=== PATIENT | male | born 1945 | race Caucasian/White ===

== ENCOUNTER 2020-10-21 00:09 | Day surgery (SDC) | payer MEDICARE, SELFPAY ==
[2020-10-07 11:22] VITALS: BMI 45.1
[2020-10-21 08:03] VITALS: BP 152/78; PULSE 80; RESP 20; TEMP 36.1; O2SAT 94; BMI 44.2
--- NOTE | 2020-10-21 08:27 | WPDANESEPPF ---
Anes - Initial Pre Proc Eval Procedure: Operation Date: 10/21/20 09:00 Proposed Procedures p Colonoscopy - Giuliano Granger MD Date/Time: 10/21/20 08:27 Surgeon: Giuliano Granger MD Pre Op Diagnosis: change in bowel habits Patient Data Age: 75 Gender: M Height: 1.8 m Weight: 143.9 kg Last Vital Signs Temp 36.1 C L 10/21/20 08:03 Pulse 80 10/21/20 08:03 Resp 20 10/21/20 08:03 BP 152/78 H 10/21/20 08:03 Pulse Ox 94 10/21/20 08:03 Allergies Allergy/AdvReac Type Severity Reaction Status Date / Time clindamycin Allergy Unknown unknown Verified 10/21/20 08:12 Home Medications Medication Instructions Recorded Confirmed Type aspirin 81 mg tablet,delayed 81 mg PO DAILY 01/08/20 10/21/20 History release clobetasol 0.05 % scalp solution 1 applic TOPICAL DAILY 01/08/20 10/21/20 History cyanocobalamin (vitamin B-12) 1,000 mcg PO DAILY 01/08/20 10/21/20 History 1,000 mcg tablet dulaglutide 1.5 mg/0.5 mL 1.5 mg SUBCUT WEEKLY 01/08/20 10/21/20 History subcutaneous pen injector furosemide 40 mg tablet 40 mg PO QAM 01/08/20 10/21/20 History glipizide 5 mg tablet 5 mg PO DAILY 01/08/20 10/21/20 History krill oil 500 mg capsule 500 mg PO DAILY 01/08/20 10/21/20 History magnesium 200 mg tablet 200 mg PO DAILY 01/08/20 10/21/20 History methimazole 5 mg tablet 5 mg PO DAILY 01/08/20 10/21/20 History metoprolol tartrate 50 mg tablet 50 mg PO DAILY 01/08/20 10/21/20 History omega-3 fatty acids 1,000 mg 1,000 mg PO DAILY 01/08/20 10/21/20 History capsule zinc 50 mg tablet 50 mg PO DAILY 01/08/20 10/21/20 History atorvastatin 10 mg tablet 10 mg PO DAILY #90 tablet 06/28/20 10/21/20 Rx lisinopril 10 mg tablet See Rx Instructions .ROUTE 07/12/20 10/21/20 Rx .COMPLEX #90 tablet linaclotide 290 mcg capsule 290 mcg PO DAILY #30 cap 07/30/20 10/21/20 Rx polyethylene glycol 3350 17 gram 17 g PO .COMPLEX #14 ea 07/30/20 10/21/20 Rx oral powder packet psyllium husk 0.4 gram capsule 0.8 g PO BID #120 cap 07/30/20 10/21/20 Rx diclofenac sodium 75 mg See Rx Instructions .ROUTE 08/09/20 10/21/20 Rx tablet,delayed release .COMPLEX #180 tablet spironolactone 25 mg tablet See Rx Instructions .ROUTE 08/09/20 10/21/20 Rx .COMPLEX #90 tablet docusate sodium 100 mg capsule 200 mg PO DAILY cap 09/23/20 10/21/20 History cholecalciferol (vitamin D3) 125 mcg PO DAILY 10/07/20 10/21/20 History metformin 1,000 mg PO BID 10/07/20 10/21/20 History Patient hx anesthesia problems: none Family hx anesthesia problems: none PMFSH Past Medical History Medical History Ascending aorta dilatation Bigeminy Bradycardia CAD (coronary artery disease) Chronic coronary artery disease Cobalamin deficiency Diabetes Diabetic neuropathy Dyslipidemia Dyslipidemia associated with type 2 diabetes mellitus Hypertension Hypertensive heart disease with CHF Hyperthyroidism Low TSH level Morbid obesity Nocturia NSVT (nonsustained ventricular tachycardia) ALEX treated with BiPAP Psoriasis PVC (premature ventricular contraction) Renal insufficiency Thyroid nodule Surgical History Surgical History History of cataract surgery History of cholecystectomy (~1974) History of gastric bypass (~2003) History of hemorrhoidectomy (~1969) History of tonsillectomy and adenoidectomy (~1949) Hx of myringotomy Family History Family History Father Diabetes mellitus Hypertension Family history of cardiovascular disease Mother Diabetes mellitus Family history of kidney disease Sibling Family history of glaucoma Grandparent Diabetes mellitus Other No family history of malignant neoplasm Social History Social History Smoking packs per day: 1 Smoking cigarettes per day: 20.0 Years smoked: 40 Smoking pack-y
[2020-10-21] MEDS: LACTATED RINGERS 1,000 ML 30 ML IV CONT (08:29)
[2020-10-21 08:30] LABS: Glucose Point of Care 153 mg/dl (65-105)
--- NOTE | 2020-10-21 08:31 | WPDHPUPDATE1 ---
History and Physical Update Update Date/Time: 10/21/20 08:31 History and Physical has been reviewed, including an updated exam of the patient. There are NO changes in the patient's condition. Risks, benefits, and alternatives have been discussed and questions answered. Patient agrees to proceed with procedure.
[2020-10-21 09:15] VITALS: BP 106/54; PULSE 64; RESP 20; O2SAT 95
[2020-10-21 09:25] VITALS: BP 116/62; PULSE 63; RESP 20; O2SAT 97
[2020-10-21 09:35] VITALS: BP 154/65; PULSE 59; RESP 20; O2SAT 99
== END 2020-10-21 09:44 | disposition home or self-care (01) ==
PROVIDERS: PCP Family Medicine; Visit Provider Internal Medicine Gastroenterology
PROC: 0DJD8ZZ Inspection of Lower Intestinal Tract, Via Natural or Artificial Opening Endoscopic (ICD-10-PCS; CPT 45378; principal; 2020-10-21 09:00)
DX: K59.00 Constipation, unspecified (principal); K64.8 Other hemorrhoids; I25.10 Atherosclerotic heart disease of native coronary artery without angina pectoris; E11.40 Type 2 diabetes mellitus with diabetic neuropathy, unspecified; I11.0 Hypertensive heart disease with heart failure; I50.9 Heart failure, unspecified; E78.5 Hyperlipidemia, unspecified; G47.33 Obstructive sleep apnea (adult) (pediatric); I49.3 Ventricular premature depolarization; L40.9 Psoriasis, unspecified; E05.90 Thyrotoxicosis, unspecified without thyrotoxic crisis or storm; I77.819 Aortic ectasia, unspecified site; E66.01 Morbid (severe) obesity due to excess calories; Z68.41 Body mass index [BMI] 40.0-44.9, adult; Z98.84 Bariatric surgery status; Z87.891 Personal history of nicotine dependence
CPT/HCPCS: 45378; 82948; J7120

== ENCOUNTER 2022-12-25 13:59 | Inpatient (IN) | payer OTHER, SELFPAY ==
--- NOTE | ~2022-12-25 | XR_ITS ---
EXAM: XR tibia fibula LT 2V DATE: 12/25/2022 18:17 HISTORY: L leg cellulitis recurrent . COMPARISON: None available. FINDINGS: Normal mineralization. No fracture or dislocation. No lytic or blastic lesion. Degenerativ e changes at the knee and ankle joint. No erosion or periosteal change. Scattered soft tissue calcifi cations. Atherosclerotic calcification. IMPRESSION: No acute osseous finding in the left tibia/fibula. Reviewed, dictated and finalized at location K.
--- NOTE | ~2022-12-25 | US_ITS ---
EXAMINATION: US venous doppler [facility] DATE: 12/25/2022 23:03 INDICATION: swelling, pain, erythema . TECHNIQUE: Grayscale images without and with compression and Doppler images of the left lower extremi ty veins were obtained. COMPARISON: 01/20/2016 FINDINGS: The left common femoral vein, profunda (deep) femoral vein, femoral vein, popliteal vein, peroneal v ein, posterior tibial veins, gastrocnemius vein, and greater saphenous vein are patent. IMPRESSION: Patent left lower extremity veins. No evidence of deep venous thrombosis. Reviewed, dictated and finalized at location K.
[2022-12-25 15:13] VITALS: BP 123/72; PULSE 92; RESP 20; TEMP 36.6; O2SAT 97
--- NOTE | 2022-12-25 17:15 | ED.GENADULT ---
HPI - General Adult General Chief complaint: Extremity Problem,Nontraumatic <Sundeep Yan PA-C - Last Filed: 12/25/22 18:58> Stated complaint: infection in leg <Sundeep Yan PA-C - Last Filed: 12/25/22 18:58> Time Seen by Provider: 12/25/22 17:04 <Sundeep Yan PA-C - Last Filed: 12/25/22 18:58> Source: patient <STEPHIE Calero Last Filed: 12/25/22 18:58> Mode of arrival: ambulatory <STEPHIE Calero Last Filed: 12/25/22 18:58> Limitations: no limitations <Sundeep Yan PA-C - Last Filed: 12/25/22 18:58> History of Present Illness HPI narrative: This is a 77-year-old male with PMH of CAD, HTN, CHF, diabetes type 2 who presents to the ED with chief complaint of possible left lower leg infection. Reports he was admitted and discharged 2 weeks ago from [facility] for the same problem. Reports they sent him home with 5 days of antibiotics for skin infection and UTI. He states that the leg had initially cleared up and felt fine. Over the last 2 days he has noticed that the redness is spreading through the leg more than normal. States he has some chronic baseline redness to the lower legs. Reports pain and erythema that are progressing since 2 days ago. Denies fevers, chills, nausea, vomiting, urinary symptoms. Additionally reports he did a stress test with Dr. Leon today. <Sundeep Yan PA-C - Last Filed: 12/25/22 18:58> Related Data Home medications: Home Medications Medication Instructions Recorded Confirmed aspirin 81 mg tablet,delayed 81 mg PO DAILY 01/08/20 12/26/22 release clobetasol 0.05 % scalp solution 1 applic topical BID 01/08/20 12/26/22 cyanocobalamin (vitamin B-12) 2,000 mcg PO DAILY 01/08/20 12/26/22 1,000 mcg tablet dulaglutide 1.5 mg/0.5 mL 1.5 mg subcut WEEKLY 01/08/20 12/26/22 subcutaneous pen injector (Trulicity) furosemide 40 mg tablet 40 mg PO QAM 01/08/20 12/26/22 magnesium 200 mg tablet 200 mg PO Q6H 01/08/20 12/26/22 metoprolol tartrate 50 mg tablet 50 mg PO BID 01/08/20 12/26/22 metformin 500 mg tablet 1,000 mg PO BID 10/07/20 12/26/22 atorvastatin 10 mg tablet 10 mg PO QHS 12/26/22 12/26/22 dapagliflozin propanediol 10 mg 10 mg PO DAILY 12/26/22 12/26/22 tablet diclofenac sodium 75 mg 150 mg PO DAILY 12/26/22 12/26/22 tablet,delayed release docusate sodium 100 mg capsule 100 mg PO QAM 12/26/22 12/26/22 (Colace) ipratropium bromide 42 mcg (0.06 2 spray intranasal TID 12/26/22 12/26/22 %) nasal spray lisinopril 10 mg tablet 10 mg PO DAILY 12/26/22 12/26/22 miconazole nitrate 2 % topical 1 applic topical BID 12/26/22 12/26/22 cream (Antifungal (miconazole)) multivitamin 1 tablet PO DAILY 12/26/22 12/26/22 mupirocin 2 % topical ointment 1 applic topical TID PRN Wound Care 12/26/22 12/26/22 who-tfpvw-aqzr-lidocaine topical 1 ea topical BID 12/26/22 12/26/22 ointment psyllium husk 0.4 gram capsule 0.4 g PO BID 12/26/22 12/26/22 (Metamucil) rivaroxaban 2.5 mg tablet (Xarelto) 2.5 mg PO BID 12/26/22 12/26/22 spironolactone 25 mg tablet 25 mg PO QAM 12/26/22 12/26/22 triamcinolone-hydrophilic base 0.1 1 ea topical BID PRN Wound Healing 12/26/22 12/26/22 % topical ointment vitamin E 400 unit tablet 45 mg PO DAILY 12/26/22 12/26/22 <Sundeep Yan PA-C - Last Filed: 12/25/22 18:58> Allergies/adverse reactions: Allergies Allergy/AdvReac Type Severity Reaction Status Date / Time clindamycin Allergy Unknown unknown Verified 12/26/22 02:21 <Sundeep Yan PA-C - Last Filed: 12/25/22 18:58> Review of Systems Review of Systems: All systems as dictated in HPI <Sundeep Yan PA-C - Last Filed: 12/25/22 18:58> All systems as dictated in HPI CONSTITUTIONAL: Denies fever CARDIOVASCULAR: Reports edema. Denies chest pain RESPIRATORY: Denies dyspnea. <Alisha Bliss PA-C - Last Filed: 12/26/22 01:44> All systems reviewed & are unremarkable except as noted in HPI and below <
[2022-12-25 17:17] LABS: Basophils Percent Auto 0.1 % (0.2-1.2); Eosinophils Percent Auto 0.1 % (0-4.4); Hematocrit 43.7 % (42.0-52.0); Hemoglobin 13.8 g/dL (14.0-18.0); Immature Granulocyte Absolute 0.03 K/mm3 (0.00-0.031); Immature Granulocyte Percent A 0.2 % (0-0.5); Lymphocytes Absolute Auto 2.06 K/mm3 (0.9-3.2); Lymphocytes Percent Auto 15.4 % (18.3-44.2); Mean Corpuscular HGB Conc 31.6 g/dl (32-36); Mean Corpuscular Hemoglobin 32.3 pg (26-34); Mean Corpuscular Volume 102.3 fl (80-100); Mean Platelet Volume 10.5 fl (7.4-10.4); Monocytes Absolute Auto 0.9 K/mm3 (0.1-0.6); Neutrophils Absolute Auto 10.3 K/mm3 (1.3-6.7); Neutrophils Percent Auto 77.2 % (45.5-73.1); Platelet Count Result 213 k/mm3 (150-375); Red Blood Count 4.27 M/mm3 (4.6-6.20); Red Cell Distribution Width 13.5 % (11.5-14.5); White Blood Count 13.4 K/mm3 (4.5-10.0)
[2022-12-25 17:29] LABS: Alanine Aminotransferase 76 U/L (6-50); Albumin Level 4.1 g/dL (3.5-5.1); Alkaline Phosphatase 85 U/L (38-126); Anion Gap 8 mmol/L (8-16); Aspartate Amino Transferase 36 U/L (17-59); Bilirubin,Total 0.8 mg/dL (0.2-1.3); Blood Urea Nitrogen 22 mg/dL (9-20); Calcium 9.2 mg/dL (8.4-10.2); Carbon Dioxide 29 mmol/L (22-30); Chloride 96 mmol/L (98-107); Estimated CRCL calculation 70 ml/min; Estimated Glomerular Filt Rate > 60; Glucose 124 mg/dL (65-110); Potassium 3.6 mmol/L (3.4-5.0); Sodium 133 mmol/L (137-145)
[2022-12-25 17:46] LABS: Erythrocyte Sedimentation Rate 33 mm/hr (0-20)
[2022-12-25 17:56] LABS: CRP 17.5 mg/dL (<1.0)
[2022-12-25 21:03] VITALS: BP 122/71; PULSE 82; RESP 18; O2SAT 100
[2022-12-25] MEDS: ceFAZolin 1 GM/NS 50 ML 1 GM/50 ML BAG IVPB (23:47)
--- NOTE | 2022-12-26 02:00 | ADMGEN ---
This patient, Yusef Hawkins, was admitted to Medical Room 251-01. Patient/family oriented to hospital policies and general routines including ID bracelet, bed and alarms, visiting hours, pain management, procedures, bathroom and other care routines, personal items, smoking policy, room service/diet, and visiting hours. Information on how to activate the Rapid Response Team has been discussed. Patient/Family are encouraged to report perceived risks to care and to ask questions if they do not understand what they are told or what they should do.
[2022-12-26 02:10] VITALS: BP 160/67; PULSE 84; RESP 18; TEMP 37; O2SAT 95
[2022-12-26 02:35] VITALS: BMI 36.8
[2022-12-26 08:11] VITALS: BP 126/47; PULSE 67; RESP 17; TEMP 36.3; O2SAT 97
[2022-12-26 08:21] LABS: Glucose Point of Care 106 mg/dl (65-105)
[2022-12-26 11:44] VITALS: BMI 36.8
[2022-12-26 12:15] LABS: Glucose Point of Care 135 mg/dl (65-105)
[2022-12-26 13:58] VITALS: BP 123/63; PULSE 102; RESP 17; TEMP 36.6; O2SAT 99
[2022-12-26] MEDS: metFORMIN HCL 500 MG TABLET 1000 MG PO (16:22)
[2022-12-26 17:09] LABS: Glucose Point of Care 144 mg/dl (65-105)
[2022-12-26 20:00] VITALS: PULSE 71; RESP 16; O2SAT 99
[2022-12-26] MEDS: ATORVASTATIN 10 MG TABLET PO (21:31)
[2022-12-26 21:32] VITALS: PULSE 80
[2022-12-26] MEDS: MAGNESIUM OXIDE 200 MG TABLET PO (21:32)
[2022-12-26] MEDS: RIVAROXABAN 2.5 MG TABLET PO (21:32)
[2022-12-26] MEDS: METOPROLOL TARTRATE 50 MG TAB PO (21:32)
[2022-12-26 21:51] VITALS: BP 134/89; PULSE 71; RESP 16; TEMP 37.1; O2SAT 99
--- NOTE | 2022-12-26 22:01 | PM.IMHP ---
H&P: HPI History of Present Illness Date/Time: 12/26/22 22:01 Chief Complaint: Increased inflammation in the left leg Narrative: This is a 77-year-old man with past medical history of CAD, hypertension, CHF, type 2 diabetes who presented to the ED with a chief complaint of left lower leg worsening cellulitis. He reports that he was seen at [facility] approximately 2 weeks ago. He said he was in inpatient from about 14 to 18. We do not have this data and information in the computer system. He says that he was treated for a UTI as well as left lower extremity cellulitis. He said he received 5 days of IV antibiotics. And then he said he received 5 more days of oral antibiotics. He does not remember the course of antibiotics for the UTI. However he says that he received both IV doxycycline inpatient and then p.o. doxycycline outpatient. He says the area on the left lower extremity did not completely resolve. He says that it started progressing over the past few days and now it has spread up his leg to almost his knee. He denies fever chills nausea vomiting any urinary symptoms. His cardiac history is positive for CAD and CHF. He said he had a stress test today with Dr. Leon. He was told that he failed the stress test. Review of Systems Review of Systems: He reports his CHF is stable. He denies any worsening shortness of breath or dyspnea at this time. [facility] Past Medical History Medical History (Updated 12/25/22 @ 23:26 by Alisha Bliss PA-C) Ascending aorta dilatation Bigeminy Bradycardia CAD (coronary artery disease) Chronic coronary artery disease Cobalamin deficiency Diabetes Diabetic neuropathy Dyslipidemia Dyslipidemia associated with type 2 diabetes mellitus Hypertension Hypertensive heart disease with CHF Hyperthyroidism Low TSH level Morbid obesity Nocturia NSVT (nonsustained ventricular tachycardia) ALEX treated with BiPAP Psoriasis PVC (premature ventricular contraction) Renal insufficiency Thyroid nodule Surgical History Surgical History History of cataract surgery History of cholecystectomy (~1974) History of gastric bypass (~2003) History of hemorrhoidectomy (~1969) History of tonsillectomy and adenoidectomy (~194) Hx of myringotomy Family History Family History (Updated 12/26/22 @ 02:24 by Rickey Patton RN) Father Family history of cardiovascular disease Diabetes mellitus Hypertension Mother Family history of kidney disease Diabetes mellitus Breast cancer Sibling Family history of glaucoma Grandparent Diabetes mellitus Sibling Thyroid cancer Social History Social History Smoking packs per day: 1 Smoking cigarettes per day: 20.0 Years smoked: 20 Smoking pack-years: 20.00 Smoking status: Former smoker Tobacco type: cigarettes Smoking end date: 03/26/99 Alcohol intake: never Alcohol use details: rarely Substance use: never Lack of Transportation: No Lack of Food: Never True Current Housing: I Have Housing Concerned About Future Housing: No Difficulty Paying Gas/Electric Bills: No Difficulty Paying for Meds: No Currently Unemployed: No Education: Bachelor's Degree Difficulty w/ Childcare or Family Care: No Living arrangements: with family Spiritual care concerns: No Meds Home Medications and Allergies Home Medications Medication Instructions Recorded Confirmed Type aspirin 81 mg tablet,delayed 81 mg PO DAILY 01/08/20 12/26/22 History release cyanocobalamin (vitamin B-12) 2,000 mcg PO DAILY 01/08/20 12/26/22 History 1,000 mcg tablet dulaglutide 1.5 mg/0.5 mL 1.5 mg subcut WEEKLY 01/08/20 12/26/22 History subcutaneous pen injector (Trulicity) furosemide 40 mg tablet 40 mg PO QAM 01/08/20 12/26/22 History magnesium 200 mg tablet 200 mg PO Q6H 01/08/20 12/26/22 History metoprolol ta
[2022-12-26 22:24] LABS: Glucose Point of Care 106 mg/dl (65-105)
[2022-12-26 23:13] LABS: Basophils Percent Auto 0.1 % (0.2-1.2); Eosinophils Percent Auto 0.4 % (0-4.4); Hematocrit 38.2 % (42.0-52.0); Hemoglobin 12.4 g/dL (14.0-18.0); Immature Granulocyte Absolute 0.02 K/mm3 (0.00-0.031); Immature Granulocyte Percent A 0.2 % (0-0.5); Lymphocytes Absolute Auto 1.74 K/mm3 (0.9-3.2); Lymphocytes Percent Auto 20.8 % (18.3-44.2); Mean Corpuscular HGB Conc 32.5 g/dl (32-36); Mean Corpuscular Hemoglobin 32.5 pg (26-34); Mean Platelet Volume 10.9 fl (7.4-10.4); Monocytes Absolute Auto 0.8 K/mm3 (0.1-0.6); Monocytes Percent Auto 9.1 % (2.6-8.5); Neutrophils Absolute Auto 5.8 K/mm3 (1.3-6.7); Neutrophils Percent Auto 69.4 % (45.5-73.1); Platelet Count Result 183 k/mm3 (150-375); Red Blood Count 3.82 M/mm3 (4.6-6.20); White Blood Count 8.4 K/mm3 (4.5-10.0)
[2022-12-26 23:24] LABS: Anion Gap 5 mmol/L (8-16); Blood Urea Nitrogen 20 mg/dL (9-20); Calcium 8.8 mg/dL (8.4-10.2); Carbon Dioxide 27 mmol/L (22-30); Chloride 98 mmol/L (98-107); Estimated CRCL calculation 75 ml/min; Estimated Glomerular Filt Rate > 60; Glucose 109 mg/dL (65-110); Magnesium 2.1 mg/dL (1.6-2.3); Potassium 3.3 mmol/L (3.4-5.0); Sodium 130 mmol/L (137-145)
[2022-12-27 04:23] VITALS: BP 135/58; PULSE 60; RESP 16; TEMP 36.9; O2SAT 97
[2022-12-27 05:56] LABS: Estimated CRCL calculation 94 ml/min; Estimated Glomerular Filt Rate > 60
[2022-12-27] MEDS: LINACLOTIDE 145 MCG CAPSULE 290 MCG PO (06:00)
[2022-12-27 08:04] LABS: Glucose Point of Care 176 mg/dl (65-105)
[2022-12-27] MEDS: lisinopriL 10 MG TABLET PO (10:00)
[2022-12-27] MEDS: EMPAGLIFLOZIN 25 MG TABLET BY MOUTH (10:00)
[2022-12-27] MEDS: ASPIRIN 81 MG CHEWABLE TABLET PO (10:00)
[2022-12-27] MEDS: MAGNESIUM OXIDE 200 MG TABLET PO (10:00)
[2022-12-27] MEDS: SPIRONOLACTONE 25 MG TABLET PO (10:00)
[2022-12-27] MEDS: RIVAROXABAN 2.5 MG TABLET PO ×2 (10:00→20:47)
[2022-12-27] MEDS: metFORMIN HCL 500 MG TABLET 1000 MG PO ×2 (10:00→17:21)
[2022-12-27 10:01] VITALS: PULSE 62
[2022-12-27] MEDS: CYANOCOBALAMIN 1,000 MCG TABLET 2000 MCG PO (10:01)
[2022-12-27] MEDS: METOPROLOL TARTRATE 50 MG TAB PO ×2 (10:01→20:47)
[2022-12-27] MEDS: CHOLECALCIFEROL 1,000 UNITS TABLET 1000 UNITS PO (10:01)
[2022-12-27] MEDS: FUROSEMIDE 40 MG TABLET PO (10:01)
[2022-12-27] MEDS: VITAMIN E 100 UNIT CAPSULE PO (10:01)
--- NOTE | 2022-12-27 11:18 | PM.IMPN ---
Progress Note: A&P Assessment and Plan (1) Bilateral primary osteoarthritis of knee: Code(s): M17.0 - Bilateral primary osteoarthritis of knee Status: Acute (2) Screening for prostate cancer: Code(s): Z12.5 - Encounter for screening for malignant neoplasm of prostate Status: Acute (3) Cellulitis of left lower extremity: Code(s): L03.116 - Cellulitis of left lower limb Status: Acute (4) Aortic stenosis: Code(s): I35.0 - Nonrheumatic aortic (valve) stenosis Status: Acute (5) Sciatica, right side: Code(s): M54.31 - Sciatica, right side Status: Acute (6) History of gastric bypass: Code(s): Z98.84 - Bariatric surgery status Status: Acute (7) Iron deficiency: Code(s): E61.1 - Iron deficiency Status: Acute (8) Rectal bleeding: Code(s): K62.5 - Hemorrhage of anus and rectum Status: Acute (9) Morbid obesity: Code(s): E66.01 - Morbid (severe) obesity due to excess calories Status: Acute (10) Constipation: Code(s): K59.00 - Constipation, unspecified Status: Acute Plan 1. Cellulitis Not responsive to doxycycline Start IV vancomycin and IV ceftriaxone Monitor antibiotics for 3 days at least to see clinical improvement If there is no improvement then order CT scan to look for abscess Follow-up CBC, BMP, magnesium every day for 5 days 2. CHF Continue dapagliflozin Continue furosemide, lisinopril, metoprolol, spironolactone Patient is not septic, not giving IV fluids at this time 3. CAD Failed stress test but unclear what is the diagnosis Recommend the day shift consult Cardiology so they can have ongoing management while this patient is inpatient Continue Xarelto, metoprolol, lisinopril, aspirin, dapagliflozin, Lipitor 4. non-IDDM Continue dulaglutide Continue metformin Glucose can be checked routinely on BMPs Can start insulin if he needs it Full code inpt/tele About 1 hour was spent doing this evaluation of this patient Subjective Date/time seen: 12/27/22 11:18 Interval history: No complaints Exam Narrative: GENERAL: Well-appearing, well-nourished, and in no acute distress. HEAD: Normocephalic, atraumatic. EYES: PERRLA and EOMI. ENT: Nares clear, no rhinorrhea or epistaxis.? Mucous membranes moist.? Oropharynx without tonsillar hypertrophy exudate or other lesions. NECK: Supple.? No adenopathy or masses.? CHEST: No respiratory distress. Clear to auscultation. No wheezes rales or rhonchi HEART: Regular rate and rhythm.? No murmur heard.? Normal peripheral pulses. ABDOMEN: Soft, nontender, nondistended, normal active bowel sounds. MSK: Normal range of motion. SKIN: Left lower extremity with erythema, 2+ pitting edema, warmth and tenderness.? No lymphangitic streaking. No crepitus. Normal DP pulse NEURO: Alert and oriented x3. No focal deficits.? PSYCH: Normal mood and affect. Objective Data Vital Signs Vital Signs: Vital Signs - 24 hr 12/26/22 13:58 12/26/22 21:32 12/26/22 21:51 Temperature 97.8 F 98.7 F Pulse Rate 102 H 80 71 Respiratory Rate 17 16 Blood Pressure 123/63 134/89 Pulse Oximetry 99 99 Oxygen Delivery 12/26/22 20:00 12/27/22 04:23 12/27/22 10:01 Temperature 98.5 F Pulse Rate 71 60 62 Respiratory Rate 16 16 Blood Pressure 135/58 L Pulse Oximetry 99 97 Oxygen Delivery Room Air 12/27/22 08:00 Temperature Pulse Rate Respiratory Rate Blood Pressure Pulse Oximetry Oxygen Delivery Room Air Intake/Output Intake/Output: Intake & Output 12/24/22 12/25/22 12/26/22 12/27/22 23:59 23:59 23:59 23:59 Intake Total 1560 1330 Output Total 1075 300 Balance 485 1030 Meds/Results Medications: Active Medications Generic Name Dose Route Start Last Admin Trade Name Freq PRN Reason Stop Dose Admin Aspirin 81 mg 12/27/22 08:00 12/27/22 10:00 Aspirin 81 Mg Chewable Tablet PO 81 mg DAILY@0800 [facility] Administ
[2022-12-27 12:10] LABS: Glucose Point of Care 151 mg/dl (65-105)
--- NOTE | 2022-12-27 13:36 | PHAR ---
Home medication: Unable to verify home med of Fiber Capsules (0.36G fiber each), as capsules are clear gelatin capsules with no identifiable markings. However, appears to be correct
--- NOTE | 2022-12-27 14:08 | PM.CNCAR ---
Assessment and Plan Assessment and plan (1) Abnormal stress test: Code(s): R94.39 - Abnormal result of other cardiovascular function study Status: Acute Assessment and Plan: Patient with variable RAMOS and a stress test showing a small area of moderate ischemia of the inferior segment. No typical angina. No recent symptoms to suggest unstable cardiac situation. Known mild CAD in 2013. The plan is to proceed with elective coronary angiography when the patient his optimal state of health, when his cellulitis has improved significantly. --our office will set up elective cardiac catheterization the next few weeks. --patient will call if there is change in symptoms --continue aspirin, atorvastatin (2) Cellulitis of left lower extremity: Code(s): L03.116 - Cellulitis of left lower limb Status: Acute Assessment and Plan: Patient was hospitalized with sepsis, lower extremity cellulitis and acute kidney injury add [facility] 2 weeks ago and returns with worsening cellulitis. --continue antibiotics per hospitalist (3) Frequent PVCs: Code(s): I49.3 - Ventricular premature depolarization Status: Acute Assessment and Plan: History of frequent PVCs with a 22% burden. Seeing an corn shredder. Has been mildly bradycardic in the past but not recently. --continue metoprolol, even if the patient is mildly bradycardic. (4) Chronic diastolic CHF (congestive heart failure): Code(s): I50.32 - Chronic diastolic (congestive) heart failure Status: Acute Assessment and Plan: History of chronic diastolic heart failure, well compensated at this time. --continue furosemide, spironolactone, Jardiance History of Present Illness History of Present Illness Consult date/time: 12/27/22 14:08 Reason For Visit: Cellulitis Narrative: Yusef Hawkins is a year old male whom I was asked to see at the request of Dr. Beth for my advice and opinion regarding his abnormal stress test, in consultation. The patient was hospitalized at [facility] on 12/06/2022 with sepsis and lower extremity cellulitis. He had acute kidney injury and lactic acidosis. No acute cardiac issues during his hospital stay and he was discharged on 12/11/2022. He was readmitted to [facility] on 12/25/2022 with worsening cellulitis of his left leg and has been started on vancomycin and ceftriazone He is followed by Dr. Leon for his coronary disease and chronic diastolic heart failure. Cardiac catheterization in 2013 showed mild CAD. He has hypertension, diabetes, hyperlipidemia, sleep apnea, bradycardia, frequent PVCs (greater than 20% burden, followed by corn shredder, treated with metoprolol), and mild aortic valve stenosis. He was last seen on 12/19/2022 with stable CHF. He had progressive exertional dyspnea and underwent a stress test which showed ejection fraction 51%, hypokinesis of the inferior wall, a small area of moderate ischemia of the basal inferior septal and mid inferoseptal segments. Elective outpatient cardiac catheterization was planned. The patient continues to have some intermittent RAMOS particularly when he initiates activity. No angina, dizziness, palpitations. Some edema the left lower extremity. An echocardiogram done 12/08/2022 showed ejection fraction 55-60%, diastolic dysfunction, and mild aortic stenosis. Review of Systems Constitutional: Constitutional: Denies fever(s) Eyes: Eyes: Reports no additional eye complaints ENT: Denies epistaxis Cardiovascular: Cardiovascular: Denies chest pain, Denies pedal edema, Denies lightheadedness and Denies dyspnea Respiratory: Respiratory: Denies chest congestion, Denies dyspnea and Reports dyspnea on exertion Gastrointestinal: Gastrointestinal: Denies abdominal pain and Denies hematochezia Genitourinary: Genitourinary: Denies hematuria Musculoskeletal: Musculoskeletal: Reports no additio
[2022-12-27 14:12] VITALS: BP 105/48; PULSE 71; RESP 16; TEMP 37.4; O2SAT 95
[2022-12-27 16:49] LABS: Glucose Point of Care 100 mg/dl (65-105)
[2022-12-27] MEDS: MAGNESIUM OXIDE 400 MG TABLET 800 MG PO (17:21)
[2022-12-27 19:20] VITALS: BP 93/50; PULSE 72; RESP 18; TEMP 37; O2SAT 93
[2022-12-27 20:00] VITALS: PULSE 76; RESP 18; O2SAT 94
[2022-12-27] MEDS: ATORVASTATIN 10 MG TABLET PO (20:47)
[2022-12-27 22:02] LABS: Glucose Point of Care 91 mg/dl (65-105)
[2022-12-27 23:14] LABS: Basophils Percent Auto 0.1 % (0.2-1.2); Eosinophils Absolute Auto 0.1 K/mm3 (0-0.3); Eosinophils Percent Auto 0.9 % (0-4.4); Hematocrit 36.6 % (42.0-52.0); Hemoglobin 11.8 g/dL (14.0-18.0); Immature Granulocyte Absolute 0.05 K/mm3 (0.00-0.031); Immature Granulocyte Percent A 0.7 % (0-0.5); Lymphocytes Absolute Auto 1.69 K/mm3 (0.9-3.2); Lymphocytes Percent Auto 22.6 % (18.3-44.2); Mean Corpuscular HGB Conc 32.2 g/dl (32-36); Mean Corpuscular Hemoglobin 32.6 pg (26-34); Mean Corpuscular Volume 101.1 fl (80-100); Mean Platelet Volume 11.1 fl (7.4-10.4); Monocytes Absolute Auto 0.8 K/mm3 (0.1-0.6); Monocytes Percent Auto 11.1 % (2.6-8.5); Neutrophils Absolute Auto 4.8 K/mm3 (1.3-6.7); Neutrophils Percent Auto 64.6 % (45.5-73.1); Platelet Count Result 199 k/mm3 (150-375); Red Blood Count 3.62 M/mm3 (4.6-6.20); Red Cell Distribution Width 13.1 % (11.5-14.5); White Blood Count 7.5 K/mm3 (4.5-10.0)
[2022-12-27 23:27] LABS: Anion Gap 7 mmol/L (8-16); Blood Urea Nitrogen 20 mg/dL (9-20); Calcium 8.2 mg/dL (8.4-10.2); Carbon Dioxide 25 mmol/L (22-30); Chloride 98 mmol/L (98-107); Estimated CRCL calculation 68 ml/min; Estimated Glomerular Filt Rate > 60; Glucose 121 mg/dL (65-110); Potassium 3.2 mmol/L (3.4-5.0); Sodium 130 mmol/L (137-145)
[2022-12-28] VITALS (7 sets, daily range): BP systolic 92–128; BP diastolic 45–71; PULSE 56–88; RESP 16–18; TEMP 36.3–36.9; O2SAT 95–100
[2022-12-28] MEDS: LINACLOTIDE 145 MCG CAPSULE 290 MCG PO (05:35)
[2022-12-28 08:14] LABS: Glucose Point of Care 155 mg/dl (65-105)
[2022-12-28 08:33] LABS: Estimated CRCL calculation 75 ml/min; Estimated Glomerular Filt Rate > 60
[2022-12-28] MEDS: CHOLECALCIFEROL 1,000 UNITS TABLET 1000 UNITS PO (09:06)
[2022-12-28] MEDS: CYANOCOBALAMIN 1,000 MCG TABLET 2000 MCG PO (09:06)
[2022-12-28] MEDS: MAGNESIUM OXIDE 400 MG TABLET 800 MG PO ×2 (09:06→16:51)
[2022-12-28] MEDS: ASPIRIN 81 MG CHEWABLE TABLET PO (09:06)
[2022-12-28] MEDS: RIVAROXABAN 2.5 MG TABLET PO ×2 (09:06→20:41)
[2022-12-28] MEDS: VITAMIN E 100 UNIT CAPSULE PO (09:07)
[2022-12-28] MEDS: lisinopriL 10 MG TABLET PO (09:07)
[2022-12-28] MEDS: SPIRONOLACTONE 25 MG TABLET PO (09:07)
[2022-12-28] MEDS: EMPAGLIFLOZIN 25 MG TABLET BY MOUTH (09:07)
[2022-12-28] MEDS: metFORMIN HCL 500 MG TABLET 1000 MG PO ×2 (09:07→16:51)
[2022-12-28] MEDS: METOPROLOL TARTRATE 50 MG TAB PO ×2 (09:07→20:40)
[2022-12-28] MEDS: FUROSEMIDE 40 MG TABLET PO (09:08)
[2022-12-28 09:10] LABS: Vancomycin Trough 15.4 ug/mL (10.0-20.0)
[2022-12-28] MEDS: NEOMYCIN/POLYMYXIN/BACITRACIN OINTMENT 15 GM TUBE 1 APPLIC TOPICAL ×2 (09:17→16:51)
--- NOTE | 2022-12-28 10:30 | PM.IMPN ---
Progress Note: A&P Assessment and Plan (1) Bilateral primary osteoarthritis of knee: Code(s): M17.0 - Bilateral primary osteoarthritis of knee Status: Acute (2) Screening for prostate cancer: Code(s): Z12.5 - Encounter for screening for malignant neoplasm of prostate Status: Acute (3) Cellulitis of left lower extremity: Code(s): L03.116 - Cellulitis of left lower limb Status: Acute (4) Aortic stenosis: Code(s): I35.0 - Nonrheumatic aortic (valve) stenosis Status: Acute (5) Sciatica, right side: Code(s): M54.31 - Sciatica, right side Status: Acute (6) History of gastric bypass: Code(s): Z98.84 - Bariatric surgery status Status: Acute (7) Iron deficiency: Code(s): E61.1 - Iron deficiency Status: Acute (8) Rectal bleeding: Code(s): K62.5 - Hemorrhage of anus and rectum Status: Acute (9) Morbid obesity: Code(s): E66.01 - Morbid (severe) obesity due to excess calories Status: Acute (10) Constipation: Code(s): K59.00 - Constipation, unspecified Status: Acute Plan 1. Cellulitis Not responsive to doxycycline Start IV vancomycin and IV ceftriaxone Monitor antibiotics for 3 days at least to see clinical improvement If there is no improvement then order CT scan to look for abscess Follow-up CBC, BMP, magnesium every day for 5 days 2. CHF Continue dapagliflozin Continue furosemide, lisinopril, metoprolol, spironolactone Patient is not septic, not giving IV fluids at this time 3. CAD Failed stress test but unclear what is the diagnosis Recommend the day shift consult Cardiology so they can have ongoing management while this patient is inpatient Continue Xarelto, metoprolol, lisinopril, aspirin, dapagliflozin, Lipitor 4. non-IDDM Continue dulaglutide Continue metformin Glucose can be checked routinely on BMPs Can start insulin if he needs it Full code inpt/tele About 1 hour was spent doing this evaluation of this patient Subjective Date/time seen: 12/28/22 10:30 Interval history: No complaints Exam Narrative: GENERAL: Well-appearing, well-nourished, and in no acute distress. HEAD: Normocephalic, atraumatic. EYES: PERRLA and EOMI. ENT: Nares clear, no rhinorrhea or epistaxis.? Mucous membranes moist.? Oropharynx without tonsillar hypertrophy exudate or other lesions. NECK: Supple.? No adenopathy or masses.? CHEST: No respiratory distress. Clear to auscultation. No wheezes rales or rhonchi HEART: Regular rate and rhythm.? No murmur heard.? Normal peripheral pulses. ABDOMEN: Soft, nontender, nondistended, normal active bowel sounds. MSK: Normal range of motion. SKIN: Left lower extremity with erythema, 2+ pitting edema, warmth and tenderness.? No lymphangitic streaking. No crepitus. Normal DP pulse NEURO: Alert and oriented x3. No focal deficits.? PSYCH: Normal mood and affect. Objective Data Vital Signs Vital Signs: Vital Signs - 24 hr 12/27/22 14:12 12/27/22 19:20 12/27/22 20:00 Temperature 99.3 F 98.6 F Pulse Rate 71 72 76 Respiratory Rate 16 18 18 Blood Pressure 105/48 L 93/50 L Pulse Oximetry 95 93 94 Oxygen Delivery Room Air 12/28/22 06:00 12/28/22 09:07 12/28/22 09:30 Temperature 97.4 F L Pulse Rate 56 L 88 88 Respiratory Rate 18 Blood Pressure 92/45 L 128/71 Pulse Oximetry 100 Oxygen Delivery Intake/Output Intake/Output: Intake & Output 12/25/22 12/26/22 12/27/22 12/28/22 23:59 23:59 23:59 23:59 Intake Total 1560 2200 360 Output Total 1075 900 405 Balance 485 1300 -45 Meds/Results Medications: Active Medications Generic Name Dose Route Start Last Admin Trade Name Freq PRN Reason Stop Dose Admin Aspirin 81 mg 12/27/22 08:00 12/28/22 09:06 Aspirin 81 Mg Chewable Tablet PO 81 mg DAILY@0800 BRI Administration Atorvastatin Calcium 10 mg 12/26/22 21:00 12/27/22 20:47 Atorvastatin 10 Mg Tablet PO 10 m
[2022-12-28 12:13] LABS: Glucose Point of Care 112 mg/dl (65-105)
--- NOTE | 2022-12-28 13:01 | PC.NURSE ---
On 12/28/22, the student, [Jorge Samson], provided care and completed [facility] documentation on this patient. I have reviewed the student's documentation and agree with the findings.
[2022-12-28 17:29] LABS: Glucose Point of Care 120 mg/dl (65-105)
[2022-12-28] MEDS: ATORVASTATIN 10 MG TABLET PO (20:41)
[2022-12-28 22:03] LABS: Basophils Percent Auto 0.4 % (0.2-1.2); Eosinophils Absolute Auto 0.1 K/mm3 (0-0.3); Eosinophils Percent Auto 0.8 % (0-4.4); Hematocrit 37.1 % (42.0-52.0); Immature Granulocyte Absolute 0.04 K/mm3 (0.00-0.031); Immature Granulocyte Percent A 0.5 % (0-0.5); Lymphocytes Absolute Auto 1.71 K/mm3 (0.9-3.2); Lymphocytes Percent Auto 22.4 % (18.3-44.2); Mean Corpuscular HGB Conc 32.3 g/dl (32-36); Mean Corpuscular Hemoglobin 32.5 pg (26-34); Mean Corpuscular Volume 100.5 fl (80-100); Mean Platelet Volume 10.5 fl (7.4-10.4); Monocytes Absolute Auto 0.8 K/mm3 (0.1-0.6); Monocytes Percent Auto 10.7 % (2.6-8.5); Neutrophils Percent Auto 65.2 % (45.5-73.1); Platelet Count Result 176 k/mm3 (150-375); Red Blood Count 3.69 M/mm3 (4.6-6.20); White Blood Count 7.6 K/mm3 (4.5-10.0)
[2022-12-28 22:14] LABS: Anion Gap 6 mmol/L (8-16); Blood Urea Nitrogen 16 mg/dL (9-20); Calcium 8.3 mg/dL (8.4-10.2); Carbon Dioxide 25 mmol/L (22-30); Chloride 100 mmol/L (98-107); Estimated CRCL calculation 75 ml/min; Estimated Glomerular Filt Rate > 60; Glucose 120 mg/dL (65-110); Potassium 3.3 mmol/L (3.4-5.0); Sodium 131 mmol/L (137-145)
[2022-12-28 22:16] LABS: Glucose Point of Care 98 mg/dl (65-105)
[2022-12-29] MEDS: LINACLOTIDE 145 MCG CAPSULE 290 MCG PO (05:42)
[2022-12-29 06:00] VITALS: BP 126/51; PULSE 60; RESP 18; TEMP 36.2; O2SAT 97
[2022-12-29 06:16] LABS: Estimated CRCL calculation 83 ml/min; Estimated Glomerular Filt Rate > 60
[2022-12-29 08:36] LABS: Glucose Point of Care 113 mg/dl (65-105)
[2022-12-29 08:39] VITALS: BP 112/54; PULSE 71; RESP 16; O2SAT 96
[2022-12-29] MEDS: CHOLECALCIFEROL 1,000 UNITS TABLET 1000 UNITS PO (08:44)
[2022-12-29] MEDS: ASPIRIN 81 MG CHEWABLE TABLET PO (08:44)
[2022-12-29] MEDS: metFORMIN HCL 500 MG TABLET 1000 MG PO (08:44)
[2022-12-29 08:45] VITALS: PULSE 74
[2022-12-29] MEDS: EMPAGLIFLOZIN 25 MG TABLET BY MOUTH (08:45)
[2022-12-29] MEDS: FUROSEMIDE 40 MG TABLET PO (08:45)
[2022-12-29] MEDS: MAGNESIUM OXIDE 400 MG TABLET 800 MG PO (08:45)
[2022-12-29] MEDS: SPIRONOLACTONE 25 MG TABLET PO (08:45)
[2022-12-29] MEDS: VITAMIN E 100 UNIT CAPSULE PO (08:45)
[2022-12-29] MEDS: RIVAROXABAN 2.5 MG TABLET PO (08:45)
[2022-12-29] MEDS: METOPROLOL TARTRATE 50 MG TAB PO (08:45)
[2022-12-29] MEDS: CYANOCOBALAMIN 1,000 MCG TABLET 2000 MCG PO (08:45)
[2022-12-29] MEDS: NEOMYCIN/POLYMYXIN/BACITRACIN OINTMENT 15 GM TUBE 1 APPLIC TOPICAL (08:46)
[2022-12-29] MEDS: traMADol HCL (*CRX) 50 MG TABLET PO (08:47)
--- NOTE | 2022-12-29 09:52 | P.CDI_ITS ---
* There is not a cause and effect relationship between cellulitis and Diabetes Mellitus. CDI Query Clarification Request Please clarify if there is a cause and effect relationship between cellulitis and Diabetes Mellitus. * There is a cause and effect relationship between cellulitis and Diabetes Mellitus. * There is not a cause and effect relationship between cellulitis and Diabetes Mellitus. * Unknown if there is a cause and effect relationship between cellulitis and Diabetes Mellitus.
--- NOTE | 2022-12-29 09:52 | WPDCDIQUERY2 ---
CDI Query Clarification Request Please clarify if there is a cause and effect relationship between cellulitis and Diabetes Mellitus. There is a cause and effect relationship between cellulitis and Diabetes Mellitus. There is not a cause and effect relationship between cellulitis and Diabetes Mellitus. Unknown if there is a cause and effect relationship between cellulitis and Diabetes Mellitus.
--- NOTE | 2022-12-29 11:09 | PM.DS ---
DS: Admitting Diagnosis Discharge Date [address] hundred twenty-three Admitting Diagnosis Cellulitis DS: Discharge Diagnosis Discharge Diagnosis (1) Bilateral primary osteoarthritis of knee: Code(s): M17.0 - Bilateral primary osteoarthritis of knee Status: Acute (2) Screening for prostate cancer: Code(s): Z12.5 - Encounter for screening for malignant neoplasm of prostate Status: Acute (3) Cellulitis of left lower extremity: Code(s): L03.116 - Cellulitis of left lower limb Status: Acute (4) Aortic stenosis: Code(s): I35.0 - Nonrheumatic aortic (valve) stenosis Status: Acute (5) Sciatica, right side: Code(s): M54.31 - Sciatica, right side Status: Acute (6) History of gastric bypass: Code(s): Z98.84 - Bariatric surgery status Status: Acute (7) Iron deficiency: Code(s): E61.1 - Iron deficiency Status: Acute (8) Rectal bleeding: Code(s): K62.5 - Hemorrhage of anus and rectum Status: Acute (9) Morbid obesity: Code(s): E66.01 - Morbid (severe) obesity due to excess calories Status: Acute (10) Constipation: Code(s): K59.00 - Constipation, unspecified Status: Acute Plan 1. Cellulitis Not responsive to doxycycline Start IV vancomycin and IV ceftriaxone Monitor antibiotics for 3 days at least to see clinical improvement If there is no improvement then order CT scan to look for abscess Follow-up CBC, BMP, magnesium every day for 5 days 2. CHF Continue dapagliflozin Continue furosemide, lisinopril, metoprolol, spironolactone Patient is not septic, not giving IV fluids at this time 3. CAD Failed stress test but unclear what is the diagnosis Recommend the day shift consult Cardiology so they can have ongoing management while this patient is inpatient Continue Xarelto, metoprolol, lisinopril, aspirin, dapagliflozin, Lipitor 4. non-IDDM Continue dulaglutide Continue metformin Glucose can be checked routinely on BMPs Can start insulin if he needs it Full code inpt/tele About 1 hour was spent doing this evaluation of this patient DS: Summary Hospital Course Hospital Course: Patient is admitted for cellulitis. IV antibiotics were started and patient. He did exceptionally well. Cellulitis looks improved. Oral antibiotics on discharge Time Spent with Patient Time attestation: Total time spent providing and/or coordinating discharge services: Exam Narrative: GENERAL: Well-appearing, well-nourished, and in no acute distress. HEAD: Normocephalic, atraumatic. EYES: PERRLA and EOMI. ENT: Nares clear, no rhinorrhea or epistaxis.? Mucous membranes moist.? Oropharynx without tonsillar hypertrophy exudate or other lesions. NECK: Supple.? No adenopathy or masses.? CHEST: No respiratory distress. Clear to auscultation. No wheezes rales or rhonchi HEART: Regular rate and rhythm.? No murmur heard.? Normal peripheral pulses. ABDOMEN: Soft, nontender, nondistended, normal active bowel sounds. MSK: Normal range of motion. SKIN: Left lower extremity with erythema, 2+ pitting edema, warmth and tenderness.? No lymphangitic streaking. No crepitus. Normal DP pulse NEURO: Alert and oriented x3. No focal deficits.? PSYCH: Normal mood and affect. DS: Data Data Completed and Pending Labs on day of discharge: Labs from last 24 hours 12/29/22 12/29/22 12/28/22 08:30 05:37 21:57 WBC 7.6 RBC 3.69 L Hgb 12.0 L Hct 37.1 L MCV 100.5 H MCH 32.5 MCHC 32.3 RDW 13.0 Plt Count 176 MPV 10.5 H Immature Gran % (Auto) 0.5 Neut % (Auto) 65.2 Lymph % (Auto) 22.4 [place] % (Auto) 10.7 H Eos % (Auto) 0.8 Baso % (Auto) 0.4 Lymph # (Auto) 1.71 [place] # (Auto) 0.8 H Eos # (Auto) 0.1 Baso # (Auto) 0.0 Abs Immat Gran (auto) 0.04 H Absolute Neuts (auto) 5.0 Absolute Nucleated RBC 0.0 Nucleated RBC % 0.0 Sodium 131 L Potassium 3.3 L Chloride
[2022-12-29 12:14] LABS: Glucose Point of Care 199 mg/dl (65-105)
== END 2022-12-29 13:00 | disposition home or self-care (01) | DRG 603 ==
LOC: ANHED 12-26 00:49 → ANH2MED 12-26 01:16
PROVIDERS: Internal Medicine; Physician Assistant; Admitting Provider Internal Medicine; Emergency Provider Physician Assistant; Visit Provider Chiropractor
DX: L03.116 Cellulitis of left lower limb (principal); I47.29 Other ventricular tachycardia; I50.32 Chronic diastolic (congestive) heart failure; I11.0 Hypertensive heart disease with heart failure; I35.0 Nonrheumatic aortic (valve) stenosis; I25.10 Atherosclerotic heart disease of native coronary artery without angina pectoris; E11.40 Type 2 diabetes mellitus with diabetic neuropathy, unspecified; E05.90 Thyrotoxicosis, unspecified without thyrotoxic crisis or storm; E66.01 Morbid (severe) obesity due to excess calories; M17.0 Bilateral primary osteoarthritis of knee; G47.33 Obstructive sleep apnea (adult) (pediatric); Z68.36 Body mass index [BMI] 36.0-36.9, adult; Z98.84 Bariatric surgery status; Z79.01 Long term (current) use of anticoagulants; Z79.82 Long term (current) use of aspirin; Z79.84 Long term (current) use of oral hypoglycemic drugs; Z87.891 Personal history of nicotine dependence
CPT/HCPCS: 36415; 73590; 80048; 80053; 80202; 82565; 82948; 83735; 85025; 85652; 86140; 87040; 87081; 93971; 96365; 96366; 96367; 99285; A9270; G0378; J0690; J0696; J3370

== ENCOUNTER 2023-07-12 12:34 | Outpatient (CLI) | payer OTHER, SELFPAY ==
--- NOTE | ~2023-07-12 | XR_ITS ---
XR chest 2V 07/12/2023 12:50 Indication: Chronic heart failure and shortness of breath Procedure: 2 view chest Comparison: No prior studies for comparison. Findings: Mildly elevated left diaphragm. Pacemaker leads are in expected position. Heart size normal . No focal air space disease, pulmonary edema, pleural effusion or suspected pneumothorax. Impression: 1: No acute cardiopulmonary disease. Reviewed, dictated and finalized at location B. Impression: 1: No acute cardiopulmonary disease.
== END 2023-07-12 12:35 | disposition home or self-care (01) ==
LOC: ANHIMG 12:36
PROVIDERS: PCP Internal Medicine Cardiovascular Disease; Visit Provider Internal Medicine Cardiovascular Disease
DX: I50.89 Other heart failure (principal); R06.02 Shortness of breath
CPT/HCPCS: 71046

== ENCOUNTER 2024-09-10 09:49 | Outpatient (CLI) | payer MEDICARE, SELFPAY ==
--- NOTE | ~2024-09-10 | CT_ITS ---
Clinical Indication: Abnormal weight loss CT Scan of the Chest, Abdomen, and Pelvis with Contrast: Technique: Contiguous sections were acquired throughout the chest, abdomen, and pelvis after intraven ous administration of 100 cc of Omnipaque 350. Dose reduction technique was used on this scan by uti lizing automated exposure control and iterative reconstruction technique. The dose-length product (DL P) was 1915.82 mGy-cm. Findings: 3 cm heterogeneously enhancing, predominantly hypodense left thyroid lobe nodule present. S ubcentimeter right thyroid lobe nodules are present. There is no evidence of any significant mediastinal, hilar or axillary lymphadenopathy. The mediastin al soft tissues and vascular structures appear normal. No pericardial effusion. Moderate bilateral pleural effusions are present. There is mild bibasilar associated atelectatic allen ge. Hepatic mass demonstrates coarse peripheral calcification with central fat attenuation, compatible wi th a benign lesion. No other hepatic abnormality seen. The spleen, pancreas, gallbladder, adrenals an d kidneys are within normal limits. There are atherosclerotic calcifications of the aorta. No lympha denopathy. No bowel obstruction or bowel wall thickening. There is no evidence to suggest acute appendicitis. Pr obable area of chronic fat necrosis just left of midline, just deep to the anterior abdominal wall. Urinary bladder is unremarkable. No pelvic mass seen. No ascites. Impression: Moderate bilateral pleural effusions with mild bibasilar subsegmental atelectatic change. Benign-appearing hepatic mass with fat attenuation peripheral calcification. Probable area of chronic fat necrosis in the abdomen, as detailed above. Reviewed, dictated and finalized at [facility]. Impression: Moderate bilateral pleural effusions with mild bibasilar subsegmental atelectat ic change. Benign-appearing hepatic mass with fat attenuation peripheral calcification. Probable area of chronic fat necrosis in the abdomen, as detailed above.
[2024-09-10 10:20] LABS: Estimated Glomerular Filt Rate 58
--- OUTSIDE RECORDS SUMMARY | 2024-09-10 11:01 | XMS_ITS ---
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 Name Role Phone Cynthia Madsen Unavailable [phone] Song Calhoun Unavailable [phone] [facility] ([facility]), Alisha Alvarado Unavailable Unavailable [facility] RN ([facility]L), Lorena enamorado Unavailable Unavailable Unavailable Unavailable Cornel Sanderson Unavailable [phone] Magnus Gagnon Unavailable Unavailable YULIANA CAMPOS Unavailable [phone] Baljit Randall Unavailable [phone] Reason for Referral Not Available Allergies, adverse reactions, alerts Allergen Type Reaction Severity Status Onset Date Clindamycin Allergy to substance (disorder) Unknow n Active N/A Amiodarone Allergy to substance (disorder) Unknown Active N/A History of medication use Medication Class Instructions Start Date End Date Furosemide 40 mg Tab No Data Available 2023-12-24 No Data Available Aspirin 81 mg Tab delayed rel No Data Available 12-23 No Data Available Diclofenac Sodium 75 mg Tab delayed rel 1 tablet orally 2 times per day 2023-12-24 No Data Available [facility] Vitamin B12 1000 MCG Tab No Data Available 2023-11 No Data Available Lisinopril 10 mg Tab No Data Available 2023-12-24 No Data Available traMADol 50 mg Tab 1 tablet every other day 2023-12-24 No Data Available Magnesium 200 mg Tab 4 tablets once daily 2023-12-24 No Data Available [facility] [place] Krill Oil 350 mg Cap No Data Available 2023-12-24 No Data Available Triamcinolone Acetonide 0.02 5 % Crm No Data Available 2023-12-24 No Data Available Docusate Sodium 100 mg Cap No Data Available 2023-11-27 0 No Data Available Vitamin E 90 mg (200 UNIT) Cap No Data Available 2023-12-24 No Data Available Zinc 50 mg Tab No Data Available 2023-12-24 No Data Available Motegrity 2 mg Tab TAKE 1 TABLET BY KONG TH EVERY DAY 2023-10-22 No Data Available Xarelto 2.5 mg Tab No Data Available 2023-04-02 No D jessica Available Ozempic (0.25 or 0.5 mg/DOSE ) 2 mg/3ML Solution Pen-injector INJECT 0.5MG UNDER THE SKIN EVERY 7 DAYS 2023-08-14 No Data Available Farxiga 10 mg Tab No Data Available 2023-09-03 No Da ta Available Atorvastatin Calcium 10 mg Tab No Data Available 2023-08-10 No Data Available metFORMIN 500 mg Tab No Data Available 2023-06-28 No Data Available Metoprolol Tartrate 50 mg Tab No Data Available No Data Available methIMAzole 5 mg Tab TAKE 5 MG DAILY Sun THROUGH SUNDAY. DO NOT TAKE ANY ON THE WEEKENDS 2023-07-04 No Data Available Problem List Problem Status Onset Date Resolved Date Synopsis Lower extremity edema Active 2023-12-24 N/A N/A Heart failure with preserved ejection fraction Active 2023-12-24 N/A N/A Hypertension associated with type 2 diabetes mellitus Active 2023-12-24 N/A N/A Hyperlipidemia associated with type 2 diabetes mellitus Active 2023-12-24 N/A N/ A Coronary artery disease Active 2023-12-24 N/A N /A Hyperthyroidism Active 2023-12-24 N/A N/A Osteoarthritis Active 2023-12-24 N/A N/A ALEX (obstructive sleep apnea) Active 2023-12-24 N/A has not worn BiPap in a few weeks Presence of cardiac pacemaker Active 2023-12-24 N/A N/A Peripheral vascular disease with stasis dermatitis Active 2023-12-24 N/A N/A RAMOS (dyspnea on exertion) Active 2023-12-24 N/A N/A CKD stage 2 due to type 2 diabetes mellitus Active 2024-02-25 N/A N/A Morbid obesity Resolved 2023-12-24 2024-02-25 N/A Obesity (BMI 30.0-34.9) Active 2024-02-25 N/A N /A Dysphagia Active 2024-02-25 N/A N/A Risk for falls Active 2024-02-25 N/A N/A Stage 1 decubitus ulcer in diabetic patient Active 2024-02-25 N/A N/A Encounters Encounters Type Facility Date of Service Diagnosis/Co mplaint Home visit for evaluation and management of new patient requiring medically appropriate examination and high level of medical decision making. If using time, at least 75 minutes total time on [facility] [place] 12/24/2023 Unspecified diastoli c (congestive) heart failureHypertensive heart disease with heart failureType 2 diabetes w diabetic peripheral angiopath w/o gangreneType 2 diabetes mellitus with other specified complicationMorbid (severe) obesity due to excess caloriesHyperlipidemia, unspecifiedAthscl heart disease of [place] coronary artery w/o ang pctrsThyrotoxicosis, unspecified without thyrotoxic crisis or stormUnspecified osteoarthritis, unspecified siteObstructive sleep apnea (adult) (pediatric)Venous insufficiency (chronic) (peripheral)Body mass index (BMI) 35.0-35.9, adult Home visit for evaluation and management of established patient requiring medically appropriate examination and high level of medical decision making. If using time, at least 60 minutes total time on [facility] 02/25/2024 Unspecified diastoli c (congestive) heart failureType 2 diabetes mellitus with other circulatory complicationsHypertensive heart disease with heart failureHistory of fallingDysphagia, unspecifiedObesity, class 1Pressure ulcer of unspecified site, stage 1 Home visit for evaluation and management of established patient requiring medically appropriate examination and high level of medical decision making. If using time, at least 60 minutes total time on [facility] 02/25/2024 Unspecified diastoli c (congestive) heart failureDysphagia, unspecifiedHistory of fallingBody mass index (bmi) 31.0-31.9, adult Home visit for evaluation and management of established patient requiring medically appropriate examination and high level of medical decision making. If using time, at least 60 minutes total time on [facility] 02/25/2024 Unspecified diastoli c (congestive) heart failure Vital Signs Date of Collection Vitals 2023-12-24 08:42:43 Height - 180.34 cmWe ight - 113.85 kgBody Mass Index (BMI) - 35.01 kg/m2BP Diastolic - 70.0 mm[Hg]BP Systolic - 100.0 mm[Hg]Heart Rate - 69.0 /minRespiratory Rate - 16.0 /minBody Temperature - 36.39 CelO2 % BldC Oximetry - 95.0 %Pain Scale - 0.0 {score} 2024-02-25 10:23:11 Weight - 103.01 kgBo dy Mass Index (BMI) - 31.67 kg/m2BP Diastolic - 63.0 mm[Hg]BP Systolic - 133.0 mm[Hg]Heart Rate - 68.0 /minRespiratory Rate - 16.0 /minBody Temperature - 36.5 CelO2 % BldC Oximetry - 94.0 % Social History Social History Social History Observation Description Effec tive Time Current Smoking Status Former smoker 2024-08-24 8 Sex Male History of Procedures Procedures Service Procedure code Service date Servicing provider Phone# Home visit for evaluation and management of new patient requiring medically appropriate examination and high level of medical decision making. If using time, at least 75 minutes total time on encounte [id number] 2023-12-24 No Data Available No Data Availa ble Home visit for evaluation and management of established patient requiring medically appropriate examination and high level of medical decision making. If using time, [place] [id number] 2024-02-25 No Data Available No Data Availa ble Patient screened for fall risk; 2 or more falls in the last year or fall with injury in the last year [id number] 2024-02-25 No Data Available No Data Availa ble No Data Available [id number] 2024-02-25 No Data Available No Data Available Functional Status Functional Category Effective Dates last fall was at [employer] [facility], lost his balance, this was in the past 3 months 2023-12-24 Mental Status No Information Assessments Date of Service Assessments 2023-12-24 08:42:43 Lower extremity arian aencouraged starting increased dose of furosemide ASAPdaily weightselevate, compress, limit saltHeart failure with preserved ejection fractioncontinue metoprolol and furomosideno murmurs heard today, lungs CTA throughoutweight unchanged from home recordingslimit salt, patient noncompliant with diet recommendationsHypertension associated with type 2 diabetes mellitusBP soft today, likely contributing to SOB and orthostatic dizzinessstop lisinoprilincrease furosemidecardiology following closelyPH follow up in 1-2 weeksHyperlipidemia associated with type 2 diabetes mellituscontinue statin and XareltoContinue [id number] well controlledcontinue metformin 1000mg BIDCoronary artery diseasedenies chest paincontinue statin and asprinHyperthyroidismasymptomatichas close follow up with endocontinue methimazoleOsteoarthritiscontinue alternating tramadol and diclofenachas plan in place with pain management to start weekly PT and injectionsOSA (obstructive sleep apnea)patient reports his is keeping an eye on his sleepingis feeling well rested in the morninghas been noncompliant, encouraged use since weight gainPresence of cardiac pacemakerper cardiology notes, he is dependent on pacemakerrhythm irregular todayhas device check follow up scheduledMorbid obesityencouraged dietary modificationspatient hesitant, has salt sitting on coffee table to make things taste betterdiscussed carbs, salt and swelling causing increased SOB and decreased staminaPeripheral vascular disease with stasis dermatitiscontinue using triamcinoloneconcerns for recurring cellulitis, no warmth today, denies fevers or chillsno open woundsencourage compression and salt restrictionDOE (dyspnea on exertion)HF vs. weight gain vs. otherclose follow up with cardiologyincrease furosemidelungs CTA today throughoutencouraged weight loss, diet discussed 2024-02-25 10:23:11 Heart failure with p reserved ejection fraction [I50.30]Hypertension associated with type 2 diabetes mellitus [E11.59, I15.2]CKD stage 2 due to type 2 diabetes mellitus [E11.22, N18.2]Obesity (BMI 30.0-34.9) [E66.811]Dysphagia [R13.10]Risk for falls [Z91.81]State 1 decub ulcer [L89.91] Plan of Care Date of Service Plans 2023-12-24 08:42:43 Change Magnesium 200 mg Tab 4 tablets once daily #90 [id number]: [facility] ([facility]L) -- please assist with cost of Xarelto and Farxiga as the cost just went up .Referral: [facility] Tier 1 RN ([facility]L) -- please coordinate to evaluate patient with provider; concerns for developing cellulitis in LLE, BP low - stopped lisinopril; increasing weight gain and swelling, has not yet increased furosemide. please follow up with 1-2 weeks. due to have labs completed per PCP week of 01/10 so please see him before then. appt [place] for 01[place]14/24. if nurse and provider can coordinate sooner, that would be good as well. To help you with seeing this patient, I've created a customized, interactive, HIPAA compliant patient chart that you can easily access online by following the instructions below. Please use Google Chrome or Firefox instead of Internet Explorer if at all possible to view the interactive chart..Referral: [facility] ([facility]) -- please call with appt reminder. I put in for 01/13 in [facility] but may change to align with nurse and provider schedule as he is in [place] THANKS!.01/20 cardiology- device check with nurse after making changes 01/27 endocrine for hyperthyroid and DMII02/21 cardiology, meeting Vladimir03/[address] Agudelo 03/17 [facility] seeing PT and pain management rotating starting tomorrow - OT once weekly and injection once weekly PH in 3 weeks to check BLE swelling, SOB - assure no cellulitis forming, BP changes with stopping lisinopril, assure patient increased furosemide.elevate legs as much as possiblelimit salt to 1800mg per day or lesswear compression stockings as much as possibleincrease furosemide to 80mg x3 days per cardiologydaily weights 2024-02-25 10:23:11 - no med changes mad e today, but recent changes by other providers noted above and this list is updated now- bp well controlled, continue meds as is- encouraged weight loss meds, noting weight loss, still a bit overweight by BMI, but trending in the correct direction without any low BG- not on Trulicity any longer so no need to discuss 90 day supply- discussed flu shot - he already got his flu shot for this season- dysphagia sounds oropharyngeal and he will follow up with his GI doctor about this- gait assessed as above; we discussed fall prevention techniques.- discussed offloading techniques, increased ambulation, ointment for decub treatmentWill not schedule a follow up appointment as he does not plan to continue care within [facility] next year, but if he changes his mind, then he would likely benefit from q 2 month visits at least during winter months when his CHF is more likely to be exacerbated Goals Date Goal 2023-12-24 BLE swelling 2023-12-24 limit carbs to 30g p er meal 2023-12-24 stop lisinopril 2023-12-24 start PT as directed 2023-12-24 start with 5 pounds goal of weight loss 2023-12-24 walk daily for 20 mi nutes Health Concerns Date Concern 2024-02-25 Last seen by Navin by Cynthia MONTIEL on 12/24/23. At that time, lisinopril was stopped, and furosemide was increased. He was supposed to have a 3 week f/u appt, but due to difficulty getting in touch with him, he has not been seen by Navin since then.Since then, his edema continued, and he was referred to the [place] [facility] in addition to the compression devices.He saw his mergers and acquisitions manager DINESH Gutierrez on 01/28, he is documented as taking lasix 40 qd at that appt and his weight is documented as 244 lbs. He remained with dyspnea and thus was referred to the pacemaker clinic for eval. However, his previous EP doc Dr. Agudelo has left the practice and thus his appointment was cancelled. He made some other appointments, but those were also rescheduled and as of now he has an appointment on 02/[address] Gilbert with [facility] EP.Today, we reviewed his medications and his list therein is updated. We reviewed his meds one by oneUsing marijuana gummies to help get sleep - he has mixed results with thisC/o difficulty swallowing - seemingly related to dry mouth plus states he cannot chew up food well enough. Only been an issue for a few weeks. Thinks it is related to some of his weight loss. Was having constipation earlier this year. Had some insurance issues covering Linzess. Switched to lactulose which he did not like. Then now on Motegrity. Having a BM about every [address] Granger at [facility] had been going to the lymphedema clinic for a bit. States it helped a ton. States all his edema is gone. Weight is down. He wears compression stockings about 2-3 times per week to help it out. Completed going to lymphedema clinic. Decub Ulcer - issue x 1 mo. Sees derm. Nothing seems to help. painful. tried lidocaine ointment. Admits he sits for the majority of the day. 2 recent falls - fell in a bathroom on vacation. Needed help getting up. A few days ago tripped over a rug at home. Bruised and scraped up his arm which has healed now. 2024-02-25 Last seen by Navin by Cynthia MONTIEL on 12/24/23. At that time, lisinopril was stopped, and furosemide was increased. He was supposed to have a 3 week f/u appt, but due to difficulty getting in touch with him, he has not been seen by Navin since then.Since then, his edema continued, and he was referred to the [place] [facility] in addition to the compression devices.He saw his mergers and acquisitions manager DINESH Gutierrez on 01/28, he is documented as taking lasix 40 qd at that appt and his weight is documented as 244 lbs. He remained with dyspnea and thus was referred to the pacemaker clinic for eval. However, his previous EP doc Dr. Agudelo has left the practice and thus his appointment was cancelled. He made some other appointments, but those were also rescheduled and as of now he has an appointment on 02/[address] Gilbert with [facility] EP.Today, we reviewed his medications and his list therein is updated. We reviewed his meds one by oneUsing marijuana gummies to help get sleep - he has mixed results with thisC/o difficulty swallowing - seemingly related to dry mouth plus states he cannot chew up food well enough. Only been an issue for a few weeks. Thinks it is related to some of his weight loss. Was having constipation earlier this year. Had some insurance issues covering Linzess. Switched to lactulose which he did not like. Then now on Motegrity. Having a BM about every [address] Granger at [facility] had been going to the lymphedema clinic for a bit. States it helped a ton. States all his edema is gone. Weight is down. He wears compression stockings about 2-3 times per week to help it out. Completed going to lymphedema clinic. Decub Ulcer - issue x 1 year. Sees derm. Nothing seems to help. painful occasionaly. tried lidocaine ointment. Admits he sits for the majority of the day. 2 recent falls - fell in a bathroom on vacation. Needed help getting up. A few days ago tripped over a rug at home. Bruised and scraped up his arm which has healed now.
--- OUTSIDE RECORDS SUMMARY | 2024-09-10 11:01 | XMS_ITS | Referral Summary ---
Author Organization [facility] [address] Address [address] [place] [address] Care Team Providers Care Museum Librarian Name Role Phone Landry Leon MD Unavailable [phone] Baljit Randall MD Primary Care Provider [phone] Reena Gilbert MD Unavailable Caden Guajardo MD Unavailable [phone] Encounters Date Type Department Care Team Description 09/01/2024 4:15 PM CDT Office Visit [facility] Family Medicine at [address] [phone] Baljit Randall MD Orthostatic hypotension (Primary Dx); Dehydration; Chronic systolic congestive heart failure (HCC) 08/29/2024 WEST ED Outreach [facility] Accountable Care Organization [address] [place] [id number] Trudy Bocanegra MA 08/28/2024 2:46 PM CDT - 08/28/2024 6:59 PM CDT Emergency [address] [address] Kalin Cid MD Orthostatic hypotension (Primary Dx); Dizziness Discharge Disposition: Discharge to home or self care 08/28/2024 Telephone [facility] Medical [facility] Family Medicine at [address] [place] [address] Baljit Randall MD patient going to ER 08/25/2024 Telephone [facility] Family Medicine at [address] [place] [address] Baljit Randall MD call back 08/21/2024 Telephone [facility] Family Medicine at [address] [place] [address] Baljit Randall MD Xarelto 08/08/2024 Results Follow-Up [facility] Diabetes and Endocrinology [address] [place] [phone] Jennifer Young NP T3, free, T4, free, TSH 08/07/2024 2:48 PM CDT - 08/07/2024 11:59 PM CDT Hospital Encounter [address] [address] Hyperthyroidism Discharge Disposition: Discharge to home or self care 08/07/2024 2:45 PM CDT Lab [facility] Outpatient Lab at [address] [phone] NSVT (nonsustained ventricular tachycardia) (HCC) (Primary Dx) 07/22/2024 Results Follow-Up [facility] Cardiology [facility] [address] [place] [address] Bela Herzog MD ECG 12 lead 07/22/2024 11:15 AM CDT Office Visit [facility] Cardiology [address] [place] [phone] Bela Herzog MD NSVT (nonsustained ventricular tachycardia) (HCC) (Primary Dx); AV block; PVC (premature ventricular contraction); Cardiac pacemaker in situ; Dyspnea on exertion 07/22/2024 10:30 AM CDT Ancillary Procedure [facility] [address] [place] [phone] Wenckebach second degree AV block (Primary Dx); NSVT (nonsustained ventricular tachycardia) (HCC); Bradycardia; Cardiac pacemaker in situ; Fitting and adjustment of cardiac pacemaker 07/14/2024 Telephone [facility] Family Medicine at [facility] [address] [facility] [address] [place] [address] Baljit Randall MD 07/01/2024 Telephone [facility] Cardiology [address] [facility] [address] [place] [address] Caden Guajardo MD Congestive Heart Failure 06/19/2024 Orders Only [facility] [address] [facility] 8[address] [place] [address] [place] [address] Hung Hampton MD NSVT (nonsustained ventricular tachycardia) (HCC) (Primary Dx); Bradycardia; Cardiac pacemaker in situ 06/19/2024 Telephone [facility] 8th [place] [address] [place] [address] Alisha Keys 06/17/2024 Telephone [facility] Cardiology [address] [facility] [address] [phone] Reena Gilbert MD Congestive Heart Failure from Last 3 Months Allergies Active Allergy Reactions Criticality Noted Date Comments Clindamycin Hives Medium 02/24/2019 Medications cyanocobalami n (vitamin B-12) 1,000 mcg tablet take 2 by Oral route every day 0 0 10/29/19 14 Active aspirin 81 mg tablet take 1 tablet by oral route every day 0 0 11/26/19 14 Active magnesium gluconate 200 mg tablet take 1 by Oral route 4 times every day 0 0 09/02/19 15 Active zinc 50 mg tablet take 1 by Oral route once 0 0 06/13/19 17 Active krill oil 500 mg capsule take 1 by Oral route once 0 0 06/13/19 17 Active docusate sodium (COLACE) 100 mg capsuleIndica tions:constip ation Take 2 capsules (200 mg total) by mouth every morning 07/31/19 21 Active vitamin E (AQUASOL E) 400 unit capsule Take 1 capsule (400 Units total) by mouth every morning Active multivitamin tabletIndicat ions:Vitamin Deficiency Prevention Take 1 tablet by mouth daily Active triamcinolone (KENALOG) 0.1 % cream Apply 1 g topically nightly 05/24/19 24 Active Motegrity 2 mg tablet Take 1 tablet (2 mg total) by mouth daily 11/12/[address] (VOLTAREN) 75 mg EC tablet TAKE 2 TABLETS BY MOUTH ONCE A DAY 180 tablet 1 12/21/19 24 Active methIMAzole (TAPAZOLE) 5 mg tabletIndicat ions:Type 2 diabetes mellitus with hyperglycemia , without long-term current use of insulin (HCC) TAKE 1 TABLET (5 MG TOTAL) BY MOUTH DAILY 5 days a week, Sunday through Sunday. Do not take any on the weekends 60 tablet 1 03/13/20 24 Active levocetirizin e (XYZAL) 5 mg tabletIndicat ions:Unspecif ied eustachian tube disorder, right ear Take 1 tablet by mouth once daily 30 tablet 08/01/19 25 Active Farxiga 10 mg tablet TAKE 1 TABLET BY MOUTH DAILY 90 tablet 3 08/01/19 25 Active atorvastatin (LIPITOR) 10 mg tablet TAKE 1 TABLET BY MOUTH DAILY NEEDS APPOINTMENT 90 tablet 3 08/01/19 25 Active metoprolol tartrate (LOPRESSOR) 50 mg immediate release tablet TAKE 1 TABLET BY MOUTH TWICE DAILY 180 tablet 3 08/01/19 25 Active furosemide (LASIX) 40 mg tablet TAKE 1 TABLET BY MOUTH DAILY 90 tablet 3 08/01/19 25 Active rivaroxaban (Xarelto) 2.5 mg tablet Take 1 tablet (2.5 mg total) by mouth 2 (two) times a day 180 tablet 3 08/27/19 25 Active traMADoL (ULTRAM) 50 mg tablet Take 1 tablet (50 mg total) by mouth every 6 (six) hours as needed for pain 120 tablet 09/02/19 25 Active H75-neurcvzpr ate calcium-B6 (FOLBIC RF) 2-1.13-25 mg tablet Take 1 tablet by mouth box spring maker before breakfast 30 tablet 2 09/02/19 25 Active ipratropium (ATROVENT) 42 mcg (0.06 %) nasal spray Administer 2 sprays into each nostril 3 (three) times a day 15 mL 2 09/02/19 25 Active semaglutide (Ozempic) 0.25 mg or 0.5 mg (2 mg/3 mL) pen injector injectionIndi cations:Type 2 diabetes mellitus with hyperglycemia , without long-term current use of insulin (HCC) INJECT 0.5MG UNDER THE SKIN EVERY 7 DAYS 9 mL 1 09/09/19 25 Active metFORMIN (GLUCOPHAGE) 500 mg tabletIndicat ions:Type 2 diabetes mellitus with diabetic neuropathy, without long-term current use of insulin (HCC) TAKE 2 TABLETS BY MOUTH TWICE A DAY WITH MEALS 360 tablet 3 06/28/19 24 025 Discontinued( erapy completed) triamcinolone (NASACORT) 55 mcg nasal inhalerIndica tions:Dysfunc tion of right eustachian tube Administer 2 sprays into each nostril daily 16.9 mL 2 04/17/19 25 025 Discontinued( erapy completed) semaglutide (Ozempic) 0.25 mg or 0.5 mg (2 mg/3 mL) pen injector injectionIndi cations:Type 2 diabetes mellitus with hyperglycemia , without long-term current use of insulin (HCC) INJECT 0.5MG UNDER THE SKIN EVERY 7 DAYS 3 mL 3 04/25/19 25 025 Discontinued traMADoL (ULTRAM) 50 mg tablet Take 1 tablet (50 mg total) by mouth every 6 (six) hours as needed for pain 120 tablet 07/26/19 25 025 Discontinued Xarelto 2.5 mg tablet TAKE 1 TABLET BY MOUTH TWICE DAILY 180 tablet 3 08/01/19 25 025 Discontinued(Re order) Active Problems Problem Noted Date Diagnosed Date Dysfunction of right eustachian tube 04/17/2024 Bradycardia 04/12/2023 Cardiac pacemaker in situ 04/12/2023 Overview (07/28/2024): [employer]onic [place] Dual Pacemaker. Dx; Bradycardia, AV Block. DOI 04/23/2023- Koko. Annika. [facility] remote. 07/28/24-transferred to [place]. Morbid (severe) obesity due to excess calories 0 04/10/2023 Class 2 severe obesity due t o excess calories with serious comorbidity and body mass index (BMI) of 37.0 to 37.9 in adult 04/10/2023 Assessment & Plan (04/10/2023 1:55 PM NETWORK DIAGNOSTIC SUPPORT SPECIALIST): Discussed healthy diet and importance of regular physical activity (20- 30min/day, 150min/wk). Type 2 diabetes mellitus wit h hyperglycemia, without long-term current use of insulin 01/15/2023 Assessment & Plan (05/19/2024 10:45 AM NETWORK DIAGNOSTIC SUPPORT SPECIALIST): Chronic problem. A1c at goal w/o hypoglycemia. A1c today=5.1%, was 5.9% 01/15/24. Stop the metformin. Will re-evaluate at next appointment if we need to stop the Farxiga additionally. Current medications: Farxiga 10mg daily Ozempic 0.5 mg weekly UTD on DM eye exam (04/19/23 no DMR). Had appt 04/2024 at [facility]. Letter sent to get copy of report. Will update labs. Verified that he uses [facility]. Aware to check results/results letter in [employer]. Will contact by phone if needed. Strive for regular exercise (30min most days) and diet (get at least 4-5 servings of fruit and veggies daily, avoid processed foods, increase lean protein intake and decrease carb portions as well as fruit juices, regular soda & desserts). Watch carbs and simple sugars. Check the blood sugar 2-3x/wk. Check the feet daily for skin breakdown and infection. Assessment & Plan (09/25/2023 1:06 PM CDT): Chronic, stable. Continue current regimen including Farxiga, Ozempic and metformin Assessment & Plan (07/03/2023 2:48 PM CDT): Chronic, stable. Continue current regimen including metformin 500 mg twice a day, Trulicity 1.5 mg weekly and Farxiga 10 mg Stretching exercises were recommended Smaller portion meals Assessment & Plan (04/10/2023 1:51 PM NETWORK DIAGNOSTIC SUPPORT SPECIALIST): Chronic problem. A1c at goal w/o hypoglycemia. A1c today=6.2%. Current medications: Metformin 1000mg twice daily with meals Farxiga 10mg daily Trulicity 1.5mg weekly UTD on DM eye exam (07/18/22) UTD on labs. Strive for regular exercise (30min most days) and diet (get at least 4-5 servings of fruit and veggies daily, avoid processed foods, increase lean protein intake and decrease carb portions as well as fruit juices, regular soda & desserts). Watch carbs and simple sugars. Check the blood sugar daily. Check the feet daily for skin breakdown and infection. Assessment & Plan (01/15/2023 10:48 AM CDT): Chronic problem. A1c at goal w/o hypoglycemia. A1c today=6.2%. Current medications: Metformin 1000mg twice daily with meals Farxiga 10mg daily Trulicity 1.5mg weekly UTD on DM eye exam (03/2022 Dr Lynn; letter sent to get copy of report) UTD on labs. Strive for regular exercise (30min most days) and diet (get at least 4-5 servings of fruit and veggies daily, avoid processed foods, increase lean protein intake and decrease carb portions as well as fruit juices, regular soda & desserts). Watch carbs and simple sugars. Check the blood sugar daily. Check the feet daily for skin breakdown and infection. Sensorineural hearing loss (SNHL) of both ears 0 11/06/2022 History of lymphoma 04/20/2021 Cancer Staging:Clinical stage from 04/28/2021:Stage I(Hodgkin lymphoma, A - Asymptomatic) - Signed by Maximino Smith MD on 04/28/2021 Assessment & Plan (07/11/2021 4:37 PM CDT): -Completed radiation treatments Irritable bowel syndrome with constipation 01/20 Aortic valve stenosis 12/30/2020 Chronic systolic congestive heart failure 2020 Lymphadenopathy of head and neck region 02/04/20 20 Thyroid nodule 08/12/2018 Assessment & Plan (05/19/2024 10:21 AM NETWORK DIAGNOSTIC SUPPORT SPECIALIST): Last thyroid US by Dr Sanderson 01/12/23: These nodules are not new. You have nodules that have been seen in ultrasound in the past and you even had biopsy of these nodules which are benign. Assessment & Plan (04/10/2023 1:54 PM NETWORK DIAGNOSTIC SUPPORT SPECIALIST): Last thyroid US 01/2021. Has not had repeat imaging since that time. Will repeat US at 06/[address] Sanderson. Assessment & Plan (02/03/2020 7:02 PM NETWORK DIAGNOSTIC SUPPORT SPECIALIST): We reviewed the ultrasound images with the patient. The right inferior thyroid nodule meets the ISABELLA guidelines for biopsy/fine- needle aspiration. Recent US also demonstrated concerning lymph node in left neck level 3/4. Tg washout was ordered, collected aspirate from lymph node and sent to lab in specimen container with 1.5 cc saline, sent on ice. Patient is a clinically and biochemically euthyroid We discussed the procedure of fine-needle aspiration, risk and benefit, patient was willing to proceed FNA of right inferior nodule and left lymph node were completed in clinic today. Discussed potential results including benign, malignant, AUS/FLUS, and suspicious I handed the patient an education brochure detailing thyroid nodule and fine- needle aspiration Discussed natural history and course of follow-up of thyroid nodules Will convey FNA results to referring provider Hyperthyroidism 02/20/2018 Assessment & Plan (05/19/2024 10:20 AM NETWORK DIAGNOSTIC SUPPORT SPECIALIST): Chronic problem. Currently taking methimazole 5mg 5 days/wk; none on weekends. Will update TFTs today. Verified that he uses [employer]. Aware to check results/results letter in [employer]. Will contact by phone if needed. Assessment & Plan (09/25/2023 1:05 PM CDT): Probably hypothyroid now. Update TFTs Will adjust dose of methimazole, as indicated Assessment & Plan (07/03/2023 2:48 PM CDT): Clinically euthyroid Update TFTs Assessment & Plan (04/10/2023 1:24 PM NETWORK DIAGNOSTIC SUPPORT SPECIALIST): Chronic problem. No labs since 12/07/22. Some drop in levels. Will continue to monitor. Assessment & Plan (01/15/2023 10:51 AM CDT): Chronic problem. Reviewed 11/2022 labs. Some drop in levels. Will continue to monitor. Assessment & Plan (12/13/2021 3:46 PM CDT): Check TFTs and will treat if indicated Assessment & Plan (09/15/2021 11:22 PM CDT): He is taking methimazole 2.5 mg daily, despite recommendations to stop methimazole. Recommend stopping methimazole and checking TFT's in 1-2 months. Assessment & Plan (07/11/2021 4:35 PM CDT): -Methimazole dose is 2.5 mg daily -Most recent TFT on 06/27/21 showed FT4 of 0.9, TSH 4.65. -Will hold methimazole -will repeat TFT prior to follow up with Dr. Don in August 2021 Assessment & Plan (04/13/2021 12:31 PM NETWORK DIAGNOSTIC SUPPORT SPECIALIST): -Methimazole dose decreased in February 2021 -Appears euthyroid on exam -Will continue to monitor TFT Assessment & Plan (04/29/2018 4:50 PM NETWORK DIAGNOSTIC SUPPORT SPECIALIST): Patient will be discussing the Amiodarone issue with his as400 programmer analyst and will send copy of this note to cardiology. 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 She had recommended beginning Tapazole which patient has not started yet. Will coordinate between Dr. Don in the cardiology. Labs are pending from today and will repeat again in 3 months Vitamin D deficiency 01/28/2018 Assessment & Plan (01/28/2018 1:46 PM NETWORK DIAGNOSTIC SUPPORT SPECIALIST): Level over 30 04/12, will repeat -check 25 hydroxy vitamin-D History of gastric bypass 01/28/2018 Assessment & Plan (01/28/2018 1:47 PM NETWORK DIAGNOSTIC SUPPORT SPECIALIST): Will monitor the following yearly (will order) CBC--done 04/12 serum copper--done 04/12 25 OH vitamin D (level > 30)-04/12 iPTH--done 04/12 Fe studies/transferrin--04/12 B12 04/12 zinc normal 04/12 NSVT (nonsustained ventricular tachycardia) 02/24 Assessment & Plan (08/21/2017 11:42 AM CDT): Continue beta-jordan, and initiate amiodarone as above. No episodes of syncope. No indication for ICD placement at this time given normal ejection fraction. ALEX treated with BiPAP 06/12/2016 Overview (08/18/2016): ALEX on CPAP CKD stage G3a/A1, GFR 45-59 and albumin creatinine ratio <30 mg/g 03/23/2016 Overview (06/29/2016): Renal insufficiency Assessment & Plan (09/15/2021 11:06 PM CDT): Minimize risk of hypoglycemia. Assessment & Plan (07/11/2021 4:37 PM CDT): -CKD increases risk of hypoglycemia -Will closely monitor glucose pattern in ensure margin of safety Assessment & Plan (04/13/2021 12:33 PM NETWORK DIAGNOSTIC SUPPORT SPECIALIST): -CKD increases risk of hypoglycemia -Will closely monitor glucose pattern in ensure margin of safety Assessment & Plan (04/29/2018 4:51 PM NETWORK DIAGNOSTIC SUPPORT SPECIALIST): Creatinine is much improved and back to baseline Will repeat renal panel in 3 months Coronary artery disease invo lving [place] coronary artery of [place] heart without angina pectoris 02/11/2016 Overview (06/29/2016): Coronary artery disease involving [place] coronary artery of [place] heart without angina pectoris Ascending aorta dilatation (CMS/HCC) 02/11/2016 Overview (06/29/2016): Ascending aorta dilatation Mixed diabetic hyperlipidemi a associated with type 2 diabetes mellitus (CMS/HCC) 02/11/2016 Overview (06/29/2016): Type 2 diabetes mellitus with complication, unspecified exterminator insulin use status Assessment & Plan (05/19/2024 10:20 AM NETWORK DIAGNOSTIC SUPPORT SPECIALIST): Chronic problem. Controlled on current Atorvastatin 10mg. Last lipid panel: 01/15/24 LDL=57, TG=97. Assessment & Plan (07/03/2023 2:49 PM CDT): Chronic, stable . Continue statin therapy with Lipitor 10 mg daily Assessment & Plan (04/10/2023 1:23 PM NETWORK DIAGNOSTIC SUPPORT SPECIALIST): Chronic problem. Controlled on current Atorvastatin 10mg. Last lipid panel: 08/10/22 LDL=42, CB=623. Assessment & Plan (01/15/2023 10:16 AM CDT): Chronic problem. Controlled on current Atorvastatin 10mg. Last lipid panel: 08/10/22 LDL=42, QC=519. Assessment & Plan (10/17/2022 2:32 PM CDT): Chronic, well controlled. Continue atorvastastin Type 2 diabetes mellitus with diabetic neuropath y 04/01/2015 Assessment & Plan (05/19/2024 10:21 AM NETWORK DIAGNOSTIC SUPPORT SPECIALIST): Chronic problem. Reviewed foot care; needs to lotion daily. Aware to check feet nightly, not to go barefoot. Assessment & Plan (04/10/2023 1:24 PM NETWORK DIAGNOSTIC SUPPORT SPECIALIST): Chronic problem. Aware to check feet & not go barefoot. Assessment & Plan (01/15/2023 10:50 AM CDT): Chronic problem. Aware to check feet & to not go barefoot. Assessment & Plan (10/17/2022 2:31 PM CDT): Hba1c was Lab Results Component Value Date HGBA1C 5.6 10/17/2022 today, indicating adequate DM control Goal Hba1c and blood glucose explained Diet and exercise were advised Prevention and treatment of hyypoglcyemia were discussed with the patient Blood glucose monitoring : 1 x day Adjustment to medications: continue Farxiga, Trulicity and Metformin Assessment & Plan (04/18/2022 4:44 PM NETWORK DIAGNOSTIC SUPPORT SPECIALIST): Hba1c was Lab Results Component Value Date HGBA1C 5.8 04/18/2022 today, indicating adequate DM control Goal Hba1c and blood glucose explained Diet and exercise were advised Prevention and treatment of hyypoglcyemia were discussed with the patient Blood glucose monitoring : P.r.n. for hypoglycemic symptoms Adjustment to medications: Continue current regimen with Farxiga, Trulicity and metformin Assessment & Plan (12/13/2021 3:46 PM CDT): Hba1c was Lab Results Component Value Date HGBA1C 5.7 12/13/2021 today, indicating adequate DM control with risk of hypoglycemia Goal Hba1c and blood glucose explained Diet and exercise were advised Prevention and treatment of hyypoglcyemia were discussed with the patient Blood glucose monitoring : Patient not interested Adjustment to medications: Stop Glucotrol Continue Farxiga, Trulicity metformin Assessment & Plan (09/15/2021 11:12 PM CDT): Hemoglobin A1c decreased to 5.9%, presumably without hypoglycemia. There are no BG readings for review today. He is tolerating metformin 2,000mg, Glipizide XL, Farxiga 10mg and Trulicity 1.5mg well and without side effects at this time. He is also taking lisinopril daily. Assessment & Plan (07/11/2021 4:34 PM CDT): -Currently taking oral agents and Trulicity -A1C on 07/11/21 was 5.8% -Will continue same medications at this time -Discussed diet and activity modifications. -Eye exam is up to date -Foot exam per foot nurse scheduled for tomorrow 07/12/21 Assessment & Plan (04/13/2021 12:31 PM NETWORK DIAGNOSTIC SUPPORT SPECIALIST): -Currently taking oral agents and Trulicity -A1C on 04/13/21 was 6.4% -Will continue same medications at this time -Discussed diet and activity modifications. -Eye exam is up to date -Foot exam per foot nurse today Assessment & Plan (04/29/2018 4:48 PM NETWORK DIAGNOSTIC SUPPORT SPECIALIST): Diabetes control is markedly improved with the hemoglobin A1c improvement of 2 points down to 7.5%. He has been taking metformin 2000 mg daily, Bydureon weekly although he still mood misses a dose here in there, glipizide 5 mg daily. States he has no appetite suppression now compared to when he 1st started taking Bydureon. Will continue glipizide 5 mg daily asked him to begin a trial of Trulicity 1.5 weekly and he will let me know Metformin is to be continued at 1000 mg twice a day Urged him to check his blood sugars at least twice a day and keep a record and to sent to us on a monthly basis We spent a lot of time talking about his diet and urged him to try to do some walking each day Assessment & Plan (01/28/2018 1:49 PM NETWORK DIAGNOSTIC SUPPORT SPECIALIST): Poor control with recent increase in HgbA1C. Patient's RHETT has resolved, recommend he go back on metformin. Told him that he may need to start insulin (would start basal insulin). For now continue current doses of glipizide and Bydureon Urine microalbumin to creatinine ratio normal 04/12, will recheck CMP done 04/12, will repeat Creatinine on BMP done 08/10 normal TSH normal 04/12, will repeat -after we confirm that creatinine is normal, start metformin 500 mg daily for 3 days, then twice daily for 3 days and then 2 tablets b.i.d. -continue current doses of Bydureon and glipizide XL (5 mg daily) -moderate blood sugars twice daily at different times and keep track -refer to art educator to review blood sugars in 6 weeks -continue yearly dilated eye exam -continue routine care with foot doctor -check urine microalbumin to creatinine ratio, CMP, TSH Cobalamin deficiency 07/02/2012 Resolved Problems Problem Noted Date Diagnosed Date Resolved Date Dyspnea 07/22/2024 09/01/2024 Sepsis with acute renal fail ure without septic shock, due to unspecified organism, unspecified acute renal failure type 12/07/2022 Acute cystitis without hematuria 12/07/2022 12/11/2022 Cellulitis of left leg 12/07/202203/15 RAMOS (dyspnea on exertion) 12/07/2022 Post-nasal drainage 11/06/2022 03/15/20 Tinnitus of both ears 11/06/20222023 Dysfunction of right eustachian tube 11/06/2022 09/18/2023 COVID-19 virus infection 09/27/2022 Hypertension associated with diabetes 11/10/2021 09/18/2023 Assessment & Plan (04/10/2023 1:24 PM NETWORK DIAGNOSTIC SUPPORT SPECIALIST): Chronic problem. Lisinopril 2.5mg daily, metoprolol tartrate 50mg bid, lasix 80mg daily, spironolactone 25mg daily Assessment & Plan (01/15/2023 10:42 AM CDT): Chronic problem. Lisinopril 2.5mg daily, metoprolol tartrate 50mg bid, lasix 80mg daily, spironolactone 25mg daily Assessment & Plan (10/17/2022 2:32 PM CDT): Chronic, well controlled Continue current meds Lymphadenopathy 03/31/2021 04/20/2021 Overview (03/31/2021): Added automatically from request for surgery [id number] Assessment & Plan (04/13/2021 12:34 PM NETWORK DIAGNOSTIC SUPPORT SPECIALIST): -FNA suspicious for Hodgkin's Lymphoma -Has been seen by oncology and ENT -Scheduled for lymph node excisional biopsy tomorrow Screening PSA (prostate specific antigen) 03/15/2020 09/01/2024 Low TSH level 02/20/2018 01/20/2021 RHETT (acute kidney injury) 09/05/2017 At risk for amiodarone toxic ity with usp use 08/27/2017 12/19/2022 Morbid obesity with BMI of 40.0-44.9, adult 03/16/2017 03/15/2023 Assessment & Plan (08/21/2017 11:48 AM CDT): Obesity is stable. We again discussed diet and exercise as methods for weight loss. CPAP reinforced. Chani 01/09/2017 03/15/2023 PVC's (premature ventricular contractions) 01/09/2017 03/15/2023 Assessment & Plan (08/21/2017 11:43 AM CDT): His Holter monitor showed a burden of 51.8%. His echocardiogram is normal, but given this extremely high burden, I favor antiarrhythmic drug for suppression. Has renal insufficiency and coronary artery disease, therefore his only option is amiodarone. I did discuss potential toxicities, and the need for ongoing screening. We discussed the need to monitor thyroid and liver function testing, pulmonary function testing, eye exams, and for skin protection in the sun. I will start amiodarone 400 mg 3 times a day. After 1 week, we will reduce it to twice a day, and reduce it to 400 mg daily the following week. I will continue this dose for several months. Given his obesity, it will take a long time for him to build up a therapeutic level of amiodarone. The further increase in metoprolol has not been successful at suppressing his PVCs. I have reduced it back to 50 mg twice a day. He does have a class 1 indication for beta-jordan given his coronary artery disease. I also encouraged him to follow up regarding his CPAP adjustment. I do believe that untreated sleep apnea is playing a role in his frequent PVCs. We again discussed the possibility of ablation, but given his age and morbid obesity I feel that the risk of the procedure outweighs the possible benefits. Assessment & Plan (07/20/2017 4:17 PM CDT): He has very frequent PVCs on EKG today. This is in spite of the increased dose of metoprolol. I am concerned that beta-jordan therapy will not be effective at suppressing these. I have ordered a 48 hr Holter monitor to again assess his PVC burden as well as to monitor for any bradycardia. I suspect that the b radycardia that is being detected is due to his high burden of PVCs. We reviewed the options for management today. Given his age and morbid obesity I believe ablation would be a high risk. I would favor antiarrhythmic drug treatment 1st. If he remains bradycardic on medical therapy then he may require pacemaker implantation. I will contact him by phone with results of this monitor to make any medication changes. I will see him again in the office in 4 weeks. Assessment & Plan (05/30/2017 3:05 PM NETWORK DIAGNOSTIC SUPPORT SPECIALIST): Previous 12-lead EKG shows ventricular bigeminy. There is a single PVC noted, RBRS axis, likely from the posterior mitral annulus or possibly fascicular. His beta-jordan dose was increased, and today he has no PVCs on his 12-lead although some were noted during the rhythm strip and on exam. His age and morbid obesity complicate the possibility of ablation. His PVC burden is >30% but his EF remains normal and he had no evidence of ischemia. I would like to reassess his PVC burden on this higher dose of beta-jordan. If it remains high (>30%) then we can consider an anti-arrhythmic drug. Ablation would be difficult due to groin access and also difficulty with visualization using fluoro. I have advised continued compliance with CPAP, weight loss, and continuing his potassium and magnesium supplementation. I will see him again in 6 weeks for further follow-up. Bradycardia 01/09/2017 03/15/2023 Daytime somnolence 09/19/2016 Noncompliance with treatment 02/11/2016 04/20/2021 Overview (06/29/2016): Noncompliance Hypertensive heart disease w ith congestive heart failure 02/11/2016 09/18/2023 Overview (06/29/2016): Diastolic heart failure secondary to hypertension Nipple pain 01/10/2016 04/20/2021 Shortness of breath at rest 01/10/2016 01/20/2021 Dyslipidemia 11/25/2013 11/10/2021 Overview (06/29/2016): Dyslipidemia Assessment & Plan (09/15/2021 11:08 PM CDT): LDL is at goal; 01/2021- LDL 62 Continue statin therapy. Assessment & Plan (07/11/2021 4:36 PM CDT): -LDL was 62 in January 2021 -Continue same medical management Assessment & Plan (04/13/2021 12:33 PM NETWORK DIAGNOSTIC SUPPORT SPECIALIST): -Continue same medical management Assessment & Plan (01/28/2018 1:46 PM NETWORK DIAGNOSTIC SUPPORT SPECIALIST): LDL 51 11/10 On atorvastatin Chronic coronary artery disease 11/25/2013 05/23/2022 Overview (06/29/2016): CAD (coronary artery disease) Type 2 diabetes mellitus wit h circulatory disorder, without long-term current use of insulin 10/28/2013 09/18/2023 Overview (06/29/2016): DM (diabetes mellitus) Abnormal cardiovascular stress test 10/28/2013 09/18/2023 Overview (06/29/2016): Abnormal stress test Morbid obesity (CMS/HCC) 10/28/2013 Overview (06/29/2016): Morbid obesity Essential hypertension 10/28/201311/10 Overview (06/29/2016): HTN (hypertension), benign Assessment & Plan (07/11/2021 4:36 PM CDT): -BP today is 170/63 -Elevation is likely due to him having a flat tire earlier today, being unsure if he was going to be able to keep appt today -Will continue same antihypertensive medications at this time and continue to monitor. Assessment & Plan (04/13/2021 12:33 PM NETWORK DIAGNOSTIC SUPPORT SPECIALIST): -BP today is 130/66 -Will continue same antihypertensive medications at this time. Osteoarthritis 07/02/2012 09/01/2024 Onychomycosis due to dermatophyte 04/18/2012 09/01/2024 Skin callus 04/18/2012 04/20/2021 Psoriasis 05/08/2011 09/01/2024 Nocturia 05/08/2011 01/20/2021 Slowing of urinary stream 05/08/2011 Immunizations Immunization Administration Dates Next Due Hep A, Adult 03/28/2000,09/21/1999 Hep B Vaccine 03/28/2000,11/09/1999,09/21/1999 Influenza, Quad, Adjuvantate d, Intramuscular 12/26/2021 Influenza, Quadrivalent, Hig h Dose, Preservative Free, Intrr 01/04/2023,01/09/2021,12/05/2019 Influenza, Quadrivalent, Rec ombinant, Egg Free, Preservative Free, Intramuscular 12/13/2018 Influenza, Trivalent, High D ose, Split, Preservative Free, Intramuscular 12/26/2017 Influenza, Trivalent, Preser vative Free, Intramuscular 12/21/2014,01/09/2013,03/26/2011 Influenza, Unspecified 12/28/2021,01/13/2021 Pfizer SARS-CoV-2 Monovalent Vaccination (12+ Yrs) PURPLE 01/09/2021,06/08/2020,05/18/2020 Pneumococcal Conjugate Pcv20 12/21/2022 Pneumococcal Polysaccharide PPV23 03/26/2008 RSV, Bivalent, Protein Subun it Rsvpref, Diluent (Abrysvo) 01/08/2023 Td, adsorbed 09/21/1999 ZOSTER Recombinant 07/17/2023,03/06/2023 Social History Tobacco Use Types Packs/Day Years Used Date Smoking Tobacco: Former Cigarettes 1 17 0 03/26/1964 - 03/26/1981 Pipe Cigars Cigarillos Passive Smoke Exposure: Past Smokeless Tobacco: Never Tobacco Cessation:Counseling Given: Not Answered Alcohol Use Standard Drinks/Week Comments Yes 3 (1 standard drink = 0.6 oz pur e alcohol) weekly Social Connection and Isolat ion Panel [NHANES] Answer Date Recorded In a typical week, how many times do you talk on the phone with family, friends, or neighbors? More than three times a week 12/12/2022 How often do you get togethe r with friends or relatives? Three times a week 12/12/2022 How often do you attend chur ch or mandaen services? 1 to 4 times per year 12/12/2022 Do you belong to any clubs o r organizations such as amish groups, unions, fraternal or athletic groups, or school groups? Yes 12/12/2022 How often do you attend meet ings of the clubs or organizations you belong to? More than 4 times per year 12/12/2022 Are you , , di vorced, , never , or living with a partner? 12/12/2022 AUDIT-C Answer Date Recorded Q1: How often do you have a drink containing alc ohol? Monthly or less 01/17/2023 Q2: How many drinks containi ng alcohol do you have on a typical day when you are drinking? 1 or 2 01/17/2023 Q3: How often do you have si x or more drinks on one occasion? Never 01/17/2023 Overall Financial Resource Strain (CARDIA) Answe r Date Recorded How hard is it for you to pa y for the very basics like food, housing, medical care, and heating? Not hard at all 12/12/2022 PHQ-2 Answer Date Recorded PHQ-2 Total Score (If total score is 3 or more points, staff should administer the PHQ-9) 2 09/18/2023 Hunger Vital Sign Answer Date Recorded Within the past 12 months, y ou worried that your food would run out before you got the money to buy more. Never true 12/08/19 23 Within the past 12 months, t he food you bought just didn't last and you didn't have money to get more. Never true 12/07/2022 PRAPARE - Transportation Answer Date Re corded In the past 12 months, has l ack of transportation kept you from medical appointments or from getting medications? No 11/24 In the past 12 months, has l ack of transportation kept you from meetings, work, or from getting things needed for daily living? No 12/12/2022 Housing Stability Vital Sign Answer Ferdinand e Recorded In the last 12 months, was t here a time when you were not able to pay the mortgage or rent on time? No 12/12/2022 In the last 12 months, how many places have you lived? 1 12/12/2022 In the last 12 months, was t here a time when you did not have a steady place to sleep or slept in a jail (including now)? No 12/12/2022 Personal Safety Answer Date Recorded Have you ever been in or are you currently in a harmful physical or emotional relationship or is someone making you feel afraid or unsafe? Denies 08/28/2024 Sex and Gender Information Value Date Recorded Sex Assigned at Not on file Legal Sex Male 3:19 AM NETWORK DIAGNOSTIC SUPPORT SPECIALIST Gender Identity Not on file Sexual Orientation Straight 03/23/2019 1: 09 AM NETWORK DIAGNOSTIC SUPPORT SPECIALIST Last Filed Vital Signs Vital Sign Reading Time Taken Comments Blood Pressure 100/60 09/01/2024 4:24 PM CDT Pulse 60 09/01/2024 4:24 PM CDT Temperature 36.4 C (97.5 F) 09/01/2024 4:24 PM CDT Respiratory Rate 19 08/28/2024 6:25 PM CDT Oxygen Saturation 96% 09/01/2024 4:24 PM CDT Inhaled Oxygen Concentration - - Weight 102.8 kg (226 lb 9.6 oz) 09/01/2024 4:24 PM CDT Height 177.8 cm (5' 10) 09/01/2024 4:24 PM CDT Body Mass Index 32.51 09/01/2024 4:24 PM CDT Plan of Treatment Not on file Medical Devices Implanted Type Area Resident Care Provider Device Identifier Shelf Expiration Date Model / Serial / Lot [employer] [place] S Mri Surescan 50.8x46.6mm 2 Chamber 7.4mm Pacemaker 22.5gm [id number] - [id number] Implanted:Qty: 1 on 04/23/2023 by Nestor Sutherland MD at [facility] Pacemaker [employer] 08/06/2024 [id number] / / [employer] Device Closure Vascade Od5 Fr Femoral Artery [id number] - [id number] Implanted:Qty: 1 on 01/17/2023 by Zoe Levy MD at [facility] [employer] 11/20/2024 [id number] / / [id number] Med[employer]onic [employer] Capsurefix Novus 6.2fr 2mm 52cm Bipolar Screw In Implantable Latex Free 5076-52 - [id number] Implanted:Qty: 1 on 04/23/2023 by Nestor Sutherland MD at [facility] [employer] 01/04/2025 5076-52 / / [employer] Capsurefix Novus 6.2fr 2mm 58cm Bipolar Screw In Implantable 5076-58 - [id number] Implanted:Qty: 1 on 04/23/2023 by Nestor Sutherland MD at [facility] [employer] 12/26/2024 5076-58 / / Procedures Procedure Name Priority Date/Time Associated Diagnosis Comments CT HEAD WO CONTRAST ED 08/28/2024 5 :26 PM CDT PHOSPHORUS Timed 08/28/2024 3:52 PM CDT PRO B-TYPE NATRIURETIC PEPTIDE Timed 08/28/2024 3:52 PM CDT MAGNESIUM Timed 08/28/2024 3:52 PM CDT TROPONIN T HIGH-SENSITIVITY 2-HOUR Timed 08/28/2024 3:52 PM CDT URINALYSIS AND REFLEX TO MICROSCOPIC AND CULTURE STAT 08/28/2024 2:01 PM CDT EGFR STAT 08/28/2024 1:46 PM CDT DIFFERENTIAL AUTO STAT 08/28/2024 1:4 6 PM CDT PROTIME-INR STAT 08/28/2024 1:46 PM CDT TROPONIN T HIGH-SENSITIVITY SERIES (BASELINE, 2HR, 4HR, 6HR) STAT 08/28/2024 1:46 PM CDT COMPREHENSIVE METABOLIC PANEL STAT 08/28/2024 1:46 PM CDT CBC WITH AUTO DIFFERENTIAL STAT 08/28/2024 1:46 PM CDT ECG 12-LEAD STAT 08/28/2024 1:36 PM CDT TSH Routine 08/07/2024 2:48 PM CDT Hyperthyroidism T4, FREE Routine 08/07/2024 2:48 PM CDT Hyperthyroidism T3, FREE Routine 08/07/2024 2:48 PM CDT Hyperthyroidism ECG 12-LEAD Routine 07/22/2024 12:12 PM CDT PVC (premature ventricular contraction) Cardiac pacemaker in situ DEVICE CHECK - IN OFFICE Routine 07/22/2024 10:01 AM CDT NSVT (nonsustained ventricular tachycardia) (HCC) Bradycardia Cardiac pacemaker in situ ALBUMIN CREATININE RATIO, URINE Routine 05/19/2024 10:51 AM NETWORK DIAGNOSTIC SUPPORT SPECIALIST Type 2 diabetes mellitus with hyperglycemia, without long-term current use of insulin (HCC) POCT HEMOGLOBIN A1C Routine 05/19/2024 9 :55 AM NETWORK DIAGNOSTIC SUPPORT SPECIALIST Type 2 diabetes mellitus with hyperglycemia, without long-term current use of insulin (HCC) HM DIABETES EYE EXAM Routine 04/29/2024 12:03 PM NETWORK DIAGNOSTIC SUPPORT SPECIALIST LIPID PANEL Routine 01/15/2024 2:30 PM CDT Type 2 diabetes mellitus with diabetic neuropathy, without long-term current use of insulin (HCC) CT ABDOMEN W WO CONTRAST Schedule Routine, Read Routine (OP Routine) 04/27/2023 1:47 PM NETWORK DIAGNOSTIC SUPPORT SPECIALIST Kidney lesion from Last 3 Months or Most Recently Relevant to Health Maintenance Results * CT Head WO Contrast (08/28/2024 5:26 PM CDT) Anatomical Region Laterality Modality Head and Neck N/A Computed Tomogra phy 08/28/2024 5:29 PM CDT Narrative 08/28/2024 5:32 PM CDT EXAM DESCRIPTION: CT HEAD WO CONTRAST REASON FOR STUDY: dizziness, r/o ICH, r/o Mass, eval for signs of stroke r/o ICH, r/o Mass, eval for signs of stroke; dizziness. from doctors office for episode of dizziness upon change of position. Denies dizziness currently. On blood thinner. Has pacemaker PMHx of HTN, HLD, CAD, CHF, hx V tach s/p pacer/ICD, DM2, thyroid Dz, ALEX, anemia. TECHNIQUE: Axial images acquired through the brain without intravenous contrast. Images stored on PACS. Automated exposure control was used as a dose optimization technique for this examination. COMPARISON: None FINDINGS: BRAIN: No hemorrhage, edema or mass effect. No recent infarct. Diffuse atrophy of the brain is noted. EXTRA-AXIAL SPACES: No fluid collections. No masses. CALVARIUM: No fracture. SINUSES/MASTOIDS: No fluid or mucosal thickening. ORBITS: No significant abnormality. OTHER: No other significant abnormality. IMPRESSION: No acute intracranial findings. Diffuse atrophy is noted THIS IS AN ELECTRONICALLY VERIFIED FINAL REPORT 08/28/2024 5:32 PM - Electronically signed by Nathanael Lo M.D. T: Report ID: [id number] Reading Location: [place] [address] Procedure Note Nathanael Lo MD - 08/28/2024 EXAM DESCRIPTION: CT HEAD WO CONTRAST REASON FOR STUDY: dizziness, r/o ICH, r/o Mass, eval for signs of stroke r/o ICH, r/o Mass, eval for signs of stroke; dizziness. from doctorsoffice for episode of dizziness upon change of position. Denies dizzinesscurrently. On blood thinner. Has pacemaker PMHx of HTN, HLD, CAD, CHF, hx V tachs/p pacer/ICD, DM2, thyroid Dz, ALEX, anemia. TECHNIQUE: Axial images acquired through the brain without intravenous contrast. Images stored on PACS. Automated exposure control was used asa dose optimization technique for this examination. COMPARISON: None FINDINGS: BRAIN: No hemorrhage, edema or mass effect. No recent infarct. Diffuse atrophy of the brain is noted. EXTRA-AXIAL SPACES: No fluid collections. No masses. CALVARIUM: No fracture. SINUSES/MASTOIDS: No fluid or mucosal thickening. ORBITS: No significant abnormality. OTHER: No other significant abnormality. IMPRESSION: No acute intracranial findings. Diffuse atrophy is noted THIS IS AN ELECTRONICALLY VERIFIED FINAL REPORT 08/28/2024 5:32 PM - Electronically signed by Nathanael Lo M.D. T: Report ID: [id number] Reading Location: [place] [address] Kalin Cid MD IMG CT PROCEDURES Final Re sult * (ABNORMAL) Troponin T high-sensitivity 2-hour (08/28/2024 3:52 PM CDT) Trop T hs 34(H) <=22 ng/L Comment: Interpretive Data For further hscTnT resources including the diagnostic algorithm and an aid in interpretation, copy and paste this link: [email or web address].testcatalog.org/show/[email or web address] Current Interpretive Data last revised 2020. Trop T hs delta 0 ng/L MARY Trop T hs interp Insignificant MARY Blood 08/28/2024 3:52 PM CDT 08/28/2024 3:54 PM CDT Kalin Cid MD LAB BLOOD ORDERABLES Final Result [facility] [address] [facility] Department [place] [address] * (ABNORMAL) Pro B-type natriuretic peptide (08/28/2024 3:52 PM CDT) NT-proBNP 9,729(H) <=450 pg/mL Comment: Interpretive Comments: A. Dyspnea in Acute Care Setting All Ages: < 300 pg/ml, acute heart failure unlikely. < 50 yrs: 300 - 450 pg/ml, further investigation warranted. > 450 pg/ml, acute heart failure likely. 50 - 74 yrs: 300 - 900 pg/ml, further investigation warranted. > 900 pg/ml, acute heart failure likely . > or = 75 yrs: 450 - 1800 pg/ml, further investigation warranted. > 1800 pg/ml, acute heart failure likely. B. Non-acute Setting < 75 yrs < 125 pg/ml, rules out heart failure. > or = 125 pg/ml, further investigation warranted. > or = 75 yrs < 450 pg/ml, rules out heart failure. > or = 450 pg/ml, further investigation warranted. - Knowledge of each individual patient's NT-proBNP range may be more useful than using similar cut-points for every patient. Please note that marked elevations in NT-proBNP levels may be observed in state other than Left Ventricular Congestive Failure, including: acute coronary syndromes, right heart strain/failure (including pulmonary embolism and cor pulmonale), critical illness, renal failure, as well as advanced age. - References: 1. Ju CLEMENS et.al. Eur Heart J. 2006:27:330-337. 2. Moshe RW, Xiomy GARRETT. J. AM Carmenza Cardiol: Cardiovasc Imag. 2009;2: 216- 225. Interpretive Data Last Revised Date: 2017. Blood 08/28/2024 3:52 PM CDT 08/28/2024 3:54 PM CDT Kalin Cid MD LAB BLOOD ORDERABLES Final Result Performing Organization Address [facility] Co de Phone Number [address] [place] [address] * Phosphorus (08/28/2024 3:52 PM CDT) Phosphorus, pl 3.7 2.3 - 4.5 mg/dL Blood 08/28/2024 3:52 PM CDT 08/28/2024 3:54 PM CDT Kalin Cid MD LAB BLOOD ORDERABLES Final Result Performing Organization Address [facility] Co de Phone Number ANDRI[address] [place] [address] * Magnesium (08/28/2024 3:52 PM CDT) Magnesium 2.5 1.4 - 2.5 mg/dL Blood 08/28/2024 3:52 PM CDT 08/28/2024 3:54 PM CDT Kalin Cid MD LAB BLOOD ORDERABLES Final Result Performing Organization Address [facility] de Phone Number MARY [address] [place] [address] * (ABNORMAL) Urinalysis reflex to microscopic and culture Urine (08/28/2024 2:01 PM CDT) Color, ur Yellow Yellow Clarity, ur Clear Clear [facility] Specific gravity, ur 1.012 1.003 - 1.030 [facility] pH, urine 6.0 [facility] Comment: Interpretive Data U rine pH is affected by diet, medications, systemic acid-base disturbances, and renal tubular function. pH may affect urinary stone formation. For example, urine pH below 6.0 may help reduce the tendency for calcium phosphate stones and pH greater than 6.0 may reduce the tendency for uric acid stone formation. Source: [facility] Current Interpretive Data was last revised on 2017 Protein, ur ql Negative Negative [facility] Glucose, ur ql 4+(A) Negative [facility] Ketones, ur Negative Negative [facility] Bilirubin, ur Negative Negative [facility] Blood, ur Negative Negative [facility] Urobilinogen, ur <2.0 <2.0 mg/dL [facility] Nitrite, ur Negative Negative [facility] Leukocyte esterase, ur Negative Negative [facility] UA reflex comment Reflex conditions for microscopic UA and culture not met. [facility] Urine 08/28/2024 2:01 PM CDT 08/28/2024 2:07 PM CDT Kalin Cid MD LAB MICROBIOLOGY - GENERAL ORDERABLES Final Result Performing Organization Address [facility] Co de Phone Number MARY [address] [place] [id number] * (ABNORMAL) Troponin T high-sensitivity series (baseline, 2hr, 4hr, 6hr) (08/28/2024 1:46 PM CDT) Trop T hs 34(H) <=22 ng/L Comment: Interpretive Data For further hscTnT resources including the diagnostic algorithm and an aid in interpretation, copy and paste this link: [email or web address].testcatalog.org/show/[email or web address] Current Interpretive Data last revised 2020. Blood 08/28/2024 1:46 PM CDT 08/28/2024 1:56 PM CDT Kalin Cid MD LAB BLOOD ORDERABLES Final Result Performing Organization Address [facility] Co de Phone Number MARY [address] [place] [address] * eGFR (08/28/2024 1:46 PM CDT) Pathologist [facility] eGFR 66 >=60 mL/min/1. 73 m2 Comment: Interpretive Data Reference Interval Normal >/= 90 mL/min/1.73m2 Mildly decreased* 60 - 89 mL/min/1.73m2 Mildly to moderately decreased 45 - 59 mL/min/1.73m2 Moderately to severely decreased 30 - 44 mL/min/1.73m2 Severely decreased 15 - 29 mL/min/1.73m2 Kidney Failure < 15 mL/min/1.73m2 *Relative to young adult level Estimated glomerular filtration rate is determined by the 2020 CKD-EPI equation recommended by the National Kidney Foundation (A Unifying Approach to GFR Estimation: Recommendations of the NKF-ASK Task Force on Reassessing the Inclusion of Race in Diagnosing Kidney Disease, JASN 2020). The CKD-EPI equation should not be used for patients with unstable renal function and has not been validated in children and those over 70. Current interpretive data was last reviewed 2021. Blood 08/28/2024 1:46 PM CDT 08/28/2024 1:56 PM CDT Kalin Cid MD LAB BLOOD ORDERABLES Final Result Performing Organization Address [facility]/ZIP Co de Phone Number [place] [id number] [facility] [place] [address] * Differential, auto (08/28/2024 1:46 PM CDT) Pathologist [facility] Neutrophil abs 2.93 1.50 - 6.50 K/cumm Imm gran abs 0.00 0.00 - 0.10 K/cumm [facility] Lymphocyte abs 1.36 0.80 - 3.30 K/cumm [facility] Monocyte abs 0.52 0.20 - 0.80 K/cumm [facility] Eosinophil abs 0.19 0.00 - 0.50 K/cumm [facility] Basophil abs 0.03 0.00 - 0.10 K/cumm [facility] Neutrophil pct 58.3 % [facility] Comment: Interpretive Data Percent cell count reference ranges are not reported, since discordance with absolute values may lead to misinterpretation of CBC data. Current Interpretive Data was last revised on 2017. Imm gran pct 0.0 % [facility] Comment: Interpretive Data Percent cell count reference ranges are not reported, since discordance with absolute values may lead to misinterpretation of CBC data. Current Interpretive Data was last revised on 2017. Lymphocyte pct 27.0 % [facility] Comment: Interpretive Data Percent cell count reference ranges are not reported, since discordance with absolute values may lead to misinterpretation of CBC data. Current Interpretive Data was last revised on 2017. Monocyte pct 10.3 % [facility] Comment: Interpretive Data Percent cell count reference ranges are not reported, since discordance with absolute values may lead to misinterpretation of CBC data. Current Interpretive Data was last revised on 2017. Eosinophil pct 3.8 % [facility] Comment: Interpretive Data Percent cell count reference ranges are not reported, since discordance with absolute values may lead to misinterpretation of CBC data. Current Interpretive Data was last revised on 2017. Basophil pct 0.6 % [facility] Comment: Interpretive Data Percent cell count reference ranges are not reported, since discordance with absolute values may lead to misinterpretation of CBC data. Current Interpretive Data was last revised on 2017. Blood 08/28/2024 1:46 PM CDT 08/28/2024 1:56 PM CDT Kalin Cid MD LAB BLOOD ORDERABLES Final Result Performing Organization Address [facility] de Phone Number [address] [address] * (ABNORMAL) CBC with auto differential (08/28/2024 1:46 PM CDT) [facility] WBC 5.03 3.80 - 9.90 K/cumm Hgb 12.6(L) 13.0 - 17.5 g/dL [facility] Hct 40.7 38.9 - 50.3 % [facility] Plt 153 150 - 400 K/cumm [facility] MPV 12.2 9.1 - 12.3 fL [facility] RBC 4.29(L) 4.30 - 5.80 M/cumm [facility] MCV 94.9 81.3 - 96.4 fL [facility] MCH 29.4 27.1 - 33.3 pg [facility] MCHC 31.0(L) 32.3 - 35.7 g/dL [facility] RDW CV 14.6 11.1 - 14.9 % [facility] RDW SD 50.3(H) 35.7 - 48.1 fL [facility] NRBC abs 0.00 0.00 - 0.01 K/cumm [facility] Blood 08/28/2024 1:46 PM CDT 08/28/2024 1:56 PM CDT Kalin Cid MD LAB BLOOD ORDERABLES Final Result Performing Organization Address [facility] de Phone Number [address] [address] * (ABNORMAL) Protime-INR (08/28/2024 1:46 PM CDT) [facility] PT 20.3(H) 12.0 - 14.6 sec Comment:Ref Range High INR 1.7(H) 0.9 - 1.2 [facility] Comment: Ref Range High Interpretive data Oral anticoagulant therapeutic ranges: Venous thromboembolism prophylaxis or treatment: 2.0-3.0 CARDIOLOGY Standard range: 2.0-3.0 High-intensity range: 2.5-3.5 Refer to indication-specific guidelines for appropriate target ranges for prosthetic heart valve replacement. Current interpretive data was last revised on 2019. Blood 08/28/2024 1:46 PM CDT 08/28/2024 1:56 PM CDT Kalin Cid MD LAB BLOOD ORDERABLES Final Result [facility] [address] [facility] Department [place] [address] * Comprehensive metabolic panel (08/28/2024 1:46 PM CDT) Sodium 140 135 - 145 mmol/L Potassium, pl 4.6 3.3 - 4.9 mmol/L [facility] Comment:Hemolyzed; Potassium value may be falsely elevated by as much as 1.0 mmol/L. Suggest redraw and reanalysis. Chloride 102 97 - 110 mmol/L [facility] CO2 27 22 - 32 mmol/L [facility] Anion gap 11 2 - 15 mmol/L [facility] BUN 21 6 - 25 mg/dL [facility] Creatinine 1.12 0.80 - 1.30 mg/dL [facility] Glucose 123 70 - 199 mg/dL [facility] Comment: Interpretive Data Fasting glucose >/= 126 mg/dl is diagnostic for diabetes. Fasting is defined as no caloric intake for at least 8 hours. Fasting glucose between 100 mg/dl to 125 mg/dl is diagnostic of prediabetes. In a patient with classic symptoms of hyperglycemia or hyperglycemic crisis, a random glucose >/= 200 mg/dl is diagnostic for diabetes. In the absence of unequivocal hyperglycemia, results should be confirmed by repeat testing. The classification and Diagnosis of Diabetes Diabetes Care 202; 46: S19-S40. Current interpretive data was last revised 2022. Calcium 9.1 8.5 - 10.3 mg/dL [facility] Bilirubin, total 0.6 0.1 - 1.2 mg/dL [facility] Protein, pl 6.9 6.5 - 8.5 g/dL [facility] Albumin 3.8 3.5 - 5.0 g/dL [facility] Alk phos 88 40 - 130 Units/L MARY ALT 14 7 - 55 Units/L MARY AST See Comment 10 - 50 MARY Comment:Credited; Hemolyzed Specimen Blood 08/28/2024 1:46 PM CDT 08/28/2024 1:56 PM CDT Kalin Cid MD LAB BLOOD ORDERABLES Final Result Performing Organization Address [facility] Co de Phone Number MARY [address] [facility] Department [place] [address] * ECG 12 lead (08/28/2024 1:36 PM CDT) Pathologist [facility] Ventricular Rate EKG/Min 82 BPM [facility] Atrial Rate 93 BPM [facility] MN-Interval (MSEC) 144 ms [facility] QRS-Interval (MSEC) 124 ms [facility] QT-Interval (MSEC) 458 ms [facility] QTc 535 ms [facility] R [place] -40 degrees [facility] T [place] 188 degrees [facility] Diagnosis Sinus rhythm with frequent AV dual-paced complexes and with occasional Premature ventricular complexes Left axis deviation RSR' or QR pattern in V1 suggests right ventricular conduction delay Left ventricular hypertrophy with QRS widening and repolarization abnormality Inferior infarct , age undetermined Confirmed by ESTRELLA HEARD M.D. ([id number]) on 08/28/2024 5:11:25 PM [facility] 08/28/2024 1:36 PM CDT 08/28/2024 5:11 PM CDT Kalin Cid MD ECG ORDERABLES Final Resu lt Performing Organization Address [facility]/ZIP Co de Phone Number [facility] * (ABNORMAL) T3, free (08/07/2024 2:48 PM CDT) Pathologist [facility] Free T3 5.5(H) 2.0 - 4.4 pg/mL Blood 08/07/2024 2:48 PM CDT 08/07/2024 10:34 PM CDT Jenniferjanet Young APARTMENT LEASING SPECIALIST LAB BLOOD ORDERABLES Esperanza l Result Performing Organization Address [facility]/ZIP Co de Phone Number MARY PHILLIPS [address] [facility] [place] [address] * TSH (08/07/2024 2:48 PM CDT) Thyroid Stimulating Hormone 1.56 0.30 - 4.20 mcIUnit/mL Blood 08/07/2024 2:48 PM CDT 08/07/2024 10:34 PM CDT us Jennifer Young APARTMENT LEASING SPECIALIST LAB BLOOD ORDERABLES Esperanza l Result Performing Organization Address [facility] Co de Phone Number MARY PHILLIPS [address] [facility] [place] [address] * T4, free (08/07/2024 2:48 PM CDT) Free T4 1.29 0.90 - 1.70 ng/dL Blood 08/07/2024 2:48 PM CDT 08/07/2024 10:34 PM CDT us Jenniferjanet Young APARTMENT LEASING SPECIALIST LAB BLOOD ORDERABLES Esperanza l Result Performing Organization Address [facility] Co de Phone Number MARY PHILLIPS [address] [facility] [place] [address] * ECG 12 lead (07/22/2024 12:12 PM CDT) 07/22/2024 12:1 2 PM CDT us Bela Herzog MD ECG ORDERABLES Final Result * DEVICE CHECK - IN OFFICE (07/22/2024 10:01 AM CDT) Anatomical Region Laterality Modality Other 07/22/2024 2:00 AM CDT Narrative 07/23/2024 10:43 AM CDT Interpretation Summary: Battery and Leads (BL) Normal parameters noted on battery and lead(s) --- battery longevity estimate: 10.3yrs. Magnet rate 85ppm Presenting Rhythm (MN) Premature Ventricular Contraction(s) on presenting rhythm Atrial Pacing-Ventricular Pacing (AP-CHIEF CATALYST OPERATOR) Atrial Pacing-Ventricular Sensing (AP-VS) --- Underlying rhythm: SB with PVCs Procedure Note Bela Herzog MD - 07/23/2024 Interpretation Summary: Battery and Leads (BL) Normal parameters noted on battery and lead(s) --- battery longevityestimate: 10.3yrs. Magnet rate 85ppm Presenting Rhythm (MN) Premature Ventricular Contraction(s) on presenting rhythm Atrial Pacing-Ventricular Pacing (AP-CHIEF CATALYST OPERATOR) Atrial Pacing-Ventricular Sensing (AP-VS) --- Underlying rhythm: SB withPVCs Hung Hampton MD CV CARDIAC SERVICES PROCEDURE S Final Result * Albumin Creatinine Ratio, Urine (05/19/2024 10:51 AM NETWORK DIAGNOSTIC SUPPORT SPECIALIST) Albumin Ur 12.9 mg/L Comment: Interpretive Data No reference range established. Current interpretive data was last revised 2018. Creatinine Ur 127.4 mg/dL MARY PHILLIPS Comment: Interpretive Data No reference range established. Current interpretive data was last revised 2018. Albumin Creatinine Ratio, Ur 10 1 - 29 mg/g MARY PHILLIPS Urine 05/19/2024 10:5 1 AM NETWORK DIAGNOSTIC SUPPORT SPECIALIST 05/19/2024 2:40 PM NETWORK DIAGNOSTIC SUPPORT SPECIALIST Jennifer Young NP LAB URINE ORDERABLES Esperanza l Result MARY [address] Department [place] [address] * POCT hemoglobin A1c (05/19/2024 9:55 AM NETWORK DIAGNOSTIC SUPPORT SPECIALIST) Pathologist [facility] Hemoglobin A1C, POC 5.1 4.0 - 5.6 % Blood 05/19/2024 9:55 AM NETWORK DIAGNOSTIC SUPPORT SPECIALIST Jennifer Young APARTMENT LEASING SPECIALIST POINT OF CARE TEST ORDERA BLES Final Result * DIABETES EYE EXAM (04/29/2024 12:03 PM NETWORK DIAGNOSTIC SUPPORT SPECIALIST) Historical Provider HEALTH MAINTENANCE Final Result * Lipid panel (01/15/2024 2:30 PM CDT) Cholesterol 138 30 - 199 mg/dL Comment: Interpretive Data Ages < or = 19 years Acceptable: <170 mg/dL Borderline high: 170-199 mg/dL High: >or= 200 mg/dL Ages > or = 20 years Desirable: <200 mg/dL Borderline high: 200-239 mg/dL High: >or= 240 mg/dL Literature References: 1. Expert Panel on Integrated Guidelines for Cardiovascular Health and Risk Reduction in Children and Adolescents. Pediatrics 2011;128:S213 2. NCEP Expert Panel. Circulation 2004;110:227 Current Interpretive Data was last revised on 2017. Triglycerides 97 <=149 mg/dL MARY Comment: Interpretive Data Ages < or = 9 years Acceptable: <75 mg/dL Borderline high: 75-99 mg/dL High: >or= 100 mg/dL Ages 10 to 20 years Acceptable: <90 mg/dL Borderline high: 90-129 mg/dL High: >or= 130 mg/dL Ages > or = 20 years Desirable: <150 mg/dL Borderline high: 150-199 mg/dL High: 200-499 mg/dL Very high: >or= 499 mg/dL Literature References: 1. Expert Panel on Integrated Guidelines for Cardiovascular Health and Risk Reduction in Children and Adolescents. Pediatrics 2011;128:S213 2. NCEP Expert Panel. Circulation 2004;110:227 Current Interpretive Data was last revised on 2017. HDL 63 >=40 mg/dL MARY PHILLIPS Comment: Interpretive Data Ages < or = 19 years Acceptable: >45 mg/dL Borderline low: 40-45 mg/dL Low: <40 mg/dL Ages > or = 20 years Desirable: >or= 60 mg/dL Low: <40 mg/dL Literature References: 1. Expert Panel on Integrated Guidelines for Cardiovascular Health and Risk Reduction in Children and Adolescents. Pediatrics 2011;128:S213 2. NCEP Expert Panel. Circulation 2004;110:227 Current Interpretive Data was last revised on 2017. LDL, calculated 57 <=129 mg/dL MARY PHILLIPS Comment: Interpretive Data Ages < or = 19 years Acceptable: <110 mg/dL Borderline high: 110-129 mg/dL High: >or= 130 mg/dL Ages > or = 20 years Optimal: <100 mg/dL Near optimal: 100-129 mg/dL Borderline high: 130-159 mg/dL High: >160 mg/dL Calculated using the Jann LDL-C estimating equation. This equation was implemented on 2023. Prior to this date LDL-C was estimated using the Friedewald equation. Literature References: 1. Expert Panel on Integrated Guidelines for Cardiovascular Health and Risk Reduction in Children and Adolescents. Pediatrics 2011;128:S213 2. NCEP Expert Panel. Circulation 2004;110:227 3. Jann Jimenez et al. EDWIGE Cardiol. 2019July 24;5(5):540-548. doi: 10.1001/jamacardio.2020.0013 Current Interpretive Data was last revised on 2023. Non-HDL Cholesterol 75 mg/dL MARY PHILLIPS Comment: Interpretive Data Ages < or = 19 years Acceptable: <120 mg/dL Borderline high: 120-144 mg/dL High: >145 mg/dL Ages > or = 20 years When triglycerides are >200 mg/dL, Non-HDL cholesterol is a secondary target of therapy with treatment goals that are 30 mg/dL greater than the LDL cholesterol target. Literature References: 1. Expert Panel on Integrated Guidelines for Cardiovascular Health and Risk Reduction in Children and Adolescents. Pediatrics 2011;128:S213 2. NCEP Expert Panel. Circulation 2004;110:227 Current Interpretive Data was last revised on 2017. Chol/HDL ratio 2 MARY PHILLIPS Blood 01/15/2024 2:30 PM CDT 01/15/2024 8:08 PM CDT us Baljit Randall MD LAB BLOOD ORDERABLES Final Re sult MARY PHILLIPS [address] Department [place] [address] * CT abdomen with and without contrast (04/27/2023 1:47 PM NETWORK DIAGNOSTIC SUPPORT SPECIALIST) Anatomical Region Laterality Modality Body N/A Computed Tomogra phy 04/30/2023 5:29 PM NETWORK DIAGNOSTIC SUPPORT SPECIALIST Narrative 04/30/2023 5:36 PM NETWORK DIAGNOSTIC SUPPORT SPECIALIST EXAM DESCRIPTION: CT ABDOMEN W WO CONTRAST REASON FOR STUDY: Renal mass, normal renal function Possible Renal mass, Kidney lesion seen on xray recently TECHNIQUE: CT scan of the abdomen performed without and with intravenous and without oral contrast using helical scanning technique with dynamic intravenous contrast injection. Reconstructed coronal and sagittal MPR images reviewed. All images stored on PACS. Automated exposure control was used as a dose optimization technique for this examination. CONTRAST TYPE/DOSE: 100mL of IOVERSOL 350 MG IODINE/ML INTRAVENOUS SYRINGE injected via intravenous COMPARISON: [facility] CT 12/06/2022. PET-CT 09/15/2021. REFERENCE: Per ACR white paper recommendations, unless otherwise specified no follow-up imaging is recommended for incidental renal and adrenal lesions per consensus recommendations based on imaging criteria. Further lab evaluation could be pursued based on clinical findings. FINDINGS: LOWER CHEST: There is mild atelectasis in left lung base with the mildly elevated left hemidiaphragm. Emphysema is noted. LIVER: There is the low-density, macroscopic fat attenuation lesion in the right hepatic lobe 3.3 x 2.2 cm -54 Hounsfield units with some marginal calcification, this is similar to the prior chest CT. No new hepatic lesions are seen. The portal and hepatic veins are patent. GALLBLADDER: Surgically absent. BILE DUCTS: No biliary ductal dilation. SPLEEN: Spleen size normal. No focal lesion. PANCREAS: No pancreatic mass or inflammatory change. ADRENALS: Normal. KIDNEYS/URINARY TRACT: Normal enhancement right kidney. Normal enhancement left kidney. There is a low-density lobular lesion in the mid to lower pole left kidney, this is 3.6 x 1.9 cm, precontrast -14 Hounsfield units, postcontrast -9 Hounsfield units, meets criteria is a benign cyst, no further workup needed. No solid renal mass. There is no masslike lesion of the upper pole left kidney. The area of concern on the CT from 12/07/2019 3 May represent normal parenchyma. GI: No evidence of bowel obstruction. The terminal ileum is normal. Postsurgical changes of the stomach and small bowel partially imaged. PERITONEUM: No ascites or free air. No mesenteric mass or lymphadenopathy. RETROPERITONEUM: No retroperitoneal mass or lymphadenopathy. VASCULATURE: Abdominal aorta is nonaneurysmal. There is moderate atheromatous calcification of the common iliac arteries. MUSCULOSKELETAL: Bone windows demonstrate degenerative changes in the lumbar spine. There is vacuum disc phenomena. No acute or aggressive osseous abnormality is seen. OTHER: No other abnormality. IMPRESSION: No evidence of an acute abnormality of the abdomen. No evidence of a solid renal mass. The area of concern on the recent chest CT from 12/06/2022 appears to be normal parenchyma. Benign left renal cyst. Unchanged fat attenuation right hepatic lobe lesion. Cholecystectomy. Postsurgical changes of the stomach and small bowel. THIS IS AN ELECTRONICALLY VERIFIED FINAL REPORT 04/30/2023 5:36 PM - Electronically signed by Michael Goldman M.D. CH: ALAN Report ID: [id number] Reading Location: [id number] Procedure Note Michael Goldman Jr., MD - 04/30/2023 EXAM DESCRIPTION: CT ABDOMEN W WO CONTRAST REASON FOR STUDY: Renal mass, normal renal function Possible Renal mass, Kidney lesion seen on xray recently TECHNIQUE: CT scan of the abdomen performed without and with intravenousand without oral contrast using helical scanning technique with dynamic intravenous contrast injection. Reconstructed coronal and sagittal MPRimages reviewed. All images stored on PACS. Automated exposure control was usedas a dose optimization technique for this examination. CONTRAST TYPE/DOSE: 100mL of IOVERSOL 350 MG IODINE/ML INTRAVENOUSSYRINGE injected via intravenous COMPARISON: Michael CT 12/06/2022. PET-CT 09/15/2021. REFERENCE: Per ACR white paper recommendations, unless otherwise specifiedno follow-up imaging is recommended for incidental renal and adrenal lesionsper consensus recommendations based on imaging criteria. Further labevaluation could be pursued based on clinical findings. FINDINGS: LOWER CHEST: There is mild atelectasis in left lung base withthe mildly elevated left hemidiaphragm. Emphysema is noted. LIVER: There is the low-density, macroscopic fat attenuation lesion inthe right hepatic lobe 3.3 x 2.2 cm -54 Hounsfield units with some marginal calcification, this is similar to the prior chest CT. No new hepaticlesions are seen. The portal and hepatic veins are patent. GALLBLADDER: Surgically absent. BILE DUCTS: No biliary ductal dilation. SPLEEN: Spleen size normal. No focal lesion. PANCREAS: No pancreatic mass or inflammatory change. ADRENALS: Normal. KIDNEYS/URINARY TRACT: Normal enhancement right kidney. Normal enhancement left kidney. There is a low-density lobular lesion in the mid to lowerpole left kidney, this is 3.6 x 1.9 cm, precontrast -14 Hounsfield units, postcontrast -9 Hounsfield units, meets criteria is a benign cyst, nofurther workup needed. No solid renal mass. There is no masslike lesion of theupper pole left kidney. The area of concern on the CT from 12/07/2019 3 May represent normal parenchyma. GI: No evidence of bowel obstruction. The terminal ileum is normal. Postsurgical changes of the stomach and small bowel partially imaged. PERITONEUM: No ascites or free air. No mesenteric mass orlymphadenopathy. RETROPERITONEUM: No retroperitoneal mass or lymphadenopathy. VASCULATURE: Abdominal aorta is nonaneurysmal. There is moderateatheromatous calcification of the common iliac arteries. MUSCULOSKELETAL: Bone windows demonstrate degenerative changes in thelumbar spine. There is vacuum disc phenomena. No acute or aggressive osseous abnormality is seen. OTHER: No other abnormality. IMPRESSION: No evidence of an acute abnormality of the abdomen. No evidence of a solid renal mass. The area of concern on the recentchest CT from 12/06/2022 appears to be normal parenchyma. Benign left renal cyst. Unchanged fat attenuation right hepatic lobe lesion. Cholecystectomy. Postsurgical changes of the stomach and small bowel. THIS IS AN ELECTRONICALLY VERIFIED FINAL REPORT 04/30/2023 5:36 PM - Electronically signed by Michael Goldman M.D. CH: ALAN Report ID: [id number] Reading Location: [id number] Hu Norton MD IM CT PROCEDURES Final Result from Last 3 Months or Most Recently Relevant to Health Maintenance Insurance [facility] MEDICARE ADVANTAGE [facility] MEDICARE ADVANTAGE Advance Directives For more information, please contact: [phone] * Full Code (Latest Code Status on File) Date Activated Date Inactivated Comments 04/23/2023 2:11 PM 04/24/2023 3:31 PM * Full Code Date Activated Date Inactivated Comments 01/17/2023 9:51 AM 01/17/2023 4:07 PM * Full Code Date Activated Date Inactivated Comments 12/07/2022 3:19 AM 12/11/2022 4:19 PM Care Teams Museum Librarian Relationship Specialty Start Date End Date Baljit Randall MD PCP - General Family Medicine 01/20/21 Landry Leon MD Consulting Physician Cardiology 12/05/19 [place] [address] [place] [id number] Consulting Physician Interventional Cardiology 04/28/24 Caden Guajardo MD [address] [address] Consulting Physician Cardiology 07/02/24
--- OUTSIDE RECORDS SUMMARY | 2024-09-10 11:01 | XMS_ITS | Clinical Summary ---
Author Organization [facility] [address] [facility] [address] Address [address] [place] [address] Care Team Providers Care Instructor Substitute Cosmetology Name Role Phone Landry Leon MD Unavailable [phone] Baljit Randall MD Primary Care Provider [phone] Reena Gilbert MD Unavailable [phone] Caden Guajardo MD Unavailable [phone] Allergies Active Allergy Reactions Criticality Noted Date [...] for pain 120 tablet 09/02/19 25 Active C07-[id number] ate calcium-B6 (FOLBIC RF) 2-1.13-25 mg tablet Take 1 tablet by mouth money manager before breakfast 30 tablet 2 09/02/19 25 [...] MEALS 360 tablet 3 06/28/19 24 025 Discontinued(Th erapy completed) triamcinolone (NASACORT) 55 mcg nasal inhalerIndica tions:Dysfunc tion of right eustachian tube Administer 2 sprays into each nostril daily 16.9 mL 2 04/17/19 25 025 Discontinued(Th erapy completed) semaglutide (Ozempic) 0.25 mg or [...] pacemaker in situ 04/12/2023 Overview (07/28/2024): Medtronic Meenakshi Dual Pacemaker. Dx; Bradycardia, AV Block. DOI 04/23/2023- [place]ahanda. [place]. Carelink remote. 07/28/24-transferred to [place]. Morbid (severe) obesity due to excess calories 0 04/10/2023 Class 2 severe obesity due t o excess calories with serious comorbidity and body mass index (BMI) of 37.0 to 37.9 in adult 04/10/2023 Assessment & Plan (04/10/2023 1:55 PM COMMERCIAL SINGER): Discussed healthy diet and importance of regular physical activity (20- 30min/day, 150min/wk). Type 2 diabetes mellitus wit h hyperglycemia, without long-term current use of insulin 01/15/2023 Assessment & Plan (05/19/2024 10:45 AM COMMERCIAL SINGER): Chronic problem. A1c at goal w/o hypoglycemia. A1c today=5.1%, was 5.9% 01/15/24. Stop the metformin. Will re-evaluate at next appointment if we need to stop the Farxiga additionally. Current medications: Farxiga 10mg daily Ozempic 0.5 mg weekly UTD on DM eye exam (04/19/23 no DMR). Had appt 04/2024 at [facility]. Letter sent to get copy of report. Will update labs. Verified that he uses [employer]. Aware to check results/results letter in [employer]. Will contact by phone if needed. Strive [...] meals Assessment & Plan (04/10/2023 1:51 PM COMMERCIAL SINGER): Chronic problem. A1c at goal w/o hypoglycemia. [...] 08/12/2018 Assessment & Plan (05/19/2024 10:21 AM COMMERCIAL SINGER): Last thyroid US by Dr Sanderson 01/12/23: These nodules are not new. You have nodules that have been seen in ultrasound in the past and you even had biopsy of these nodules which are benign. Assessment & Plan (04/10/2023 1:54 PM COMMERCIAL SINGER): Last thyroid US 01/2021. Has not had repeat imaging since that time. Will repeat US at 06/[address] Sanderson. Assessment & Plan (02/03/2020 7:02 PM COMMERCIAL SINGER): We reviewed the ultrasound images with the [...] 02/20/2018 Assessment & Plan (05/19/2024 10:20 AM COMMERCIAL SINGER): Chronic problem. Currently taking methimazole 5mg 5 days/wk; none on weekends. Will update TFTs today. Verified that he uses [employer]. Aware to check results/results letter in [employer]. Will contact by phone if needed. Assessment & Plan (09/25/2023 1:05 PM CDT): Probably hypothyroid now. Update TFTs Will adjust dose of methimazole, as indicated Assessment & Plan (07/03/2023 2:48 PM CDT): Clinically euthyroid Update TFTs Assessment & Plan (04/10/2023 1:24 PM COMMERCIAL SINGER): Chronic problem. No labs since 12/07/22. Some [...] 2021 Assessment & Plan (04/13/2021 12:31 PM COMMERCIAL SINGER): -Methimazole dose decreased in February 2021 -Appears euthyroid on exam -Will continue to monitor TFT Assessment & Plan (04/29/2018 4:50 PM COMMERCIAL SINGER): Patient will be discussing the Amiodarone issue with his senior database engineer and will send copy of this note to cardiology. 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 She had recommended beginning Tapazole which patient has not started yet. Will coordinate between Dr. Don in the cardiology. Labs are pending from today and will repeat again in 3 months Vitamin D deficiency 01/28/2018 Assessment & Plan (01/28/2018 1:46 PM COMMERCIAL SINGER): Level over 30 04/12, will repeat -check 25 hydroxy vitamin-D History of gastric bypass 01/28/2018 Assessment & Plan (01/28/2018 1:47 PM COMMERCIAL SINGER): Will monitor the following yearly (will order) [...] safety Assessment & Plan (04/13/2021 12:33 PM COMMERCIAL SINGER): -CKD increases risk of hypoglycemia -Will closely monitor glucose pattern in ensure margin of safety Assessment & Plan (04/29/2018 4:51 PM COMMERCIAL SINGER): Creatinine is much improved and back to baseline Will repeat renal panel in 3 months 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 02/11/2016 Overview (06/29/2016): Coronary artery disease involving kashia coronary artery of kashia heart without angina pectoris Ascending aorta dilatation ([facility]) 02/11/2016 Overview (06/29/2016): Ascending aorta dilatation Mixed diabetic hyperlipidemi a associated with type 2 diabetes mellitus ([facility]) 02/11/2016 Overview (06/29/2016): Type 2 diabetes mellitus with complication, unspecified guidance counselor insulin use status Assessment & Plan (05/19/2024 10:20 AM COMMERCIAL SINGER): Chronic problem. Controlled on current Atorvastatin 10mg. Last lipid panel: 01/15/24 LDL=57, TG=97. Assessment & Plan (07/03/2023 2:49 PM CDT): Chronic, stable . Continue statin therapy with Lipitor 10 mg daily Assessment & Plan (04/10/2023 1:23 PM COMMERCIAL SINGER): Chronic problem. Controlled on current Atorvastatin 10mg. Last lipid panel: 08/10/22 LDL=42, RT=759. Assessment & Plan (01/15/2023 10:16 AM CDT): Chronic problem. Controlled on current Atorvastatin 10mg. Last lipid panel: 08/10/22 LDL=42, BQ=205. Assessment & Plan (10/17/2022 2:32 PM CDT): Chronic, well controlled. Continue atorvastastin Type 2 diabetes mellitus with diabetic neuropath y 04/01/2015 Assessment & Plan (05/19/2024 10:21 AM COMMERCIAL SINGER): Chronic problem. Reviewed foot care; needs to lotion daily. Aware to check feet nightly, not to go barefoot. Assessment & Plan (04/10/2023 1:24 PM COMMERCIAL SINGER): Chronic problem. Aware to check feet & [...] Metformin Assessment & Plan (04/18/2022 4:44 PM COMMERCIAL SINGER): Hba1c was Lab Results Component Value Date [...] 07/12/21 Assessment & Plan (04/13/2021 12:31 PM COMMERCIAL SINGER): -Currently taking oral agents and Trulicity -A1C on 04/13/21 was 6.4% -Will continue same medications at this time -Discussed diet and activity modifications. -Eye exam is up to date -Foot exam per foot nurse today Assessment & Plan (04/29/2018 4:48 PM COMMERCIAL SINGER): Diabetes control is markedly improved with the [...] day Assessment & Plan (01/28/2018 1:49 PM COMMERCIAL SINGER): Poor control with recent increase in HgbA1C. [...] different times and keep track -refer to early childhood educator aide to review blood sugars in 6 weeks [...] 09/18/2023 Assessment & Plan (04/10/2023 1:24 PM COMMERCIAL SINGER): Chronic problem. Lisinopril 2.5mg daily, metoprolol tartrate 50mg bid, lasix 80mg daily, spironolactone 25mg daily Assessment & Plan (01/15/2023 10:42 AM CDT): Chronic problem. Lisinopril 2.5mg daily, metoprolol tartrate 50mg bid, lasix 80mg daily, spironolactone 25mg daily Assessment & Plan (10/17/2022 2:32 PM CDT): Chronic, well controlled Continue current meds Lymphadenopathy 03/31/2021 04/20/2021 Overview (03/31/2021): Added automatically from request for surgery [id number] Assessment & Plan (04/13/2021 12:34 PM COMMERCIAL SINGER): -FNA suspicious for Hodgkin's Lymphoma -Has been seen by oncology and ENT -Scheduled for lymph node excisional biopsy tomorrow Screening PSA (prostate specific antigen) 03/15/2020 09/01/2024 Low TSH level 02/20/2018 01/20/2021 RHETT (acute kidney injury) 09/05/2017 At risk for amiodarone toxic ity with detention use 08/27/2017 12/19/2022 Morbid obesity with BMI of 40.0-44.9, adult 03/16/2017 03/15/2023 Assessment & Plan (08/21/2017 11:48 AM CDT): Obesity is stable. We again discussed diet and exercise as methods for weight loss. CPAP reinforced. Ayany 01/09/2017 03/15/2023 PVC's (premature ventricular contractions) 01/09/2017 [...] weeks. Assessment & Plan (05/30/2017 3:05 PM COMMERCIAL SINGER): Previous 12-lead EKG shows ventricular bigeminy. There [...] follow-up. Bradycardia 01/09/2017 03/15/2023 Daytime somnolence 09/19/2016 2 Noncompliance with treatment 02/11/2016 04/20/2021 Overview (06/29/2016): [...] management Assessment & Plan (04/13/2021 12:33 PM COMMERCIAL SINGER): -Continue same medical management Assessment & Plan (01/28/2018 1:46 PM COMMERCIAL SINGER): LDL 51 11/10 On atorvastatin Chronic coronary [...] monitor. Assessment & Plan (04/13/2021 12:33 PM COMMERCIAL SINGER): -BP today is 130/66 -Will continue same antihypertensive medications at this time. Osteoarthritis 07/02/2012 09/01/2024 Onychomycosis due to dermatophyte 04/18/2012 09/01/2024 Skin callus 04/18/2012 04/20/2021 Psoriasis 05/08/2011 09/01/2024 Nocturia 05/08/2011 01/20/2021 Slowing of urinary stream 05/08/2011 Encounters Date Type Department Care Team Description 09/01/2024 4:15 PM CDT Office Visit [facility] Medical [facility] Family Medicine at [address] [place] [address] Baljit Randall MD Orthostatic hypotension (Primary Dx); Dehydration; Chronic systolic congestive heart failure (HCC) 08/29/[address] [facility] Organization [address] [place] [address] Trudy Bocanegra MA 08/28/2024 2:46 PM CDT - 08/28/2024 6:59 PM CDT Emergency [address] [address] Kalin Cid MD Orthostatic hypotension (Primary Dx); Dizziness Discharge Disposition: Discharge to home or self care 08/28/2024 Telephone [facility] Family Medicine at [address] [place] [phone] Baljit Randall MD patient going to ER 08/25/2024 Telephone [facility] Family Medicine at [address] [place] [phone] Baljit Randall MD call back 08/21/2024 Telephone [facility] Family Medicine at [address] [place] [phone] Baljit Randall MD Xarelto 08/08/2024 Results Follow-Up [facility] Diabetes and Endocrinology [facility] [place] [address] Jennifer Young NP T3, free, T4, free, TSH 08/07/2024 2:48 PM CDT - 08/07/2024 11:59 PM CDT Hospital Encounter [facility] [address] [place] [address] Hyperthyroidism Discharge Disposition: Discharge to home or self care 08/07/2024 2:45 PM CDT Lab [facility] Medical Group Outpatient Lab at [address] [address] NSVT (nonsustained ventricular tachycardia) (HCC) (Primary Dx) 07/22/2024 11:15 AM CDT Office Visit [facility] Cardiology [address] [place] [address] [place] [phone] Bela Herzog MD NSVT (nonsustained ventricular tachycardia) (HCC) (Primary Dx); AV block; PVC (premature ventricular contraction); Cardiac pacemaker in situ; Dyspnea on exertion 07/22/2024 10:30 AM CDT Ancillary Procedure [facility] Cardiology [address] [place] [phone] Wenckebach second degree AV block (Primary Dx); NSVT (nonsustained ventricular tachycardia) (HCC); Bradycardia; Cardiac pacemaker in situ; Fitting and adjustment of cardiac pacemaker 07/22/2024 Results Follow-Up [facility] Cardiology [facility] Office Building [address] [place] [address] Bela Herzog MD ECG 12 lead 07/14/2024 Telephone [facility] Family Medicine at [place] [address] [facility] [address] [place] [address] Baljit Randall MD 07/01/2024 Telephone [facility] Cardiology [address] [facility] [address] [place] [address] Caden Guajardo MD Congestive Heart Failure 06/19/2024 Orders Only [facility] Cardiology [address] [place] [address] 8th [place] [address] [place] [phone] Hung Hampton MD NSVT (nonsustained ventricular tachycardia) (HCC) (Primary Dx); Bradycardia; Cardiac pacemaker in situ 06/19/2024 Telephone [facility] Cardiology [address] [place] [address] 8th [place] [address] [place] [phone] Alisha Keys Estrella 06/17/2024 Telephone [facility] Medical Group Cardiology [address] [facility] [address] [place] [address] Reena Gilbert MD Congestive Heart Failure from Last 3 Months Immunizations Immunization Administration Dates Next Due Hep A, Adult 03/28/2000,09/21/1999 Hep B Vaccine 03/28/2000,11/09/1999,09/21/1999 Influenza, Quad, Adjuvantate d, Intramuscular 12/26/2021 Influenza, Quadrivalent, Hig h Dose, Preservative Free, Intrr 01/04/2023,01/09/2021,12/05/2019 Influenza, Quadrivalent, Rec ombinant, Egg Free, Preservative Free, Intramuscular 12/13/2018 Influenza, Trivalent, High D ose, Split, Preservative Free, Intramuscular 12/26/2017 Influenza, Trivalent, Preser vative Free, Intramuscular 12/21/2014,01/09/2013,03/26/2011 Influenza, Unspecified 12/28/2021,01/13/2021 Skataz SARS-CoV-2 Monovalent Vaccination (12+ Yrs) PURPLE 01/09/2021,06/08/2020,05/18/2020 Pneumococcal Conjugate Pcv20 12/21/2022 Pneumococcal Polysaccharide PPV23 03/26/2008 RSV, Bivalent, Protein Subun it Rsvpref, Diluent (Abrysvo) 01/08/2023 Td, adsorbed 09/21/1999 ZOSTER Recombinant 07/17/2023,03/06/2023 Surgical History Surgery Date Site/Laterality Comments CHOLECYSTECTOMY 1969's GASTRIC BYPASS 1999' TONSILECTOMY, ADENOIDECTOMY, BILATERAL MYRINGOTOMY AND TUBES 03/26/1947 - 03/25/1948 HEMORRHOID SURGERY 1969's CATARACT EXTRACTION 03/26/2017 - 03/25/2018 Right ABDOMINAL SURGERY rue en y gastric by-pass surgery US GUIDED BIOPSY LYMPH NODE SUPERFICIAL LEFT 02/28/2021 N/A CARDIAC CATHETERIZATION c2017 non-obstructive disease (10-20%) CARDIAC PACEMAKER PLACEMENT 04/23/2023 GASTRIC RESTRICTION SURGERY Medical History Medical History Date Comments CHF (congestive heart failure) (HCC) Diabetes mellitus (HCC) 1994 Hypertension 1982 Hyperlipidemia Ventricular tachycardia (HCC) Sleep apnea 2004 CAD (coronary artery disease) Arthritis Cataract 2018 Thyroid disease 2020 Cataract 2018 HTN (hypertension) Sinusitis Thyroid disease 2020 Cancer (HCC) Hodgkins lymphoma Heart disease 2001 Anemia 2018 Ear problems Acute cystitis without hematuria 12/07/2022 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 SOB (shortness of breath) on exertion Type 2 diabetes mellitus (HCC) Cellulitis Dizziness Family History Medical History Relation Name Comments CHF Father Unknown Diabetes Father Unknown Diabetes mellit us; Heart disease Father Unknown Heart failure Father Unknown Congestive hea rt failure; Breast cancer Mother Unknown Cancer, breast ; Cancer Mother Unknown Coronary artery disease Mother Unknown Soumya nary artery disease; Diabetes Mother Unknown Diabetes mellit us; Mental illness Mother Unknown Uterine cancer Mother Unknown Cancer, uteri ne; Diabetes Paternal Grandfather Pop Cancer Sister 1 Also Yes Vision loss Sister 2 Number one Allergy (severe) Son 1 dp Learning disabilities Son 1 dp Allergy (severe) Son 2 sw Learning disabilities Son 2 sw Early Son 3 dt Learning disabilities Son 3 dt Mental illness Son 3 dt Anesthesia problems Neg Hx Malig Hyperthermia Neg Hx Relation Name Status Comments Father Unknown Mother Unknown Paternal Grandfather Pop Sister 1 Also Yes Sister 2 Number one Son 1 dp Son 2 sw Son 3 dt Social History Tobacco Use Types Packs/Day Years [...] often do you attend chur ch or synagogue services? 1 to 4 times per year 12/12/2022 Do you belong to any clubs o r organizations such as congregational groups, unions, fraternal or athletic groups, or [...] place to sleep or slept in a long term (including now)? No 12/12/2022 Personal Safety Answer Date Recorded Have you ever been in or are you currently in a harmful physical or emotional relationship or is someone making you feel afraid or unsafe? Denies 08/28/2024 Sex and Gender Information Value Date Recorded Sex Assigned at Not on file Legal Sex Male 3:19 AM COMMERCIAL SINGER Gender Identity Not on file Sexual Orientation Straight 03/23/2019 1: 09 AM COMMERCIAL SINGER Obstetrics History Last Filed Vital Signs Vital Sign Reading [...] 09/01/2024 4:24 PM CDT Plan of Treatment Health Maintenance Due Date Last Done Comments DTaP/Tdap/Td Vaccine (1 - Tdap) 09/22/1999 0 Covid-19 Vaccine (2023-2 5 season) 2023 07/17/2023, 01/08/2023, 12/26/2021, Additional history exists Depression Screening 09/17/2024 09/18/2023, 03/15/2023, 12/21/2022, Additional history exists Well Visit 65+ 09/17/2024 09/18/2023, 03/15/2023 Fall Risk Assessment 09/24/2024 09/25/2023, 09/18/2023, 04/24/2023, Additional history exists Hemoglobin A1C 11/16/2024 05/19/2024, 12/25, 09/25/2023, Additional history exists Influenza Vaccine (Season Ended) 2024 01/04/2023, 12/28/2021, 12/26/2021, Additional history exists Lipid Panel 01/14/2025 01/15/2024, 07/24, 01/31/2022, Additional history exists Albumin Creatinine Ratio, Urine 05/19/2025 05/19/2024, 08/10/2022, 01/31/2022, Additional history exists Foot Exam 05/19/2025 05/19/2024, 02/24, 01/15/2023, Additional history exists eGFR 08/28/2025 08/28/2024, 12/25, 09/06/2023, Additional history exists Dilated Eye Exam 04/29/2026 04/29/2024, , 04/19/2023, Additional history exists Hepatitis B Screening Completed 03/28/2000 , 11/09/1999, 09/21/1999 Pneumococcal vaccine 65+ Completed 12/21/2022, 03/2008 Abdominal Aortic Aneurysm (A AA) Screen Completed 04/27/2023 Zoster Vaccine Completed 07/17/2023, 03/06/2023 Medical Devices Implanted Type Area Template Checker Device Identifier Shelf Expiration Date Model / Serial / Lot Medtronic Inc Meenakshi S Mri Surescan 50.8x46.6mm 2 Chamber 7.4mm Pacemaker 22.5gm [id number] - [id number] Implanted:Qty: 1 on 04/23/2023 by Nestor Sutherland MD at [facility] Pacemaker Medtronic Inc 08/06/2024 [id number] / / [employer] Device Closure Vascade Od5 Fr Femoral Artery [id number] - [id number] Implanted:Qty: 1 on 01/17/2023 by Zoe Levy MD at [facility] Medical Inc 11/20/2024 [id number] / / [id number] Medtronic Inc Capsurefix Novus 6.2fr 2mm 52cm Bipolar Screw In Implantable Latex Free 5076-52 - [id number] Implanted:Qty: 1 on 04/23/2023 by Nestor Sutherland MD at [facility] Medtronic Inc 01/04/2025 [id number] / / Medtronic Inc Capsurefix Novus 6.2fr 2mm 58cm Bipolar Screw In Implantable 5076-58 - [id number] Implanted:Qty: 1 on 04/23/2023 by Nestor Sutherland MD at [facility] Medtronic Inc 12/26/2024 [id number] / / Procedures [...] CREATININE RATIO, URINE Routine 05/19/2024 10:51 AM COMMERCIAL SINGER Type 2 diabetes mellitus with hyperglycemia, without long-term current use of insulin (HCC) POCT HEMOGLOBIN A1C Routine 05/19/2024 9 :55 AM COMMERCIAL SINGER Type 2 diabetes mellitus with hyperglycemia, without long-term current use of insulin (HCC) HM DIABETES EYE EXAM Routine 04/29/2024 12:03 PM COMMERCIAL SINGER LIPID PANEL Routine 01/15/2024 2:30 PM CDT Type 2 diabetes mellitus with diabetic neuropathy, without long-term current use of insulin (HCC) CT ABDOMEN W WO CONTRAST Schedule Routine, Read Routine (OP Routine) 04/27/2023 1:47 PM COMMERCIAL SINGER Kidney lesion from Last 3 Months or [...] 5:32 PM - Electronically signed by Nathanael PAULINO T: Report ID: [id number] Reading Location: [place] [address] Procedure Note Nathanael Lo MD - 08/28/2024 [...] 5:32 PM - Electronically signed by Nathanael PAULINO T: Report ID: [id number] Reading Location: [id number] us Kalin Cid MD IM CT PROCEDURES Final Re sult * (ABNORMAL) [...] 3:52 PM CDT 08/28/2024 3:54 PM CDT us Kalin Cid MD LAB BLOOD ORDERABLES Final Result [facility] [address] [facility] Department [place] [address] * (ABNORMAL) Pro B-type natriuretic peptide (08/28/2024 [...] et.al. Eur Heart J. 2006:27:330-337. 2. Moshe TEAGUE, Xiomy GARRETT. J. AM Carmenza Cardiol: Cardiovasc Imag. 2009;2: 216- 225. Interpretive Data Last Revised Date: 2017. Blood 08/28/2024 3:52 PM CDT 08/28/2024 3:54 PM CDT Kalin Cid MD LAB BLOOD ORDERABLES Final Result Performing Organization Address [facility] de Phone Number [address] [address] * Phosphorus (08/28/2024 3:52 PM CDT) Pathologist [facility] Phosphorus, pl 3.7 2.3 - 4.5 mg/dL Blood 08/28/2024 3:52 PM CDT 08/28/2024 3:54 PM CDT Kalin Cid MD LAB BLOOD ORDERABLES Final Result Performing Organization Address [facility] de Phone Number [address] [address] * Magnesium (08/28/2024 3:52 PM CDT) Pathologist [facility] Magnesium 2.5 1.4 - 2.5 mg/dL Blood 08/28/2024 3:52 PM CDT 08/28/2024 3:54 PM CDT Kalin Cid MD LAB BLOOD ORDERABLES Final Result Performing Organization Address [facility] de Phone Number [address] [address] * (ABNORMAL) Urinalysis reflex to microscopic and culture Urine (08/28/2024 2:01 PM CDT) Pathologist [facility] Color, ur Yellow Yellow Clarity, ur Clear Clear [facility] Specific gravity, ur 1.012 1.003 - 1.030 [facility] pH, urine 6.0 [facility] Comment: Interpretive Data U rine pH is affected by diet, medications, systemic acid-base disturbances, and renal tubular function. pH may affect urinary stone formation. For example, urine pH below 6.0 may help reduce the tendency for calcium phosphate stones and pH greater than 6.0 may reduce the tendency for uric acid stone formation. Source: [facility] Current Interpretive Data was last revised on 2017 Protein, ur ql Negative Negative [facility] Glucose, ur ql 4+(A) Negative [facility] Ketones, ur Negative Negative [facility] Bilirubin, ur Negative Negative [facility] Blood, ur Negative Negative [facility] Urobilinogen, ur <2.0 <2.0 mg/dL [facility] Nitrite, ur Negative Negative [facility] Leukocyte esterase, ur Negative Negative [facility] UA reflex comment Reflex conditions for microscopic UA and culture not met. [facility] Urine 08/28/2024 2:01 PM CDT 08/28/2024 2:07 PM CDT Kalin Cid MD LAB MICROBIOLOGY - GENERAL ORDERABLES Final Result [facility] [address] [facility] Department [place] [address] * (ABNORMAL) Troponin T high-sensitivity series (baseline, 2hr, 4hr, 6hr) (08/28/2024 1:46 PM CDT) Pathologist [facility] Trop T hs 34(H) <=22 ng/L Comment: Interpretive Data For further hscTnT resources including the diagnostic algorithm and an aid in interpretation, copy and paste this link: [email or web address] Current Interpretive Data last revised 2020. Blood 08/28/2024 1:46 PM CDT 08/28/2024 1:56 PM CDT Kalin Cid MD LAB BLOOD ORDERABLES Final Result Performing Organization Address [facility] Co de Phone Number MARY [address] [address] * eGFR (08/28/2024 1:46 PM CDT) Pathologist [facility] eGFR 66 >=60 mL/min/1. 73 m2 Comment: [...] BLOOD ORDERABLES Final Result Performing Organization Address [facility] Co de Phone Number MARY [facility] [place] [address] * Differential, auto (08/28/2024 1:46 PM CDT) Pathologist [facility] [place] Neutrophil abs 2.93 1.50 - 6.50 K/cumm Imm gran abs 0.00 0.00 - 0.10 K/cumm [facility] Lymphocyte abs 1.36 0.80 - 3.30 K/cumm [facility] Monocyte abs 0.52 0.20 - 0.80 K/cumm [facility] Eosinophil abs 0.19 0.00 - 0.50 K/cumm [facility] Basophil abs 0.03 0.00 - 0.10 K/cumm [facility] Neutrophil pct 58.3 % [facility] Comment: Interpretive Data Percent cell count reference ranges are not reported, since discordance with absolute values may lead to misinterpretation of CBC data. Current Interpretive Data was last revised on 2017. Imm gran pct 0.0 % [facility] Comment: Interpretive Data Percent cell count reference ranges are not reported, since discordance with absolute values may lead to misinterpretation of CBC data. Current Interpretive Data was last revised on 2017. Lymphocyte pct 27.0 % [facility] Comment: Interpretive Data Percent cell count reference ranges are not reported, since discordance with absolute values may lead to misinterpretation of CBC data. Current Interpretive Data was last revised on 2017. Monocyte pct 10.3 % [facility] Comment: Interpretive Data Percent cell count reference ranges are not reported, since discordance with absolute values may lead to misinterpretation of CBC data. Current Interpretive Data was last revised on 2017. Eosinophil pct 3.8 % [facility] Comment: Interpretive Data Percent cell count reference ranges are not reported, since discordance with absolute values may lead to misinterpretation of CBC data. Current Interpretive Data was last revised on 2017. Basophil pct 0.6 % [facility] Comment: Interpretive Data Percent cell count reference ranges are not reported, since discordance with absolute values may lead to misinterpretation of CBC data. Current Interpretive Data was last revised on 2017. Blood 08/28/2024 1:46 PM CDT 08/28/2024 1:56 PM CDT us Kalin Cid MD LAB BLOOD ORDERABLES Final Result [facility] [address] [facility] Department [place] [address] * (ABNORMAL) CBC with auto differential (08/28/2024 1:46 PM CDT) WBC 5.03 3.80 - 9.90 K/cumm Hgb 12.6(L) 13.0 - 17.5 g/dL [facility] Hct 40.7 38.9 - 50.3 % [facility] Plt 153 150 - 400 K/cumm [facility] MPV 12.2 9.1 - 12.3 fL [facility] RBC 4.29(L) 4.30 - 5.80 M/cumm [facility] MCV 94.9 81.3 - 96.4 fL [facility] MCH 29.4 27.1 - 33.3 pg [facility] MCHC 31.0(L) 32.3 - 35.7 g/dL [facility] RDW CV 14.6 11.1 - 14.9 % [facility] RDW SD 50.3(H) 35.7 - 48.1 fL [facility] NRBC abs 0.00 0.00 - 0.01 K/cumm [facility] Blood 08/28/2024 1:46 PM CDT 08/28/2024 1:56 PM CDT Kalin Cid MD LAB BLOOD ORDERABLES Final Result Performing Organization Address [facility] de Phone Number [address] [place] [address] * (ABNORMAL) Protime-INR (08/28/2024 1:46 PM CDT) [facility] PT 20.3(H) 12.0 - 14.6 sec Comment:Ref Range High INR 1.7(H) 0.9 - 1.2 [facility] Comment: Ref Range High Interpretive data Oral [...] BLOOD ORDERABLES Final Result Performing Organization Address [facility] de Phone Number [address] Department [place] [address] * Comprehensive metabolic panel (08/28/2024 1:46 PM CDT) Sodium 140 135 - 145 mmol/L Potassium, pl 4.6 3.3 - 4.9 mmol/L [facility] Comment:Hemolyzed; Potassium value may be falsely elevated by as much as 1.0 mmol/L. Suggest redraw and reanalysis. Chloride 102 97 - 110 mmol/L [facility] CO2 27 22 - 32 mmol/L [facility] Anion gap 11 2 - 15 mmol/L [facility] BUN 21 6 - 25 mg/dL [facility] Creatinine 1.12 0.80 - 1.30 mg/dL [facility] Glucose 123 70 - 199 mg/dL [facility] Comment: Interpretive Data Fasting glucose >/= 126 [...] 2022. Calcium 9.1 8.5 - 10.3 mg/dL [facility] Bilirubin, total 0.6 0.1 - 1.2 mg/dL [facility] Protein, pl 6.9 6.5 - 8.5 g/dL [facility] Albumin 3.8 3.5 - 5.0 g/dL [facility] Alk phos 88 40 - 130 Units/L [facility] ALT 14 7 - 55 Units/L [facility] AST See Comment 10 - 50 [facility] Comment:Credited; Hemolyzed Specimen Blood 08/28/2024 1:46 PM CDT 08/28/2024 1:56 PM CDT Kalin Cid MD LAB BLOOD ORDERABLES Final Result [facility] [address] [facility] Department [place] [address] * ECG 12 lead (08/28/2024 1:36 PM CDT) Pathologist [facility] [place] Ventricular Rate EKG/Min 82 BPM [facility] Atrial Rate 93 BPM [facility] OR-Interval (MSEC) 144 ms [facility] QRS-Interval (MSEC) 124 ms [facility] QT-Interval (MSEC) 458 ms [facility] QTc 535 ms [facility] R [place] -40 degrees [facility] T [place] 188 degrees [facility] Diagnosis Sinus rhythm with frequent AV dual-paced complexes and with occasional Premature ventricular complexes Left axis deviation RSR' or QR pattern in V1 suggests right ventricular conduction delay Left ventricular hypertrophy with QRS widening and repolarization abnormality Inferior infarct , age undetermined Confirmed by ESTRELLA HEARD M.D. ([id number]) on 08/28/2024 5:11:25 PM [facility] 08/28/2024 1:36 PM CDT 08/28/2024 5:11 PM CDT us Kalin Cid MD ECG ORDERABLES Final Resu lt [facility] * (ABNORMAL) T3, free (08/07/2024 2:48 PM CDT) [facility] Free T3 5.5(H) 2.0 - 4.4 pg/mL Blood 08/07/2024 2:48 PM CDT 08/07/2024 10:34 PM CDT us Jennifer Young NP LAB BLOOD ORDERABLES Esperanza l Result [facility] [address] Department [place] [address] * TSH (08/07/2024 2:48 PM CDT) Pathologist [facility] Thyroid Stimulating Hormone 1.56 0.30 - 4.20 mcIUnit/mL Blood 08/07/2024 2:48 PM CDT 08/07/2024 10:34 PM CDT us Jenniferjanet Young AGER OPERATOR LAB BLOOD ORDERABLES Esperanza l Result [facility] [address] [facility] [place] [address] * T4, free (08/07/2024 2:48 PM CDT) Free T4 1.29 0.90 - 1.70 ng/dL Blood 08/07/2024 2:48 PM CDT 08/07/2024 10:34 PM CDT us Jennifer Webb Hector AGER OPERATOR LAB BLOOD ORDERABLES Esperanza l Result Performing Organization Address [facility] Co de Phone Number [facility] [address] [facility] [employer] [address] * ECG 12 lead (07/22/2024 12:12 PM [...] estimate: 10.3yrs. Magnet rate 85ppm Presenting Rhythm (OR) Premature Ventricular Contraction(s) on presenting rhythm Atrial Pacing-Ventricular Pacing (AP-FERRYBOAT DECKHAND) Atrial Pacing-Ventricular Sensing (AP-VS) --- Underlying rhythm: SB with PVCs Procedure Note Bela Herzog MD - 07/23/2024 Interpretation Summary: Battery and Leads (BL) Normal parameters noted on battery and lead(s) --- battery longevityestimate: 10.3yrs. Magnet rate 85ppm Presenting Rhythm (OR) Premature Ventricular Contraction(s) on presenting rhythm Atrial Pacing-Ventricular Pacing (AP-FERRYBOAT DECKHAND) Atrial Pacing-Ventricular Sensing (AP-VS) --- Underlying rhythm: SB withPVCs Hung Hampton MD CV CARDIAC SERVICES PROCEDURE S Final Result * Albumin Creatinine Ratio, Urine (05/19/2024 10:51 AM COMMERCIAL SINGER) Albumin Ur 12.9 mg/L Comment: Interpretive Data No reference range established. Current interpretive data was last revised 2018. Creatinine Ur 127.4 mg/dL [facility] Comment: Interpretive Data No reference range established. Current interpretive data was last revised 2018. Albumin Creatinine Ratio, Ur 10 1 - 29 mg/g [facility] Urine 05/19/2024 10:5 1 AM COMMERCIAL SINGER 05/19/2024 2:40 PM COMMERCIAL SINGER Jennifer Young NP LAB URINE ORDERABLES Esperanza l Result [facility] [address] Department [place] [address] * POCT hemoglobin A1c (05/19/2024 9:55 AM COMMERCIAL SINGER) Pathologist [facility] [place] Hemoglobin A1C, POC 5.1 4.0 - 5.6 % Blood 05/19/2024 9:55 AM COMMERCIAL SINGER Jennifer Young AGER OPERATOR POINT OF CARE TEST ORDERA BLES Final Result * HM DIABETES EYE EXAM (04/29/2024 12:03 PM COMMERCIAL SINGER) Historical Provider HEALTH MAINTENANCE Final Result * [...] on 2017. Triglycerides 97 <=149 mg/dL [facility] Comment: Interpretive Data Ages [...] mg/dL High: >160 mg/dL Calculated using the Forte LDL-C estimating equation. This equation was implemented on 2023. Prior to this date LDL-C was estimated using the Friedewald equation. Literature References: 1. Expert Panel on Integrated Guidelines for Cardiovascular Health and Risk Reduction in Children and Adolescents. Pediatrics 2011;128:S213 2. NCEP Expert Panel. Circulation 2004;110:227 3. Jann Hong al. EDWIGE Cardiol. 2019July 24;5(5):540-548. doi: 10.1001/jamacardio.2020.0013 [...] 2:30 PM CDT 01/15/2024 8:08 PM CDT Baljit Randall MD LAB BLOOD ORDERABLES Final Re sult [facility] [address] Department [place] [address] * CT abdomen with and without contrast (04/27/2023 1:47 PM COMMERCIAL SINGER) Anatomical Region Laterality Modality Body N/A Computed Tomogra phy 04/30/2023 5:29 PM COMMERCIAL SINGER Narrative 04/30/2023 5:36 PM COMMERCIAL SINGER EXAM DESCRIPTION: CT ABDOMEN W WO CONTRAST [...] IODINE/ML INTRAVENOUS SYRINGE injected via intravenous COMPARISON: Michael CT 12/06/2022. [...] Michael Goldman M.D. CH: ALAN Report ID: [id number] Reading Location: [id number] Procedure Note Michael Goldman Jr., MD - [...] Michael Goldman M.D. CH: ALAN Report ID: [id number] Reading Location: [place] [address] Hu Norton MD [facility] CT PROCEDURES Final Result from Last 3 Months or Most Recently Relevant to Health Maintenance Insurance [facility] MEDICARE ADVANTAGE [facility] MEDIC[facility] ADVANTAGE Advance Directives For more information, please contact: [phone] * Full Code (Latest Code Status on File) Date Activated Date Inactivated Comments 04/23/2023 2:11 PM 04/24/2023 3:31 PM * Full Code Date Activated Date Inactivated Comments 01/17/2023 9:51 AM 01/17/2023 4:07 PM * Full Code Date Activated Date Inactivated Comments 12/07/2022 3:19 AM 12/11/2022 4:19 PM Care Teams Instructor Substitute Cosmetology Relationship Specialty Start Date End Date Baljit Randall MD PCP - General Family Medicine 01/20/21 Landry Leon MD Consulting Physician Cardiology 12/05/19 Reena Gilbert MD [facility] [address] [place] [address] Consulting Physician Interventional Cardiology 04/28/24 Caden Guajardo MD [address] [address] Consulting Physician Cardiology 07/02/24
--- OUTSIDE RECORDS SUMMARY | 2024-09-10 11:02 | XMS_ITS | Encounter Summary ---
Author Organization [facility] Healthcare Address [address] [place] [address] Care Team Providers Care Tariff Clerk Name Role Phone Landry Leon MD Unavailable [phone] Baljit Randall MD Primary Care Provider [phone] Reena Gilbert MD Unavailable Caden Guajardo MD Unavailable [phone] Trudy Bocanegra MA Unavailable Encounter Details Date Type Department Care Team (Late st Contact Info) Description 07/14/2024 Telephone [facility] Medical Group Family Medicine at [address] [place] [address] Baljit Randall MD [address] [place] [address] [address] [place] [address] Social History Tobacco Use Types Packs/Day Years Used Date Smoking Tobacco: Former Cigarettes 1 17 0 03/26/1964 - 03/26/1981 Pipe Cigars Cigarillos Smokeless Tobacco: Never Alcohol Use Standard Drinks/Week Comments Yes 3 [...] often do you attend chur ch or bahai services? 1 to 4 times per year 12/12/2022 Do you belong to any clubs o r organizations such as latter day groups, unions, fraternal or athletic groups, or [...] place to sleep or slept in a senior care (including now)? No 12/12/2022 Personal Safety Answer Date Recorded Have you ever been in or are you currently in a harmful physical or emotional relationship or is someone making you feel afraid or unsafe? 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 Gender Identity Not on file Sexual Orientation Straight 03/23/2019 1: 09 AM SPED TEACHER documented as of this encounter Plan of Treatment Not on file documented as of this encounter Visit Diagnoses Not on filedocumented in this encounter Care Teams Tariff Clerk Relationship Specialty Start Date End Date Baljit Randall MD PCP - General Family Medicine 01/20/21 Landry Leon MD Consulting Physician Cardiology 12/05/19 Reena Gilbert MD [address] [facility] [address], [place] [address] Consulting Physician Interventional Cardiology 04/28/24 Caden Guajardo MD [address] [facility] [address] [place] [address] Consulting Physician Cardiology 07/02/24 Trudy Bocanegra MA [address] [place] [address] [address] [place] [address] [employer] Care Digital Sales Planner 08/29/24 08/29/24 documented as of this encounter
--- OUTSIDE RECORDS SUMMARY | 2024-09-10 11:02 | XMS_ITS | Encounter Summary ---
Author Organization [facility] Healthcare Address [address] [place] [address] Care Team Providers Care Turf Keeper Name Role Phone Landry Leon MD Unavailable [phone] Baljit Randall MD Primary Care Provider Reena Gilbert MD Unavailable Caden Guajardo MD Unavailable [phone] Trudy Bocanegra MA Unavailable Encounter Details Date Type Department Care Team (Late st Contact Info) Description 08/08/2024 Results Follow-Up [facility] Medical Group Diabetes and Endocrinology [address] [place] [address] Jennifer Young, ONLINE FACILITATOR [address] [facility] [address] [place] [address] T3, free, T4, free, TSH Social History Tobacco Use Types Packs/Day Years Used Date Smoking Tobacco: Former Cigarettes 1 17 0 03/26/1964 - 03/26/1981 Pipe Cigars Cigarillos Passive Smoke Exposure: Past Smokeless Tobacco: Never Alcohol Use Standard Drinks/Week [...] 12/12/2022 How often do you attend chur or faith services? 1 to 4 times per year 12/12/2022 Do you belong to any clubs o r organizations such as denominational groups, unions, fraternal or athletic groups, or [...] place to sleep or slept in a penitentiary (including now)? No 12/12/2022 Personal Safety Answer Date Recorded Have you ever been in or are you currently in a harmful physical or emotional relationship or is someone making you feel afraid or unsafe? 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 Please go back to the Sunday through Sunday dosing. We'll repeat your labs in 8-10 weeks. I'll give you lab orders at your appointment with me in August (09/11/24). Please call or send a JiaThis message if any questions. Thank you, Jennifer Young, TRI-sonali documented in this encounter Plan of Treatment Scheduled Orders Name Type Priority Associated Diagnoses Orde r Schedule T4, free Lab Routine Hyperthyroidism Expected: 10/08/2024 (Approximate), Expires: 08/08/2025 T3, free Lab Routine Hyperthyroidism Expected: 10/08/2024 (Approximate), Expires: 08/08/2025 TSH Lab Routine Hyperthyroidism Expected: 10/08/2024 (Approximate), Expires: 08/08/2025 documented as of this encounter Visit Diagnoses Diagnosis Hyperthyroidism- Primary Thyrotoxicosis without mention of goiter or other cause, without mention of thyrotoxic crisis or storm documented in this encounter Care Teams Turf Keeper Relationship Specialty Start Date End Date Baljit Randall MD PCP - General Family Medicine 01/20/21 Landry Leon MD Consulting Physician Cardiology 12/05/19 Reena Gilbert MD [address] [facility] [address], [place] [address] Consulting Physician Interventional Cardiology 04/28/24 Caden Guajardo MD [address] [facility] [address] [place] [address] Consulting Physician Cardiology 07/02/24 Trudy Bocanegra MA [address] [place] [address] [address] [place] [address] ACO Care Metalsmith 08/29/24 08/29/24 documented as of this encounter
--- OUTSIDE RECORDS SUMMARY | 2024-09-10 11:02 | XMS_ITS | Encounter Summary ---
Author Organization [facility] Address [address] [place] [address] Phone Care Team Providers Care Coiled Coil Inspector Name Role Phone Landry Leon MD Unavailable Baljti Randall MD Primary Care Provider [phone] Reena Gilbert MD Unavailable Caden Guajardo MD Unavailable Trudy Bocanegra MA Unavailable Encounter Details Date Type Department Care Team (Late st Contact Info) Description 07/22/2024 Results Follow-Up [facility] Cardiology [address] [facility] [address] [place] [address] Bela Herzog MD [facility] [id number] ECG 12 lead Social History Tobacco Use Types Packs/Day Years [...] often do you attend chur ch or shinto services? 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 Gender Identity Not on file Sexual Orientation Straight 03/23/2019 1: 09 AM WINDOWS SYSTEM ADMIN documented as of this encounter Plan of Treatment Not on file documented as of this encounter Visit Diagnoses Not on filedocumented in this encounter Care Teams Coiled Coil Inspector Relationship Specialty Start Date End Date Baljit Randall MD PCP - General Family Medicine 01/20/21 Landry Leon MD Consulting Physician Cardiology 12/05/19 Reena Gilbert MD [address] [facility] [address], [place] [address] Consulting Physician Interventional Cardiology 04/28/24 Caden Guajardo MD [address] [facility] [address] [place] [address] Consulting Physician Cardiology 07/02/24 Trudy Bocanegra MA [address] [place] [address] [address] [place] [address] [employer]CO Care Senior Mechanical Estimator 08/29/24 08/29/24 documented as of this encounter
== END 2024-09-10 09:50 | disposition home or self-care (01) ==
PROVIDERS: PCP Family Medicine; Visit Provider Nurse Practitioner
DX: R63.4 Abnormal weight loss (principal); J90 Pleural effusion, not elsewhere classified; J98.11 Atelectasis; R16.0 Hepatomegaly, not elsewhere classified; I70.209 Unspecified atherosclerosis of native arteries of extremities, unspecified extremity
CPT/HCPCS: 71260; 74177; Q9967

== ENCOUNTER 2024-09-20 10:58 | Inpatient (IN) | payer MEDICARE, SELFPAY ==
[2024-09-20] VITALS (10 sets, daily range): BP systolic 111–123; BP diastolic 80–95; PULSE 68–77; RESP 16–19; TEMP 36.8–36.9; O2SAT 93–100
--- NOTE | ~2024-09-20 | XR_ITS ---
EXAMINATION: XR chest 2V DATE: 09/20/2024 12:27 INDICATION: Shortness of breath TECHNIQUE: PA and lateral views of the chest were obtained. COMPARISON: Chest CT dated 09/10/2024 FINDINGS: Opacities at the bilateral lower lung zones with blunting at the bilateral costophrenic angles and po sterior sulci consistent with small bilateral pleural effusions, left greater than right, with associ ated bibasilar atelectasis and/or pneumonia. No pneumothorax. Cardiomegaly. Dual lead pacemaker seen with leads projecting over the expected locations of the right atrium and right ventricle. Chronic mi ld anterior wedging of a few lower thoracic vertebral bodies. IMPRESSION: 1. Small bilateral pleural effusions, left greater than right with associated bibasilar atelectasis v ersus pneumonia. Reviewed, dictated and finalized at location A. IMPRESSION: 1. Small bilateral pleural effusions, left greater than right with associated b ibasilar atelectasis versus pneumonia.
[2024-09-20 12:54] LABS: Hematocrit 40.9 % (42.0-52.0); Hemoglobin 12.4 g/dL (14.0-18.0); Immature Granulocyte Percent A 0.2 % (0-0.5); Lymphocytes Absolute Auto 1.48 K/mm3 (0.9-3.2); Mean Corpuscular HGB Conc 30.3 g/dl (32-36); Mean Corpuscular Hemoglobin 28.9 pg (26-34); Mean Corpuscular Volume 95.3 fl (80-100); Nucleated Red Blood Cells Absolute Auto 0.000 K/mm3 (0.0-0.012); Nucleated Red Blood Cells Perc 0.0 % (0.0-0.2); Platelet Count Result 192 k/mm3 (150-375); Red Blood Count 4.29 M/mm3 (4.6-6.20); White Blood Count 4.8 K/mm3 (4.5-10.0)
--- NOTE | 2024-09-20 12:54 | ED.SOB ---
HPI - SOB/Dyspnea General Chief Complaint: Shortness of Breath/Dyspnea Stated Complaint: SOB Time Seen by Provider: 09/20/24 11:44 History of Present Illness HPI Narrative: Patient is an 79-year-old male who presents ER with shortness of breath. Reports he has had chronic shortness of breath with exertion that slowly been worsening. He has now developed shortness of breath at rest. No chest pain or chest pressure. No runny nose or sore throat or productive cough. Denies orthopnea. Reports that he feels very weak. He is on diuretics as well as blood thinners prior dictation patient will. Related Data Home Medications ?Medication ?Instructions ?Recorded ?Confirmed ?Last Taken ?Type aspirin 81 mg tablet,delayed 81 mg PO DAILY 01/08/20 08/07/23 1 Day Ago History release ~12/25/22 cyanocobalamin (vitamin B-12) 2,000 mcg PO DAILY 01/08/20 08/07/23 1 Day Ago History 1,000 mcg tablet ~12/25/22 dulaglutide 1.5 mg/0.5 mL 1.5 mg subcut WEEKLY 01/08/20 08/07/23 12/20/22 History subcutaneous pen injector (Trulicity) furosemide 40 mg tablet 40 mg PO QAM 01/08/20 08/07/23 1 Day Ago History ~12/25/22 magnesium 200 mg tablet 200 mg PO Q6H 01/08/20 08/07/23 1 Day Ago History ~12/25/22 metoprolol tartrate 50 mg tablet 50 mg PO BID 01/08/20 08/07/23 1 Day Ago History ~12/25/22 metformin 500 mg tablet 1,000 mg PO BID 10/07/20 08/07/23 1 Day Ago History ~12/25/22 atorvastatin 10 mg tablet 10 mg PO QHS 12/26/22 08/07/23 1 Day Ago History ~12/25/22 dapagliflozin propanediol 10 mg 10 mg PO DAILY 12/26/22 08/07/23 1 Day Ago History tablet ~12/25/22 diclofenac sodium 75 mg 150 mg PO DAILY PRN Pain (Scale 12/26/22 08/07/23 1 Day Ago History tablet,delayed release Score 1-3) ~12/25/22 docusate sodium 100 mg capsule 100 mg PO QAM 12/26/22 08/07/23 1 Day Ago History (Colace) ~12/25/22 lisinopril 10 mg tablet 10 mg PO DAILY 12/26/22 08/07/23 1 Day Ago History ~12/25/22 miconazole nitrate 2 % topical 1 applic topical BID 12/26/22 08/07/23 1 Day Ago History cream (Antifungal (miconazole)) ~12/25/22 multivitamin 1 tablet PO DAILY 12/26/22 08/07/23 1 Day Ago History ~12/25/22 uuh-rmarm-gwuc-lidocaine topical 1 ea topical BID 12/26/22 08/07/23 1 Day Ago History ointment ~12/25/22 rivaroxaban 2.5 mg tablet (Xarelto) 2.5 mg PO BID 12/26/22 08/07/23 1 Day Ago History ~12/25/22 spironolactone 25 mg tablet 25 mg PO QAM 12/26/22 08/07/23 1 Day Ago History ~12/25/22 tramadol 50 mg tablet 50 mg PO BID PRN pain 12/26/22 08/07/23 Unknown History vitamin E 400 unit tablet 45 mg PO DAILY 12/26/22 08/07/23 1 Day Ago History ~12/25/22 zinc acetate 50 mg (zinc) capsule 50 mg PO DAILY 05/17/23 08/07/23 Unknown History (Galzin) amiodarone 100 mg tablet 100 mg PO DAILY 06/19/23 08/07/23 Unknown History Allergies Allergy/AdvReac Type Severity Reaction Status Date / Time clindamycin Allergy Unknown unknown Verified 09/20/24 12:37 Review of Systems Review of Systems: All systems reviewed & are unremarkable except as noted in HPI and below Constitutional: Constitutional: Reports no additional constitutional complaints Cardiovascular: Cardiovascular: Reports no additional cardiovascular complaints Respiratory: Respiratory: Reports no additional respiratory complaints Gastrointestinal: Gastrointestinal: Reports no additional gastrointestinal complaints Musculoskeletal: Musculoskeletal: Reports no additional musculoskeletal complaints Integumentary/Breasts: Skin/Breast: Reports system reviewed and no additional complaints, except as docu PMFSH Past Medical History Medical History Obstipation Weakness of pelvic floor in male Diarrhea Thyroid nodule Hyperthyroidism Low TSH level Diabetic neuropathy Cobalamin deficiency Nocturia Psoriasis NSVT (nonsustained ventricular tachycardia) Bradycardia PVC (premature ventricular contraction) Bigeminy ALEX treated with BiPAP Renal insufficiency Chronic coronary artery disease Dyslipidemia Hypertension Morbid obesity Diabetes Hypertensive heart disease with CHF Dyslipidemia associated with type 2 diabetes mellitus Ascending aorta dilatation CAD (coronary artery disease) Surgical History Surgical History (Reviewed 08/26/24 @ 12:55 by Radha Bhardwaj [facility]) Hx of myringotomy History of tonsillectomy and adenoidectomy (~1949) History of hemorrhoidectomy (~1970) History of cholecystectomy (~1974) History of cataract surgery History of gastric bypass (~2003) Family History Family History Father Family history of cardiovascular disease Diabetes mellitus Hypertension Mother Family history of kidney disease Diabetes mellitus Breast cancer Sibling Family history of glaucoma Grandparent Diabetes mellitus Sibling Thyroid cancer Social History Social History (Reviewed 08/26/24 @ 12:55 by Radha Bhardwaj [facility]) Smoking packs per day: 1 Smoking cigarettes per day: 20.0 Years smoked: 20 Smoking pack-years: 20.00 Smoking status: Former smoker Tobacco type: cigarettes Smoking end date: 03/26/99 Alcohol intake: never Alcohol use details: rarely Substance use: never Lack of Transportation: No Lack of Food: Never True Current Housing: I Have Housing Concerned About Future Housing: No Difficulty Paying Gas/Electric Bills: No Difficulty Paying for Meds: No Currently Unemployed: No Education: Bachelor's Degree Difficulty w/ Childcare or Family Care: No Living arrangements: with family Spiritual care concerns: No Exam Narrative: GENERAL: Well-appearing, well-nourished, and in no acute distress. HEAD: Normocephalic, atraumatic. ENT: Mucous membranes moist. NECK: Supple. CHEST: Faint basilar crackles. No respiratory distress. HEART: Regular rate and rhythm. Normal peripheral pulses. ABDOMEN: Soft, nontender, nondistended. EXTREMITIES: Normal range of motion. 2+ edema. SKIN: Warm, dry, no rash. NEURO: Alert and oriented x3. PSYCH: Normal mood and affect. Course Course Emergency Course: Heart failure exacerbation. Cardiology consulted. Admit to hospitalist service. Lasix for diuresis. O2 sat going between the upper 80s 90s. Vital Signs Vital signs: Vital Signs Temperature 98.2 F 09/20/24 11:05 Pulse Rate 74 09/20/24 11:05 Respiratory Rate 18 09/20/24 11:05 Blood Pressure 122/81 09/20/24 11:05 Pulse Oximetry 100 09/20/24 11:05 Oxygen Delivery Room Air 09/20/24 11:05 Temperature 98.2 F 09/20/24 11:05 Pulse Rate 77 09/20/24 14:24 Respiratory Rate 17 09/20/24 14:24 Blood Pressure 123/95 H 09/20/24 14:24 Pulse Oximetry 96 09/20/24 14:24 Oxygen Delivery Room Air 09/20/24 12:35 MDM - SOB/Dyspnea Lab Data 09/20/24 12:45 09/20/24 12:45 Labs: Lab Results 09/20/24 Range/Units 12:45 WBC 4.8 (4.5-10.0) K/mm3 RBC 4.29 L (4.6-6.20) M/mm3 Hgb 12.4 L (14.0-18.0) g/dL Hct 40.9 L (42.0-52.0) % MCV 95.3 (80-100) fl MCH 28.9 (26-34) pg MCHC 30.3 L (32-36) g/dl RDW 15.9 H (11.5-14.5) % Plt Count 192 (150-375) k/mm3 MPV 11.6 H (7.4-10.4) fl Immature Gran % (Auto) 0.2 (0-0.5) % Neut % (Auto) 54.8 (45.5-73.1) % Lymph % (Auto) 30.7 (18.3-44.2) % Hinds % (Auto) 11.4 H (2.6-8.5) % Eos % (Auto) 2.3 (0-4.4) % Baso % (Auto) 0.6 (0.2-1.2) % Lymph # (Auto) 1.48 (0.9-3.2) K/mm3 Hinds # (Auto) 0.6 (0.1-0.6) K/mm3 Eos # (Auto) 0.1 (0-0.3) K/mm3 Baso # (Auto) 0.0 (0.0-0.1) K/mm3 Abs Immat Gran (auto) 0.01 (0.00-0.031) K/mm3 Absolute Neuts (auto) 2.6 (1.3-6.7) K/mm3 Absolute Nucleated RBC 0.000 (0.0-0.012) K/mm3 Nucleated RBC % 0.0 (0.0-0.2) % PT 20.6 H (11.1-14.7) Seconds INR 1.8 APTT 32.6 (22.3-36.8) Seconds Sodium 139 (137-145) mmol/L Potassium 3.8 (3.4-5.0) mmol/L Chloride 102 (98-107) mmol/L Carbon Dioxide 31 H (22-30) mmol/L Anion Gap 6 (4-12) mmol/L BUN 20 (9-20) mg/dL Creatinine 1.19 (0.7-1.3) mg/dL Estim Creat Clear Calc 52 ml/min Estimated GFR 59 (59 - ) Glucose 103 (65-110) mg/dL Calcium 9.1 (8.4-10.2) mg/dL Total Bilirubin 0.8 (0.2-1.3) mg/dL AST 42 (17-59) U/L ALT 17 (6-50) U/L Alkaline Phosphatase 88 (38-126) U/L Troponin I < 0.012 (0.000-0.034) ng/mL NT-Pro-B Natriuret Pep 70075 H (19.9-100) pg/mL Total Protein 6.9 (6.3-8.2) g/dL Albumin 3.6 (3.5-5.1) g/dL Lipase 68 (23-300) U/L Imaging Data Radiologist's impression: ITS Impressions Chest X-Ray 09/20/24 12:45 IMPRESSION: 1. Small bilateral pleural effusions, left greater than right with associated bibasilar atelectasis versus pneumonia. ECG Data EKG #1: ECG completion date: 09/20/24 ECG completion time: 11:23 EKG Interpretation: normal rate (77), widened QRS and other (Atrial/ventricular pacemaker) Discharge Plan Discharge Clinical Impression: Heart failure Patient Disposition: Still a Patient Condition: Stable Patient Language: Swazi Prescriptions: No Action Galzin 50 mg (zinc) capsule 50 mg PO DAILY lactulose 20 gram/30 mL solution 20 g PO BID 30 Days Qty: 1800 3RF amiodarone 100 mg tablet 100 mg PO DAILY Motegrity 2 mg tablet 2 mg PO DAILY Qty: 90 3RF aspirin 81 mg tablet,delayed release (DR/EC) 81 mg PO DAILY cyanocobalamin (vitamin B-12) 1,000 mcg tablet 2,000 mcg PO DAILY furosemide 40 mg tablet 40 mg PO QAM magnesium 200 mg tablet 200 mg PO Q6H metoprolol tartrate 50 mg tablet 50 mg PO BID Trulicity 1.5 mg/0.5 mL pen injector 1.5 mg subcut WEEKLY Rx Instructions: Wednesdays metformin 500 mg Tablet 1,000 mg PO BID Rx Instructions: with meals multivitamin Tablet 1 tablet PO DAILY miconazole nitrate [Antifungal (miconazole)] 2 % Cream 1 applic TOPICAL BID vitamin E 400 unit Tablet 45 mg PO DAILY ovk-zgonw-rghf-lidocaine Ointment 1 ea TOPICAL BID Rx Instructions: BUTT WOUND dapagliflozin propanediol 10 mg Tablet 10 mg PO DAILY Xarelto 2.5 mg Tablet 2.5 mg PO BID atorvastatin 10 mg tablet 10 mg PO QHS spironolactone 25 mg tablet 25 mg PO QAM lisinopril 10 mg tablet 10 mg PO DAILY docusate sodium [Colace] 100 mg capsule 100 mg PO QAM diclofenac sodium 75 mg tablet,delayed release (DR/EC) 150 mg PO DAILY PRN (Reason: Pain (Scale Score 1-3)) tramadol 50 mg tablet 50 mg PO BID PRN (Reason: pain) Rx Instructions: ALTERNATES DAILY WITH DICLOFENAC PO FOR PAIN Follow-up/Referrals: Prakash,Baljit Collins MD [Primary Care Provider] -
[2024-09-20 13:09] LABS: Alanine Aminotransferase 17 U/L (6-50); Albumin Level 3.6 g/dL (3.5-5.1); Alkaline Phosphatase 88 U/L (38-126); Anion Gap 6 mmol/L (4-12); Aspartate Amino Transferase 42 U/L (17-59); Bilirubin,Total 0.8 mg/dL (0.2-1.3); Blood Urea Nitrogen 20 mg/dL (9-20); Calcium 9.1 mg/dL (8.4-10.2); Carbon Dioxide 31 mmol/L (22-30); Chloride 102 mmol/L (98-107); Estimated CRCL calculation 52 ml/min; Estimated Glomerular Filt Rate 59; Glucose 103 mg/dL (65-110); Lipase 68 U/L (23-300); Potassium 3.8 mmol/L (3.4-5.0); Sodium 139 mmol/L (137-145); Total Protein 6.9 g/dL (6.3-8.2)
[2024-09-20 13:13] LABS: INR 1.8; Prothrombin Time 20.6 Seconds (11.1-14.7)
[2024-09-20 13:14] LABS: Partial Thromboplastin Time 32.6 Seconds (22.3-36.8)
[2024-09-20 13:19] LABS: NT Pro B Type Natriuretic Pept 16200 pg/mL (19.9-100); Troponin I < 0.012 ng/mL (0.000-0.034)
[2024-09-20] MEDS: FUROSEMIDE INJ 40 MG/4 ML VIAL IV PUSH ×2 (14:17→20:27)
--- NOTE | 2024-09-20 15:06 | ECG_ITS ---
Test Date: 2024-09-20 17:43:58 Measurements Intervals [place] Rate: 77 P: 47 VA: 232 QRS: -61 QRSD: 170 T: 122 QT: 461 QTc: 525 Interpretive Statements ELECTRONIC ATRIAL PACEMAKER ELECTRONIC VENTRICULAR PACEMAKER VENTRICULAR PREMATURE COMPLEXES BASELINE ARTIFACT- I, II, III, AVR, AVL, AVF, V1-V6 NO FURTHER INTERPRETATION IS POSSIBLE ABNORMAL ECG No previous ECG available for comparison Electronically Signed On 09-20-2024 20:02:28 CDT by Andrez Meadows D.O.
--- NOTE | 2024-09-20 16:21 | ADMGEN ---
This patient, Yusef Hawkins, was admitted to Medical Room 252-01. Patient/family oriented to hospital policies and general routines including ID bracelet, bed and alarms, visiting hours, pain management, procedures, bathroom and other care routines, personal items, smoking policy, room service/diet, and visiting hours. Information on how to activate the Rapid Response Team has been discussed. Patient/Family are encouraged to report perceived risks to care and to ask questions if they do not understand what they are told or what they should do.
[2024-09-20 17:11] LABS: Troponin I < 0.012 ng/mL (0.000-0.034)
--- NOTE | 2024-09-20 17:19 | ECG_ITS ---
Test Date: 2024-09-20 11:23:24 Measurements Intervals [place] Rate: 77 P: 152 UT: 243 QRS: -66 QRSD: 157 T: 123 QT: 446 QTc: 508 Interpretive Statements ELECTRONIC ATRIAL PACEMAKER ELECTRONIC VENTRICULAR PACEMAKER FREQUENT VENTRICULAR PREMATURE COMPLEXES BASELINE ARTIFACT- I, III, AVR, AVL, AVF, V1-V6 NO FURTHER INTERPRETATION IS POSSIBLE ABNORMAL ECG No previous ECG available for comparison Electronically Signed On 09-21-2024 07:39:45 CDT by Andrez Meadows D.O.
--- NOTE | 2024-09-20 18:29 | P.HP_ITS ---
H&P: HPI History of Present Illness Date/Time: 09/20/24 18:29 Chief Complaint: SOB Narrative: 79-year-old male with an extensive PMHx: of but not limited to, diabetes HTN, morbid obesity, CAD. Presented to the emergency room with complaints of shortness breath. Patient tells me that he is suffered from SOB for several years he reports that the previous a examinations of his lungs did not reveal any abnormalities and doctors cannot determine the cause recently the patient underwent an x-ray in preparation for colonoscopy which incidentally revealed fluid around the lungs this prompted further investigation by the patient's general practitioner. Last night the patient experienced severe SOB leading to the decision to seek medical attention,this morning. The patient reports he has been treated with intravenous Lasix which resulted in frequent urination and improved breathing. The patient reported no chest pain but has a history of congestive heart failure since around age 38 likely due to b/p: which has been well controlled by medication. The patient noticed edema in the legs for which patient uses compression devices and Sylvain hoses, the patient also has neuropathy due to diabetes but does not take insulin. Review of Systems Review of Systems: All systems reviewed & are unremarkable except as noted in HPI and below PMFSH Past Medical History Medical History Obstipation Weakness of pelvic floor in male Diarrhea Thyroid nodule Hyperthyroidism Low TSH level Diabetic neuropathy Cobalamin deficiency Nocturia Psoriasis NSVT (nonsustained ventricular tachycardia) Bradycardia PVC (premature ventricular contraction) Bigeminy ALEX treated with BiPAP Renal insufficiency Chronic coronary artery disease Dyslipidemia Hypertension Morbid obesity Diabetes Hypertensive heart disease with CHF Dyslipidemia associated with type 2 diabetes mellitus Ascending aorta dilatation CAD (coronary artery disease) Surgical History Surgical History Hx of myringotomy History of tonsillectomy and adenoidectomy (~1949) History of hemorrhoidectomy (~1969) History of cholecystectomy (~1974) History of cataract surgery History of gastric bypass (~2003) Family History Family History Father Family history of cardiovascular disease Diabetes mellitus Hypertension Mother Family history of kidney disease Diabetes mellitus Breast cancer Sibling Family history of glaucoma Grandparent Diabetes mellitus Sibling Thyroid cancer Social History Social History Smoking packs per day: 1 Smoking cigarettes per day: 20.0 Years smoked: 20 Smoking pack-years: 20.00 Smoking status: Former smoker Tobacco type: cigarettes Smoking end date: 03/26/99 Alcohol intake: never Alcohol use details: rarely Substance use: current Substance use type: marijuana Do You Feel Safe in your Home?: Yes Lack of Transportation: YES Lack of Food: Never True Current Housing: I Have Housing Concerned About Future Housing: No Difficulty Paying Gas/Electric Bills: No Difficulty Paying for Meds: No Currently Unemployed: No Education: Bachelor's Degree Difficulty w/ Childcare or Family Care: No Living arrangements: with family Spiritual care concerns: No Meds Home Medications and Allergies Home Medications ?Medication ?Instructions ?Recorded ?Confirmed ?Type aspirin 81 mg tablet,delayed 81 mg PO DAILY 01/08/20 09/20/24 History release cyanocobalamin (vitamin B-12) 2,000 mcg PO DAILY 01/08/20 09/20/24 History 1,000 mcg tablet dulaglutide 1.5 mg/0.5 mL 1.5 mg subcut WEEKLY 01/08/20 09/20/24 History subcutaneous pen injector (Trulicity) furosemide 40 mg tablet 40 mg PO QAM 01/08/20 09/20/24 History magnesium 200 mg tablet 200 mg PO Q6H 01/08/20 09/20/24 History metoprolol tartrate 50 mg tablet 50 mg PO BID 01/08/20 09/20/24 History metformin 500 mg tablet 1,000 mg PO BID 10/07/20 09/20/24 History atorvastatin 10 mg tablet 10 mg PO QHS 12/26/22 09/20/24 History dapagliflozin propanediol 10 mg 10 mg PO DAILY 12/26/22 09/20/24 History tablet diclofenac sodium 75 mg 150 mg PO DAILY PRN Pain (Scale 12/26/22 09/20/24 History tablet,delayed release Score 1-3) docusate sodium 100 mg capsule 100 mg PO QAM 12/26/22 09/20/24 History (Colace) lisinopril 10 mg tablet 10 mg PO DAILY 12/26/22 09/20/24 History miconazole nitrate 2 % topical 1 applic topical PRN PRN 12/26/22 09/20/24 History cream (Antifungal (miconazole)) maceration in folds multivitamin 1 tablet PO DAILY 12/26/22 09/20/24 History paj-wbfck-dhgh-lidocaine topical 1 ea topical BID PRN skin 12/26/22 09/20/24 History ointment irritation rivaroxaban 2.5 mg tablet (Xarelto) 2.5 mg PO BID 12/26/22 09/20/24 History spironolactone 25 mg tablet 25 mg PO QAM 12/26/22 09/20/24 History tramadol 50 mg tablet 50 mg PO BID PRN pain 12/26/22 09/20/24 History vitamin E 400 unit tablet 45 mg PO DAILY 12/26/22 09/20/24 History lactulose 20 gram/30 mL oral 20 g (30 mL) PO BID 30 days #1,800 05/17/23 09/20/24 Rx solution mL zinc acetate 50 mg (zinc) capsule 50 mg PO DAILY 05/17/23 09/20/24 History (Galzin) amiodarone 100 mg tablet 100 mg PO DAILY 06/19/23 09/20/24 History prucalopride 2 mg tablet 2 mg PO DAILY #90 tabs 08/26/24 09/20/24 Rx (Motegrity) methimazole 5 mg tablet 5 mg PO 5XW 09/20/24 09/20/24 History semaglutide 0.25 mg or 0.5 mg (2 0.5 mg subcut WEEKLY 09/20/24 09/20/24 History mg/3 mL) subcutaneous pen injector (Ozempic) Allergies Allergy/AdvReac Type Severity Reaction Status Date / Time clindamycin Allergy Unknown unknown Verified 09/20/24 16:23 Vital Signs Vital Signs - 24 hr 09/20/24 11:05 09/20/24 12:33 09/20/24 12:35 Temperature 98.2 F Pulse Rate 74 73 Respiratory Rate 18 19 Blood Pressure 122/81 123/94 H Pulse Oximetry 100 93 95 Oxygen Delivery Room Air Room Air Room Air 09/20/24 12:36 09/20/24 14:24 09/20/24 15:51 Temperature Pulse Rate 68 77 75 Respiratory Rate 16 17 16 Blood Pressure 123/94 H 123/95 H 120/91 H Pulse Oximetry 93 96 93 Oxygen Delivery 09/20/24 17:54 Temperature Pulse Rate Respiratory Rate Blood Pressure Pulse Oximetry Oxygen Delivery Room Air Exam Narrative: General: A well-developed, nontoxic-appearing gentlemen, sitting chair side HEENT: PERRL, EOMI. Oral mucosa moist. Neck: Supple. No midline cervical tenderness. Respiratory: Respirations are non- labored and lungs are clear to auscultation bilaterally. Cardiovascular: Regular rate and rhythm with S1-S2. Gastrointestinal: Abdomen is soft, non-tender, and non-distended with positive bowel sounds. Skin: Warm and dry. No rash or lesions on limited exam. Extremities: Moderate bilateral leg swelling, +1 edema Neurological: Alert and oriented. Cranial nerves 2-12 are grossly intact. No gross focal deficits to casual conversation. Psychiatric: Pleasant and cooperative with normal mood and affect. Judgment and insight intact. H&P: Results Labs Labs: Short CBC 09/20/24 Range/Units 12:45 WBC 4.8 (4.5-10.0) K/mm3 Hgb 12.4 L (14.0-18.0) g/dL Hct 40.9 L (42.0-52.0) % Plt Count 192 (150-375) k/mm3 BMP 09/20/24 12:45 Sodium 139 Potassium 3.8 Chloride 102 Carbon Dioxide 31 H BUN 20 Creatinine 1.19 Glucose 103 Calcium 9.1 Cardiac Enzymes 09/20/24 09/20/24 Range/Units 12:45 16:37 Troponin I < 0.012 < 0.012 (0.000-0.034) ng/mL Liver Function 09/20/24 Range/Units 12:45 Total Bilirubin 0.8 (0.2-1.3) mg/dL AST 42 (17-59) U/L ALT 17 (6-50) U/L Alkaline Phosphatase 88 (38-126) U/L Albumin 3.6 (3.5-5.1) g/dL Pulse Oximetry SpO2 results: 97% on RA Attestation: I personally reviewed and interpreted this pulse oximetry as foll ows: ECG Interpretation: Test Date: 2024-09-20 17:43:58 Measurements Intervals [place] Rate: 77 P: 47 DE: 232 QRS: -61 QRSD: 170 T: 122 QT: 461 QTc: 525 Interpretive Statements ELECTRONIC ATRIAL PACEMAKER ELECTRONIC VENTRICULAR PACEMAKER VENTRICULAR PREMATURE COMPLEXES BASELINE ARTIFACT- I, II, III, AVR, AVL, AVF, V1-V6 NO FURTHER INTERPRETATION IS POSSIBLE ABNORMAL ECG No previous ECG available for comparison Electronically Signed On 09-20-2024 20:02:28 CDT by Andrez Meadows D.O. Assessment and Plan Assessment and plan (1) Chronic diastolic CHF (congestive heart failure): Code(s): I50.32 - Chronic diastolic (congestive) heart failure Status: Acute Assessment and Plan: -acute on chronic diastolic heart failure -continue telemetry monitoring -cardiology consulted -strict I&O, monitor/record -continue Lasix 40 mg IV b.i.d. -check transthoracic echocardiogram (2) CAD (coronary artery disease): Code(s): I25.10 - Atherosclerotic heart disease of [place] coronary artery without angina pectoris Status: Acute Assessment and Plan: -nonobstructive coronary artery disease -denies any angina -continue home medication ASA 81 mg p.o./atorvastatin 10 mg HS (3) Morbid obesity: Code(s): E66.01 - Morbid (severe) obesity due to excess calories Status: Acute Assessment and Plan: -heart healthy diet (4) History of gastric bypass: Code(s): Z98.84 - Bariatric surgery status Status: Acute (5) Cellulitis of left lower extremity: Code(s): L03.116 - Cellulitis of left lower limb Status: Acute Assessment and Plan: -chronic (6) Diabetes: Code(s): E11.9 - Type 2 diabetes mellitus without complications Status: Inactive Assessment and Plan: -bedside glucose management -managed by diet Plan Continue home medications: VTE Prophylaxis: SCDs/Xarelto DIET: Heart healthy Anticipated hospital stay: > 2 days Code Status: Full code Quality VTE Prophylaxis VTE prophylaxis: mechanical ordered and pharmacologic ordered
--- NOTE | 2024-09-20 19:32 | P.CONCA_ITS ---
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 Mild aortic stenosis -repeat transthoracic echocardiogram to ensure it has not progressed to severe stage is Nonobstructive coronary artery disease -no angina to warrant further investigation -continue aspirin 81 mg p.o. daily and atorvastatin 10 mg every evening -it would also appear that he is on the cardiovascular prevention dose of Xarelto which can be continued High-grade AV block status post permanent pacemaker -his rate response in exertional response is adjusted from 3-5 previously and is lower rate limit was suggested to 70 beats per minute previously -he has been stable on these settings History of Present Illness History of Present Illness Consult date/time: 09/20/24 19:32 Requesting physician: Lizy Hernandez APRN Reason For Visit: Heart failure exacerbation Narrative: 79-year-old man with chronic diastolic heart failure, 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 He has been having shortness of breath for 3 years now however as significantly worsened last few days. He become short of breath carrying out activities of daily living such as ambulating within the confines of his home or standing for too long in the kitchen trying to cook. Denies any exertional chest discomfort. No syncopal events. Associated orthopnea in the last few days. He also exhibited kussmaul breathing by description. Has associated lower extremity swelling that has been chronic that improves with Sylvain compression stockings. Review of Systems 2 Cardiovascular: Cardiovascular: Reports as per HPI Respiratory: Respiratory: Reports as per HPI [facility] Past Medical History Medical History (Updated 09/20/24 @ 19:41 by Randall Hartman MD) Obstipation Weakness of pelvic floor in male Diarrhea Thyroid nodule Hyperthyroidism Low TSH level Diabetic neuropathy Cobalamin deficiency Nocturia Psoriasis NSVT (nonsustained ventricular tachycardia) Bradycardia PVC (premature ventricular contraction) Bigeminy ALEX treated with BiPAP Renal insufficiency Chronic coronary artery disease Dyslipidemia Hypertension Morbid obesity Diabetes Hypertensive heart disease with CHF Dyslipidemia associated with type 2 diabetes mellitus Ascending aorta dilatation CAD (coronary artery disease) Surgical History Surgical History Hx of myringotomy History of tonsillectomy and adenoidectomy (~1949) History of hemorrhoidectomy (~1969) History of cholecystectomy (~1974) History of cataract surgery History of gastric bypass (~2003) Family History Family History Father Family history of cardiovascular disease Diabetes mellitus Hypertension Mother Family history of kidney disease Diabetes mellitus Breast cancer Sibling Family history of glaucoma Grandparent Diabetes mellitus Sibling Thyroid cancer Social History Social History Smoking packs per day: 1 Smoking cigarettes per day: 20.0 Years smoked: 20 Smoking pack-years: 20.00 Smoking status: Former smoker Tobacco type: cigarettes Smoking end date: 03/26/99 Alcohol intake: never Alcohol use details: rarely Substance use: current Substance use type: marijuana Do You Feel Safe in your Home?: Yes Lack of Transportation: YES Lack of Food: Never True Current Housing: I Have Housing Concerned About Future Housing: No Difficulty Paying Gas/Electric Bills: No Difficulty Paying for Meds: No Currently Unemployed: No Education: Bachelor's Degree Difficulty w/ Childcare or Family Care: No Living arrangements: with family Spiritual care concerns: No Meds Home Medications and Allergies Home Medications ?Medication ?Instructions ?Recorded ?Confirmed ?Type aspirin 81 mg tablet,delayed 81 mg PO DAILY 01/08/20 09/20/24 History release cyanocobalamin (vitamin B-12) 2,000 mcg PO DAILY 01/08/20 09/20/24 History 1,000 mcg tablet dulaglutide 1.5 mg/0.5 mL 1.5 mg subcut WEEKLY 01/08/20 09/20/24 History subcutaneous pen injector (Trulicity) furosemide 40 mg tablet 40 mg PO QAM 01/08/20 09/20/24 History magnesium 200 mg tablet 200 mg PO Q6H 01/08/20 09/20/24 History metoprolol tartrate 50 mg tablet 50 mg PO BID 01/08/20 09/20/24 History metformin 500 mg tablet 1,000 mg PO BID 10/07/20 09/20/24 History atorvastatin 10 mg tablet 10 mg PO QHS 12/26/22 09/20/24 History dapagliflozin propanediol 10 mg 10 mg PO DAILY 12/26/22 09/20/24 History tablet diclofenac sodium 75 mg 150 mg PO DAILY PRN Pain (Scale 12/26/22 09/20/24 History tablet,delayed release Score 1-3) docusate sodium 100 mg capsule 100 mg PO QAM 12/26/22 09/20/24 History (Colace) lisinopril 10 mg tablet 10 mg PO DAILY 12/26/22 09/20/24 History miconazole nitrate 2 % topical 1 applic topical PRN PRN 12/26/22 09/20/24 History cream (Antifungal (miconazole)) maceration in folds multivitamin 1 tablet PO DAILY 12/26/22 09/20/24 History miw-lmkcu-svys-lidocaine topical 1 ea topical BID PRN skin 12/26/22 09/20/24 History ointment irritation rivaroxaban 2.5 mg tablet (Xarelto) 2.5 mg PO BID 12/26/22 09/20/24 History spironolactone 25 mg tablet 25 mg PO QAM 12/26/22 09/20/24 History tramadol 50 mg tablet 50 mg PO BID PRN pain 12/26/22 09/20/24 History vitamin E 400 unit tablet 45 mg PO DAILY 12/26/22 09/20/24 History lactulose 20 gram/30 mL oral 20 g (30 mL) PO BID 30 days #1,800 05/17/23 09/20/24 Rx solution mL zinc acetate 50 mg (zinc) capsule 50 mg PO DAILY 05/17/23 09/20/24 History (Galzin) amiodarone 100 mg tablet 100 mg PO DAILY 06/19/23 09/20/24 History prucalopride 2 mg tablet 2 mg PO DAILY #90 tabs 08/26/24 09/20/24 Rx (Motegrity) methimazole 5 mg tablet 5 mg PO 5XW 09/20/24 09/20/24 History semaglutide 0.25 mg or 0.5 mg (2 0.5 mg subcut WEEKLY 09/20/24 09/20/24 History mg/3 mL) subcutaneous pen injector (Ozempic) Allergies Allergy/AdvReac Type Severity Reaction Status Date / Time clindamycin Allergy Unknown unknown Verified 09/20/24 16:23 Vital Signs Vital Signs - 24 hr 09/20/24 11:05 09/20/24 12:33 09/20/24 12:35 Temperature 36.8 C Pulse Rate 74 73 Respiratory Rate 18 19 Blood Pressure 122/81 123/94 H Pulse Oximetry 100 93 95 Oxygen Delivery Room Air Room Air Room Air 09/20/24 12:36 09/20/24 14:24 09/20/24 15:51 Temperature Pulse Rate 68 77 75 Respiratory Rate 16 17 16 Blood Pressure 123/94 H 123/95 H 120/91 H Pulse Oximetry 93 96 93 Oxygen Delivery 09/20/24 17:54 Temperature Pulse Rate Respiratory Rate Blood Pressure Pulse Oximetry Oxygen Delivery Room Air Exam 2 Const: General: comfortable HENMT: Mouth: Yes moist mucous membranes Eyes: EOM: EOMs intact bilaterally Neck: Neck: no JVD Resp: Effort & Inspection: normal respiratory effort Auscultation: clear to auscultation bilaterally Cardio: Rate: regular rate Rhythm: regular rhythm Heart sounds: Murmur heart sound present Other: Grade 3 systolic murmur in the upper sternal borders with low but audible S2 GI: GI Palp: Yes Soft to palpation Neuro: Speech: normal speech Extrem: General: edema and pedal edema Results Labs and Meds 09/20/24 12:45 09/20/24 12:45 Lab results: Cardiac Enzymes 09/20/24 09/20/24 Range/Units 12:45 16:37 AST 42 (17-59) U/L Troponin I < 0.012 < 0.012 (0.000-0.034) ng/mL Coagulation 09/20/24 Range/Units 12:45 PT 20.6 H (11.1-14.7) Seconds APTT 32.6 (22.3-36.8) Seconds CBC 09/20/24 Range/Units 12:45 WBC 4.8 (4.5-10.0) K/mm3 RBC 4.29 L (4.6-6.20) M/mm3 Hgb 12.4 L (14.0-18.0) g/dL Hct 40.9 L (42.0-52.0) % Plt Count 192 (150-375) k/mm3 Lymph # (Auto) 1.48 (0.9-3.2) K/mm3 Tift # (Auto) 0.6 (0.1-0.6) K/mm3 Eos # (Auto) 0.1 (0-0.3) K/mm3 Baso # (Auto) 0.0 (0.0-0.1) K/mm3 Comprehensive Metabolic Panel 09/20/24 Range/Units 12:45 Sodium 139 (137-145) mmol/L Potassium 3.8 (3.4-5.0) mmol/L Chloride 102 (98-107) mmol/L Carbon Dioxide 31 H (22-30) mmol/L BUN 20 (9-20) mg/dL Creatinine 1.19 (0.7-1.3) mg/dL Glucose 103 (65-110) mg/dL Calcium 9.1 (8.4-10.2) mg/dL AST 42 (17-59) U/L ALT 17 (6-50) U/L Alkaline Phosphatase 88 (38-126) U/L Total Protein 6.9 (6.3-8.2) g/dL Albumin 3.6 (3.5-5.1) g/dL Intake and Output 09/20/24 09/20/24 09/20/24 07:59 15:59 23:59 Intake Total 340 Output Total 700 600 Balance -700 -260 Intake: Oral 340 Output: Urine 700 600 Other: # Unmeasured Voids 1 Patient Weight 09/20/24 23:59 Weight 103.1 kg
[2024-09-20 20:10] LABS: Troponin I < 0.012 ng/mL (0.000-0.034)
[2024-09-20] MEDS: METOPROLOL TARTRATE 50 MG TAB PO (21:25)
[2024-09-20] MEDS: MAGNESIUM OXIDE 200 MG TABLET PO (21:26)
[2024-09-20] MEDS: ATORVASTATIN 10 MG TABLET PO (21:26)
[2024-09-20] MEDS: RIVAROXABAN 2.5 MG TABLET PO (21:26)
[2024-09-21] VITALS (12 sets, daily range): BP systolic 107–128; BP diastolic 60–78; PULSE 60–80; RESP 18; TEMP 36.2–37.1; O2SAT 97–99
[2024-09-21 01:16] LABS: Anion Gap 8 mmol/L (4-12); Blood Urea Nitrogen 21 mg/dL (9-20); Calcium 9.1 mg/dL (8.4-10.2); Carbon Dioxide 31 mmol/L (22-30); Chloride 101 mmol/L (98-107); Estimated CRCL calculation 54 ml/min; Estimated Glomerular Filt Rate > 60; Glucose 91 mg/dL (65-110); Magnesium 2.3 mg/dL (1.6-2.3); Potassium 3.1 mmol/L (3.4-5.0); Sodium 140 mmol/L (137-145)
--- NOTE | 2024-09-21 07:45 | PM.IMPN ---
Progress Note: A&P Assessment and Plan (1) Chronic diastolic CHF (congestive heart failure): Code(s): I50.32 - Chronic diastolic (congestive) heart failure Status: Acute Assessment and Plan: acute on chronic diastolic heart failure continue telemetry monitoring strict I&O, monitor/record continue Lasix 40 mg IV b.i.d. Cardio consult Repeat echo to assess CHF and Continue Lasix, aspirin 81 mg daily, atorvastatin 10mg, Xarelto Echo pending for today or tomorrow (2) CAD (coronary artery disease): Code(s): I25.10 - Atherosclerotic heart disease of hoopa coronary artery without angina pectoris Status: Acute Assessment and Plan: nonobstructive coronary artery disease denies any angina continue home medication ASA 81 mg p.o./atorvastatin 10 mg HS (3) Morbid obesity: Code(s): E66.01 - Morbid (severe) obesity due to excess calories Status: Acute Assessment and Plan: heart healthy diet (4) History of gastric bypass: Code(s): Z98.84 - Bariatric surgery status Status: Acute (5) Cellulitis of left lower extremity: Code(s): L03.116 - Cellulitis of left lower limb Status: Acute Assessment and Plan: chronic (6) Diabetes: Code(s): E11.9 - Type 2 diabetes mellitus without complications Status: Inactive Assessment and Plan: bedside glucose management managed by diet Plan Continue home medications: VTE Prophylaxis: SCDs/Xarelto DIET: Heart healthy Anticipated hospital stay: > 2 days Code Status: Full code Subjective Date/time seen: 09/21/24 07:45 Interval history: 79-year-old male with an extensive PMHx: of but not limited to, diabetes HTN, morbid obesity, CAD. Presented to the emergency room with complaints of shortness breath. 09/21/2024 Patient sitting comfortably in bed at time of exam. Denies any cp, sob, n/v, abdominal pain at this time. Cardiology following, planning for echo likely tomorrow to assess if decline in left ventricular systolic function. Pt otherwise stable and has no complaints. Review of Systems Review of Systems: All systems reviewed & are unremarkable except as noted in HPI and below Exam Narrative: General: A well-developed, nontoxic-appearing gentlemen, sitting chair side HEENT: PERRL, EOMI. Oral mucosa moist. Neck: Supple. No midline cervical tenderness. Respiratory: Respirations are non- labored and lungs are clear to auscultation bilaterally. Cardiovascular: Regular rate and rhythm with S1-S2. Gastrointestinal: Abdomen is soft, non-tender, and non-distended with positive bowel sounds. Skin: Warm and dry. No rash or lesions on limited exam. Extremities: Moderate bilateral leg swelling, +1 edema Neurological: Alert and oriented. Cranial nerves 2-12 are grossly intact. No gross focal deficits to casual conversation. Psychiatric: Pleasant and cooperative with normal mood and affect. Judgment and insight intact. Objective Data Vital Signs Vital Signs: Vital Signs - 24 hr 09/20/24 11:05 09/20/24 12:33 09/20/24 12:35 Temperature 98.2 F Pulse Rate 74 73 Respiratory Rate 18 19 Blood Pressure 122/81 123/94 H Pulse Oximetry 100 93 95 Oxygen Delivery Room Air Room Air Room Air 09/20/24 12:36 09/20/24 14:24 09/20/24 15:51 Temperature Pulse Rate 68 77 75 Respiratory Rate 16 17 16 Blood Pressure 123/94 H 123/95 H 120/91 H Pulse Oximetry 93 96 93 Oxygen Delivery 09/20/24 17:54 09/20/24 19:59 09/20/24 20:00 Temperature 98.4 F Pulse Rate 69 Respiratory Rate 17 Blood Pressure 111/80 Pulse Oximetry 97 Oxygen Delivery Room Air Room Air 09/20/24 20:00 09/20/24 21:25 09/20/24 21:42 Temperature Pulse Rate 70 77 Respiratory Rate Blood Pressure Pulse Oximetry 96 Oxygen Delivery Room Air 09/21/24 00:00 09/21/24 04:00 09/21/24 05:35 Temperature 98.7 F Pulse Rate 76 69 78 Respiratory Rate 18 Blood Pressure 110/60 Pulse Oximetry 97 Oxygen Delivery Intake/Output Intake/Output: Intake & Output 09/18/24 09/19/24 09/20/24 09/21/24 23:59 23:59 23:59 23:59 Intake Total 340 550 Output Total 1300 Balance -960 550 Meds/Results Medications: Active Medications Generic Name Dose Route Start Last Admin Trade Name Freq PRN Reason Stop Dose Admin Acetaminophen 650 mg 09/20/24 15:02 Acetaminophen 325 Mg Tablet PO Q4H PRN Mild Pain (1-3) or Fever Aspirin 81 mg 09/21/24 09:00 Aspirin 81 Mg Enteric Tablet PO DAILY [facility] Atorvastatin Calcium 10 mg 09/20/24 21:00 09/20/24 21:26 Atorvastatin 10 Mg Tablet PO 10 mg QHS [facility] Administration Cyanocobalamin 2,000 mcg 09/21/24 09:00 Cyanocobalamin 1,000 Mcg Tablet PO DAILY [facility] Docusate Sodium 100 mg 09/21/24 09:00 Docusate Sodium 100 Mg Capsule PO QAM [facility] Empagliflozin 25 mg 09/21/24 09:00 Empagliflozin 25 Mg Tablet BY MOUTH DAILY [facility] Furosemide 40 mg 09/20/24 21:00 09/20/24 20:27 Furosemide Inj 40 Mg/4 Ml Vial IV PUSH 40 mg Q12HR [facility] Administration Lisinopril 10 mg 09/21/24 09:00 Lisinopril 10 Mg Tablet PO DAILY [facility] Magnesium Oxide 200 mg 09/20/24 21:00 09/21/24 03:03 Magnesium Oxide 200 Mg Tablet PO Not Given Q6H [facility] Methimazole 5 mg 09/20/24 21:00 09/20/24 21:26 Methimazole 5 Mg Tab PO Not Given [id number] [facility] Metoprolol Tartrate 50 mg 09/20/24 21:00 09/20/24 21:25 Metoprolol Tartrate 50 Mg Tab PO 50 mg Q12HR [facility] Administration Miconazole Nitrate 1 applic 09/20/24 20:57 Miconazole Nitrate 2% Cream 30 Gm Tube TOPICAL PRN PRN maceration in folds Miscellaneous Information 0 each 09/20/24 00:01 Prucalopride Nonform Can Pt Bring From Home? XX 10/20/24 00:00 CLARIFY [facility] Multivitamins Therapeutic 1 tablet 09/21/24 09:00 Multivitamins Therapeutic Tab (*Bkc) PO DAILY [facility] Neomycin/Polymyxin/Bacitracin 1 packet 09/20/24 21:09 Neomycin/Polymyxin/Bacitracin Ointment Packet TOPICAL BID PRN skin irritation Non-Formulary Medication 2 mg 09/21/24 09:00 Prucalopride [Motegrity] PO 10/21/24 08:59 DAILY [facility] Nonformulary 1 each 09/20/24 21:20 Nutritional XX 09/21/24 21:19 Supplement (Zinc PRN PRN Acetate [Galzin] 50 PROTOCOL Mg (Zinc) Capsule) Ondansetron HCl 4 mg 09/20/24 15:02 Ondansetron Inj 4 Mg/2 Ml Vial IV PUSH Q4H PRN Nausea Perflutren Lipid Microsphere 0 ml 09/20/24 19:42 Perflutren Lipid Microspheres 1.5 Ml Vial Diluted To 10 Ml Total Volume IV PUSH 09/23/24 19:42 ONCE PRN adequate visualization Protocol Rivaroxaban 2.5 mg 09/20/24 21:00 09/20/24 21:26 Rivaroxaban 2.5 Mg Tablet PO 2.5 mg Q12HR [facility] Administration Tramadol HCl 50 mg 09/20/24 20:57 Tramadol Hcl (*Crx) 50 Mg Tablet PO BID PRN pain 4-6 Vitamin E 100 unit 09/21/24 09:00 Vitamin E 100 Unit Capsule PO QAM [facility] Radiology Results: ITS Impressions Chest X-Ray 09/20/24 12:45 IMPRESSION: 1. Small bilateral pleural effusions, left greater than right with associated bibasilar atelectasis versus pneumonia. Labs Labs: Laboratory Results - last 24 hr 09/20/24 09/20/24 09/20/24 12:45 16:37 19:42 WBC 4.8 RBC 4.29 L Hgb 12.4 L Hct 40.9 L MCV 95.3 MCH 28.9 MCHC 30.3 L RDW 15.9 H Plt Count 192 MPV 11.6 H Immature Gran % (Auto) 0.2 Neut % (Auto) 54.8 Lymph % (Auto) 30.7 Carver % (Auto) 11.4 H Eos % (Auto) 2.3 Baso % (Auto) 0.6 Lymph # (Auto) 1.48 Carver # (Auto) 0.6 Eos # (Auto) 0.1 Baso # (Auto) 0.0 Abs Immat Gran (auto) 0.01 Absolute Neuts (auto) 2.6 Absolute Nucleated RBC 0.000 Nucleated RBC % 0.0 PT 20.6 H INR 1.8 APTT 32.6 Sodium 139 Potassium 3.8 Chloride 102 Carbon Dioxide 31 H Anion Gap 6 BUN 20 Creatinine 1.19 Estim Creat Clear Calc 52 Estimated GFR 59 Glucose 103 POC Capillary Glucose Calcium 9.1 Magnesium Total Bilirubin 0.8 AST 42 ALT 17 Alkaline Phosphatase 88 Troponin I < 0.012 < 0.012 < 0.012 NT-Pro-B Natriuret Pep 66592 H Total Protein 6.9 Albumin 3.6 Lipase 68 09/20/24 09/21/24 09/21/24 23:39 00:29 05:31 WBC RBC Hgb Hct MCV MCH MCHC RDW Plt Count MPV Immature Gran % (Auto) Neut % (Auto) Lymph % (Auto) Carver % (Auto) Eos % (Auto) Baso % (Auto) Lymph # (Auto) Carver # (Auto) Eos # (Auto) Baso # (Auto) Abs Immat Gran (auto) Absolute Neuts (auto) Absolute Nucleated RBC Nucleated RBC % PT INR APTT Sodium 140 Potassium 3.1 L Chloride 101 Carbon Dioxide 31 H Anion Gap 8 BUN 21 H Creatinine 1.14 Estim Creat Clear Calc 54 Estimated GFR > 60 Glucose 91 POC Capillary Glucose 125 H 101 Calcium 9.1 Magnesium 2.3 Total Bilirubin AST ALT Alkaline Phosphatase Troponin I NT-Pro-B Natriuret Pep Total Protein Albumin Lipase Quality VTE Prophylaxis VTE prophylaxis: mechanical ordered and pharmacologic ordered
[2024-09-21 08:38] LABS: Hematocrit 42.0 % (42.0-52.0); Hemoglobin 13.0 g/dL (14.0-18.0); Immature Granulocyte Percent A 0.4 % (0-0.5); Lymphocytes Absolute Auto 1.65 K/mm3 (0.9-3.2); Mean Corpuscular HGB Conc 31.0 g/dl (32-36); Mean Corpuscular Hemoglobin 29.3 pg (26-34); Mean Corpuscular Volume 94.6 fl (80-100); Nucleated Red Blood Cells Absolute Auto 0.000 K/mm3 (0.0-0.012); Nucleated Red Blood Cells Perc 0.0 % (0.0-0.2); Platelet Count Result 184 k/mm3 (150-375); Red Blood Count 4.44 M/mm3 (4.6-6.20); White Blood Count 5.1 K/mm3 (4.5-10.0)
[2024-09-21] MEDS: DOCUSATE SODIUM 100 MG CAPSULE PO (08:46)
[2024-09-21] MEDS: POTASSIUM CHLORIDE 20 MEQ ER TABLET 40 MEQ PO (08:46)
[2024-09-21] MEDS: CYANOCOBALAMIN 1,000 MCG TABLET 2000 MCG PO (08:46)
[2024-09-21] MEDS: ASPIRIN 81 MG ENTERIC TABLET PO (08:46)
[2024-09-21] MEDS: MAGNESIUM OXIDE 200 MG TABLET PO ×3 (08:46→20:08)
[2024-09-21] MEDS: EMPAGLIFLOZIN 25 MG TABLET BY MOUTH (08:46)
[2024-09-21] MEDS: RIVAROXABAN 2.5 MG TABLET PO ×2 (08:47→20:09)
[2024-09-21] MEDS: METOPROLOL TARTRATE 50 MG TAB PO ×2 (08:47→20:12)
[2024-09-21] MEDS: MULTIVITAMINS THERAPEUTIC TAB (*BKC) 1 TABLET PO (08:47)
[2024-09-21] MEDS: FUROSEMIDE INJ 40 MG/4 ML VIAL IV PUSH ×2 (08:48→20:09)
[2024-09-21 08:56] LABS: Alanine Aminotransferase 15 U/L (6-50); Albumin Level 3.7 g/dL (3.5-5.1); Alkaline Phosphatase 89 U/L (38-126); Anion Gap 10 mmol/L (4-12); Aspartate Amino Transferase 34 U/L (17-59); Bilirubin,Total 1.0 mg/dL (0.2-1.3); Blood Urea Nitrogen 18 mg/dL (9-20); Calcium 9.2 mg/dL (8.4-10.2); Carbon Dioxide 31 mmol/L (22-30); Chloride 100 mmol/L (98-107); Estimated CRCL calculation 55 ml/min; Estimated Glomerular Filt Rate > 60; Glucose 95 mg/dL (65-110); Potassium 3.2 mmol/L (3.4-5.0); Sodium 141 mmol/L (137-145); Total Protein 7.0 g/dL (6.3-8.2)
--- NOTE | 2024-09-21 09:05 | P.PNCA_ITS ---
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 Mild aortic stenosis -repeat transthoracic echocardiogram to ensure it has not progressed to severe stage Nonobstructive coronary artery disease -no angina to warrant further investigation -continue aspirin 81 mg p.o. daily and atorvastatin 10 mg every evening -it would also appear that he is on the cardiovascular prevention dose of Xarelto which can be continued High-grade AV block status post permanent pacemaker -his rate response in exertional response is adjusted from 3-5 previously and is lower rate limit was suggested to 70 beats per minute previously -he has been stable on these settings Premature ventricular contraction -previously high burden -continue metoprolol Subjective Date/time seen: 09/21/24 09:05 Interval history: Still having shortness of breath. However overall feeling much better than presentation. No chest pain. Urinating well. Review of Systems Cardiovascular: Cardiovascular: Reports as per HPI Respiratory: Respiratory: Reports as per HPI Exam Const: General: comfortable HENMT: Mouth: Yes moist mucous membranes Eyes: EOM: EOMs intact bilaterally Neck: Neck: no JVD Resp: Effort & Inspection: normal respiratory effort Auscultation: clear to auscultation bilaterally Cardio: Rate: regular rate Rhythm: regular rhythm GI: GI Palp: Yes Soft to palpation Neuro: Speech: normal speech Objective Data Vital Signs Vital Signs: Vital Signs - 24 hr 09/20/24 11:05 09/20/24 12:33 09/20/24 12:35 Temperature 36.8 C Pulse Rate 74 73 Respiratory Rate 18 19 Blood Pressure 122/81 123/94 H Pulse Oximetry 100 93 95 Oxygen Delivery Room Air Room Air Room Air 09/20/24 12:36 09/20/24 14:24 09/20/24 15:51 Temperature Pulse Rate 68 77 75 Respiratory Rate 16 17 16 Blood Pressure 123/94 H 123/95 H 120/91 H Pulse Oximetry 93 96 93 Oxygen Delivery 09/20/24 17:54 09/20/24 19:59 09/20/24 20:00 Temperature 36.9 C Pulse Rate 69 Respiratory Rate 17 Blood Pressure 111/80 Pulse Oximetry 97 Oxygen Delivery Room Air Room Air 09/20/24 20:00 09/20/24 21:25 09/20/24 21:42 Temperature Pulse Rate 70 77 Respiratory Rate Blood Pressure Pulse Oximetry 96 Oxygen Delivery Room Air 09/21/24 00:00 09/21/24 04:00 09/21/24 05:35 Temperature 37.1 C Pulse Rate 76 69 78 Respiratory Rate 18 Blood Pressure 110/60 Pulse Oximetry 97 Oxygen Delivery 09/21/24 08:45 09/21/24 08:47 Temperature Pulse Rate 67 67 Respiratory Rate Blood Pressure 120/68 Pulse Oximetry 97 Oxygen Delivery Intake/Output Intake/Output: Intake & Output 09/18/24 09/19/24 09/20/24 09/21/24 23:59 23:59 23:59 23:59 Intake Total 340 550 Output Total 1300 Balance -960 550 Meds/Results Medications: Active Medications Generic Name Dose Route Start Last Admin Trade Name Freq PRN Reason Stop Dose Admin Acetaminophen 650 mg 09/20/24 15:02 Acetaminophen 325 Mg Tablet PO Q4H PRN Mild Pain (1-3) or Fever Aspirin 81 mg 09/21/24 09:00 09/21/24 08:46 Aspirin 81 Mg Enteric Tablet PO 81 mg DAILY BRI Administration Atorvastatin Calcium 10 mg 09/20/24 21:00 09/20/24 21:26 Atorvastatin 10 Mg Tablet PO 10 mg QHS BRI Administration Cyanocobalamin 2,000 mcg 09/21/24 09:00 09/21/24 08:46 Cyanocobalamin 1,000 Mcg Tablet PO 2,000 mcg DAILY BRI Administration Docusate Sodium 100 mg 09/21/24 09:00 09/21/24 08:46 Docusate Sodium 100 Mg Capsule PO 100 mg QAM [facility] Administration Empagliflozin 25 mg 09/21/24 09:00 09/21/24 08:46 Empagliflozin 25 Mg Tablet BY MOUTH 25 mg DAILY [facility] Administration Furosemide 40 mg 09/20/24 21:00 09/21/24 08:48 Furosemide Inj 40 Mg/4 Ml Vial IV PUSH 40 mg Q12HR BRI Administration Lisinopril 10 mg 09/21/24 09:00 09/21/24 08:46 Lisinopril 10 Mg Tablet PO 10 mg DAILY [facility] Administration Magnesium Oxide 200 mg 09/20/24 21:00 09/21/24 08:46 Magnesium Oxide 200 Mg Tablet PO 200 mg Q6H [facility] Administration Methimazole 5 mg 09/20/24 21:00 09/20/24 21:26 Methimazole 5 Mg Tab PO Not Given MoTuWeThFr [facility] Metoprolol Tartrate 50 mg 09/20/24 21:00 09/21/24 08:47 Metoprolol Tartrate 50 Mg Tab PO 50 mg Q12HR [facility] Administration Miconazole Nitrate 1 applic 09/20/24 20:57 Miconazole Nitrate 2% Cream 30 Gm Tube TOPICAL PRN PRN maceration in folds Miscellaneous Information 0 each 09/20/24 00:01 Prucalopride Nonform Can Pt Bring From Home? XX 10/20/24 00:00 CLARIFY [facility] Multivitamins Therapeutic 1 tablet 09/21/24 09:00 09/21/24 08:47 Multivitamins Therapeutic Tab (*Bkc) PO 1 tablet DAILY [facility] Administration Neomycin/Polymyxin/Bacitracin 1 packet 09/20/24 21:09 Neomycin/Polymyxin/Bacitracin Ointment Packet TOPICAL BID PRN skin irritation Non-Formulary Medication 2 mg 09/21/24 09:00 Prucalopride [Motegrity] PO 10/21/24 08:59 DAILY BRI Nonformulary 1 each 09/20/24 21:20 Nutritional XX 09/21/24 21:19 Supplement (Zinc PRN PRN Acetate [Galzin] 50 PROTOCOL Mg (Zinc) Capsule) Ondansetron HCl 4 mg 09/20/24 15:02 Ondansetron Inj 4 Mg/2 Ml Vial IV PUSH Q4H PRN Nausea Perflutren Lipid Microsphere 0 ml 09/20/24 19:42 Perflutren Lipid Microspheres 1.5 Ml Vial Diluted To 10 Ml Total Volume IV PUSH 09/23/24 19:42 ONCE PRN adequate visualization Protocol Rivaroxaban 2.5 mg 09/20/24 21:00 09/21/24 08:47 Rivaroxaban 2.5 Mg Tablet PO 2.5 mg Q12HR [facility] Administration Tramadol HCl 50 mg 09/20/24 20:57 Tramadol Hcl (*Crx) 50 Mg Tablet PO BID PRN pain 4-6 Vitamin E 100 unit 09/21/24 09:00 09/21/24 08:47 Vitamin E 100 Unit Capsule PO 100 unit QAM [facility] Administration Radiology Results: ITS Impressions Chest X-Ray 09/20/24 12:45 IMPRESSION: 1. Small bilateral pleural effusions, left greater than right with associated bibasilar atelectasis versus pneumonia. Labs Labs: Laboratory Results - last 24 hr 09/20/24 09/20/24 09/20/24 12:45 16:37 19:42 WBC 4.8 RBC 4.29 L Hgb 12.4 L Hct 40.9 L MCV 95.3 MCH 28.9 MCHC 30.3 L RDW 15.9 H Plt Count 192 MPV 11.6 H Immature Gran % (Auto) 0.2 Neut % (Auto) 54.8 Lymph % (Auto) 30.7 [place] % (Auto) 11.4 H Eos % (Auto) 2.3 Baso % (Auto) 0.6 Lymph # (Auto) 1.48 [place] # (Auto) 0.6 Eos # (Auto) 0.1 Baso # (Auto) 0.0 Abs Immat Gran (auto) 0.01 Absolute Neuts (auto) 2.6 Absolute Nucleated RBC 0.000 Nucleated RBC % 0.0 PT 20.6 H INR 1.8 APTT 32.6 Sodium 139 Potassium 3.8 Chloride 102 Carbon Dioxide 31 H Anion Gap 6 BUN 20 Creatinine 1.19 Estim Creat Clear Calc 52 Estimated GFR 59 Glucose 103 POC Capillary Glucose Calcium 9.1 Magnesium Total Bilirubin 0.8 AST 42 ALT 17 Alkaline Phosphatase 88 Troponin I < 0.012 < 0.012 < 0.012 NT-Pro-B Natriuret Pep 10576 H Total Protein 6.9 Albumin 3.6 Lipase 68 09/20/24 09/21/24 09/21/24 23:39 00:29 05:31 WBC RBC Hgb Hct MCV MCH MCHC RDW Plt Count MPV Immature Gran % (Auto) Neut % (Auto) Lymph % (Auto) [place] % (Auto) Eos % (Auto) Baso % (Auto) Lymph # (Auto) [place] # (Auto) Eos # (Auto) Baso # (Auto) Abs Immat Gran (auto) Absolute Neuts (auto) Absolute Nucleated RBC Nucleated RBC % PT INR APTT Sodium 140 Potassium 3.1 L Chloride 101 Carbon Dioxide 31 H Anion Gap 8 BUN 21 H Creatinine 1.14 Estim Creat Clear Calc 54 Estimated GFR > 60 Glucose 91 POC Capillary Glucose 125 H 101 Calcium 9.1 Magnesium 2.3 Total Bilirubin AST ALT Alkaline Phosphatase Troponin I NT-Pro-B Natriuret Pep Total Protein Albumin Lipase 09/21/24 08:11 WBC 5.1 RBC 4.44 L Hgb 13.0 L Hct 42.0 MCV 94.6 MCH 29.3 MCHC 31.0 L RDW 16.0 H Plt Count 184 MPV 11.4 H Immature Gran % (Auto) 0.4 Neut % (Auto) 52.0 Lymph % (Auto) 32.5 [place] % (Auto) 11.4 H Eos % (Auto) 3.1 Baso % (Auto) 0.6 Lymph # (Auto) 1.65 [place] # (Auto) 0.6 Eos # (Auto) 0.2 Baso # (Auto) 0.0 Abs Immat Gran (auto) 0.02 Absolute Neuts (auto) 2.6 Absolute Nucleated RBC 0.000 Nucleated RBC % 0.0 PT INR APTT Sodium 141 Potassium 3.2 L Chloride 100 Carbon Dioxide 31 H Anion Gap 10 BUN 18 Creatinine 1.12 Estim Creat Clear Calc 55 Estimated GFR > 60 Glucose 95 POC Capillary Glucose Calcium 9.2 Magnesium Total Bilirubin 1.0 AST 34 ALT 15 Alkaline Phosphatase 89 Troponin I NT-Pro-B Natriuret Pep Total Protein 7.0 Albumin 3.7 Lipase
--- NOTE | 2024-09-21 14:48 | PHAR ---
HOME MED MOTEGRITY 2 MG TABLET; TAKE 1 TABLET BY MOUTH DAILY. VERIFIED BY PHARMACY.
[2024-09-21] MEDS: PRUCALOPRIDE 2 MG 2 EACH PO (15:06)
[2024-09-21] MEDS: ATORVASTATIN 10 MG TABLET PO (20:09)
[2024-09-22] VITALS (11 sets, daily range): BP systolic 104–123; BP diastolic 54–71; PULSE 69–80; RESP 16–18; TEMP 36.1–36.9; O2SAT 97–98
[2024-09-22] MEDS: MAGNESIUM OXIDE 200 MG TABLET PO ×4 (02:46→20:33)
[2024-09-22 05:16] LABS: Hematocrit 42.2 % (42.0-52.0); Hemoglobin 12.9 g/dL (14.0-18.0); Immature Granulocyte Percent A 0.4 % (0-0.5); Lymphocytes Absolute Auto 1.80 K/mm3 (0.9-3.2); Mean Corpuscular HGB Conc 30.6 g/dl (32-36); Mean Corpuscular Hemoglobin 28.8 pg (26-34); Mean Corpuscular Volume 94.2 fl (80-100); Nucleated Red Blood Cells Absolute Auto 0.000 K/mm3 (0.0-0.012); Nucleated Red Blood Cells Perc 0.0 % (0.0-0.2); Platelet Count Result 186 k/mm3 (150-375); Red Blood Count 4.48 M/mm3 (4.6-6.20); White Blood Count 5.3 K/mm3 (4.5-10.0)
[2024-09-22 05:28] LABS: Alanine Aminotransferase 15 U/L (6-50); Albumin Level 3.6 g/dL (3.5-5.1); Alkaline Phosphatase 80 U/L (38-126); Anion Gap 6 mmol/L (4-12); Aspartate Amino Transferase 35 U/L (17-59); Bilirubin,Total 0.8 mg/dL (0.2-1.3); Blood Urea Nitrogen 20 mg/dL (9-20); Calcium 9.2 mg/dL (8.4-10.2); Carbon Dioxide 36 mmol/L (22-30); Chloride 99 mmol/L (98-107); Estimated CRCL calculation 51 ml/min; Estimated Glomerular Filt Rate 58; Glucose 89 mg/dL (65-110); Potassium 3.1 mmol/L (3.4-5.0); Sodium 141 mmol/L (137-145); Total Protein 6.8 g/dL (6.3-8.2)
[2024-09-22] MEDS: POTASSIUM CHLORIDE 20 MEQ ER TABLET 40 MEQ PO (05:59)
--- NOTE | 2024-09-22 07:49 | P.PNIM_ITS ---
Progress Note: A&P Assessment and Plan (1) Chronic diastolic CHF (congestive heart failure): Code(s): I50.32 - Chronic diastolic (congestive) heart failure Status: Acute Assessment and Plan: * acute on chronic diastolic heart failure * continue telemetry monitoring * strict I&O, monitor/record * continue Lasix 40 mg IV b.i.d. * Cardio consult * Repeat echo to assess CHF and * Continue Lasix, aspirin 81 mg daily, atorvastatin 10mg, Xarelto * Echo pending for today or tomorrow cardiology following, notes reviewed repeat transthoracic echocardiogram to ensure no decline in left ventricular systolic function given his high pacing requirements continue lasix - lasix mgmt per cardiology team (2) CAD (coronary artery disease): Code(s): I25.10 - Atherosclerotic heart disease of [place] coronary artery without angina pectoris Status: Acute Assessment and Plan: * nonobstructive coronary artery disease * denies any angina * continue home medication ASA 81 mg p.o * continue atorvastatin 10 mg HS (3) Morbid obesity: Code(s): E66.01 - Morbid (severe) obesity due to excess calories Status: Acute Assessment and Plan: * heart healthy diet (4) History of gastric bypass: Code(s): Z98.84 - Bariatric surgery status Status: Acute (5) Cellulitis of left lower extremity: Code(s): L03.116 - Cellulitis of left lower limb Status: Acute Assessment and Plan: * chronic (6) Diabetes: Code(s): E11.9 - Type 2 diabetes mellitus without complications Status: Inactive Assessment and Plan: * bedside glucose management * managed by diet (7) Hypokalemia: Code(s): E87.6 - Hypokalemia Status: Acute Assessment and Plan: due to Lasix 40 mg IV b.i.d. replacement had been ordered iv monitor daily Plan Continue home medications: VTE Prophylaxis: SCDs/Xarelto DIET: Heart healthy Anticipated hospital stay: > 2 days Code Status: Full code Time Spent With Patient Time with patient: 25 - 35 minutes Subjective Date/time seen: 09/22/24 07:49 Interval history: 79-year-old male with an extensive PMHx: of but not limited to, diabetes HTN, morbid obesity, CAD. Presented to the emergency room with complaints of shortness breath. 09/21/2024 Patient sitting comfortably in bed at time of exam. Denies any cp, sob, n/v, abdominal pain at this time. Cardiology following, planning for echo likely tomorrow to assess if decline in left ventricular systolic function. Pt otherwise stable and has no complaints. 09/22/24 assuming care. pt is seen and examined. He is still sob but overall better. Denies chest pain. Cardiology following. Review of Systems Review of Systems: All systems reviewed & are unremarkable except as noted in HPI and below Exam Narrative: General: A well-developed, nontoxic-appearing gentlemen, resting in bed, reports feeling hungry HEENT: PERRL, EOMI. Oral mucosa moist. Neck: Supple. No midline cervical tenderness. Respiratory: Respirations are non- labored and lungs are clear to auscultation bilaterally. Cardiovascular: Regular rate and rhythm with S1-S2. Gastrointestinal: Abdomen is soft, non-tender, and non-distended with positive bowel sounds. Skin: Warm and dry. No rash or lesions on limited exam. Extremities: Moderate bilateral leg swelling, +1 edema Neurological: Alert and oriented. Cranial nerves 2-12 are grossly intact. No gross focal deficits to casual conversation. Psychiatric: Pleasant and cooperative with normal mood and affect. Judgment and insight intact. Const: General: comfortable Objective Data Vital Signs Vital Signs: Vital Signs - 24 hr 09/21/24 08:00 09/21/24 08:00 09/21/24 08:45 Temperature Pulse Rate 75 67 Respiratory Rate Blood Pressure 120/68 Pulse Oximetry 97 Oxygen Delivery Room Air 09/21/24 08:47 09/21/24 12:00 09/21/24 16:00 Temperature Pulse Rate 67 78 80 Respiratory Rate Blood Pressure Pulse Oximetry Oxygen Delivery 09/21/24 16:10 09/21/24 20:00 09/21/24 20:12 Temperature 97.1 F L Pulse Rate 60 76 73 Respiratory Rate 18 Blood Pressure 107/67 Pulse Oximetry 97 Oxygen Delivery 09/21/24 20:31 09/22/24 00:00 09/22/24 04:00 Temperature 97.7 F Pulse Rate 67 73 72 Respiratory Rate 18 Blood Pressure 128/78 Pulse Oximetry 99 Oxygen Delivery 09/22/24 04:56 Temperature 98.5 F Pulse Rate 78 Respiratory Rate 17 Blood Pressure 123/71 Pulse Oximetry 97 Oxygen Delivery Intake/Output Intake/Output: Intake & Output 09/19/24 09/20/24 09/21/24 09/22/24 23:59 23:59 23:59 23:59 Intake Total 340 1270 450 Output Total 1300 9105 900 Balance -960 -505 -450 Meds/Results Medications: Active Medications Generic Name Dose Route Start Last Admin Trade Name Freq PRN Reason Stop Dose Admin Acetaminophen 650 mg 09/20/24 15:02 Acetaminophen 325 Mg Tablet PO Q4H PRN Mild Pain (1-3) or Fever Aspirin 81 mg 09/21/24 09:00 09/21/24 08:46 Aspirin 81 Mg Enteric Tablet PO 81 mg DAILY [facility] Administration Atorvastatin Calcium 10 mg 09/20/24 21:00 09/21/24 20:09 Atorvastatin 10 Mg Tablet PO 10 mg QHS [facility] Administration Cyanocobalamin 2,000 mcg 09/21/24 09:00 09/21/24 08:46 Cyanocobalamin 1,000 Mcg Tablet PO 2,000 mcg DAILY [facility] Administration Docusate Sodium 300 mg 09/23/24 09:00 Docusate Sodium 100 Mg Capsule PO Q48H [facility] Docusate Sodium 400 mg 09/22/24 09:00 Docusate Sodium 100 Mg Capsule PO Q48H [facility] Empagliflozin 25 mg 09/21/24 09:00 09/21/24 08:46 Empagliflozin 25 Mg Tablet BY MOUTH 25 mg DAILY [facility] Administration Furosemide 40 mg 09/20/24 21:00 09/21/24 20:09 Furosemide Inj 40 Mg/4 Ml Vial IV PUSH 40 mg Q12HR [facility] Administration Lisinopril 10 mg 09/21/24 09:00 09/21/24 08:46 Lisinopril 10 Mg Tablet PO 10 mg DAILY [facility] Administration Magnesium Oxide 200 mg 09/20/24 21:00 09/22/24 02:46 Magnesium Oxide 200 Mg Tablet PO 200 mg Q6H [facility] Administration Methimazole 5 mg 09/20/24 21:00 09/20/24 21:26 Methimazole 5 Mg Tab PO Not Given MoTuWeThFr [facility] Metoprolol Tartrate 50 mg 09/20/24 21:00 09/21/24 20:12 Metoprolol Tartrate 50 Mg Tab PO 50 mg Q12HR [facility] Administration Miconazole Nitrate 1 applic 09/20/24 20:57 Miconazole Nitrate 2% Cream 30 Gm Tube TOPICAL PRN PRN maceration in folds Miscellaneous Information 0 each 09/20/24 00:01 Prucalopride Nonform Can Pt Bring From Home? XX 10/20/24 00:00 CLARIFY [facility] Multivitamins Therapeutic 1 tablet 09/21/24 09:00 09/21/24 08:47 Multivitamins Therapeutic Tab (*Bkc) PO 1 tablet DAILY [facility] Administration Neomycin/Polymyxin/Bacitracin 1 packet 09/20/24 21:09 Neomycin/Polymyxin/Bacitracin Ointment Packet TOPICAL BID PRN skin irritation Prucalopride [ 2 mg 09/21/24 15:00 09/21/24 15:06 Motegrity] 2 Mg PO 10/21/24 14:59 2 mg Tablet Home Med DAILY [facility]RI Administration Ondansetron HCl 4 mg 09/20/24 15:02 Ondansetron Inj 4 Mg/2 Ml Vial IV PUSH Q4H PRN Nausea Perflutren Lipid Microsphere 0 ml 09/20/24 19:42 Perflutren Lipid Microspheres 1.5 Ml Vial Diluted To 10 Ml Total Volume IV PUSH 09/23/24 19:42 ONCE PRN adequate visualization Protocol Polyethylene Glycol 17 gm 09/21/24 11:15 09/21/24 15:07 Polyethylene Glycol 3350 17 Gm Powd.Pack PO 17 gm QAM PRN Administration Constipation Rivaroxaban 2.5 mg 09/20/24 21:00 09/21/24 20:09 Rivaroxaban 2.5 Mg Tablet PO 2.5 mg Q12HR [facility]RI Administration Tramadol HCl 50 mg 09/20/24 20:57 Tramadol Hcl (*Crx) 50 Mg Tablet PO BID PRN pain 4-6 Vitamin E 100 unit 09/21/24 09:00 09/21/24 08:47 Vitamin E 100 Unit Capsule PO 100 unit QAM [facility] Administration Radiology Results: ITS Impressions Chest X-Ray 09/20/24 12:45 IMPRESSION: 1. Small bilateral pleural effusions, left greater than right with associated bibasilar atelectasis versus pneumonia. Labs Labs: Laboratory Results - last 24 hr 09/21/24 09/21/24 09/21/24 08:11 12:20 17:11 WBC 5.1 RBC 4.44 L Hgb 13.0 L Hct 42.0 MCV 94.6 MCH 29.3 MCHC 31.0 L RDW 16.0 H Plt Count 184 MPV 11.4 H Immature Gran % (Auto) 0.4 Neut % (Auto) 52.0 Lymph % (Auto) 32.5 [place] % (Auto) 11.4 H Eos % (Auto) 3.1 Baso % (Auto) 0.6 Lymph # (Auto) 1.65 [place] # (Auto) 0.6 Eos # (Auto) 0.2 Baso # (Auto) 0.0 Abs Immat Gran (auto) 0.02 Absolute Neuts (auto) 2.6 Absolute Nucleated RBC 0.000 Nucleated RBC % 0.0 Sodium 141 Potassium 3.2 L Chloride 100 Carbon Dioxide 31 H Anion Gap 10 BUN 18 Creatinine 1.12 Estim Creat Clear Calc 55 Estimated GFR > 60 Glucose 95 POC Capillary Glucose 95 93 Calcium 9.2 Total Bilirubin 1.0 AST 34 ALT 15 Alkaline Phosphatase 89 Total Protein 7.0 Albumin 3.7 09/21/24 09/22/24 09/22/24 23:42 04:53 05:32 WBC 5.3 RBC 4.48 L Hgb 12.9 L Hct 42.2 MCV 94.2 MCH 28.8 MCHC 30.6 L RDW 15.9 H Plt Count 186 MPV 11.5 H Immature Gran % (Auto) 0.4 Neut % (Auto) 50.0 Lymph % (Auto) 33.7 [place] % (Auto) 12.5 H Eos % (Auto) 2.8 Baso % (Auto) 0.6 Lymph # (Auto) 1.80 [place] # (Auto) 0.7 H Eos # (Auto) 0.2 Baso # (Auto) 0.0 Abs Immat Gran (auto) 0.02 Absolute Neuts (auto) 2.7 Absolute Nucleated RBC 0.000 Nucleated RBC % 0.0 Sodium 141 Potassium 3.1 L Chloride 99 Carbon Dioxide 36 H Anion Gap 6 BUN 20 Creatinine 1.21 Estim Creat Clear Calc 51 Estimated GFR 58 L Glucose 89 POC Capillary Glucose 86 94 Calcium 9.2 Total Bilirubin 0.8 AST 35 ALT 15 Alkaline Phosphatase 80 Total Protein 6.8 Albumin 3.6 Quality VTE Prophylaxis VTE prophylaxis: mechanical ordered and pharmacologic ordered
[2024-09-22] MEDS: EMPAGLIFLOZIN 25 MG TABLET BY MOUTH (08:53)
[2024-09-22] MEDS: METOPROLOL TARTRATE 50 MG TAB PO ×2 (08:53→20:39)
[2024-09-22] MEDS: FUROSEMIDE INJ 40 MG/4 ML VIAL IV PUSH (08:54)
[2024-09-22] MEDS: DOCUSATE SODIUM 100 MG CAPSULE 400 MG PO (08:54)
[2024-09-22] MEDS: MULTIVITAMINS THERAPEUTIC TAB (*BKC) 1 TABLET PO (08:54)
[2024-09-22] MEDS: CYANOCOBALAMIN 1,000 MCG TABLET 2000 MCG PO (08:54)
[2024-09-22] MEDS: RIVAROXABAN 2.5 MG TABLET PO ×2 (08:54→20:33)
[2024-09-22] MEDS: ASPIRIN 81 MG ENTERIC TABLET PO (08:54)
[2024-09-22] MEDS: PRUCALOPRIDE 2 MG 2 EACH PO (08:55)
[2024-09-22] MEDS: POTASSIUM CHLORIDE INJ 40 MEQ in SODIUM CHLORIDE 0.9% IV 500 ML 130 MEQ IVPB (08:55)
--- NOTE | 2024-09-22 09:41 | P.PNCA_ITS ---
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 Acute on chronic diastolic heart failure -repeat transthoracic echocardiogram to ensure no decline in left ventricular systolic function given his high pacing requirements -we discussed his fluid intake should be limited to water or flavor water as opposed to carbonated beverages especially in light of his diabetic condition -Switch to oral lasix 40 mg PO OD 2. Mild aortic stenosis -repeat transthoracic echocardiogram to ensure it has not progressed to severe stage 3. Nonobstructive coronary artery disease -no angina to warrant further investigation -continue aspirin 81 mg p.o. daily and atorvastatin 10 mg every evening -it would also appear that he is on the cardiovascular prevention dose of Xarelto which can be continued 4. High-grade AV block status post permanent pacemaker -his rate response in exertional response is adjusted from 3-5 previously and is lower rate limit was suggested to 70 beats per minute previously -he has been stable on these settings 5. Premature ventricular contraction -previously high burden -continue metoprolol Subjective Date/time seen: 09/22/24 09:41 Interval history: No acute events overnight Feels better lower extremity swelling improved - 1.5 L Review of Systems Cardiovascular: Cardiovascular: Reports as per HPI Respiratory: Respiratory: Reports as per HPI Exam Const: General: comfortable HENMT: Mouth: Yes moist mucous membranes Eyes: EOM: EOMs intact bilaterally Neck: Neck: no JVD Resp: Effort & Inspection: normal respiratory effort Auscultation: clear to auscultation bilaterally Cardio: Rate: regular rate Rhythm: regular rhythm Heart sounds: Murmur heart sound present Other: Grade 3 systolic murmur in the upper sternal borders with low but audible S2 Neuro: Speech: normal speech Extrem: General: edema and pedal edema Objective Data Vital Signs Vital Signs: Vital Signs - 24 hr 09/21/24 12:00 09/21/24 16:00 09/21/24 16:10 Temperature 36.2 C L Pulse Rate 78 80 60 Respiratory Rate 18 Blood Pressure 107/67 Pulse Oximetry 97 09/21/24 20:00 09/21/24 20:12 09/21/24 20:31 Temperature 36.5 C Pulse Rate 76 73 67 Respiratory Rate 18 Blood Pressure 128/78 Pulse Oximetry 99 09/22/24 00:00 09/22/24 04:00 09/22/24 04:56 Temperature 36.9 C Pulse Rate 73 72 78 Respiratory Rate 17 Blood Pressure 123/71 Pulse Oximetry 97 09/22/24 08:00 09/22/24 08:53 Temperature Pulse Rate 70 72 Respiratory Rate Blood Pressure Pulse Oximetry Intake/Output Intake/Output: Intake & Output 09/19/24 09/20/24 09/21/24 09/22/24 23:59 23:59 23:59 23:59 Intake Total 340 1270 450 Output Total 1300 3465 900 Balance -960 -505 -450 Meds/Results Medications: Active Medications Generic Name Dose Route Start Last Admin Trade Name Freq PRN Reason Stop Dose Admin Acetaminophen 650 mg 09/20/24 15:02 Acetaminophen 325 Mg Tablet PO Q4H PRN Mild Pain (1-3) or Fever Aspirin 81 mg 09/21/24 09:00 09/22/24 08:54 Aspirin 81 Mg Enteric Tablet PO 81 mg DAILY BRI Administration Atorvastatin Calcium 10 mg 09/20/24 21:00 09/21/24 20:09 Atorvastatin 10 Mg Tablet PO 10 mg QHS BRI Administration Cyanocobalamin 2,000 mcg 09/21/24 09:00 09/22/24 08:54 Cyanocobalamin 1,000 Mcg Tablet PO 2,000 mcg DAILY BRI Administration Docusate Sodium 300 mg 09/23/24 09:00 Docusate Sodium 100 Mg Capsule PO Q48H BRI Docusate Sodium 400 mg 09/22/24 09:00 09/22/24 08:54 Docusate Sodium 100 Mg Capsule PO 400 mg Q48H BRI Administration Empagliflozin 25 mg 09/21/24 09:00 09/22/24 08:53 Empagliflozin 25 Mg Tablet BY MOUTH 25 mg DAILY BRI Administration Furosemide 40 mg 09/20/24 21:00 09/22/24 08:54 Furosemide Inj 40 Mg/4 Ml Vial IV PUSH 40 mg Q12HR BRI Administration Potassium Chloride 40 meq/ 520 mls @ 130 mls/hr 09/22/24 07:48 09/22/24 08:55 Sodium Chloride IVPB 09/22/24 11:47 130 mls/hr ONCE ONE Administration Lisinopril 10 mg 09/21/24 09:00 09/22/24 08:54 Lisinopril 10 Mg Tablet PO 10 mg DAILY BRI Administration Magnesium Oxide 200 mg 09/20/24 21:00 09/22/24 08:53 Magnesium Oxide 200 Mg Tablet PO 200 mg Q6H BRI Administration Methimazole 5 mg 09/20/24 21:00 09/20/24 21:26 Methimazole 5 Mg Tab PO Not Given MoTuWeThFr [facility] Metoprolol Tartrate 50 mg 09/20/24 21:00 09/22/24 08:53 Metoprolol Tartrate 50 Mg Tab PO 50 mg Q12HR BRI Administration Miconazole Nitrate 1 applic 09/20/24 20:57 Miconazole Nitrate 2% Cream 30 Gm Tube TOPICAL PRN PRN maceration in folds Multivitamins Therapeutic 1 tablet 09/21/24 09:00 09/22/24 08:54 Multivitamins Therapeutic Tab (*Bkc) PO 1 tablet DAILY [facility] Administration Neomycin/Polymyxin/Bacitracin 1 packet 09/20/24 21:09 Neomycin/Polymyxin/Bacitracin Ointment Packet TOPICAL BID PRN skin irritation Prucalopride [ 2 mg 09/21/24 15:00 09/22/24 08:55 Motegrity] 2 Mg PO 10/21/24 14:59 2 mg Tablet Home Med DAILY [facility] Administration Ondansetron HCl 4 mg 09/20/24 15:02 Ondansetron Inj 4 Mg/2 Ml Vial IV PUSH Q4H PRN Nausea Perflutren Lipid Microsphere 0 ml 09/20/24 19:42 Perflutren Lipid Microspheres 1.5 Ml Vial Diluted To 10 Ml Total Volume IV PUSH 09/23/24 19:42 ONCE PRN adequate visualization Protocol Polyethylene Glycol 17 gm 09/21/24 11:15 09/22/24 08:55 Polyethylene Glycol 3350 17 Gm Powd.Pack PO 17 gm QAM PRN Administration Constipation Rivaroxaban 2.5 mg 09/20/24 21:00 09/22/24 08:54 Rivaroxaban 2.5 Mg Tablet PO 2.5 mg Q12HR BRI Administration Tramadol HCl 50 mg 09/20/24 20:57 Tramadol Hcl (*Crx) 50 Mg Tablet PO BID PRN pain 4-6 Vitamin E 100 unit 09/21/24 09:00 09/22/24 08:53 Vitamin E 100 Unit Capsule PO 100 unit QAM BRI Administration Radiology Results: ITS Impressions Chest X-Ray 09/20/24 12:45 IMPRESSION: 1. Small bilateral pleural effusions, left greater than right with associated bibasilar atelectasis versus pneumonia. Labs Labs: Laboratory Results - last 24 hr 09/21/24 09/21/24 09/21/24 12:20 17:11 23:42 WBC RBC Hgb Hct MCV MCH MCHC RDW Plt Count MPV Immature Gran % (Auto) Neut % (Auto) Lymph % (Auto) [place] % (Auto) Eos % (Auto) Baso % (Auto) Lymph # (Auto) [place] # (Auto) Eos # (Auto) Baso # (Auto) Abs Immat Gran (auto) Absolute Neuts (auto) Absolute Nucleated RBC Nucleated RBC % Sodium Potassium Chloride Carbon Dioxide Anion Gap BUN Creatinine Estim Creat Clear Calc Estimated GFR Glucose POC Capillary Glucose 95 93 86 Calcium Total Bilirubin AST ALT Alkaline Phosphatase Total Protein Albumin 09/22/24 09/22/24 04:53 05:32 WBC 5.3 RBC 4.48 L Hgb 12.9 L Hct 42.2 MCV 94.2 MCH 28.8 MCHC 30.6 L RDW 15.9 H Plt Count 186 MPV 11.5 H Immature Gran % (Auto) 0.4 Neut % (Auto) 50.0 Lymph % (Auto) 33.7 [place] % (Auto) 12.5 H Eos % (Auto) 2.8 Baso % (Auto) 0.6 Lymph # (Auto) 1.80 [place] # (Auto) 0.7 H Eos # (Auto) 0.2 Baso # (Auto) 0.0 Abs Immat Gran (auto) 0.02 Absolute Neuts (auto) 2.7 Absolute Nucleated RBC 0.000 Nucleated RBC % 0.0 Sodium 141 Potassium 3.1 L Chloride 99 Carbon Dioxide 36 H Anion Gap 6 BUN 20 Creatinine 1.21 Estim Creat Clear Calc 51 Estimated GFR 58 L Glucose 89 POC Capillary Glucose 94 Calcium 9.2 Total Bilirubin 0.8 AST 35 ALT 15 Alkaline Phosphatase 80 Total Protein 6.8 Albumin 3.6
[2024-09-22] MEDS: ATORVASTATIN 10 MG TABLET PO (21:35)
[2024-09-23] VITALS (12 sets, daily range): BP systolic 102–116; BP diastolic 54–72; PULSE 60–81; RESP 17–20; TEMP 36.5–36.8; O2SAT 98–100
--- NOTE | 2024-09-23 | ECHO_ITS ---
Patient Info Name: Yusef Hawkins Age: 79 years : 1945 Gender: Male Ht: 70 in Wt: 227 lbs BSA: 2.29 m2 HR: 50 bpm BP: 102 / 54 mmHg Technical Quality: Good Exam Date: 09/23/2024 7:29 AM Patient Status: I Admit Date: 09/21/2024 Exam Type: CA echo dop color flow w con Complete two-dimensional, color flow and Doppler transthoracic echocardiogram is performed with contrast to opacify the left ventricle and to improve the deliniation of the left ventricle endocardial borders. Staff Referring Physician: Kalin Brown MD Cardiac Exercise Physiologist: Coby Lopez Attending Provider: Tomer Oshea Contrast/Agitated Saline Contrast/Ag. Saline: Definity Amount: 2.00 ml Administered By: Coby Lopez Existing IV Access: Yes IV Access Condition: patent with no signs of infiltration Summary 1. Left ventricular chamber dimension is mildly enlarged. 2. There is mildly increased left ventricular wall thickness. 3. Left ventricular systolic function is severely reduced, estimated at 25-30. 4. Left ventricular septal wall motion shows global hypokinesis. 5. The left ventricular diastolic function is grade III diastolic dysfunction. 6. Right ventricular systolic function is normal. 7. Right ventricular chamber dimension is enlarged. 8. Left atrial chamber dimension is enlarged. 9. Right atrial chamber dimension is enlarged. 10. There is moderate mitral valve regurgitation. 11. There is potentially low-flow, low gradient potentially moderate-severe aortic stenosis. Vmax 2.2, EDWARD 0.9-1.0 (vmax/VTI), DI 0.31, SVI < 35. 12. There is moderate-severe calcified leaflet. 13. There is mild tricuspid valve regurgitation. 14. estimated pulmonary arterial systolic pressure is 33-43 mmHg based on eRAP 5-15 mmhg (IVC not visualized). Recommendations * Consider low-dose DSE or aortic valve calcium score to assess the severity of aortic stenosis. Left Ventricle Left ventricular chamber dimension is mildly enlarged. Left ventricular systolic function is severely reduced, estimated at 25-30. There is mildly increased left ventricular wall thickness. Left ventricular septal wall motion shows global hypokinesis. The left ventricular diastolic function is grade III diastolic dysfunction. Right Ventricle Right ventricular chamber dimension is enlarged. Right ventricular systolic function is normal. Left Atria Left atrial chamber dimension is enlarged. Right Atria Right atrial chamber dimension is enlarged. Aortic Valve The aortic valve is trileaflet. There is moderate-severe calcified leaflet. There is potentially low-flow, low gradient potentially moderate-severe aortic stenosis. Vmax 2.2, EDWARD 0.9-1.0 (vmax/VTI), DI 0.31, SVI < 35. There is no aortic valve regurgitation. Pulmonic Valve The pulmonic valve is normal. There is no pulmonic valve stenosis. There is no pulmonic regurgitation. Mitral Valve The mitral valve has normal leaflets. There is no mitral valve stenosis. There is moderate mitral valve regurgitation. Tricuspid Valve The tricuspid valve leaflets are normal. There is no significant tricuspid valve stenosis. There is mild tricuspid valve regurgitation. estimated pulmonary arterial systolic pressure is 33-43 mmHg based on eRAP 5-15 mmhg (IVC not visualized). Pericardium/Pleural The pericardium appears normal. There is no pericardial effusion. Inferior Vena Cava IVC is not well visualized . Aorta The aortic root size at the sinus of Valsalva is normal. The prox ascending aorta size is normal. Left Ventricular Outflow Tract Name Value Normal LVOT 2D LVOT Diameter 2.3 cm LVOT Doppler LVOT Peak Velocity 72 cm/s LVOT Peak Gradient 2 mmHg LVOT Mean Gradient 1 mmHg LVOT VTI 14 cm LVOT VTI/AV VTI Ratio 0.5 LVOT Stroke Volume 59 ml LVOT CO 4.1 l/min LVOT CI 1.8 l/min/m2 Pulmonic Valve Name Value Normal PV Doppler PV Peak Velocity 92 cm/s PV Peak Gradient 3 mmHg Mitral Valve Name Value Normal MV Doppler MV Peak Gradient 3 mmHg MV Mean Gradient 1 mmHg MV Area (Cont Eq VTI) 2.5 cm2 MV Regurgitation Doppler MR Peak Gradient 90 mmHg MV Diastolic Function MV E Peak Velocity 62 cm/s MV A Peak Velocity 34 cm/s MV E/A 1.8 MV Decel Time (PW) 305 ms MV Annular TDI MV E/e' (Septal) 15.5 MV E/e' (Lateral) 14.4 MV E/e' (Average) 15.0 Tricuspid Valve Name Value Normal TV Regurgitation Doppler TR Peak Velocity 283 cm/s TR Peak Gradient 24 mmHg Estimated PAP/RSVP RA Pressure 10 mmHg <=5 PA Systolic Pressure 42 mmHg <36 RV Systolic Pressure 42 mmHg <36 TV Annular TDI TV Lateral Estrella s' Velocity 10.0 cm/s >=9.5 Aortic Valve Name Value Normal AV Doppler AV Peak Velocity 135 cm/s AV Peak Gradient 7 mmHg AV Mean Gradient 4 mmHg AV VTI 28 cm AV Area (Cont Eq VTI) 2.1 cm2 >=3.0 AV Area (Cont Eq James) 2.2 cm2 AV DI (James) 0.54 AV Regurgitation 2D LVOT Area 4.2 cm2 Ventricles Name Value Normal LV Dimensions 2D/MM IVS Diastolic Thickness (2D) 1.3 cm 0.6-1.0 LVID Diastole (2D) 5.3 cm 4.2-5.8 LVIW Diastolic Thickness (2D) 1.1 cm 0.6-1.0 LVID Systole (2D) 5.3 cm 2.5-4.0 LVOT Diameter 2.3 cm LV Mass (2D Cubed) 256.50 g 88.00-224.00 LV Mass Index (2D Cubed) 112 g/m2 49-115 Relative Wall Thickness (2D) 0.42 <=0.42 LV Fractional Shortening/Ejection Fraction 2D/MM LV Fractional Shortening (2D) 1 % 25-43 LV EF (2D Teichholz) 1 % LV Diastolic Volume (4C MOD) 307 ml LV EF (4C MOD) 40 % LV Diastolic Volume (2C MOD) 274 ml LV EF (2C MOD) 37 % LV Diastolic Volume (BP MOD) 303 ml 62-150 LV Diastolic Volume Index (BP MOD) 132 ml/m2 34-74 LV Systolic Volume (BP MOD) 181 ml 21-61 LV Systolic Volume Index (BP MOD) 79 ml/m2 11-31 LV EF (BP MOD) 40 % 52-72 LV Diastolic Length (4C) 11.2 cm LV Systolic Length (4C) 9.8 cm LV Stroke Volume (4C MOD) 124 ml Atria Name Value Normal LA Dimensions LA Volume (4C A-L) 107 ml LA Volume (BP A-L) 98 ml RA Dimensions RA Systolic Major Bow Length (4C) 6.3 cm 2.1-2.7 RA Area (4C) 25.6 cm2 <=18.0 Report Signatures
[2024-09-23] MEDS: MAGNESIUM OXIDE 200 MG TABLET PO ×2 (03:04→08:32)
[2024-09-23 05:58] LABS: Hematocrit 39.6 % (42.0-52.0); Hemoglobin 12.0 g/dL (14.0-18.0); Immature Granulocyte Percent A 0.3 % (0-0.5); Lymphocytes Absolute Auto 1.76 K/mm3 (0.9-3.2); Mean Corpuscular HGB Conc 30.3 g/dl (32-36); Mean Corpuscular Hemoglobin 29.2 pg (26-34); Mean Corpuscular Volume 96.4 fl (80-100); Nucleated Red Blood Cells Absolute Auto 0.000 K/mm3 (0.0-0.012); Nucleated Red Blood Cells Perc 0.0 % (0.0-0.2); Platelet Count Result 174 k/mm3 (150-375); Red Blood Count 4.11 M/mm3 (4.6-6.20); White Blood Count 5.9 K/mm3 (4.5-10.0)
[2024-09-23 06:09] LABS: Alanine Aminotransferase 16 U/L (6-50); Albumin Level 3.6 g/dL (3.5-5.1); Alkaline Phosphatase 68 U/L (38-126); Anion Gap 7 mmol/L (4-12); Aspartate Amino Transferase 42 U/L (17-59); Bilirubin,Total 0.6 mg/dL (0.2-1.3); Blood Urea Nitrogen 18 mg/dL (9-20); Calcium 9.0 mg/dL (8.4-10.2); Carbon Dioxide 31 mmol/L (22-30); Chloride 102 mmol/L (98-107); Estimated CRCL calculation 56 ml/min; Estimated Glomerular Filt Rate > 60; Glucose 101 mg/dL (65-110); Potassium 3.6 mmol/L (3.4-5.0); Sodium 140 mmol/L (137-145); Total Protein 6.7 g/dL (6.3-8.2)
--- NOTE | 2024-09-23 07:29 | P.PNIM_ITS ---
Progress Note: A&P Assessment and Plan (1) Chronic diastolic CHF (congestive heart failure): Code(s): I50.32 - Chronic diastolic (congestive) heart failure Status: Acute Assessment and Plan: * acute on chronic diastolic heart failure * continue telemetry monitoring * strict I&O, monitor/record * continue Lasix 40 mg IV b.i.d. * Cardio consult * Repeat echo to assess CHF and * Continue Lasix, aspirin 81 mg daily, atorvastatin 10mg, Xarelto * Echo pending for today (2) CAD (coronary artery disease): Code(s): I25.10 - Atherosclerotic heart disease of [place] coronary artery without angina pectoris Status: Acute Assessment and Plan: * nonobstructive coronary artery disease * denies any angina * continue home medication ASA 81 mg p.o * continue atorvastatin 10 mg HS (3) Morbid obesity: Code(s): E66.01 - Morbid (severe) obesity due to excess calories Status: Acute Assessment and Plan: * heart healthy diet (4) History of gastric bypass: Code(s): Z98.84 - Bariatric surgery status Status: Acute (5) Cellulitis of left lower extremity: Code(s): L03.116 - Cellulitis of left lower limb Status: Acute Assessment and Plan: * chronic (6) Diabetes: Code(s): E11.9 - Type 2 diabetes mellitus without complications Status: Inactive Assessment and Plan: * bedside glucose management * managed by diet (7) Hypokalemia: Code(s): E87.6 - Hypokalemia Status: Acute Assessment and Plan: due to Lasix 40 mg IV b.i.d. replacement had been ordered iv monitor daily 09/23 potassium 3.6 Plan Continue home medications: VTE Prophylaxis: SCDs/Xarelto DIET: Heart healthy Anticipated hospital stay: > 2 days Code Status: Full code Subjective Date/time seen: 09/23/24 07:29 Interval history: 79-year-old male with an extensive PMHx: of but not limited to, diabetes HTN, morbid obesity, CAD. Presented to the emergency room with complaints of shortness breath. 09/23/2024 Patient's inability emotional time denies any chest pain, shortness a/vomiting, or lower extremity swelling worsened usual. Past also denies baseline Road extremity edema, but states that today it is better than it usually over his at home. Seen by Cardiology, will want to check echo to assess CHF staging, but p lans to continue 40 mg Lasix daily. Patient otherwise has no complaints or concerns, likely discharge today or tomorrow pending echo results. Review of Systems Review of Systems: All systems reviewed & are unremarkable except as noted in HPI and below Exam Narrative: General: A well-developed, nontoxic-appearing gentlemen, resting in bed, reports feeling hungry HEENT: PERRL, EOMI. Oral mucosa moist. Neck: Supple. No midline cervical tenderness. Respiratory: Respirations are non- labored and lungs are clear to auscultation bilaterally. Cardiovascular: Regular rate and rhythm with S1-S2. Gastrointestinal: Abdomen is soft, non-tender, and non-distended with positive bowel sounds. Skin: Warm and dry. No rash or lesions on limited exam. Extremities: Moderate bilateral leg swelling, +1 edema Neurological: Alert and oriented. Cranial nerves 2-12 are grossly intact. No gross focal deficits to casual conversation. Psychiatric: Pleasant and cooperative with normal mood and affect. Judgment and insight intact. Const: General: comfortable Objective Data Vital Signs Vital Signs: Vital Signs - 24 hr 09/22/24 08:00 09/22/24 08:50 09/22/24 08:53 Temperature Pulse Rate 70 72 Respiratory Rate Blood Pressure Pulse Oximetry Oxygen Delivery Room Air 09/22/24 12:00 09/22/24 14:00 09/22/24 16:00 Temperature 97.4 F L Pulse Rate 80 69 80 Respiratory Rate 16 Blood Pressure 104/54 L Pulse Oximetry 98 Oxygen Delivery 09/22/24 20:00 09/22/24 20:00 09/22/24 20:39 Temperature Pulse Rate 70 74 Respiratory Rate Blood Pressure Pulse Oximetry Oxygen Delivery Room Air 09/22/24 20:40 09/23/24 00:00 09/23/24 04:00 Temperature 97 F L Pulse Rate 74 78 70 Respiratory Rate 18 Blood Pressure 120/60 Pulse Oximetry 98 Oxygen Delivery 09/23/24 05:41 Temperature 98.3 F Pulse Rate 69 Respiratory Rate 18 Blood Pressure 102/54 L Pulse Oximetry 98 Oxygen Delivery Intake/Output Intake/Output: Intake & Output 09/20/24 09/21/24 09/22/24 09/23/24 23:59 23:59 23:59 23:59 Intake Total 340 1270 1660 350 Output Total 5697 1989 9879 250 Balance -960 -505 -1165 100 Meds/Results Medications: Active Medications Generic Name Dose Route Start Last Admin Trade Name Freq PRN Reason Stop Dose Admin Acetaminophen 650 mg 09/20/24 15:02 Acetaminophen 325 Mg Tablet PO Q4H PRN Mild Pain (1-3) or Fever Aspirin 81 mg 09/21/24 09:00 09/22/24 08:54 Aspirin 81 Mg Enteric Tablet PO 81 mg DAILY BRI Administration Atorvastatin Calcium 10 mg 09/20/24 21:00 09/22/24 21:35 Atorvastatin 10 Mg Tablet PO 10 mg QHS BRI Administration Cyanocobalamin 2,000 mcg 09/21/24 09:00 09/22/24 08:54 Cyanocobalamin 1,000 Mcg Tablet PO 2,000 mcg DAILY BRI Administration Docusate Sodium 300 mg 09/23/24 09:00 Docusate Sodium 100 Mg Capsule PO Q48H [facility] Docusate Sodium 400 mg 09/22/24 09:00 09/22/24 08:54 Docusate Sodium 100 Mg Capsule PO 400 mg Q48H BRI Administration Empagliflozin 25 mg 09/21/24 09:00 09/22/24 08:53 Empagliflozin 25 Mg Tablet BY MOUTH 25 mg DAILY BRI Administration Furosemide 40 mg 09/23/24 09:00 Furosemide 40 Mg Tablet PO QAM [facility] Lisinopril 10 mg 09/21/24 09:00 09/22/24 08:54 Lisinopril 10 Mg Tablet PO 10 mg DAILY BRI Administration Magnesium Oxide 200 mg 09/20/24 21:00 09/23/24 03:04 Magnesium Oxide 200 Mg Tablet PO 200 mg Q6H BRI Administration Methimazole 5 mg 09/20/24 21:00 09/22/24 20:34 Methimazole 5 Mg Tab PO 5 mg MoTuWeThFr [facility] Administration Metoprolol Tartrate 50 mg 09/20/24 21:00 09/22/24 20:39 Metoprolol Tartrate 50 Mg Tab PO 50 mg Q12HR BRI Administration Miconazole Nitrate 1 applic 09/20/24 20:57 Miconazole Nitrate 2% Cream 30 Gm Tube TOPICAL PRN PRN maceration in folds Multivitamins Therapeutic 1 tablet 09/21/24 09:00 09/22/24 08:54 Multivitamins Therapeutic Tab (*Bkc) PO 1 tablet DAILY BRI Administration Neomycin/Polymyxin/Bacitracin 1 packet 09/20/24 21:09 Neomycin/Polymyxin/Bacitracin Ointment Packet TOPICAL BID PRN skin irritation Prucalopride [ 2 mg 09/21/24 15:00 09/22/24 08:55 Motegrity] 2 Mg PO 10/21/24 14:59 2 mg Tablet Home Med DAILY BRI Administration Ondansetron HCl 4 mg 09/20/24 15:02 Ondansetron Inj 4 Mg/2 Ml Vial IV PUSH Q4H PRN Nausea Perflutren Lipid Microsphere 0 ml 09/20/24 19:42 Perflutren Lipid Microspheres 1.5 Ml Vial Diluted To 10 Ml Total Volume IV PUSH 09/23/24 19:42 ONCE PRN adequate visualization Protocol Polyethylene Glycol 17 gm 09/21/24 11:15 09/22/24 08:55 Polyethylene Glycol 3350 17 Gm Powd.Pack PO 17 gm QAM PRN Administration Constipation Rivaroxaban 2.5 mg 09/20/24 21:00 09/22/24 20:33 Rivaroxaban 2.5 Mg Tablet PO 2.5 mg Q12HR BRI Administration Tramadol HCl 50 mg 09/20/24 20:57 Tramadol Hcl (*Crx) 50 Mg Tablet PO BID PRN pain 4-6 Vitamin E 100 unit 09/21/24 09:00 09/22/24 08:53 Vitamin E 100 Unit Capsule PO 100 unit QAM BRI Administration Radiology Results: ITS Impressions Chest X-Ray 09/20/24 12:45 IMPRESSION: 1. Small bilateral pleural effusions, left greater than right with associated bibasilar atelectasis versus pneumonia. Labs Labs: Laboratory Results - last 24 hr 09/22/24 09/22/24 09/23/24 12:30 17:18 00:34 WBC RBC Hgb Hct MCV MCH MCHC RDW Plt Count MPV Immature Gran % (Auto) Neut % (Auto) Lymph % (Auto) [place] % (Auto) Eos % (Auto) Baso % (Auto) Lymph # (Auto) [place] # (Auto) Eos # (Auto) Baso # (Auto) Abs Immat Gran (auto) Absolute Neuts (auto) Absolute Nucleated RBC Nucleated RBC % Sodium Potassium Chloride Carbon Dioxide Anion Gap BUN Creatinine Estim Creat Clear Calc Estimated GFR Glucose POC Capillary Glucose 93 100 116 H Calcium Total Bilirubin AST ALT Alkaline Phosphatase Total Protein Albumin 09/23/24 05:32 WBC 5.9 RBC 4.11 L Hgb 12.0 L Hct 39.6 L MCV 96.4 MCH 29.2 MCHC 30.3 L RDW 16.0 H Plt Count 174 MPV 11.4 H Immature Gran % (Auto) 0.3 Neut % (Auto) 55.2 Lymph % (Auto) 30.0 [place] % (Auto) 10.7 H Eos % (Auto) 2.9 Baso % (Auto) 0.9 Lymph # (Auto) 1.76 [place] # (Auto) 0.6 Eos # (Auto) 0.2 Baso # (Auto) 0.1 Abs Immat Gran (auto) 0.02 Absolute Neuts (auto) 3.2 Absolute Nucleated RBC 0.000 Nucleated RBC % 0.0 Sodium 140 Potassium 3.6 Chloride 102 Carbon Dioxide 31 H Anion Gap 7 BUN 18 Creatinine 1.11 Estim Creat Clear Calc 56 Estimated GFR > 60 Glucose 101 POC Capillary Glucose Calcium 9.0 Total Bilirubin 0.6 AST 42 ALT 16 Alkaline Phosphatase 68 Total Protein 6.7 Albumin 3.6 Quality VTE Prophylaxis VTE prophylaxis: mechanical ordered and pharmacologic ordered
[2024-09-23] MEDS: PERFLUTREN LIPID MICROSPHERES 1.5 ML VIAL DILUTED TO 10 ML TOTAL VOLUME IV PUSH (08:00)
[2024-09-23] MEDS: CYANOCOBALAMIN 1,000 MCG TABLET 2000 MCG PO (08:31)
[2024-09-23] MEDS: DOCUSATE SODIUM 100 MG CAPSULE 300 MG PO (08:31)
[2024-09-23] MEDS: FUROSEMIDE 40 MG TABLET PO (08:32)
[2024-09-23] MEDS: EMPAGLIFLOZIN 25 MG TABLET BY MOUTH (08:32)
[2024-09-23] MEDS: METOPROLOL TARTRATE 50 MG TAB PO ×2 (08:32→20:28)
[2024-09-23] MEDS: ASPIRIN 81 MG ENTERIC TABLET PO (08:32)
[2024-09-23] MEDS: MULTIVITAMINS THERAPEUTIC TAB (*BKC) 1 TABLET PO (08:32)
[2024-09-23] MEDS: RIVAROXABAN 2.5 MG TABLET PO ×2 (08:32→20:28)
[2024-09-23] MEDS: PRUCALOPRIDE 2 MG 2 EACH PO (08:32)
--- NOTE | 2024-09-23 09:21 | IVDEFINITY ---
Prior to administration of IV Definity the patient was educated on the risks and benefits of the imaging enhancing agent including potential adverse side effects. The patient verbalized understanding. Allergies were verified. No exclusion criteria were identified and at least one of the following inclusion criteria were met: 1) physician request, 2) patient technically difficult to image (per the [place] [employer] guidelines of two or more segments not discernable within the apical view), or 3) questionable left ventricular function. ?
[2024-09-23] MEDS: MAGNESIUM OXIDE 400 MG TABLET PO (20:27)
[2024-09-23] MEDS: ATORVASTATIN 10 MG TABLET PO (20:28)
[2024-09-24] VITALS: PULSE 71
[2024-09-24 05:11] VITALS: PULSE 70
[2024-09-24 05:52] LABS: Hematocrit 39.5 % (42.0-52.0); Hemoglobin 12.1 g/dL (14.0-18.0); Immature Granulocyte Percent A 0.2 % (0-0.5); Lymphocytes Absolute Auto 2.08 K/mm3 (0.9-3.2); Mean Corpuscular HGB Conc 30.6 g/dl (32-36); Mean Corpuscular Hemoglobin 28.9 pg (26-34); Mean Corpuscular Volume 94.5 fl (80-100); Nucleated Red Blood Cells Absolute Auto 0.000 K/mm3 (0.0-0.012); Nucleated Red Blood Cells Perc 0.0 % (0.0-0.2); Platelet Count Result 180 k/mm3 (150-375); Red Blood Count 4.18 M/mm3 (4.6-6.20); White Blood Count 5.8 K/mm3 (4.5-10.0)
[2024-09-24 06:00] VITALS: BP 148/46; PULSE 88; RESP 20; TEMP 36.3; O2SAT 90
[2024-09-24 06:11] LABS: Alanine Aminotransferase 15 U/L (6-50); Albumin Level 3.5 g/dL (3.5-5.1); Alkaline Phosphatase 72 U/L (38-126); Anion Gap 7 mmol/L (4-12); Aspartate Amino Transferase 35 U/L (17-59); Bilirubin,Total 0.7 mg/dL (0.2-1.3); Blood Urea Nitrogen 19 mg/dL (9-20); Calcium 9.0 mg/dL (8.4-10.2); Carbon Dioxide 31 mmol/L (22-30); Chloride 102 mmol/L (98-107); Estimated CRCL calculation 57 ml/min; Estimated Glomerular Filt Rate > 60; Glucose 87 mg/dL (65-110); Potassium 3.6 mmol/L (3.4-5.0); Sodium 140 mmol/L (137-145); Total Protein 6.7 g/dL (6.3-8.2)
[2024-09-24 08:00] VITALS: PULSE 76
[2024-09-24] MEDS: RIVAROXABAN 2.5 MG TABLET PO (08:53)
[2024-09-24] MEDS: DOCUSATE SODIUM 100 MG CAPSULE 400 MG PO (08:53)
[2024-09-24] MEDS: CYANOCOBALAMIN 1,000 MCG TABLET 2000 MCG PO (08:53)
[2024-09-24 08:54] VITALS: PULSE 88
[2024-09-24] MEDS: METOPROLOL TARTRATE 50 MG TAB PO (08:54)
[2024-09-24] MEDS: ASPIRIN 81 MG ENTERIC TABLET PO (08:54)
[2024-09-24] MEDS: MULTIVITAMINS THERAPEUTIC TAB (*BKC) 1 TABLET PO (08:54)
[2024-09-24] MEDS: FUROSEMIDE 40 MG TABLET PO (08:54)
[2024-09-24] MEDS: MAGNESIUM OXIDE 400 MG TABLET PO (08:54)
[2024-09-24] MEDS: EMPAGLIFLOZIN 25 MG TABLET BY MOUTH (08:54)
[2024-09-24] MEDS: PRUCALOPRIDE 2 MG 2 EACH PO (08:54)
--- NOTE | 2024-09-24 09:06 | P.PNCA_ITS ---
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 Vmax 2.2, EDWARD 0.9-1.0 (vmax/VTI), DI 0.31, SVI < 35. 1. Acute on chronic diastolic heart failure NYHA II-III, Stage C EF 25-30% - Switch to Toprol-Xl - Continue Lisinopril 10 - MRA to be added as an outpatient - Discussed LHC with him, will get it done as an outpatient as already has plans to go home - If LHC shows it is NICM then he will need a BiV upgrade followed by further evaluation of his aortic valve disease - Continue oral lasix 40 mg PO OD 2. Aortic Stenosis low-flow, low gradient potentially moderate-severe aortic stenosis. Vmax 2.2, EDWARD 0.9-1.0 (vmax/VTI), DI 0.31, SVI < 35. - LHC as an outpatient - low dose DSE/aortic valve calcium to be done as an outpatient 3. Hx of Nonobstructive coronary artery disease -no angina to warrant further investigation -continue aspirin 81 mg p.o. daily and atorvastatin 10 mg every evening -it would also appear that he is on the cardiovascular prevention dose of Xarelto which can be continued 4. High-grade AV block status post permanent pacemaker -His need for pacing has increased, possibility of pacemaker induced cardiomyopathy is there as well. Will interrogate his pacemaker as an outpatient and consider a BiV upgrade if no obstructive ds found 5. Premature ventricular contraction -previously high burden -continue metoprolol Subjective Date/time seen: 09/24/24 09:06 Interval history: No acute events overnight Feels better lower extremity swelling improved - 1.35 L Review of Systems Cardiovascular: Cardiovascular: Reports as per HPI Respiratory: Respiratory: Reports as per HPI Exam Const: General: comfortable HENMT: Mouth: Yes moist mucous membranes Eyes: EOM: EOMs intact bilaterally Neck: Neck: no JVD Resp: Effort & Inspection: normal respiratory effort Auscultation: clear to auscultation bilaterally Cardio: Rate: regular rate Rhythm: regular rhythm Heart sounds: Murmur heart sound present Other: Grade 3 systolic murmur in the upper sternal borders with low but audible S2 Neuro: Speech: normal speech Extrem: General: edema and pedal edema Objective Data Vital Signs Vital Signs: Vital Signs - 24 hr 09/23/24 12:00 09/23/24 14:00 09/23/24 16:00 Temperature 36.5 C Pulse Rate 70 70 71 Respiratory Rate 17 Blood Pressure 106/58 L Pulse Oximetry 100 Oxygen Delivery 09/23/24 20:00 09/23/24 20:00 09/23/24 20:28 Temperature Pulse Rate 81 73 Respiratory Rate Blood Pressure Pulse Oximetry Oxygen Delivery Room Air 09/23/24 21:00 09/23/24 22:29 09/24/24 00:00 Temperature 36.7 C Pulse Rate 60 71 Respiratory Rate 20 Blood Pressure 116/72 Pulse Oximetry 100 99 Oxygen Delivery Room Air 09/24/24 05:11 09/24/24 06:00 09/24/24 08:54 Temperature 36.3 C L Pulse Rate 70 88 88 Respiratory Rate 20 Blood Pressure 148/46 H Pulse Oximetry 90 Oxygen Delivery Intake/Output Intake/Output: Intake & Output 09/21/24 09/22/24 09/23/24 09/24/24 23:59 23:59 23:59 23:59 Intake Total 1270 1660 2337 980 Output Total 2226 0893 [id number] [facility] -[phone] Meds/Results Medications: Active Medications Generic Name Dose Route Start Last Admin Trade Name Freq PRN Reason Stop Dose Admin Acetaminophen 650 mg 09/20/24 15:02 Acetaminophen 325 Mg Tablet PO Q4H PRN Mild Pain (1-3) or Fever Aspirin 81 mg 09/21/24 09:00 09/24/24 08:54 Aspirin 81 Mg Enteric Tablet PO 81 mg DAILY COUNTS INCLUDE 234 BEDS AT [facility] Administration Atorvastatin Calcium 10 mg 09/20/24 21:00 09/23/24 20:28 Atorvastatin 10 Mg Tablet PO 10 mg QHS COUNTS INCLUDE 234 BEDS AT THE [facility] Administration Cyanocobalamin 2,000 mcg 09/21/24 09:00 09/24/24 08:53 Cyanocobalamin 1,000 Mcg Tablet PO 2,000 mcg DAILY COUNTS INCLUDE 234 BEDS AT THE [facility] Administration Docusate Sodium 300 mg 09/23/24 09:00 09/23/24 08:31 Docusate Sodium 100 Mg Capsule PO 300 mg Q48H COUNTS INCLUDE 234 BEDS AT THE [facility] Administration Docusate Sodium 400 mg 09/22/24 09:00 09/24/24 08:53 Docusate Sodium 100 Mg Capsule PO 400 mg Q48H COUNTS INCLUDE 234 BEDS AT THE [facility] Administration Empagliflozin 25 mg 09/21/24 09:00 09/24/24 08:54 Empagliflozin 25 Mg Tablet BY MOUTH 25 mg DAILY COUNTS INCLUDE 234 BEDS AT THE [facility] Administration Furosemide 40 mg 09/23/24 09:00 09/24/24 08:54 Furosemide 40 Mg Tablet PO 40 mg QAM COUNTS INCLUDE 234 BEDS AT THE [facility] Administration Lisinopril 10 mg 09/21/24 09:00 09/24/24 08:54 Lisinopril 10 Mg Tablet PO 10 mg DAILY COUNTS INCLUDE 234 BEDS AT THE [facility] Administration Magnesium Oxide 400 mg 09/23/24 21:00 09/24/24 08:54 Magnesium Oxide 400 Mg Tablet PO 400 mg Q12HR COUNTS INCLUDE 234 BEDS AT THE [facility] Administration Methimazole 5 mg 09/20/24 21:00 09/23/24 20:27 Methimazole 5 Mg Tab PO 5 mg MoTuWeThFr COUNTS INCLUDE 234 BEDS AT THE [facility] Administration Metoprolol Succinate 25 mg 09/24/24 21:00 Metoprolol Succinate Ext Rel 25 Mg Tabcr PO QAM COUNTS INCLUDE 234 BEDS AT THE [facility] Miconazole Nitrate 1 applic 09/20/24 20:57 Miconazole Nitrate 2% Cream 30 Gm Tube TOPICAL PRN PRN maceration in folds Multivitamins Therapeutic 1 tablet 09/21/24 09:00 09/24/24 08:54 Multivitamins Therapeutic Tab (*Bkc) PO 1 tablet DAILY COUNTS INCLUDE 234 BEDS AT THE [facility] Administration Neomycin/Polymyxin/Bacitracin 1 packet 09/20/24 21:09 Neomycin/Polymyxin/Bacitracin Ointment Packet TOPICAL BID PRN skin irritation Prucalopride [ 2 mg 09/21/24 15:00 09/24/24 08:54 Motegrity] 2 Mg PO 10/21/24 14:59 2 mg Tablet Home Med DAILY BRI Administration Ondansetron HCl 4 mg 09/20/24 15:02 Ondansetron Inj 4 Mg/2 Ml Vial IV PUSH Q4H PRN Nausea Polyethylene Glycol 17 gm 09/21/24 11:15 09/24/24 08:53 Polyethylene Glycol 3350 17 Gm Powd.Pack PO 17 gm QAM PRN Administration Constipation Rivaroxaban 2.5 mg 09/20/24 21:00 09/24/24 08:53 Rivaroxaban 2.5 Mg Tablet PO 2.5 mg Q12HR BRI Administration Tramadol HCl 50 mg 09/20/24 20:57 Tramadol Hcl (*Crx) 50 Mg Tablet PO BID PRN pain 4-6 Vitamin E 100 unit 09/21/24 09:00 09/24/24 08:54 Vitamin E 100 Unit Capsule PO 100 unit QAM BRI Administration Radiology Results: ITS Impressions Chest X-Ray 09/20/24 12:45 IMPRESSION: 1. Small bilateral pleural effusions, left greater than right with associated bibasilar atelectasis versus pneumonia. TTE (09/23/2024) Summary 1. Left ventricular chamber dimension is mildly enlarged. 2. There is mildly increased left ventricular wall thickness. 3. Left ventricular systolic function is severely reduced, estimated at 25-30. 4. Left ventricular septal wall motion shows global hypokinesis. 5. The left ventricular diastolic function is grade III diastolic dysfunction. 6. Right ventricular systolic function is normal. 7. Right ventricular chamber dimension is enlarged. 8. Left atrial chamber dimension is enlarged. 9. Right atrial chamber dimension is enlarged. 10. There is moderate mitral valve regurgitation. 11. There is potentially low-flow, low gradient potentially moderate-severe aortic stenosis. Vmax 2.2, EDWARD 0.9-1.0 (vmax/VTI), DI 0.31, SVI < 35. 12. There is moderate-severe calcified leaflet. 13. There is mild tricuspid valve regurgitation. 14. estimated pulmonary arterial systolic pressure is 33-43 mmHg based on eRAP 5-15 mmhg (IVC not visualized). Recommendations * Consider low-dose DSE or aortic valve calcium score to assess the severity of aortic stenosis. Labs Labs: Laboratory Results - last 24 hr 09/23/24 09/23/24 09/23/24 12:04 19:18 20:58 WBC RBC Hgb Hct MCV MCH MCHC RDW Plt Count MPV Immature Gran % (Auto) Neut % (Auto) Lymph % (Auto) [place] % (Auto) Eos % (Auto) Baso % (Auto) Lymph # (Auto) [place] # (Auto) Eos # (Auto) Baso # (Auto) Abs Immat Gran (auto) Absolute Neuts (auto) Absolute Nucleated RBC Nucleated RBC % Sodium Potassium Chloride Carbon Dioxide Anion Gap BUN Creatinine Estim Creat Clear Calc Estimated GFR Glucose POC Capillary Glucose 93 130 H 103 Calcium Total Bilirubin AST ALT Alkaline Phosphatase Total Protein Albumin 09/24/24 09/24/24 05:13 05:51 WBC 5.8 RBC 4.18 L Hgb 12.1 L Hct 39.5 L MCV 94.5 MCH 28.9 MCHC 30.6 L RDW 15.9 H Plt Count 180 MPV 12.0 H Immature Gran % (Auto) 0.2 Neut % (Auto) 47.8 Lymph % (Auto) 35.8 [place] % (Auto) 11.0 H Eos % (Auto) 4.3 Baso % (Auto) 0.9 Lymph # (Auto) 2.08 [place] # (Auto) 0.6 Eos # (Auto) 0.3 Baso # (Auto) 0.1 Abs Immat Gran (auto) 0.01 Absolute Neuts (auto) 2.8 Absolute Nucleated RBC 0.000 Nucleated RBC % 0.0 Sodium 140 Potassium 3.6 Chloride 102 Carbon Dioxide 31 H Anion Gap 7 BUN 19 Creatinine 1.08 Estim Creat Clear Calc 57 Estimated GFR > 60 Glucose 87 POC Capillary Glucose 92 Calcium 9.0 Total Bilirubin 0.7 AST 35 ALT 15 Alkaline Phosphatase 72 Total Protein 6.7 Albumin 3.5
[2024-09-24 12:00] VITALS: PULSE 77
--- NOTE | 2024-09-24 12:01 | PM.DS ---
DS: Admitting Diagnosis Discharge Date 09/24/2024 Admitting Diagnosis Chronic diastolic CHF (congestive heart failure) DS: Discharge Diagnosis Discharge Diagnosis (1) Chronic diastolic CHF (congestive heart failure): Code(s): I50.32 - Chronic diastolic (congestive) heart failure Status: Acute (2) CAD (coronary artery disease): Code(s): I25.10 - Atherosclerotic heart disease of [place] coronary artery without angina pectoris Status: Acute (3) Morbid obesity: Code(s): E66.01 - Morbid (severe) obesity due to excess calories Status: Acute (4) History of gastric bypass: Code(s): Z98.84 - Bariatric surgery status Status: Acute (5) Cellulitis of left lower extremity: Code(s): L03.116 - Cellulitis of left lower limb Status: Acute (6) Diabetes: Code(s): E11.9 - Type 2 diabetes mellitus without complications Status: Inactive (7) Hypokalemia: Code(s): E87.6 - Hypokalemia Status: Acute DS: Summary Hospital Course Reason for hospitalization: SOB Hospital Course: 79-year-old male with an extensive PMHx: of but not limited to, diabetes HTN, morbid obesity, CAD. Presented to the emergency room with complaints of shortness breath. Patient tells me that he is suffered from SOB for several years he reports that the previous a examinations of his lungs did not reveal any abnormalities and doctors cannot determine the cause recently the patient underwent an x-ray in preparation for colonoscopy which incidentally revealed fluid around the lungs this prompted further investigation by the patient's general practitioner. Last night the patient experienced severe SOB leading to the decision to seek medical attention,this morning. The patient reports he has been treated with intravenous Lasix which resulted in frequent urination and improved breathing. The patient reported no chest pain but has a history of congestive heart failure since around age 38 likely due to b/p: which has been well controlled by medication. The patient noticed edema in the legs for which patient uses compression devices and Sylvain hoses, the patient also has neuropathy due to diabetes but does not take insulin. Cardiology consulted regarding worsening CHF. With repeating transthoracic echocardiogram to ensure that mild aortic stenosis has not progressed to severe stage. Repeat echocardiogram was performed on 09/23 and showed progression to moderate to severe aortic stenosis. Cardiology was made aware regarding these results. Throughout hospitalization, patient's symptoms completely resolved. Patient did have some underlying distal extremity edema, but he states that this is baseline. Shortness of breath otherwise subsided as well. Discussed this with Cardiology/ They agreed that the patient can undergo these assessments/interventions in the outpatient setting. Likely patient will benefit [facility] as an outpatient, as well as a low-dose DST/aortic valve calcium assessment. Also agree that pacemaker likely can benefit interrogation as a possibility pacemaker induced cardiomyopathy is there is well. They also recommended continuing metoprolol for premature ventricular contractions, but otherwise has signed off and agreed that the patient can be discharged from a cardiac standpoint. Patient is hemodynamically stable with stable blood work and vital signs. He states that he feels great and endorses desire to be discharged home at this time. He has been given the number patient information for Cardiology and has been cleared for discharge. Status at Discharge Functional status at discharge: independent ambulation Overall status at discharge: patient is back to baseline Time Spent with Patient Time attestation: Total time spent providing and/or coordinating discharge services: 41 Exam Narrative: General: A well-developed, nontoxic-appearing gentlemen, resting in bed, reports feeling hungry HEENT: PERRL, EOMI. Oral mucosa moist. Neck: Supple. No midline cervical tenderness. Respiratory: Respirations are non- labored and lungs are clear to auscultation bilaterally. Cardiovascular: Regular rate and rhythm with S1-S2. Grade 3 systolic murmur in the upper sternal borders with low but audible S2 Gastrointestinal: Abdomen is soft, non-tender, and non-distended with positive bowel sounds. Skin: Warm and dry. No rash or lesions on limited exam. Extremities: Moderate bilateral leg swelling, +1 edema Neurological: Alert and oriented. Cranial nerves 2-12 are grossly intact. No gross focal deficits to casual conversation. Psychiatric: Pleasant and cooperative with normal mood and affect. Judgment and insight intact. Const: General: comfortable DS: Data Data Completed and Pending Labs on day of discharge: Labs from last 24 hours 09/24/24 09/24/24 09/23/24 05:51 05:13 20:58 WBC 5.8 RBC 4.18 L Hgb 12.1 L Hct 39.5 L MCV 94.5 MCH 28.9 MCHC 30.6 L RDW 15.9 H Plt Count 180 MPV 12.0 H Immature Gran % (Auto) 0.2 Neut % (Auto) 47.8 Lymph % (Auto) 35.8 [place] % (Auto) 11.0 H Eos % (Auto) 4.3 Baso % (Auto) 0.9 Lymph # (Auto) 2.08 [place] # (Auto) 0.6 Eos # (Auto) 0.3 Baso # (Auto) 0.1 Abs Immat Gran (auto) 0.01 Absolute Neuts (auto) 2.8 Absolute Nucleated RBC 0.000 Nucleated RBC % 0.0 Sodium 140 Potassium 3.6 Chloride 102 Carbon Dioxide 31 H Anion Gap 7 BUN 19 Creatinine 1.08 Estim Creat Clear Calc 57 Estimated GFR > 60 Glucose 87 POC Capillary Glucose 92 103 Calcium 9.0 Total Bilirubin 0.7 AST 35 ALT 15 Alkaline Phosphatase 72 Total Protein 6.7 Albumin 3.5 09/23/24 09/23/24 19:18 12:04 WBC RBC Hgb Hct MCV MCH MCHC RDW Plt Count MPV Immature Gran % (Auto) Neut % (Auto) Lymph % (Auto) [place] % (Auto) Eos % (Auto) Baso % (Auto) Lymph # (Auto) [place] # (Auto) Eos # (Auto) Baso # (Auto) Abs Immat Gran (auto) Absolute Neuts (auto) Absolute Nucleated RBC Nucleated RBC % Sodium Potassium Chloride Carbon Dioxide Anion Gap BUN Creatinine Estim Creat Clear Calc Estimated GFR Glucose POC Capillary Glucose 130 H 93 Calcium Total Bilirubin AST ALT Alkaline Phosphatase Total Protein Albumin Discharge Plan Discharge Attending physician on discharge: Jessie Lucia Consulting providers: Randall Hartman; Liang Bustamante Discharging Clinician: Liang Bustamante Anticipated Discharge Date/Time: 09/24/24 11:41 Patient Disposition: Home Activity: as tolerated Diet: as tolerated Discharge Instructions: Discharge disposition: Stable Take medications as prescribed. You will be switched to Toprol XL instead of your Metoprolol Monitor blood pressures Take caution while standing, rising, or moving Change positions slowly taking a break between each position change If you standing feel dizzy sit back down and take a break Encouraged to continue with yearly vaccinations Return to the emergency department if he developed sudden shortness of breath, chest pain, nausea, vomiting, upset stomach or intractable diarrhea Return to the emergency department if you develop fever greater than 101.5 Follow-up with the primary care physician within 1-2 weeks Follow up with Cardiology in 1-2 weeks regarding further management of your Congestive Heart Failure. They will likely want to set you up with further testing to assess your CHF, aortic stenosis. Thank you for choosing [facility] for your healthcare needs Patient Instructions: Antibiotic Form, Pain Management (DC) Patient Language: [place] Irish Stand Alone Forms: General Discharge Information Follow-up/Referrals: Prakash,Baljit Collins MD [Primary Care Provider] - Discharge Medications: New metoprolol succinate 25 mg tablet extended release 24 hr 25 mg PO DAILY Qty: 30 0RF Continued Galzin 50 mg (zinc) capsule 50 mg PO DAILY amiodarone 100 mg tablet 100 mg PO DAILY Motegrity 2 mg tablet 2 mg PO DAILY Qty: 90 3RF aspirin 81 mg tablet,delayed release (DR/EC) 81 mg PO DAILY cyanocobalamin (vitamin B-12) 1,000 mcg tablet 2,000 mcg PO DAILY furosemide 40 mg tablet 40 mg PO QAM magnesium 200 mg tablet 200 mg PO Q6H Trulicity 1.5 mg/0.5 mL pen injector 1.5 mg subcut WEEKLY Rx Instructions: Wednesdays metformin 500 mg Tablet 1,000 mg PO BID Rx Instructions: with meals multivitamin Tablet 1 tablet PO DAILY miconazole nitrate [Antifungal (miconazole)] 2 % Cream 1 applic TOPICAL PRN PRN (Reason: maceration in folds) dapagliflozin propanediol 10 mg Tablet 10 mg PO DAILY rivaroxaban [Xarelto] 2.5 mg Tablet 2.5 mg PO BID atorvastatin 10 mg tablet 10 mg PO QHS spironolactone 25 mg tablet 25 mg PO QAM lisinopril 10 mg tablet 10 mg PO DAILY docusate sodium [Colace] 100 mg capsule 400 mg PO Q48H diclofenac sodium 75 mg tablet,delayed release (DR/EC) 150 mg PO DAILY PRN (Reason: Pain (Scale Score 1-3)) tramadol 50 mg tablet 50 mg PO BID PRN (Reason: pain) Rx Instructions: ALTERNATES DAILY WITH DICLOFENAC PO FOR PAIN Ozempic 0.25 mg or 0.5 mg (2 mg/3 mL) pen injector 0.5 mg subcut WEEKLY methimazole 5 mg tablet 5 mg PO 5XW docusate sodium 100 mg capsule 300 mg PO Q48H Patient Comments: alternates 400 mg and 300 mg every other day Discontinued lactulose 20 gram/30 mL solution 20 g PO BID 30 Days Qty: 1800 3RF metoprolol tartrate 50 mg tablet 50 mg PO BID vitamin E 400 unit Tablet 45 mg PO DAILY [id number] Ointment 1 ea TOPICAL BID PRN (Reason: skin irritation) Rx Instructions: BUTT WOUND Date of admission: 09/21/24 09:59 Primary Care Provider: Prakash,Baljit Collins Admitting Provider: Tomer Oshea Attending physician on admission: Tomer Oshea Condition: Stable Quality VTE Prophylaxis VTE prophylaxis: mechanical ordered and pharmacologic ordered
== END 2024-09-24 13:25 | disposition home or self-care (01) | DRG 291 ==
LOC: ANHED 15:07 → ANH2MED 15:20
PROVIDERS: Physician Assistant; Admitting Provider Internal Medicine; Emergency Provider Emergency Medicine; PCP Family Medicine; Visit Provider Physician Assistant
DX: I11.0 Hypertensive heart disease with heart failure (principal); I50.33 Acute on chronic diastolic (congestive) heart failure; L03.116 Cellulitis of left lower limb; E11.42 Type 2 diabetes mellitus with diabetic polyneuropathy; E03.9 Hypothyroidism, unspecified; E87.6 Hypokalemia; E78.5 Hyperlipidemia, unspecified; E66.01 Morbid (severe) obesity due to excess calories; G47.33 Obstructive sleep apnea (adult) (pediatric); I25.10 Atherosclerotic heart disease of native coronary artery without angina pectoris; I49.3 Ventricular premature depolarization; I44.39 Other atrioventricular block; I35.0 Nonrheumatic aortic (valve) stenosis; L40.9 Psoriasis, unspecified; Z79.82 Long term (current) use of aspirin; Z79.85 Long-term (current) use of injectable non-insulin antidiabetic drugs; Z79.01 Long term (current) use of anticoagulants; Z99.89 Dependence on other enabling machines and devices; Z87.891 Personal history of nicotine dependence; Z98.84 Bariatric surgery status; Z90.49 Acquired absence of other specified parts of digestive tract; Z95.0 Presence of cardiac pacemaker
CPT/HCPCS: 36415; 71046; 80048; 80053; 82948; 83690; 83735; 83880; 84484; 85025; 85610; 85730; 93005; 96374; 96375; 96376; 99285; A9270; C8929; G0378; J1938; J3480; J7040; Q9957

== ENCOUNTER 2024-10-27 13:17 | Outpatient (CLI) | payer MEDICARE, SELFPAY ==
--- NOTE | ~2024-10-27 | XR_ITS ---
XR chest 2V 10/27/2024 13:33 Indication: Congestive heart failure Procedure: 2 view chest Comparison: No prior studies for comparison. Findings: Status post median sternotomy for CABG. Cardiomegaly with mild interstitial edema. Small le ft pleural effusion. Possible small right effusion. Pacemaker leads in expected position. Mild elevat ion left diaphragm Impression: 1: Cardiomegaly with mild interstitial edema. 2: Small left pleural effusion. Reviewed, dictated and finalized at location A. Impression: 1: Cardiomegaly with mild interstitial edema. 2: Small left pleural effusion.
--- OUTSIDE RECORDS SUMMARY | 2024-10-27 13:27 | XMS_ITS ---
Author Name Cynthia Madsen NP Address [address] [place] [address] Phone [phone] Organization [facility] Care Team Providers Care Oil Field Tester Name Role Phone Cynthia Madsen Unavailable [phone] Song Calhoun Unavailable [phone] [facility] CHW ([facility]), Alisha Alvarado Unavailable Unavailable [facility] Tier 1 RN ([facility]L), Lorena enamorado Unavailable Unavailable Unavailable Unavailable Cornel Sanderson Unavailable [phone] Magnus Gagnon Unavailable Unavailable YULIANA CAMPOS Unavailable [phone] Baljit Randall Unavailable [phone] Reason for Referral Not Available Allergies, adverse [...] once daily 2023-12-24 No Data Available [facility] Krill Oil 350 mg Cap No Data [...] at least 75 minutes total time on [facility] 12/24/2023 Unspecified diastoli c (congestive) heart failureHypertensive heart disease with heart failureType 2 diabetes w diabetic peripheral angiopath w/o gangreneType 2 diabetes mellitus with other specified complicationMorbid (severe) obesity due to excess caloriesHyperlipidemia, unspecifiedAthscl heart disease of [place] coronary artery w/o ang pctrsThyrotoxicosis, unspecified without thyrotoxic crisis or stormUnspecified osteoarthritis, unspecified siteObstructive sleep apnea (adult) (pediatric)Venous insufficiency (chronic) (peripheral)Body mass index (BMI) 35.0-35.9, adult Home visit for evaluation and management of established patient requiring medically appropriate examination and high level of medical decision making. If using time, at least 60 minutes total time on [facility] 02/25/2024 Unspecified diastoli c (congestive) heart failureType 2 diabetes mellitus with other circulatory complicationsHypertensive heart disease with heart failureHistory of fallingDysphagia, unspecifiedObesity, class 1Pressure ulcer of unspecified site, stage 1 Home visit for evaluation and management of established patient requiring medically appropriate examination and high level of medical decision making. If using time, at least 60 minutes total time on [facility] 02/25/2024 Unspecified diastoli c (congestive) heart failureDysphagia, unspecifiedHistory of fallingBody mass index (bmi) 31.0-31.9, adult Home visit for evaluation and management of established patient requiring medically appropriate examination and high level of medical decision making. If using time, at least 60 minutes total time on [facility] 02/25/2024 Unspecified diastoli c (congestive) [...] tive Time Current Smoking Status Former smoker 4 Sex Male History of Procedures Procedures Service Procedure code Service date Servicing provider Phone# Home visit for evaluation and management of new patient requiring medically appropriate examination and high level of medical decision making. If using time, at least 75 minutes total time on encounte [id number] 2023-12-24 No Data Available No Data Availa ble Home visit for evaluation and management of established patient requiring medically appropriate examination and high level of medical decision making. If using time, [place] [id number] 2024-02-25 No Data Available No Data Availa ble Patient screened for fall risk; 2 or more falls in the last year or fall with injury in the last year 1101F 2024-02-25 No Data Available No Data Availa ble No Data Available [id number] 2024-02-25 No Data Available No Data Available Functional Status Functional Category Effective Dates last fall was at [employer] [facility], lost his balance, this was in [...] type 2 diabetes mellituscontinue statin and XareltoContinue [id number] well controlledcontinue metformin 1000mg BIDCoronary artery diseasedenies [...] mg Tab 4 tablets once daily #90 [id number]: Primarily Home Social Work (STL) -- please [...] reminder. I put in for 01/13 in [facility] but may change to align with nurse and provider schedule as he is in [place]. THANKS!.01/20 cardiology- device check with nurse after making changes 01/27 endocrine for hyperthyroid and DMII02/21 cardiology, meeting Vladimir03/[address] Agudelo 03/17 [facility] seeing PT and pain management rotating starting [...] continued, and he was referred to the [facility] in addition to the compression devices.He saw his marine pipefitter helper DINESH Gutierrez on 01/28, he is documented [...] appointment on 02/[address] Gilbert with [facility] EP.Today, we reviewed his medications and his [...] [address] Granger at [facility] had been going to the lymphedema clinic [...] continued, and he was referred to the [facility] in addition to the compression devices.He saw his marine pipefitter helper DINESH Gutierrez on 01/28, he is documented [...] appointment on 02/[address] Gilbert with [facility] EP.Today, we reviewed his medications and his [...] [address] Granger at [facility] had been going to the lymphedema clinic [...]
--- OUTSIDE RECORDS SUMMARY | 2024-10-27 13:27 | XMS_ITS | Referral Summary ---
Author Organization [facility] [address] [facility] [address] Address [address] [place] [address] Care Team Providers Care Gill Tender Name Role Phone Landry Leon MD Unavailable Baljit Randall MD Primary Care Provider [phone] Reena Gilbert MD Unavailable Caden Guajardo MD Unavailable [phone] Encounters Date Type Department Care Team Description 10/23/2024 11:45 AM CDT Office Visit [facility] Cardiology [address] [place] [address] Randall Hartman MD Chronic systolic congestive heart failure (HCC) (Primary Dx) 10/21/2024 3:00 PM CDT Office Visit [facility] Family Medicine at [address] [place] [address] Baljit Randall MD Chronic systolic congestive heart failure (HCC) (Primary Dx); Cardiac pacemaker in situ; Coronary artery disease involving coushatta coronary artery 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 angina pectoris; ALEX treated with BiPAP 10/20/2024 ACO Outreach [facility] Accountable Care Organization [address] [place] [address] Krysta Tellez RN 10/17/2024 12:35 PM CDT - 10/17/2024 11:59 PM CDT Hospital Encounter [facility] Diagnostic Imaging [address] [place] [address] Chronic bilateral pleural effusions Discharge Disposition: Discharge to home or self care 10/17/2024 12:34 PM CDT - 10/17/2024 11:59 PM CDT Hospital Encounter [facility] Respiratory Therapy [address] [place] [address] Dyspnea and respiratory abnormalities Discharge Disposition: Discharge to home or self care 10/10/2024 Results Follow-Up [facility] [address] [facility] [address] [place] [phone] Jennifer Young NP TSH, T4, free, T3, free 10/09/2024 11:42 AM CDT - 10/09/2024 11:59 PM CDT Hospital Encounter [facility] [address] [place] [address] Hyperthyroidism Discharge Disposition: Discharge to home or self care 10/09/2024 11:45 AM CDT Lab [facility] Outpatient Lab at [address] [address] 10/06/2024 10:30 AM CDT Office Visit [facility] Pulmonology [address] [facility] [address] [place] [address] Eneida Malloy MD Dyspnea and respiratory abnormalities (Primary Dx); Chronic bilateral pleural effusions; HFrEF (heart failure with reduced ejection fraction) (HCC) 10/02/2024 Telephone [facility] Family Medicine at [place] [address] [facility] [address] [place] [address] Baljit Randall MD needs appt letter sent 09/29/2024 Orders Only [facility] Cardiology [address] [place] [address] Randlal Hartman MD 09/29/2024 WEST IP Outreach [facility] Care Organization [address] [place] [address] Cynthia Ceja, GARBAGE COLLECTOR 09/29/2024 Telephone [facility] Family Medicine at [address] [place] [address] Krysta Carr PA Med Refill; CARE CAGE SUPERVISOR WEST IP 09/23/2024 Orders Only [facility] Health Information Management [address] [place] [address] Randall Hartman MD 09/22/2024 Telephone [facility] Cardiology [address] [place] [address] Randall Hartman MD 09/21/2024 Orders Only [facility] Health Information Management [address] [place] [address] Randall Hartman MD 09/20/2024 Orders Only [facility] Health Information Management [address] [place] [address] Scanning, Provider 09/11/2024 11:30 AM CDT Office Visit [facility] Diabetes and Endocrinology [address] [place] [phone] Jennifer Young, DINESH Type 2 diabetes mellitus with hyperglycemia, without long-term current use of insulin (HCC) (Primary Dx); Mixed diabetic hyperlipidemia associated with type 2 diabetes mellitus (CMS/HCC) (HCC); Type 2 diabetes mellitus with diabetic neuropathy, without long-term current use of insulin (HCC); Hyperthyroidism 09/10/2024 10:15 AM CDT - 09/10/2024 11:59 PM CDT Hospital Encounter [facility] [address] [place] [address] Discharge Disposition: Discharge to home or self care 09/10/2024 Orders Only [facility] Health Information Management [address] [place] [address] Baljit Randall MD 09/01/2024 4:15 PM CDT Office Visit [facility] Family Medicine at [address] [place] [phone] Baljit Randall MD Orthostatic hypotension (Primary Dx); Dehydration; Chronic systolic congestive heart failure (HCC) 08/29/2024 WEST ED Outreach [facility] Accountable Care Organization [address] [place] [address] Trudy Bocanegra MA 08/28/2024 2:46 PM CDT - 08/28/2024 6:59 PM CDT Emergency [address] [address] Kalin Cid MD Orthostatic hypotension (Primary Dx); Dizziness Discharge Disposition: Discharge to home or self care 08/28/2024 Telephone [facility] Family Medicine at [address] [place] [address] Baljit Randall MD patient going to ER 08/25/2024 Orders Only [facility] Cardiology [address] [facility] [address] [place] [address] Bela Herzog MD 08/25/2024 Telephone [facility] Family Medicine at [address] [place] [address] Baljit Randall MD call back 08/21/2024 Telephone [facility] Family Medicine at [address] [place] [address] Baljit Randall MD Xarelto 08/08/2024 Results Follow-Up [facility] [address] [place] [phone] Jennifer Young NP T3, free, T4, free, TSH 08/07/2024 2:48 PM CDT - 08/07/2024 11:59 PM CDT Hospital Encounter [address] [address] Hyperthyroidism Discharge Disposition: Discharge to home or self care 08/07/2024 2:45 PM CDT Lab [facility] Outpatient Lab at [address] [address] NSVT (nonsustained ventricular tachycardia) (HCC) (Primary Dx) from Last 3 Months Allergies Active Allergy Reactions Criticality Noted Date Comments Amiodarone Unknown 10/21/2024 Clindamycin Hives Medium 02/24/2019 Medications cyanocobalami n [...] APPOINTMENT 90 tablet 3 08/01/19 25 Active furosemide (LASIX) 40 mg tablet TAKE 1 TABLET BY MOUTH DAILY 90 tablet 3 08/01/19 25 Active rivaroxaban (Xarelto) 2.5 mg tablet Take 1 tablet (2.5 mg total) by mouth 2 (two) times a day 180 tablet 3 08/27/19 25 Active P06-fmxitkyue ate calcium-B6 (FOLBIC RF) 2-1.13-25 mg tablet Take 1 tablet by mouth mold stamper and repairer before breakfast 30 tablet 2 09/02/19 25 [...] DAYS 9 mL 1 09/09/19 25 Active Folbic 2.5-25-2 mg tablet Take 1 tablet by mouth daily before breakfast 09/06/19 25 Active traMADoL (ULTRAM) 50 mg tablet Take 1 tablet (50 mg total) by mouth every 6 (six) hours as needed for pain 120 tablet 09/30/19 25 Active polyethylene glycol (MIRALAX) 17 gram packetIndicat ions:constipa tion Take 1 packet (17 g total) by mouth daily Active metoprolol XL (TOPROL-XL) 25 mg extended release tablet Take 1 tablet (25 mg total) by mouth daily 30 tablet 2 10/25/19 25 Active metoprolol tartrate (LOPRESSOR) 50 mg immediate release tablet TAKE 1 TABLET BY MOUTH TWICE DAILY 180 tablet 3 08/01/19 25 025 Discontinued(Al ternate therapy) traMADoL (ULTRAM) 50 mg tablet Take 1 tablet (50 mg total) by mouth every 6 (six) hours as needed for pain 120 tablet 09/02/19 25 025 Discontinued metoprolol XL (TOPROL-XL) 25 mg extended release tablet Take 1 tablet (25 mg total) by mouth daily 09/25/19 25 025 Discontinued(Re order) Active Problems Problem Noted Date Diagnosed Date Bradycardia 04/12/2023 Cardiac pacemaker in situ 04/12/2023 Overview (07/28/2024): Medtronic Meenakshi Dual Pacemaker. Dx; Bradycardia, AV Block. DOI 04/23/2023- [place]. [employer]. [employer] remote. 07/28/24-transferred to [place]. Morbid (severe) obesity due to excess calories 0 04/10/2023 Class 2 severe obesity due t o excess calories with serious comorbidity and body mass index (BMI) of 37.0 to 37.9 in adult 04/10/2023 Assessment & Plan (04/10/2023 1:55 PM AUDIO VISUAL MANAGER): Discussed healthy diet and importance of regular physical activity (20- 30min/day, 150min/wk). Type 2 diabetes mellitus wit h hyperglycemia, without long-term current use of insulin 01/15/2023 Assessment & Plan (09/11/2024 11:50 AM CDT): Chronic problem. A1c at goal w/o hypoglycemia. A1c today=5.7%, was 5.1% 05/19/24. Current medications: Farxiga 10mg daily Ozempic 0.5 mg weekly UTD on DM eye exam (04/29/24 no DMR). UTD on labs. Strive for regular exercise [...] skin breakdown and infection. Assessment & Plan (05/19/2024 10:45 AM AUDIO VISUAL MANAGER): Chronic problem. A1c at goal w/o hypoglycemia. A1c today=5.1%, was 5.9% 01/15/24. Stop the metformin. Will re-evaluate at next appointment if we need to stop the Farxiga additionally. Current medications: Farxiga 10mg daily Ozempic 0.5 mg weekly UTD on DM eye exam (04/19/23 no DMR). Had appt 04/2024 at [facility]. Letter sent to get copy of report. Will update labs. Verified that he uses [employer]. Aware to check results/results letter in [employer]. Will contact by phone if needed. Strive [...] meals Assessment & Plan (04/10/2023 1:51 PM AUDIO VISUAL MANAGER): Chronic problem. A1c at goal w/o hypoglycemia. [...] 20 Thyroid nodule 08/12/2018 Assessment & Plan (09/11/2024 11:49 AM CDT): Last thyroid US by Dr Sanderson 01/12/23: These nodules are not new. You have nodules that have been seen in ultrasound in the past and you even had biopsy of these nodules which are benign. Assessment & Plan (05/19/2024 10:21 AM AUDIO VISUAL MANAGER): Last thyroid US by Dr Sanderson 01/12/23: These nodules are not new. You have nodules that have been seen in ultrasound in the past and you even had biopsy of these nodules which are benign. Assessment & Plan (04/10/2023 1:54 PM AUDIO VISUAL MANAGER): Last thyroid US 01/2021. Has not had repeat imaging since that time. Will repeat US at 06/[address] Sanderson. Assessment & Plan (02/03/2020 7:02 PM AUDIO VISUAL MANAGER): We reviewed the ultrasound images with the [...] referring provider Hyperthyroidism 02/20/2018 Assessment & Plan (09/11/2024 12:01 PM CDT): Chronic problem. Currently taking methimazole 5mg 5 days/wk (08/08/24). To repeat labs mid September in our office. Verified that he uses [employer]. Aware to check results/results letter in [email or web address]. Will contact by phone if needed. Assessment & Plan (05/19/2024 10:20 AM AUDIO VISUAL MANAGER): Chronic problem. Currently taking methimazole 5mg 5 days/wk; none on weekends. Will update TFTs today. Verified that he uses [employer]. Aware to check results/results letter in [employer]. Will contact by phone if needed. Assessment & Plan (09/25/2023 1:05 PM CDT): Probably hypothyroid now. Update TFTs Will adjust dose of methimazole, as indicated Assessment & Plan (07/03/2023 2:48 PM CDT): Clinically euthyroid Update TFTs Assessment & Plan (04/10/2023 1:24 PM AUDIO VISUAL MANAGER): Chronic problem. No labs since 12/07/22. 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 She had recommended beginning Tapazole which patient has not started yet. Will coordinate between Dr. Don in the cardiology. Labs are pending from today and will repeat again in 3 months Vitamin D deficiency 01/28/2018 Assessment & Plan (01/28/2018 1:46 PM AUDIO VISUAL MANAGER): Level over 30 04/12, will repeat -check 25 hydroxy vitamin-D History of gastric bypass 01/28/2018 Assessment & Plan (01/28/2018 1:47 PM AUDIO VISUAL MANAGER): Will monitor the following yearly (will order) [...] safety Assessment & Plan (04/13/2021 12:33 PM AUDIO VISUAL MANAGER): -CKD increases risk of hypoglycemia -Will closely monitor glucose pattern in ensure margin of safety Assessment & Plan (04/29/2018 4:51 PM AUDIO VISUAL MANAGER): Creatinine is much improved and back to baseline Will repeat renal panel in 3 months Coronary artery disease invo lving coushatta coronary artery 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 angina pectoris 02/11/2016 Overview (06/29/2016): 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 Controlled on current Atorvastatin 10mg. Last lipid panel: 01/15/24 LDL=57, TG=97. Assessment & Plan (05/19/2024 10:20 AM AUDIO VISUAL MANAGER): Chronic problem. Controlled on current Atorvastatin 10mg. Last lipid panel: 01/15/24 LDL=57, TG=97. Assessment & Plan (07/03/2023 2:49 PM CDT): Chronic, stable . Continue statin therapy with Lipitor 10 mg daily Assessment & Plan (04/10/2023 1:23 PM AUDIO VISUAL MANAGER): Chronic problem. Controlled on current Atorvastatin 10mg. Last lipid panel: 08/10/22 LDL=42, TF=362. Assessment & Plan (01/15/2023 10:16 AM CDT): Chronic problem. Controlled on current Atorvastatin 10mg. Last lipid panel: 08/10/22 LDL=42, QA=489. Assessment & Plan (10/17/2022 2:32 PM CDT): Chronic, well controlled. Continue atorvastastin Type 2 diabetes mellitus with diabetic neuropath y 04/01/2015 Assessment & Plan (09/11/2024 11:50 AM CDT): Chronic problem. Reviewed foot care; needs to lotion daily. Aware to check feet nightly, not to go barefoot. Assessment & Plan (05/19/2024 10:21 AM AUDIO VISUAL MANAGER): Chronic problem. Reviewed foot care; needs to lotion daily. Aware to check feet nightly, not to go barefoot. Assessment & Plan (04/10/2023 1:24 PM AUDIO VISUAL MANAGER): Chronic problem. Aware to check feet & [...] Metformin Assessment & Plan (04/18/2022 4:44 PM AUDIO VISUAL MANAGER): Hba1c was Lab Results Component Value Date [...] 07/12/21 Assessment & Plan (04/13/2021 12:31 PM AUDIO VISUAL MANAGER): -Currently taking oral agents and Trulicity -A1C on 04/13/21 was 6.4% -Will continue same medications at this time -Discussed diet and activity modifications. -Eye exam is up to date -Foot exam per foot nurse today Assessment & Plan (04/29/2018 4:48 PM AUDIO VISUAL MANAGER): Diabetes control is markedly improved with the [...] day Assessment & Plan (01/28/2018 1:49 PM AUDIO VISUAL MANAGER): Poor control with recent increase in HgbA1C. [...] different times and keep track -refer to car rental deliverer to review blood sugars in 6 weeks -continue yearly dilated eye exam -continue routine care with foot doctor -check urine microalbumin to creatinine ratio, CMP, TSH Cobalamin deficiency 07/02/2012 Resolved Problems Problem Noted Date Diagnosed Date Resolved Date Dyspnea and respiratory abnormalities 07/22/2024 10/21/2024 Dysfunction of right eustachian tube 04/17/2024 10/21/2024 Sepsis with acute renal fail ure without septic shock, due to unspecified organism, unspecified acute renal failure type 12/07/2022 Acute cystitis without hematuria 12/07/2022 12/11/2022 Cellulitis of left leg 12/07/202203/15 RAMOS (dyspnea on exertion) 12/07/2022 Post-nasal drainage 11/06/2022 03/15/20 23 Tinnitus of both ears 11/06/20222023 Dysfunction of right eustachian tube 11/06/2022 09/18/2023 COVID-19 virus infection 09/27/2022 Hypertension associated with diabetes 11/10/2021 09/18/2023 Assessment & Plan (04/10/2023 1:24 PM AUDIO VISUAL MANAGER): Chronic problem. Lisinopril 2.5mg daily, metoprolol tartrate 50mg bid, lasix 80mg daily, spironolactone 25mg daily Assessment & Plan (01/15/2023 10:42 AM CDT): Chronic problem. Lisinopril 2.5mg daily, metoprolol tartrate 50mg bid, lasix 80mg daily, spironolactone 25mg daily Assessment & Plan (10/17/2022 2:32 PM CDT): Chronic, well controlled Continue current meds Lymphadenopathy 03/31/2021 04/20/2021 Overview (03/31/2021): Added automatically from request for surgery [id number] Assessment & Plan (04/13/2021 12:34 PM AUDIO VISUAL MANAGER): -FNA suspicious for Hodgkin's Lymphoma -Has been seen by oncology and ENT -Scheduled for lymph node excisional biopsy tomorrow Screening PSA (prostate specific antigen) 03/15/2020 09/01/2024 Low TSH level 02/20/2018 01/20/2021 RHETT (acute kidney injury) 09/05/2017 At risk for amiodarone toxic ity with continuous churn buttermaker use 08/27/2017 12/19/2022 Morbid obesity with BMI of 40.0-44.9, adult 03/16/2017 03/15/2023 Assessment & Plan (08/21/2017 11:48 AM CDT): Obesity is stable. We again discussed diet and exercise as methods for weight loss. CPAP reinforced. Bigeminy 01/09/2017 03/15/2023 PVC's (premature ventricular contractions) 01/09/2017 [...] weeks. Assessment & Plan (05/30/2017 3:05 PM AUDIO VISUAL MANAGER): Previous 12-lead EKG shows ventricular bigeminy. There [...] management Assessment & Plan (04/13/2021 12:33 PM AUDIO VISUAL MANAGER): -Continue same medical management Assessment & Plan (01/28/2018 1:46 PM AUDIO VISUAL MANAGER): LDL 51 11/10 On atorvastatin Chronic coronary artery disease 11/25/2013 05/23/2022 Overview (06/29/2016): CAD (coronary artery disease) Type 2 diabetes mellitus wit h circulatory disorder, without long-term current use of insulin 10/28/2013 09/18/2023 Overview (06/29/2016): DM (diabetes mellitus) Abnormal cardiovascular stress test 10/28/2013 09/18/2023 Overview (06/29/2016): Abnormal stress test Morbid obesity ([facility]/HCC) 10/28/2013 Overview (06/29/2016): Morbid obesity Essential hypertension [...] monitor. Assessment & Plan (04/13/2021 12:33 PM AUDIO VISUAL MANAGER): -BP today is 130/66 -Will continue same [...] Preser vative Free, Intramuscular 12/21/2014,01/09/2013,03/26/2011 Influenza, Unspecified 12/25/2023,12/28/2021, Versium SARS-CoV-2 Monovalent Vaccination (12+ Yrs) PURPLE 01/09/2021,06/08/2020,05/18/2020 [...] often do you attend chur ch or gnosticist services? 1 to 4 times per year 12/12/2022 Do you belong to any clubs o r organizations such as episcopalian groups, unions, fraternal or athletic groups, or [...] more points, staff should administer the PHQ-9) 0 10/21/2024 Hunger Vital Sign Answer Date Recorded Within [...] place to sleep or slept in a chcf (including now)? No 12/12/2022 Personal Safety Answer Date Recorded Have you ever been in or are you currently in a harmful physical or emotional relationship or is someone making you feel afraid or unsafe? Denies 08/28/2024 Sex and Gender Information Value Date Recorded Sex Assigned at Not on file Legal Sex Male 3:19 AM AUDIO VISUAL MANAGER Gender Identity Not on file Sexual Orientation Straight 03/23/2019 1: 09 AM AUDIO VISUAL MANAGER Last Filed Vital Signs Vital Sign Reading Time Taken Comments Blood Pressure 106/56 10/23/2024 11:41 AM CDT Pulse 98 10/23/2024 11:41 AM CDT Temperature 36.6 C (97.8 F) 10/21/2024 3:47 PM CDT Respiratory Rate 18 10/06/2024 10:30 AM CDT Oxygen Saturation 98% 10/23/2024 11:41 AM CDT Inhaled Oxygen Concentration - - Weight 100.2 kg (221 lb) 10/23/2024 11:41 AM CDT Height 177.8 cm (5' 10) 10/23/2024 11:41 AM CDT Body Mass Index 31.71 10/23/2024 11:41 AM CDT Plan of Treatment Not on file Medical Devices Implanted Type Area Senior Applications Analyst Device Identifier Shelf Expiration Date Model / Serial / Lot Medtronic Inc Meenakshi S Mri Surescan 50.8x46.6mm 2 Chamber 7.4mm Pacemaker 22.5gm [id number] - [id number] Implanted:Qty: 1 on 04/23/2023 by Nestor Sutherland MD at [facility] Pacemaker Medtronic Inc 08/06/2024 [id number] / / [employer] Device Closure Vascade Od5 Fr Femoral Artery [id number] - [id number] Implanted:Qty: 1 on 01/17/2023 by Zoe Levy MD at [facility] 11/20/2024 [id number] / / [id number] Medtronic Inc Capsurefix Novus 6.2fr 2mm 52cm Bipolar Screw In Implantable Latex Free [id number] - [id number] Implanted:Qty: 1 on 04/23/2023 [facility] 01/04/2025 [id number] / / Medtronic Inc Capsurefix Novus 6.2fr 2mm 58cm Bipolar Screw In Implantable 5076-58 - [id number] Implanted:Qty: 1 on 04/23/2023 by [facility] 12/26/2024 [id number] / / Procedures Procedure Name Priority Date/Time Associated Diagnosis Comments PULMONARY FUNCTION TEST (PFT) Routine 10/17/2024 1:16 PM CDT Dyspnea and respiratory abnormalities XR CHEST PA LATERAL 2 VIEWS Schedule Routine, Read Routine (OP Routine) 10/17/2024 1:16 PM CDT Chronic bilateral pleural effusions T3, FREE Routine 10/09/2024 11:45 AM CDT Hyperthyroidism T4, FREE Routine 10/09/2024 11:45 AM CDT Hyperthyroidism TSH Routine 10/09/2024 11:45 AM CDT Hyperthyroidism CARDIOLOGY DOCUMENT SCAN 09/23/2024 CARDIOLOGY DOCUMENT SCAN Routine 09/21/2024 3:22 PM CDT CARDIOLOGY DOCUMENT SCAN 09/21/2024 CARDIOLOGY DOCUMENT SCAN Routine 09/20/2024 3:17 PM CDT SCAN - RADIOLOGY/IMAGING 09/20/2024 POCT HEMOGLOBIN A1C Routine 09/11/2024 11:23 AM CDT Type 2 diabetes mellitus with hyperglycemia, without long-term current use of insulin (HCC) POCT GLUCOSE Routine 09/11/2024 11:23 AM CDT Type 2 diabetes mellitus with hyperglycemia, without long-term current use of insulin (HCC) CT BODY OUTSIDE REFERENCE Routine 09/10/2024 10:15 AM CDT SCAN - LABS 09/10/2024 SCAN - RADIOLOGY/IMAGING 09/10/2024 CT HEAD WO CONTRAST ED 08/28/2024 5 [...] ECG 12-LEAD STAT 08/28/2024 1:36 PM CDT DEVICE CHECK - REMOTE Routine 08/25/2024 1:45 PM CDT TSH Routine 08/07/2024 2:48 PM CDT Hyperthyroidism T4, FREE Routine 08/07/2024 2:48 PM CDT Hyperthyroidism T3, FREE Routine 08/07/2024 2:48 PM CDT Hyperthyroidism ALBUMIN CREATININE RATIO, URINE Routine 05/19/2024 10:51 AM AUDIO VISUAL MANAGER Type 2 diabetes mellitus with hyperglycemia, without long-term current use of insulin (HCC) HM DIABETES EYE EXAM Routine 04/29/2024 12:03 PM AUDIO VISUAL MANAGER LIPID PANEL Routine 01/15/2024 2:30 PM CDT Type 2 diabetes mellitus with diabetic neuropathy, without long-term current use of insulin (HCC) CT ABDOMEN W WO CONTRAST Schedule Routine, Read Routine (OP Routine) 04/27/2023 1:47 PM AUDIO VISUAL MANAGER Kidney lesion from Last 3 Months or Most Recently Relevant to Health Maintenance Results * X-ray chest 2 views (10/17/2024 1:16 PM CDT) Anatomical Region Laterality Modality Body, Chest N/A Computed Radiogr aphy 10/23/2024 6:18 AM CDT Narrative 10/23/2024 6:19 AM CDT EXAM DESCRIPTION: XR CHEST PA LATERAL 2 VIEWS REASON FOR STUDY: Pleural effusion Recent pleural effusion, 2 weeks ago. The past few days he's had SOB on exertion TECHNIQUE: 2 radiographic view(s) of the chest. COMPARISON: 04/24/2023 FINDINGS: Left chest wall pacemaker leads are unchanged in position. Redemonstrated is enlarged cardiac silhouette. Small lung volumes. Elevation left hemidiaphragm. Possible tiny left pleural effusion. No right pleural effusion. No focal pneumonic consolidation or pulmonary edema. No pneumothorax. IMPRESSION: Possible tiny left pleural effusion. THIS IS AN ELECTRONICALLY VERIFIED FINAL REPORT 10/23/2024 6:19 AM - Electronically signed by Karan Schaefer M.D. BB: ZAC Report ID: [id number] Reading Location: [id number] Procedure Note Karan Schaefer MD PhD - 10/23/2024 EXAM DESCRIPTION: XR CHEST PA LATERAL 2 VIEWS REASON FOR STUDY: Pleural effusion Recent pleural effusion, 2 weeks ago. The past few days he's had SOB on exertion TECHNIQUE: 2 radiographic view(s) of the chest. COMPARISON: 04/24/2023 FINDINGS: Left chest wall pacemaker leads are unchanged in position. Redemonstrated is enlarged cardiac silhouette. Small lung volumes.Elevation left hemidiaphragm. Possible tiny left pleural effusion. No rightpleural effusion. No focal pneumonic consolidation or pulmonary edema. No pneumothorax. IMPRESSION: Possible tiny left pleural effusion. THIS IS AN ELECTRONICALLY VERIFIED FINAL REPORT 10/23/2024 6:19 AM - Electronically signed by Karan Schaefer M.D. BB: ZAC Report ID: [id number] Reading Location: [id number] Eneida Malloy MD IMG XR PROCEDURES Final Resul t * (ABNORMAL) Pulmonary Function Test - (10/17/2024 1:16 PM CDT) FVC PRE 3.50 3.15 - 5.64 L [facility] FEV1 PRE 3.00 2.20 - 4.12 L [facility] [id number] 85.50 58.94 - 87.30 % [facility] TKI94-98% PRE 4.66(A) 0.80 - 4.19 L/s [facility] PEF PRE 9.01 6.22 - 10.20 L/s [facility] DLCOc SB 13.20(A) 21.46 - 35.31 ml/(min*mm Hg) [facility] DLCO/VA PRE 2.68 2.56 - 4.59 ml/(min*mm Hg*L) [facility] VA 4.93(A) 7.79 - 7.79 L [facility] TLC PRE 5.47(A) 6.79 - 9.09 L [facility] VC PRE 3.50(A) 3.63 - 5.47 L [facility] IC PRE 2.10(A) 3.52 - 3.52 L [facility] FRC PL PRE 3.37 3.05 - 5.02 L [facility] ERV PRE 1.40(A) 1.02 - 1.02 L [facility] RV PRE 1.97(A) 2.34 - 3.69 L [facility] VTG 3.53 L [facility] RAW PRE 1.46(A) 3.06 - 3.06 cmH2O*s/L [facility] Anatomical Region Laterality Modality PFT 10/17/2024 12:4 4 PM CDT Narrative 10/20/2024 4:24 PM CDT PFT INTERPRETATION Normal spirometry Moderate restriction Moderate diffusion impairment Did not require any supplemental oxygen for hyopxia at the level of exertion achieved Electronically signed by Eneida Malloy MD Eneida Malloy MD PFT ORDERABLES Final Result * T3, free (10/09/2024 11:45 AM CDT) Free T3 3.2 2.0 - 4.4 pg/mL Blood 10/09/2024 11:4 5 AM CDT 10/09/2024 6:20 PM CDT us Jennifer Young NP LAB BLOOD ORDERABLES Esperanza l Result MARY [address] [place] [address] * TSH (10/09/2024 11:45 AM CDT) Thyroid Stimulating Hormone 1.01 0.30 - 4.20 mcIUnit/mL Blood 10/09/2024 11:4 5 AM CDT 10/09/2024 6:20 PM CDT Jennifer Young NON CLINICAL ADVISOR LAB BLOOD ORDERABLES Esperanza l Result MARY PHILLIPS [address] [address] [facility] [employer] [place] [address] * T4, free (10/09/2024 11:45 AM CDT) Pathologist [facility] Free T4 1.16 0.90 - 1.70 ng/dL Blood 10/09/2024 11:4 5 AM CDT 10/09/2024 6:20 PM CDT Jennifer Young NON CLINICAL ADVISOR LAB BLOOD ORDERABLES Esperanza l Result Performing Organization Address [facility] Co de Phone Number MARY PHILLIPS [address] [address] [facility] [employer] [place] [address] * Cardiology Document Scan (09/23/2024) Anatomical Region Laterality Modality Other Result John Paul Hartman MD CV CARDIAC SERVICES PROCEDURES F inal Result * Cardiology Document Scan (09/21/2024 3:22 PM CDT) Anatomical Region Laterality Modality Other Result John Paul Hartman MD CV CARDIAC SERVICES PROCEDURES F inal Result * Cardiology Document Scan (09/21/2024) Anatomical Region Laterality Modality Other Result John Paul Hartman MD CV CARDIAC SERVICES PROCEDURES E dited Result - Final * Cardiology Document Scan (09/20/2024 3:17 PM CDT) Anatomical Region Laterality Modality Other Result John Paul Hartman MD CV CARDIAC SERVICES PROCEDURES F inal Result * SCAN - RADIOLOGY/IMAGING (09/20/2024) Anatomical Region Laterality Modality Other us Provider Scanning Final Result * (ABNORMAL) POCT hemoglobin A1c (09/11/2024 11:23 AM CDT) Hemoglobin A1C, POC 5.7(A) 4.0 - 5.6 % Blood 09/11/2024 11:2 3 AM CDT us Jenniferjanet Young NON CLINICAL ADVISOR POINT OF CARE TEST ORDERA BLES Final Result * (ABNORMAL) POCT glucose (09/11/2024 11:23 AM CDT) Glucose Blood, POC 159 Normal Fasting 70 - 100, Random <200 mg/dL Blood 09/11/2024 11:2 3 AM CDT us Jennifer Young NON CLINICAL ADVISOR POINT OF CARE TEST ORDERA BLES Final Result * CT Body Outside Reference (09/10/2024 10:15 AM CDT) Narrative JEAN_MHB_MHE - 10/01/2024 3:12 PM CDT This order has been auto-finalized and does not contain a result. us Provider Transcribed Order IMG CT PROCEDURES Fin al Result RAD_[id number]_MHE * SCAN - RADIOLOGY/IMAGING (09/10/2024) Anatomical Region Laterality Modality Other us Baljit Randall MD Edited Result - Final * SCAN - LABS (09/10/2024) us Baljit Randall MD Final Result * CT Head WO Contrast (08/28/2024 5:26 [...] by Nathanael Lo M.D. T: Report ID: [id number] Reading Location: [place] [address] Procedure Note Nathanael Lo MD - 08/28/2024 [...] by Nathanael Lo M.D. T: Report ID: [id number] Reading Location: [place] [address] Kalin Cid MD IMG CT PROCEDURES Final [...] Cid MD LAB BLOOD ORDERABLES Final Result MARY [address] [facility] Department [place] [address] * (ABNORMAL) Pro B-type natriuretic peptide (08/28/2024 [...] BLOOD ORDERABLES Final Result Performing Organization Address [facility] Co de Phone Number ANDRIA[address] [place] [address] * Phosphorus (08/28/2024 3:52 PM CDT) Phosphorus, pl 3.7 2.3 - 4.5 mg/dL Blood 08/28/2024 3:52 PM CDT 08/28/2024 3:54 PM CDT Kalin Cid MD LAB BLOOD ORDERABLES Final Result Performing Organization Address [facility] Co de Phone Number ANDRI[address] [place] [address] * Magnesium (08/28/2024 3:52 PM CDT) Magnesium 2.5 1.4 - 2.5 mg/dL Blood 08/28/2024 3:52 PM CDT 08/28/2024 3:54 PM CDT Kalin Cid MD LAB BLOOD ORDERABLES Final Result Performing Organization Address [facility] Co de Phone Number MARY NORIEGA [address] [place] [address] * (ABNORMAL) Urinalysis reflex to microscopic and culture Urine (08/28/2024 2:01 PM CDT) Color, ur Yellow Yellow Clarity, ur Clear Clear [facility] Specific gravity, ur 1.012 1.003 - 1.030 [facility] pH, urine 6.0 [facility] Comment: Interpretive Data U rine pH is affected by diet, medications, systemic acid-base disturbances, and renal tubular function. pH may affect urinary stone formation. For example, urine pH below 6.0 may help reduce the tendency for calcium phosphate stones and pH greater than 6.0 may reduce the tendency for uric acid stone formation. Source: [facility] Current Interpretive Data was last revised on 2017 Protein, ur ql Negative Negative [facility] Glucose, ur ql 4+(A) Negative [facility] Ketones, ur Negative Negative [facility] Bilirubin, ur Negative Negative [facility] Blood, ur Negative Negative [facility] Urobilinogen, ur <2.0 <2.0 mg/dL [facility] Nitrite, ur Negative Negative [facility] Leukocyte esterase, ur Negative Negative [facility] UA reflex comment Reflex conditions for microscopic UA and culture not met. [facility] Urine 08/28/2024 2:01 PM CDT 08/28/2024 2:07 PM CDT Kalin Cid MD LAB MICROBIOLOGY - GENERAL ORDERABLES Final Result Performing Organization Address City/[facility]/ZIP Co de Phone Number MARY NORIEGA [address] [place] [address] * (ABNORMAL) Troponin T high-sensitivity series (baseline, [...] BLOOD ORDERABLES Final Result Performing Organization Address [facility] Co de Phone Number MARY [address] [employer] [place] [address] * eGFR (08/28/2024 1:46 PM CDT) eGFR 66 >=60 mL/min/1. 73 m2 Comment: [...] BLOOD ORDERABLES Final Result Performing Organization Address [facility] Co de Phone Number ANDRI[address] [place] [address] * Differential, auto (08/28/2024 1:46 PM CDT) Pathologist [facility] Neutrophil abs 2.93 1.50 - 6.50 K/cumm Imm gran abs 0.00 0.00 - 0.10 K/cumm [facility] Lymphocyte abs 1.36 0.80 - 3.30 K/cumm [facility] Monocyte abs 0.52 0.20 - 0.80 K/cumm [facility] Eosinophil abs 0.19 0.00 - 0.50 K/cumm [facility] Basophil abs 0.03 0.00 - 0.10 K/cumm [facility] Neutrophil pct 58.3 % [facility] Comment: Interpretive Data Percent cell count reference ranges are not reported, since discordance with absolute values may lead to misinterpretation of CBC data. Current Interpretive Data was last revised on 2017. Imm gran pct 0.0 % [facility] Comment: Interpretive Data Percent cell count reference ranges are not reported, since discordance with absolute values may lead to misinterpretation of CBC data. Current Interpretive Data was last revised on 2017. Lymphocyte pct 27.0 % [facility] Comment: Interpretive Data Percent cell count reference ranges are not reported, since discordance with absolute values may lead to misinterpretation of CBC data. Current Interpretive Data was last revised on 2017. Monocyte pct 10.3 % [facility] Comment: Interpretive Data Percent cell count reference ranges are not reported, since discordance with absolute values may lead to misinterpretation of CBC data. Current Interpretive Data was last revised on 2017. Eosinophil pct 3.8 % [facility] Comment: Interpretive Data Percent cell count reference ranges are not reported, since discordance with absolute values may lead to misinterpretation of CBC data. Current Interpretive Data was last revised on 2017. Basophil pct 0.6 % [facility] Comment: Interpretive Data Percent cell count reference ranges are not reported, since discordance with absolute values may lead to misinterpretation of CBC data. Current Interpretive Data was last revised on 2017. Blood 08/28/2024 1:46 PM CDT 08/28/2024 1:56 PM CDT Kalin Cid MD LAB BLOOD ORDERABLES Final Result Performing Organization Address [facility] de Phone Number [address] [address] * (ABNORMAL) CBC with auto differential (08/28/2024 1:46 PM CDT) [facility] WBC 5.03 3.80 - 9.90 K/cumm Hgb 12.6(L) 13.0 - 17.5 g/dL [facility] Hct 40.7 38.9 - 50.3 % [facility] Plt 153 150 - 400 K/cumm [facility] MPV 12.2 9.1 - 12.3 fL [facility] RBC 4.29(L) 4.30 - 5.80 M/cumm [facility] MCV 94.9 81.3 - 96.4 fL [facility] MCH 29.4 27.1 - 33.3 pg [facility] MCHC 31.0(L) 32.3 - 35.7 g/dL [facility] RDW CV 14.6 11.1 - 14.9 % [facility] RDW SD 50.3(H) 35.7 - 48.1 fL [facility] NRBC abs 0.00 0.00 - 0.01 K/cumm [facility] Blood 08/28/2024 1:46 PM CDT 08/28/2024 1:56 PM CDT Kalin Cid MD LAB BLOOD ORDERABLES Final Result Performing Organization Address [facility] de Phone Number [address] [address] * (ABNORMAL) Protime-INR (08/28/2024 1:46 PM CDT) [facility] PT 20.3(H) 12.0 - 14.6 sec Comment:Ref Range High INR 1.7(H) 0.9 - 1.2 [facility] Comment: Ref Range High Interpretive data Oral anticoagulant therapeutic ranges: Venous thromboembolism prophylaxis or treatment: 2.0-3.0 CARDIOLOGY Standard range: 2.0-3.0 High-intensity range: 2.5-3.5 Refer to indication-specific guidelines for appropriate target ranges for prosthetic heart valve replacement. Current interpretive data was last revised on 2019. Blood 08/28/2024 1:46 PM CDT 08/28/2024 1:56 PM CDT Kalin Cid MD LAB BLOOD ORDERABLES Final Result [facility] [address] [facility] Department [place] [address] * Comprehensive metabolic panel (08/28/2024 1:46 PM CDT) Sodium 140 135 - 145 mmol/L Potassium, pl 4.6 3.3 - 4.9 mmol/L [facility] Comment:Hemolyzed; Potassium value may be falsely elevated by as much as 1.0 mmol/L. Suggest redraw and reanalysis. Chloride 102 97 - 110 mmol/L [facility] CO2 27 22 - 32 mmol/L [facility] Anion gap 11 2 - 15 mmol/L [facility] BUN 21 6 - 25 mg/dL [facility] Creatinine 1.12 0.80 - 1.30 mg/dL [facility] Glucose 123 70 - 199 mg/dL [facility] Comment: Interpretive Data Fasting glucose >/= [...] 2022. Calcium 9.1 8.5 - 10.3 mg/dL [facility] Bilirubin, total 0.6 0.1 - 1.2 mg/dL [facility] Protein, pl 6.9 6.5 - 8.5 g/dL [facility] Albumin 3.8 3.5 - 5.0 g/dL [facility] Alk phos 88 40 - 130 Units/L [facility] ALT 14 7 - 55 Units/L MARY AST See Comment 10 - 50 MARY Comment:Credited; Hemolyzed Specimen Blood 08/28/2024 1:46 PM CDT 08/28/2024 1:56 PM CDT Kalin Cid MD LAB BLOOD ORDERABLES Final Result Performing Organization Address [facility] de Phone Number MARY [address] [facility] Department [place] [address] * ECG 12 lead (08/28/2024 1:36 PM CDT) Pathologist [facility] Ventricular Rate EKG/Min 82 BPM [facility] Atrial Rate 93 BPM [facility] IA-Interval (MSEC) 144 ms [facility] QRS-Interval (MSEC) 124 ms [facility] QT-Interval (MSEC) 458 ms [facility] QTc 535 ms [facility] R [place] -40 degrees [facility] T [place] 188 degrees [facility] Diagnosis Sinus rhythm with frequent AV dual-paced complexes and with occasional Premature ventricular complexes Left axis deviation RSR' or QR pattern in V1 suggests right ventricular conduction delay Left ventricular hypertrophy with QRS widening and repolarization abnormality Inferior infarct , age undetermined Confirmed by ESTRELLA HEARD M.D. ([id number]) on 08/28/2024 5:11:25 PM [facility] 08/28/2024 1:36 PM CDT 08/28/2024 5:11 PM CDT Kalin Cid MD ECG ORDERABLES Final Resu lt Performing Organization Address [facility] Co de Phone Number [facility] [employer] [facility] * DEVICE CHECK - REMOTE (08/25/2024 1:45 PM CDT) Anatomical Region Laterality Modality Other 08/25/2024 1:45 PM CDT Narrative 09/15/2024 10:46 AM CDT Interpretation Summary: Battery and Leads (BL) Normal parameters noted on battery and lead(s) --- 10.1 yrs remaining longevity. Lead impedance, RA sensing, and RV threshold trends stable and appropriate. No RA auto threshold testing during the monitoring period. No short V-V intervals. Presenting Rhythm (IA) Atrial Pacing-Ventricular Pacing (AP-LAYBOY OPERATOR) --- AP/LAYBOY OPERATOR 82 bpm with PVCs. Arrhythmic events (AE) No new arrhythmic events in monitoring period --- Since 07/22/24: No AHR or VHR episodes. Miscellaneous Observations (MISC) RV pacing > 40% noted --- LAYBOY OPERATOR 86.9%. 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 Transmission Information (TI) Device Summary Report Follow Up (FU) Patient's primary treating physician will be apprised of findings Procedure Note Bela Herzog MD - 09/15/2024 Interpretation Summary: Battery and Leads (BL) Normal parameters noted on battery and lead(s) --- 10.1 yrs remaininglongevity. Lead impedance, RA sensing, and RV threshold trends stableand appropriate. No RA auto threshold testing during the monitoringperiod. No short V-V intervals. Presenting Rhythm (IA) Atrial Pacing-Ventricular Pacing (AP-LAYBOY OPERATOR) --- AP/LAYBOY OPERATOR 82 bpm with PVCs. Arrhythmic events (AE) No new arrhythmic events in monitoring period --- Since 07/22/24: No AHRor VHR episodes. Miscellaneous Observations (MISC) RV pacing > 40% noted --- LAYBOY OPERATOR 86.9%. Pt has h/o AV Block/High VPpercentage. MVP is off. Transmission Information (TI) Device Summary Report Follow Up (FU) Patient's primary treating physician will be apprised of findings Bela Herzog MD CV CARDIAC SERVICES PROCEDURES Final Result * (ABNORMAL) T3, free (08/07/2024 2:48 PM CDT) Free T3 5.5(H) 2.0 - 4.4 pg/mL Blood 08/07/2024 2:48 PM CDT 08/07/2024 10:34 PM CDT us Jennifer Young NON CLINICAL ADVISOR LAB BLOOD ORDERABLES Esperanza l Result Performing Organization Address [facility]/ZIP Co de Phone Number MARY PHILLIPS [address] [address] [facility] [employer] [place] [address] * TSH (08/07/2024 2:48 PM CDT) Pathologist [facility] Thyroid Stimulating Hormone 1.56 0.30 - 4.20 mcIUnit/mL Blood 08/07/2024 2:48 PM CDT 08/07/2024 10:34 PM CDT us Jenniferjanet Young NON CLINICAL ADVISOR LAB BLOOD ORDERABLES Esperanza l Result Performing Organization Address [facility] Co de Phone Number MARY PHILLIPS [address] [address] [facility] [employer] [place] [address] * T4, free (08/07/2024 2:48 PM CDT) Pathologist [facility] Free T4 1.29 0.90 - 1.70 ng/dL Blood 08/07/2024 2:48 PM CDT 08/07/2024 10:34 PM CDT us Jenniferjanet Young NON CLINICAL ADVISOR LAB BLOOD ORDERABLES Esperanza l Result Performing Organization Address [facility] Co de Phone Number MARY [address] [address] [facility] [employer] [place] [address] * Albumin Creatinine Ratio, Urine (05/19/2024 10:51 AM AUDIO VISUAL MANAGER) Pathologist [facility] Albumin Ur 12.9 mg/L Comment: Interpretive Data No reference range established. Current interpretive data was last revised 2018. Creatinine Ur 127.4 mg/dL [facility] Comment: Interpretive Data No reference range established. Current interpretive data was last revised 2018. Albumin Creatinine Ratio, Ur 10 1 - 29 mg/[facility] Urine 05/19/2024 10:5 1 AM AUDIO VISUAL MANAGER 05/19/2024 2:40 PM AUDIO VISUAL MANAGER us Jennifer R. Schleeper NON CLINICAL ADVISOR LAB URINE ORDERABLES Esperanza ruggiero Result MARY PHILLIPS [address] [place] [address] * DIABETES EYE EXAM (04/29/2024 12:03 PM AUDIO VISUAL MANAGER) Historical Provider HEALTH MAINTENANCE Final Result * [...] BLOOD ORDERABLES Final Re sult MARY PHILLIPS [address] [place] [address] * CT abdomen with and without contrast (04/27/2023 1:47 PM AUDIO VISUAL MANAGER) Anatomical Region Laterality Modality Body N/A Computed Tomogra phy 04/30/2023 5:29 PM AUDIO VISUAL MANAGER Narrative 04/30/2023 5:36 PM AUDIO VISUAL MANAGER EXAM DESCRIPTION: CT ABDOMEN W WO CONTRAST [...] Electronically signed by Michael Goldman M.D. CH: Report ID: [id number] Reading Location: [id number] Procedure Note Michael Goldman Jr., MD - [...] Michael Goldman M.D. CH: ALAN Report ID: [id number] Reading Location: [place] [address] Hu Norton MD [facility] CT PROCEDURES Final Result from Last 3 Months or Most Recently Relevant to Health Maintenance Insurance MEDICARE ADVANTAGE [facility] Address: [address] [address] [place] [address] MEDICARE ADVANTAGE [facility] Address: [address] [address] [place] [address] Advance Directives For more information, please contact: [phone] * Full Code (Latest Code Status on File) Date Activated Date Inactivated Comments 04/23/2023 2:11 PM 04/24/2023 3:31 PM * Full Code Date Activated Date Inactivated Comments 01/17/2023 9:51 AM 01/17/2023 4:07 PM * Full Code Date Activated Date Inactivated Comments 12/07/2022 3:19 AM 12/11/2022 4:19 PM Care Teams Gill Tender Relationship Specialty Start Date End Date Baljit Randall MD PCP - General Family Medicine 01/20/21 Landry Leon MD Consulting Physician Cardiology 12/05/19 Reena Gilbert MD Consulting Physician Interventional Cardiology 04/28/24 Caden Guajardo MD [address] [address] Consulting Physician Cardiology 07/02/24
--- OUTSIDE RECORDS SUMMARY | 2024-10-27 13:27 | XMS_ITS | Encounter Summary ---
Author Organization [facility] Healthcare Address [address] [place] [address] Care Team Providers Care Autoclave Operator Name Role Phone Chai Llanes MD Primary Care Provider [phone] Landry Leon MD Unavailable Baljit Randall MD Primary Care Provider [phone] Kiki Britton RN Unavailable [phone] Reena Gilbert MD Unavailable [phone] Caden Guajardo MD Unavailable Trudy Bocanegra MA Unavailable Cynhtia Ceja LPN Unavailable [phone] Encounter Details Date Type Department Care Team (Late st Contact Info) Description 08/02/2017 Orders Only [facility] Health Information Management [address] [place] [address] Scanning, Provider Social History Tobacco Use Types Packs/Day Years Used Date Smoking Tobacco: Former Smokeless Tobacco: Never Alcohol Use Standard Drinks/Week Comments Yes 0 (1 standard drink = 0.6 oz pur e alcohol) weekly Sex and Gender Information Value Date Recorded Sex Assigned at Not on file Legal Sex Male 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 Gender Identity Not on file Sexual Orientation Straight 03/23/2019 1: 09 AM RESTORER PAPER [employer] PRINTS documented as of this encounter Plan of Treatment Not on file documented as of this encounter Procedures Procedure Name Priority Date/Time Associated Diagnosis Comments SLEEP LAB/STUDY - RESULT 08/02/2017 documented in this encounter Results * SLEEP LAB/STUDY - RESULT (08/02/2017) us Provider Scanning Final Result documented in this encounter Visit Diagnoses Not on filedocumented in this encounter Additional Health Concerns Infection Onset Date Last Indicated Resolved Time COVID: Suspected 04/20/2023 04/20/2023 04/20/2023 4:34 PM RESTORER P[employer]ER [employer]IN[employer] COVID: Suspected 04/20/2023 04/20/2023 04/21/2023 3:05 AM RESTORER P[employer]ER [employer]INTS COVID: Suspected 03/04/2024 03/04/2024 03/04/2024 10:45 AM RESTORER PAPER [employer]INTS COVID19 03/04/2024 03/04/2024 03/14/2024 3:05 AM REST[employer]ER PAPER [employer]INTS COVID: Recovered Comment:Added based on recent COVID infection. 03/14/2024 03/17/2024 06/12/2024 3:06 AM C DT documented as of this encounter Care Teams Autoclave Operator Relationship Specialty Start Date End Date Chai Llanes MD [address] [place] [id number] PCP - General 06/23/16 01/19/21 Baljit Randall MD [address] [place] [address] PCP - General Family Medicine 01/20/21 Landry Leon MD [address] [place] [address] Consulting Physician Cardiology 12/05/19 Kiki Britton, RN [address] [place] [address] [address] [place] [address] Roving Weight Gauger 12/12/22 01/23/23 Reena Gilbert MD [address] [place] [address] [address] [place] [address] Consulting Physician Interventional Cardiology 04/28/24 Caden Guajardo MD [address] [facility] [address] [place] [address] Consulting Physician Cardiology 07/02/24 Trudy Bocanegra MA [address] [facility] [address] [place] [address] ACO Care Sea Foam Kiss Maker 08/29/24 08/29/24 Cynthia Ceja LPN [address] [facility] [address] [place] [address] Roving Weight Gauger 09/29/24 09/29/24 documented as of this encounter
--- OUTSIDE RECORDS SUMMARY | 2024-10-27 13:27 | XMS_ITS | Encounter Summary ---
Author Organization [facility] Healthcare Address [address] [place] [address] Care Team Providers Care Salesperson Women'S Hats Name Role Phone Chai Llanes MD Primary Care Provider [phone] Landry Leon MD Unavailable Baljit Randall MD Primary Care Provider [phone] Kiki Britton RN Unavailable [phone] Reena Gilbert MD Unavailable [phone] Caden Guajardo MD Unavailable Trudy Bocanegra MA Unavailable Cynthia Ceja LPN Unavailable [phone] Encounter Details Date Type Department Care Team (Late st Contact Info) Description 07/07/2017 Orders Only [facility] [place] Health Information Management [address] [place] [address] Scanning, Provider Social History Tobacco Use Types Packs/Day Years Used Date Smoking Tobacco: Former Smokeless Tobacco: Never Alcohol Use Standard Drinks/Week Comments Yes 0 (1 standard drink = 0.6 oz pur e alcohol) weekly Sex and Gender Information Value Date Recorded Sex Assigned at Not on file Legal 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 Gender Identity Not on file Sexual Orientation Straight 03/23/2019 1: 09 AM PASTORAL MINISTRIES PROFESSOR documented as of this encounter Plan of Treatment Not on file documented as of this encounter Procedures Procedure Name Priority Date/Time Associated Diagnosis Comments PULMONARY - RESULT SCAN 07/07/2017 documented in this encounter Results * PULMONARY - RESULT SCAN (07/07/2017) Anatomical Region Laterality Modality Other us Provider Scanning Final Result documented in this encounter Visit Diagnoses Not on filedocumented in this encounter Additional Health Concerns Infection Onset Date Last Indicated Resolved Time COVID: Suspected 04/20/2023 04/20/2023 04/20/2023 4:34 PM PASTORAL MINISTRIES PROFESSOR COVID: Suspected 04/20/2023 04/20/2023 04/21/2023 3:05 AM PASTORAL MINISTRIES PROFESSOR COVID: Suspected 03/04/2024 03/04/2024 03/04/2024 10:45 AM PASTORAL MINISTRIES PROFESSOR COVID19 03/04/2024 03/04/2024 03/14/2024 3:05 AM PASTORAL MINISTRIES PROFESSOR COVID: Recovered Comment:Added based on recent COVID infection. 03/14/2024 03/17/2024 06/12/2024 3:06 AM C DT documented as of this encounter Care Teams Salesperson Women'S Hats Relationship Specialty Start Date End Date Chai Llanes MD [address] [place] [id number] PCP - General 06/23/16 01/19/21 Baljit Randall MD [address] [place] [address] PCP - General Family Medicine 01/20/21 Landry Leon MD [address] [place] [address] Consulting Physician Cardiology 12/05/19 Kiki Britton, RN [address] [place] [address] [address] [place] [address] Senior Embedded Software Engineer 12/12/22 01/23/23 Reena Gilbert MD [address] [place] [address] [place] [address] Consulting Physician Interventional Cardiology 04/28/24 Caden Guajardo MD [address] [facility] [address] [place] [address] Consulting Physician Cardiology 07/02/24 Trudy Bocanegra MA [address] [facility] [address] [place] [address] ACO Care Home Health Speech Therapist 08/29/24 08/29/24 Cynthia Ceja LPN [address] [facility] [address] [place] [address] Senior Embedded Software Engineer 09/29/24 09/29/24 documented as of this encounter
--- OUTSIDE RECORDS SUMMARY | 2024-10-27 13:28 | XMS_ITS | Encounter Summary ---
Author Organization [facility] Healthcare Address [address] [place] [address] Care Team Providers Care Energy Efficiency Specialist Name Role Phone Landry Leon MD Unavailable Baljit Randall MD Primary Care Provider [phone] Reena Gilbert MD Unavailable Caden Guajardo MD Unavailable Trudy Bocanegra MA Unavailable Cynthia Ceja LPN Unavailable [phone] Encounter Details Date Type Department Care Team (Late st Contact Info) Description 07/14/2024 Telephone [facility] Medical Group Family Medicine at [address] [place] [address] Baljit Randall MD [address] [place] [address] [address] [place] [address] Social History Tobacco Use Types Packs/Day Years [...] often do you attend chur ch or druze services? 1 to 4 times per year 12/12/2022 Do you belong to any clubs o r organizations such as moravian groups, unions, fraternal or athletic groups, or [...] place to sleep or slept in a intermediate (including now)? No 12/12/2022 Personal Safety Answer Date Recorded Have you ever been in or are you currently in a harmful physical or emotional relationship or is someone making you feel afraid or unsafe? Denies 04/23/2023 Sex and Gender Information Value Date Recorded Sex Assigned at Not on file Legal Sex Male 3:19 AM HEALTH SERVICES INFORMATION SPECIALIST Gender Identity Not on file Sexual Orientation Straight 03/23/2019 1: 09 AM HEALTH SERVICES INFORMATION SPECIALIST documented as of this encounter Plan of Treatment Not on file documented as of this encounter Visit Diagnoses Not on filedocumented in this encounter Care Teams Energy Efficiency Specialist Relationship Specialty Start Date End Date Baljit Randall MD PCP - General Family Medicine 01/20/21 Landry Leon MD Consulting Physician Cardiology 12/05/19 Reena Gilbert MD Consulting Physician Interventional Cardiology 04/28/24 Caden Guajardo MD [address] [address] Consulting Physician Cardiology 07/02/24 Trudy Bocanegra MA [address] [place] [address] [address] [place] [address] ACO Care Wax Specialist 08/29/24 08/29/24 Cynthia Ceja LPN [address] [place] [address] [address] [place] [address] Telephone Answerer 09/29/24 09/29/24 documented as of this encounter
--- OUTSIDE RECORDS SUMMARY | 2024-10-27 13:28 | XMS_ITS | Clinical Summary ---
Author Organization [facility] [facility] [address] Address [address] [place] [address] Care Team Providers Care Helium Arc Welder Name Role Phone Landry Leon MD Unavailable [phone] Baljit Randall MD Primary Care Provider [phone] Reena Gilbert MD Unavailable Caden Guajardo MD Unavailable [phone] Allergies Active Allergy Reactions Criticality Noted Date [...] , without long-term current use of insulin ([facility]) TAKE 1 TABLET (5 MG TOTAL) BY [...] day 180 tablet 3 08/27/19 25 Active C11-whswayefq ate calcium-B6 (FOLBIC RF) 2-1.13-25 mg tablet 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 Dx; Bradycardia, AV Block. DOI 04/23/2023- Kahanda. [employer]. Carelink remote. 07/28/24-transferred to [place]. Morbid (severe) obesity due to excess calories 0 04/10/2023 Class 2 severe obesity due t o excess calories with serious comorbidity and body mass index (BMI) of 37.0 to 37.9 in adult 04/10/2023 Assessment & Plan (04/10/2023 1:55 PM RETORT LOAD EXPEDITER): Discussed healthy diet and importance of regular [...] infection. Assessment & Plan (05/19/2024 10:45 AM RETORT LOAD EXPEDITER): Chronic problem. A1c at goal w/o hypoglycemia. A1c today=5.1%, was 5.9% 01/15/24. Stop the metformin. Will re-evaluate at next appointment if we need to stop the Farxiga additionally. Current medications: Farxiga 10mg daily Ozempic 0.5 mg weekly UTD on DM eye exam (04/19/23 no DMR). Had appt 04/2024 at [facility]. Letter sent to get copy of report. Will update labs. Verified that he uses [employer]. Aware to check results/results letter in [employer]. Will contact by phone if needed. [...] meals Assessment & Plan (04/10/2023 1:51 PM RETORT LOAD EXPEDITER): Chronic problem. A1c at goal w/o hypoglycemia. [...] benign. Assessment & Plan (05/19/2024 10:21 AM RETORT LOAD EXPEDITER): Last thyroid US by Dr Sanderson 01/12/23: These nodules are not new. You have nodules that have been seen in ultrasound in the past and you even had biopsy of these nodules which are benign. Assessment & Plan (04/10/2023 1:54 PM RETORT LOAD EXPEDITER): Last thyroid US 01/2021. Has not had repeat imaging since that time. Will repeat US at 06/[address] Sanderson. Assessment & Plan (02/03/2020 7:02 PM RETORT LOAD EXPEDITER): We reviewed the ultrasound images with the [...] mychart. Aware to check results/results letter in [employer]. Will contact by phone if needed. Assessment & Plan (05/19/2024 10:20 AM RETORT LOAD EXPEDITER): Chronic problem. Currently taking methimazole 5mg 5 days/wk; none on weekends. Will update TFTs today. Verified that he uses [employer]. Aware to check results/results letter in [employer]. Will contact by phone if needed. Assessment & Plan (09/25/2023 1:05 PM CDT): Probably hypothyroid now. Update TFTs Will adjust dose of methimazole, as indicated Assessment & Plan (07/03/2023 2:48 PM CDT): Clinically euthyroid Update TFTs Assessment & Plan (04/10/2023 1:24 PM RETORT LOAD EXPEDITER): Chronic problem. No labs since 12/07/22. Some [...] 2021 Assessment & Plan (04/13/2021 12:31 PM RETORT LOAD EXPEDITER): -Methimazole dose decreased in February 2021 -Appears euthyroid on exam -Will continue to monitor TFT Assessment & Plan (04/29/2018 4:50 PM RETORT LOAD EXPEDITER): Patient will be discussing the Amiodarone issue with his ct manager and will send copy of this note to cardiology. 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 She had recommended beginning Tapazole which patient has not started yet. Will coordinate between Dr. Don in the cardiology. Labs are pending from today and will repeat again in 3 months Vitamin D deficiency 01/28/2018 Assessment & Plan (01/28/2018 1:46 PM RETORT LOAD EXPEDITER): Level over 30 04/12, will repeat -check 25 hydroxy vitamin-D History of gastric bypass 01/28/2018 Assessment & Plan (01/28/2018 1:47 PM RETORT LOAD EXPEDITER): Will monitor the following yearly (will order) [...] safety Assessment & Plan (04/13/2021 12:33 PM RETORT LOAD EXPEDITER): -CKD increases risk of hypoglycemia -Will closely monitor glucose pattern in ensure margin of safety Assessment & Plan (04/29/2018 4:51 PM RETORT LOAD EXPEDITER): Creatinine is much improved and back to baseline Will repeat renal panel in 3 months Coronary artery disease invo lving curyung coronary artery of curyung heart without angina pectoris 02/11/2016 Overview (06/29/2016): Coronary artery disease involving curyung coronary artery of curyung heart without angina pectoris Ascending aorta dilatation ([facility]) 02/11/2016 Overview (06/29/2016): Ascending aorta dilatation Mixed diabetic hyperlipidemi a associated with type 2 diabetes mellitus ([facility]) 02/11/2016 Overview (06/29/2016): Type 2 diabetes mellitus with complication, unspecified fdc insulin use status Assessment & Plan (09/11/2024 11:49 AM CDT): Chronic problem. Controlled on current Atorvastatin 10mg. Last lipid panel: 01/15/24 LDL=57, TG=97. Assessment & Plan (05/19/2024 10:20 AM RETORT LOAD EXPEDITER): Chronic problem. Controlled on current Atorvastatin 10mg. Last lipid panel: 01/15/24 LDL=57, TG=97. Assessment & Plan (07/03/2023 2:49 PM CDT): Chronic, stable . Continue statin therapy with Lipitor 10 mg daily Assessment & Plan (04/10/2023 1:23 PM RETORT LOAD EXPEDITER): Chronic problem. Controlled on current Atorvastatin 10mg. Last lipid panel: 08/10/22 LDL=42, IW=310. Assessment & Plan (01/15/2023 10:16 AM CDT): Chronic problem. Controlled on current Atorvastatin 10mg. Last lipid panel: 08/10/22 LDL=42, LQ=261. Assessment & Plan (10/17/2022 2:32 PM CDT): Chronic, well controlled. Continue atorvastastin Type 2 diabetes mellitus with diabetic neuropath y 04/01/2015 Assessment & Plan (09/11/2024 11:50 AM CDT): Chronic problem. Reviewed foot care; needs to lotion daily. Aware to check feet nightly, not to go barefoot. Assessment & Plan (05/19/2024 10:21 AM RETORT LOAD EXPEDITER): Chronic problem. Reviewed foot care; needs to lotion daily. Aware to check feet nightly, not to go barefoot. Assessment & Plan (04/10/2023 1:24 PM RETORT LOAD EXPEDITER): Chronic problem. Aware to check feet & [...] Metformin Assessment & Plan (04/18/2022 4:44 PM RETORT LOAD EXPEDITER): Hba1c was Lab Results Component Value Date [...] 07/12/21 Assessment & Plan (04/13/2021 12:31 PM RETORT LOAD EXPEDITER): -Currently taking oral agents and Trulicity -A1C on 04/13/21 was 6.4% -Will continue same medications at this time -Discussed diet and activity modifications. -Eye exam is up to date -Foot exam per foot nurse today Assessment & Plan (04/29/2018 4:48 PM RETORT LOAD EXPEDITER): Diabetes control is markedly improved with the [...] day Assessment & Plan (01/28/2018 1:49 PM RETORT LOAD EXPEDITER): Poor control with recent increase in HgbA1C. [...] different times and keep track -refer to diabetic educator to review blood sugars in 6 [...] 09/18/2023 Assessment & Plan (04/10/2023 1:24 PM RETORT LOAD EXPEDITER): Chronic problem. Lisinopril 2.5mg daily, metoprolol tartrate 50mg bid, lasix 80mg daily, spironolactone 25mg daily Assessment & Plan (01/15/2023 10:42 AM CDT): Chronic problem. Lisinopril 2.5mg daily, metoprolol tartrate 50mg bid, lasix 80mg daily, spironolactone 25mg daily Assessment & Plan (10/17/2022 2:32 PM CDT): Chronic, well controlled Continue current meds Lymphadenopathy 03/31/2021 04/20/2021 Overview (03/31/2021): Added automatically from request for surgery [id number] Assessment & Plan (04/13/2021 12:34 PM RETORT LOAD EXPEDITER): -FNA suspicious for Hodgkin's Lymphoma -Has been seen by oncology and ENT -Scheduled for lymph node excisional biopsy tomorrow Screening PSA (prostate specific antigen) 03/15/2020 09/01/2024 Low TSH level 02/20/2018 01/20/2021 RHETT (acute kidney injury) 09/05/2017 At risk for amiodarone toxic ity with fdc use 08/27/2017 12/19/2022 Morbid obesity with BMI [...] weeks. Assessment & Plan (05/30/2017 3:05 PM RETORT LOAD EXPEDITER): Previous 12-lead EKG shows ventricular bigeminy. There [...] management Assessment & Plan (04/13/2021 12:33 PM RETORT LOAD EXPEDITER): -Continue same medical management Assessment & Plan (01/28/2018 1:46 PM RETORT LOAD EXPEDITER): LDL 51 11/10 On atorvastatin Chronic coronary [...] monitor. Assessment & Plan (04/13/2021 12:33 PM RETORT LOAD EXPEDITER): -BP today is 130/66 -Will continue same antihypertensive medications at this time. Osteoarthritis 07/02/2012 09/01/2024 Onychomycosis due to dermatophyte 04/18/2012 09/01/2024 Skin callus 04/18/2012 04/20/2021 Psoriasis 05/08/2011 09/01/2024 Nocturia 05/08/2011 01/20/2021 Slowing of urinary stream 05/08/2011 Encounters Date Type Department Care Team Description 10/23/2024 11:45 AM CDT Office Visit [facility] Cardiology [address] [place] [address] Randall Hartman MD Chronic systolic congestive heart failure (HCC) (Primary Dx) 10/21/2024 3:00 PM CDT Office Visit [facility] Family Medicine [place] [address] [facility] [address] [place] [phone] Baljit Randall MD Chronic systolic congestive heart failure (HCC) (Primary Dx); Cardiac pacemaker in situ; Coronary artery disease involving curyung coronary artery of curyung heart without angina pectoris; ALEX treated with BiPAP 10/20/[address] [facility] Accountable Care Organization [address] [place] [phone] Krysta Tellez RN 10/17/2024 12:35 PM CDT - 10/17/2024 11:59 PM CDT Hospital Encounter [facility] Diagnostic Imaging [address] [place] [address] [phone] Chronic bilateral pleural effusions Discharge Disposition: Discharge to home or self care 10/17/2024 12:34 PM CDT - 10/17/2024 11:59 PM CDT Hospital Encounter [facility] Respiratory Therapy [address] [place] [address] [phone] Dyspnea and respiratory abnormalities Discharge Disposition: Discharge to home or self care 10/10/2024 Results Follow-Up [facility] Specialists of [address] [phone] Jennifer Young NP TSH, T4, free, T3, free 10/09/2024 11:[address] [facility] Outpatient Lab at [address] [phone] 10/09/2024 11:42 AM CDT - 10/09/2024 11:59 PM CDT Hospital Encounter [address] [address] Hyperthyroidism Discharge Disposition: Discharge to home or self care 10/06/2024 10:30 AM CDT Office Visit [facility] Pulmonology [address] [facility] [address] [place] [phone] Eneida Malloy MD Dyspnea and respiratory abnormalities (Primary Dx); Chronic bilateral pleural effusions; HFrEF (heart failure with reduced ejection fraction) (HCC) 10/02/[address] [facility] Medical [facility] Family Medicine at [address] [place] [address] Baljit Randall MD needs appt letter sent 09/29/2024 Orders Only [facility] Cardiology [address] [place] [address] [address] [place] [phone] Randall Hartman MD 09/29/[address] 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 09/23/2024 Orders Only [facility] Health Information Management [address] [place] [address] Randall Hartman MD 09/22/2024 Telephone [facility] Cardiology [address] [place] [address] [place] [phone] Randall Hartman MD 09/21/2024 Orders Only [facility] Health Information Management [address] [place] [phone] Randall Hartman MD 09/20/2024 Orders Only [facility] Health Information Management [address] [place] [phone] Scanning, Provider 09/11/2024 11:30 AM CDT Office Visit [facility] Diabetes and Endocrinology [address] [place] [phone] Jennifer Young, DINESH Type 2 diabetes mellitus with hyperglycemia, without long-term current use of insulin (HCC) (Primary Dx); Mixed diabetic hyperlipidemia associated with type 2 diabetes mellitus (CMS/HCC) (HCC); Type 2 diabetes mellitus with diabetic neuropathy, without long-term current use of insulin (HCC); Hyperthyroidism 09/10/2024 10:15 AM CDT - 09/10/2024 11:59 PM CDT Hospital Encounter [facility] [place] [address] Discharge Disposition: Discharge to home or self care 09/10/2024 Orders Only [facility] Health Information Management [address] [place] [address] Baljit Randall MD 09/01/2024 4:15 PM CDT Office Visit [facility] Family Medicine at [address] [phone] Baljit Randall MD Orthostatic hypotension (Primary Dx); Dehydration; Chronic systolic congestive heart failure (HCC) 08/29/2024 WEST ED Outreach [facility] Care Organization [address] [place] [address] Trudy Bocanegra MA 08/28/2024 2:46 PM CDT - 08/28/2024 6:59 PM CDT Emergency [address] [address] Kalin Cid MD Orthostatic hypotension (Primary Dx); Dizziness Discharge Disposition: Discharge to home or self care 08/28/[address] [facility] Medical [facility] Family Medicine at [address] [phone] Baljit Randall MD patient going to ER 08/25/2024 Orders Only [facility] Cardiology [facility] Medical Office Building [address] [place] [address] Bela Herzog MD 08/25/[address] [facility] Medical [facility] Family Medicine at [address] [phone] Baljit Randall MD call back 08/21/[address] [facility] Medical [facility] Family Medicine at [address] [phone] Baljit Randall MD Xarelto 08/08/2024 Results Follow-Up [facility] Group Diabetes and Endocrinology [address] [place] [phone] Jennifer Young, CHRISTMAS BELL RINGER T3, free, T4, free, TSH 08/07/2024 2:48 PM CDT - 08/07/2024 11:59 PM CDT Hospital Encounter [address] [address] Hyperthyroidism Discharge Disposition: Discharge to home or self care 08/07/2024 2:[address] [facility] Medical [facility] Outpatient Lab at [address] [phone] NSVT (nonsustained ventricular tachycardia) (HCC) (Primary Dx) from Last 3 Months Immunizations Immunization Administration Dates Next Due Hep A, Adult 03/28/2000,09/21/1999 Hep B Vaccine 03/28/2000,11/09/1999,09/21/1999 Influenza, Quad, Adjuvantate d, Intramuscular 12/26/2021 Influenza, Quadrivalent, Hig h Dose, Preservative Free, Intrr 01/04/2023,01/09/2021,12/05/2019 Influenza, Quadrivalent, Rec ombinant, Egg Free, Preservative Free, Intramuscular 12/13/2018 Influenza, Trivalent, High D ose, Split, Preservative Free, Intramuscular 12/26/2017 Influenza, Trivalent, Preser vative Free, Intramuscular 12/21/2014,01/09/2013,03/26/2011 Influenza, Unspecified 12/25/2023,12/28/2021, Sentrix SARS-CoV-2 Monovalent Vaccination (12+ Yrs) PURPLE 01/09/2021,06/08/2020,05/18/2020 Pneumococcal Conjugate Pcv20 12/21/2022 Pneumococcal Polysaccharide PPV23 03/26/2008 RSV, Bivalent, Protein Subun it Rsvpref, Diluent (Abrysvo) 01/08/2023 Td, adsorbed 09/21/1999 ZOSTER Recombinant 07/17/2023,03/06/2023 Surgical History Surgery Date Site/Laterality Comments CHOLECYSTECTOMY 1970's GASTRIC BYPASS 1999' TONSILECTOMY, ADENOIDECTOMY, BILATERAL MYRINGOTOMY AND TUBES 03/26/1947 - 03/25/1948 HEMORRHOID SURGERY 1969' CATARACT EXTRACTION 2017 & 2024 Right ABDOMINAL SURGERY rue en y gastric by-pass surgery US GUIDED BIOPSY LYMPH NODE SUPERFICIAL LEFT 02/28/2021 N/A CARDIAC CATHETERIZATION c2017 non-obstructive disease (10-20%) CARDIAC PACEMAKER PLACEMENT 04/23/2023 GASTRIC RESTRICTION SURGERY Medical History Medical History Date Comments CHF (congestive heart failure) (HCC) Diabetes mellitus (HCC) 1994 Hypertension 1981 Hyperlipidemia Ventricular tachycardia (HCC) Sleep apnea 2004 CAD (coronary artery disease) Arthritis Cataract 2018 Thyroid disease 2019 Cataract 2018 HTN (hypertension) Sinusitis Thyroid disease 2019 Cancer (HCC) Hodgkins lymphoma Heart disease 2001 Anemia 2018 Ear problems Acute cystitis without hematuria 12/07/2022 Coronary artery disease invo lving curyung coronary artery of curyung heart without angina pectoris SOB (shortness of breath) on exertion Type 2 diabetes mellitus Cellulitis Dizziness Family History Medical History Relation [...] often do you attend chur ch or moravian services? 1 to 4 times per year 12/12/2022 Do you belong to any clubs o r organizations such as uatsdin groups, unions, fraternal or athletic groups, or [...] place to sleep or slept in a half-way (including now)? No 12/12/2022 Personal Safety Answer Date Recorded Have you ever been in or are you currently in a harmful physical or emotional relationship or is someone making you feel afraid or unsafe? Denies 08/28/2024 Sex and Gender Information Value Date Recorded Sex Assigned at Not on file Legal Sex Male 3:19 AM RETORT LOAD EXPEDITER Gender Identity Not on file Sexual Orientation Straight 03/23/2019 1: 09 AM RETORT LOAD EXPEDITER Obstetrics History Last Filed Vital Signs Vital [...] 10/23/2024 11:41 AM CDT Plan of Treatment Health Maintenance Due Date Last Done Comments DTaP/Tdap/Td Vaccine (1 - Tdap) 09/22/1999 0 Covid-19 Vaccine (2023-2 5 season) 2023 07/17/2023, 01/08/2023, 12/26/2021, Additional history exists Well Visit 65+ 09/17/2024 09/18/2023, 03/15/2023 Fall Risk Assessment 09/24/2024 09/25/2023, 09/18/2023, 04/24/2023, Additional history exists Influenza Vaccine (#1) 2024 , 01/04/2023, 12/28/2021, Additional history exists Lipid Panel 01/14/2025 01/15/2024, 07/24, 01/31/2022, Additional history exists Hemoglobin A1C 03/13/2025 09/11/2024, 04/27, 01/15/2024, Additional history exists Albumin Creatinine Ratio, Urine 05/19/2025 05/19/2024, 08/10/2022, 01/31/2022, Additional history exists Foot Exam 05/19/2025 05/19/2024, 02/24, 01/15/2023, Additional history exists eGFR 08/28/2025 08/28/2024, 12/25, 09/06/2023, Additional history exists Depression Screening 10/21/2025 10/21/2024, 09/18/2023, 03/15/2023, Additional history exists Dilated Eye Exam 04/29/2026 04/29/2024, , 04/19/2023, Additional history exists Hepatitis B Screening Completed 03/28/2000 , 11/09/1999, 09/21/1999 Pneumococcal vaccine 65+ Completed 12/21/2022, 03/2008 Abdominal Aortic Aneurysm (A AA) Screen Completed 04/27/2023 Zoster Vaccine Completed 07/17/2023, 03/06/2023 Medical Devices Implanted Type Area Wet Char Conveyor Tender Device Identifier Shelf Expiration Date Model / Serial / Lot Medtronic Inc Meenakshi S Mri Surescan 50.8x46.6mm 2 Chamber 7.4mm Pacemaker 22.5gm [id number] - [id number] Implanted:Qty: 1 on 04/23/2023 by Nestor Sutherland MD at [facility] Pacemaker Medtronic Inc 08/06/2024 [id number] / / [employer] Device Closure Vascade Od5 Fr Femoral Artery [id number] - [id number] Implanted:Qty: 1 on 01/17/2023 by Zoe Levy MD at [facility] [employer] 11/20/2024 [id number] / / [id number] Medtronic Inc Capsurefix Novus 6.2fr 2mm 52cm Bipolar Screw In Implantable Latex Free 5076-52 - [id number] Implanted:Qty: 1 on 04/23/2023 by Nestor Sutherland MD at [facility] Medtronic Inc 01/04/2025 [id number] / / Medtronic Inc Capsurefix Novus 6.2fr 2mm 58cm Bipolar Screw In Implantable 5076-58 - [id number] Implanted:Qty: 1 on 04/23/2023 by Nestor Sutherland MD at [facility] Med[employer]onic Inc 12/26/2024 [id number] / / [...] CREATININE RATIO, URINE Routine 05/19/2024 10:51 AM RETORT LOAD EXPEDITER Type 2 diabetes mellitus with hyperglycemia, without long-term current use of insulin (HCC) HM DIABETES EYE EXAM Routine 04/29/2024 12:03 PM RETORT LOAD EXPEDITER LIPID PANEL Routine 01/15/2024 2:30 PM CDT Type 2 diabetes mellitus with diabetic neuropathy, without long-term current use of insulin (HCC) CT ABDOMEN W WO CONTRAST Schedule Routine, Read Routine (OP Routine) 04/27/2023 1:47 PM RETORT LOAD EXPEDITER Kidney lesion from Last 3 Months or [...] Karan Schaefer M.D. BB: ZAC Report ID: [id number] Reading Location: [id number] Procedure Note Karan Schaefer MD PhD - [...] Karan Schaefer M.D. BB: ZAC Report ID: [id number] Reading Location: [id number] Eneida Malloy MD IMG XR PROCEDURES Final Resul t * (ABNORMAL) Pulmonary Function Test - (10/17/2024 1:16 PM CDT) FVC PRE 3.50 3.15 - 5.64 L [facility] FEV1 PRE 3.00 2.20 - 4.12 L [facility] [id number] 85.50 58.94 - 87.30 % [facility] FQU96-88% PRE 4.66(A) 0.80 - 4.19 L/s [facility] PEF PRE 9.01 6.22 - 10.20 L/s [facility] DLCOc SB 13.20(A) 21.46 - 35.31 ml/(min*mm Hg) [facility] DLCO/VA PRE 2.68 2.56 - 4.59 ml/(min*mm Hg*L) [facility] VA 4.93(A) 7.79 - 7.[address] [facility] TLC PRE 5.47(A) 6.79 - 9.09 L [facility] VC PRE 3.50(A) 3.63 - 5.47 L [facility] IC PRE 2.10(A) 3.52 - 3.52 L [facility] FRC PL PRE 3.37 3.05 - 5.02 L [facility] ERV PRE 1.40(A) 1.02 - 1.02 L [facility] RV PRE 1.97(A) 2.34 - 3.69 L [facility] VTG 3.53 L [facility] RAW PRE 1.46(A) 3.06 - 3.06 cmH2O*s/L [facility] Anatomical Region Laterality Modality PFT 10/17/2024 12:4 4 PM CDT Narrative 10/20/2024 4:24 PM CDT PFT INTERPRETATION Normal spirometry Moderate restriction Moderate diffusion impairment Did not require any supplemental oxygen for hyopxia at the level of exertion achieved Electronically signed by Eneida Malloy MD us Eneida Malloy MD PFT ORDERABLES Final Result * T3, free (10/09/2024 11:45 AM CDT) Free T3 3.2 2.0 - 4.4 pg/mL Blood 10/09/2024 11:4 5 AM CDT 10/09/2024 6:20 PM CDT us Jenniferjanet Young CHRISTMAS BELL RINGER LAB BLOOD ORDERABLES Esperanza l Result Performing Organization Address City/[facility] Co de Phone Number MARY [address] [address] [place] [address] * TSH (10/09/2024 11:45 AM CDT) Thyroid Stimulating Hormone 1.01 0.30 - 4.20 mcIUnit/mL Blood 10/09/2024 11:4 5 AM CDT 10/09/2024 6:20 PM CDT Jennifer Young CHRISTMAS BELL RINGER LAB BLOOD ORDERABLES Esperanza l Result Performing Organization Address City/[facility] Co de Phone Number MARY [phone] [address] [facility] [place] [address] * T4, free (10/09/2024 11:45 AM CDT) Free T4 1.16 0.90 - 1.70 ng/dL Blood 10/09/2024 11:4 5 AM CDT 10/09/2024 6:20 PM CDT us Jennifer Young NP LAB BLOOD ORDERABLES Esperanza l Result MARY PHILLIPS [address] [place] [address] * Cardiology Document Scan (09/23/2024) Anatomical Region Laterality Modality Other Result [facility] us Randall Hartman MD CV CARDIAC SERVICES PROCEDURES F inal Result * Cardiology Document Scan (09/21/2024 3:22 PM CDT) Anatomical Region Laterality Modality Other Result [facility] us Randall Hartman MD CV CARDIAC SERVICES PROCEDURES F inal Result * Cardiology Document Scan (09/21/2024) Anatomical Region Laterality Modality Other Result [facility] us Randall Hartman MD CV CARDIAC SERVICES PROCEDURES E [...] % Blood 09/11/2024 11:2 3 AM CDT Result John Paul Young NP POINT OF CARE TEST ORDERA BLES Final Result * (ABNORMAL) POCT glucose (09/11/2024 11:23 AM CDT) Glucose Blood, POC 159 Normal Fasting 70 - 100, Random <200 mg/dL Blood 09/11/2024 11:2 3 AM CDT Jennifer Young NP POINT OF CARE TEST ORDERA BLES Final Result * CT Body Outside Reference (09/10/2024 10:15 AM CDT) Narrative JEAN_MHB_MHE - 10/01/2024 3:12 PM CDT This order has been auto-finalized and does not contain a result. us Provider Transcribed Order IMG CT PROCEDURES Fin al Result BROCK_[email or web address] * SCAN - RADIOLOGY/IMAGING (09/10/2024) Anatomical Region Laterality Modality Other Baljit Randall MD Edited Result - Final [...] signed by Nathanael PAULINO T: Report ID: [id number] Reading Location: [place] [address] Procedure Note Nathanael Lo MD - 08/28/2024 [...] signed by Nathanael PAULINO T: Report ID: [id number] Reading Location: [id number] us Kalin Cid MD IMG CT PROCEDURES Final [...] MD LAB BLOOD ORDERABLES Final Result MARY [address] [facility] Department [place] [address] * (ABNORMAL) Pro B-type natriuretic peptide (08/28/2024 [...] Heart J. 2006:27:330-337. 2. Moshe RW, Xiomy AM. J. AM Carmenza Cardiol: Cardiovasc Imag. 2009;2: 216- 225. Interpretive Data Last Revised Date: 2017. Blood 08/28/2024 3:52 PM CDT 08/28/2024 3:54 PM CDT Kalin Cid MD LAB BLOOD ORDERABLES Final Result Performing Organization Address [facility] [[email or web address]] de Phone Number [address] [place] [address] * Phosphorus (08/28/2024 3:52 PM CDT) Phosphorus, pl 3.7 2.3 - 4.5 mg/dL Blood 08/28/2024 3:52 PM CDT 08/28/2024 3:54 PM CDT Kalin Cid MD LAB BLOOD ORDERABLES Final Result Performing Organization Address [facility] de Phone Number [address] [place] [address] * Magnesium (08/28/2024 3:52 PM CDT) Magnesium 2.5 1.4 - 2.5 mg/dL Blood 08/28/2024 3:52 PM CDT 08/28/2024 3:54 PM CDT Kalin Cid MD LAB BLOOD ORDERABLES Final Result Performing Organization Address [facility] de Phone Number [address] [place] [address] * (ABNORMAL) Urinalysis reflex to microscopic and culture Urine (08/28/2024 2:01 PM CDT) Color, ur Yellow Yellow Clarity, ur Clear Clear [facility] Specific gravity, ur 1.012 1.003 - 1.[address] [facility] pH, urine 6.[address] [facility] Comment: Interpretive Data U rine pH is affected by diet, medications, systemic acid-base disturbances, and renal tubular function. pH may affect urinary stone formation. For example, urine pH below 6.0 may help reduce the tendency for calcium phosphate stones and pH greater than 6.0 may reduce the tendency for uric acid stone formation. Source: [facility] Current Interpretive Data was last revised on 2017 Protein, ur ql Negative Negative [facility] Glucose, ur ql 4+(A) Negative [facility] Ketones, ur Negative Negative [facility] Bilirubin, ur Negative Negative [facility] Blood, ur Negative Negative [facility] Urobilinogen, ur <2.0 <2.0 mg/dL [facility] Nitrite, ur Negative Negative [facility] Leukocyte esterase, ur Negative Negative [facility] UA reflex comment Reflex conditions for microscopic UA and culture not met. [facility] Urine 08/28/2024 2:01 PM CDT 08/28/2024 2:07 PM CDT Kalin Cid MD LAB MICROBIOLOGY - GENERAL ORDERABLES Final Result Performing Organization Address [facility] [[email or web address]] de Phone Number [facility] [address] [facility] Department [place] [address] * (ABNORMAL) Troponin T high-sensitivity series (baseline, [...] BLOOD ORDERABLES Final Result Performing Organization Address [facility]/ZIP Co de Phone Number CERNER [address] Department [place] [address] * eGFR (08/28/2024 1:46 PM CDT) [facility] eGFR 66 >=60 mL/min/1. 73 m2 Comment: [...] MD LAB BLOOD ORDERABLES Final Result MARY [address] Department [place] [address] * Differential, auto (08/28/2024 1:46 PM CDT) [facility] Neutrophil abs 2.93 1.50 - 6.50 K/cumm Imm gran abs 0.00 0.00 - 0.10 K/cumm [facility] Lymphocyte abs 1.36 0.80 - 3.30 K/cumm [facility] Monocyte abs 0.52 0.20 - 0.80 K/cumm [facility] Eosinophil abs 0.19 0.00 - 0.50 K/cumm [facility] Basophil abs 0.03 0.00 - 0.10 K/cumm [facility] Neutrophil pct 58.3 % [facility] Comment: Interpretive Data Percent cell count reference ranges are not reported, since discordance with absolute values may lead to misinterpretation of CBC data. Current Interpretive Data was last revised on 2017. Imm gran pct 0.0 % [facility] Comment: Interpretive Data Percent cell count reference ranges are not reported, since discordance with absolute values may lead to misinterpretation of CBC data. Current Interpretive Data was last revised on 2017. Lymphocyte pct 27.0 % [facility] Comment: Interpretive Data Percent cell count reference ranges are not reported, since discordance with absolute values may lead to misinterpretation of CBC data. Current Interpretive Data was last revised on 2017. Monocyte pct 10.3 % [facility] Comment: Interpretive Data Percent cell count reference ranges are not reported, since discordance with absolute values may lead to misinterpretation of CBC data. Current Interpretive Data was last revised on 2017. Eosinophil pct 3.8 % [facility] Comment: Interpretive Data Percent cell count reference ranges are not reported, since discordance with absolute values may lead to misinterpretation of CBC data. Current Interpretive Data was last revised on 2017. Basophil pct 0.6 % [facility] Comment: Interpretive Data Percent cell count reference ranges are not reported, since discordance with absolute values may lead to misinterpretation of CBC data. Current Interpretive Data was last revised on 2017. Blood 08/28/2024 1:46 PM CDT 08/28/2024 1:56 PM CDT us Kalin Cid MD LAB BLOOD ORDERABLES Final Result [facility] [address] [facility] Department [place] [address] * (ABNORMAL) CBC with auto differential (08/28/2024 1:46 PM CDT) WBC 5.03 3.80 - 9.90 K/cumm Hgb 12.6(L) 13.0 - 17.5 g/dL [facility] Hct 40.7 38.9 - 50.3 % [facility] Plt 153 150 - 400 K/cumm [facility] MPV 12.2 9.1 - 12.[address] [facility] RBC 4.29(L) 4.30 - 5.80 M/cumm [facility] MCV 94.9 81.3 - 96.[address] [facility] MCH 29.4 27.1 - 33.[address] [facility] MCHC 31.0(L) 32.3 - 35.7 g/dL [facility] RDW CV 14.6 11.1 - 14.9 % [facility] RDW SD 50.3(H) 35.7 - 48.[address] [facility] NRBC abs 0.00 0.00 - 0.01 K/cumm [facility] Blood 08/28/2024 1:46 PM CDT 08/28/2024 1:56 PM CDT Kalin Cid MD LAB BLOOD ORDERABLES Final Result Performing Organization Address [facility] [[email or web address]] de Phone Number [address] [place] [address] * (ABNORMAL) Protime-INR (08/28/2024 1:46 PM CDT) PT 20.3(H) 12.0 - 14.6 sec Comment:Ref Range High INR 1.7(H) 0.9 - 1.[address] [facility] Comment: Ref Range High Interpretive data [...] BLOOD ORDERABLES Final Result Performing Organization Address [facility] [[email or web address]] de Phone Number [address] [place] [address] * Comprehensive metabolic panel (08/28/2024 1:46 PM CDT) Sodium 140 135 - 145 mmol/L Potassium, pl 4.6 3.3 - 4.9 mmol/L [facility] Comment:Hemolyzed; Potassium value may be falsely elevated by as much as 1.0 mmol/L. Suggest redraw and reanalysis. Chloride 102 97 - 110 mmol/L [facility] CO2 27 22 - 32 mmol/L [facility] Anion gap 11 2 - 15 mmol/L [facility] BUN 21 6 - 25 mg/dL [facility] Creatinine 1.12 0.80 - 1.30 mg/dL [facility] Glucose 123 70 - 199 mg/dL [facility] Comment: Interpretive Data Fasting glucose >/= [...] Calcium 9.1 8.5 - 10.3 mg/dL [facility] Bilirubin, total 0.6 0.1 - 1.2 mg/dL [facility] Protein, pl 6.9 6.5 - 8.5 g/dL [facility] Albumin 3.8 3.5 - 5.0 g/dL [facility] Alk phos 88 40 - 130 Units/L [facility] ALT 14 7 - 55 Units/L [facility] AST See Comment 10 - [address] [facility] Comment:Credited; Hemolyzed Specimen Blood 08/28/2024 1:46 PM CDT 08/28/2024 1:56 PM CDT us Kalin Cid MD LAB BLOOD ORDERABLES Final Result [facility] [address] [facility] Department [place] [address] * ECG 12 lead (08/28/2024 1:36 PM CDT) Ventricular Rate EKG/Min 82 BPM [facility] Atrial Rate 93 BPM [facility] IN-Interval (MSEC) 144 ms [facility] QRS-Interval (MSEC) 124 ms [facility] QT-Interval (MSEC) 458 ms [facility] QTc 535 ms [facility] R Julian -40 degrees [facility] T Julian 188 degrees [facility] Diagnosis Sinus rhythm with frequent AV dual-paced complexes and with occasional Premature ventricular complexes Left axis deviation RSR' or QR pattern in V1 suggests right ventricular conduction delay Left ventricular hypertrophy with QRS widening and repolarization abnormality Inferior infarct , age undetermined Confirmed by ESTRELLA HEARD M.D. ([id number]) on 08/28/2024 5:11:25 PM [facility] 08/28/2024 1:36 PM CDT 08/28/2024 5:11 PM CDT us Kalin Cid MD ECG ORDERABLES Final Resu lt [facility] * DEVICE CHECK - REMOTE (08/25/2024 1:45 [...] period. No short V-V intervals. Presenting Rhythm (IN) Atrial Pacing-Ventricular Pacing (AP-TECHNICAL SERVICES LIBRARIAN) --- AP/TECHNICAL SERVICES LIBRARIAN 82 bpm with PVCs. Arrhythmic events (AE) No new arrhythmic events in monitoring period --- Since 07/22/24: No AHR or VHR episodes. Miscellaneous Observations (MISC) RV pacing > 40% noted --- TECHNICAL SERVICES LIBRARIAN 86.9%. Pt has h/o AV Block/High TECHNICAL SERVICES LIBRARIAN percentage. MVP is off. Transmission Information (TI) [...] monitoringperiod. No short V-V intervals. Presenting Rhythm (IN) Atrial Pacing-Ventricular Pacing (AP-TECHNICAL SERVICES LIBRARIAN) --- AP/TECHNICAL SERVICES LIBRARIAN 82 bpm with PVCs. Arrhythmic events (AE) No new arrhythmic events in monitoring period --- Since 07/22/24: No AHRor VHR episodes. Miscellaneous Observations (MISC) RV pacing > 40% noted --- TECHNICAL SERVICES LIBRARIAN 86.9%. Pt has h/o AV Block/High VPpercentage. [...] 08/07/2024 10:34 PM CDT us Jennifer Young CHRISTMAS BELL RINGER LAB BLOOD ORDERABLES Esperanza l Result MARY [address] Department [place] [address] * TSH (08/07/2024 2:48 PM CDT) Thyroid Stimulating Hormone 1.56 0.30 - 4.20 mcIUnit/mL Blood 08/07/2024 2:48 PM CDT 08/07/2024 10:34 PM CDT us Jennifer Young CHRISTMAS BELL RINGER LAB BLOOD ORDERABLES Esperanza l Result Performing Organization Address [facility] Co de Phone Number MARY PHILLIPS [address] [facility] [place] [address] * T4, free (08/07/2024 2:48 PM CDT) Free T4 1.29 0.90 - 1.70 ng/dL Blood 08/07/2024 2:48 PM CDT 08/07/2024 10:34 PM CDT us Jenniferjanet Young [employer]STM[employer]ER LAB BLOOD ORDERABLES Esperanza l Result Performing Organization Address [facility] [[email or web address]] de Phone Number MARY PHILLIPS [address] [facility] [place] [address] * Albumin Creatinine Ratio, Urine (05/19/2024 10:51 AM RETORT LOAD EXPEDITER) Albumin Ur 12.9 mg/L Comment: Interpretive Data No reference range established. Current interpretive data was last revised 2018. Creatinine Ur 127.4 mg/dL [facility] Comment: Interpretive Data No reference range established. Current interpretive data was last revised 2018. Albumin Creatinine Ratio, Ur 10 1 - 29 mg/g MARY Urine 05/19/2024 10:5 1 AM RETORT LOAD EXPEDITER 05/19/2024 2:40 PM RETORT LOAD EXPEDITER us Jenniferjanet Young CHRISTMAS BELL RINGER LAB URINE ORDERABLES Esperanza l Result Performing Organization Address [facility] Co de Phone Number MARY PHILLIPS [address] [place] [address] * DIABETES EYE EXAM (04/29/2024 12:03 PM RETORT LOAD EXPEDITER) us Historical Provider HEALTH MAINTENANCE Final Result * [...] on 2017. HDL 63 >=40 mg/dL MARY Comment: Interpretive Data Ages < [...] 2017. LDL, calculated 57 <=129 mg/dL MARY Comment: Interpretive Data Ages < [...] NCEP Expert Panel. Circulation 2004;110:227 3. Jann M et al. EDWIGE Cardiol. 2019July 24;5(5):540-548. doi: [...] BLOOD ORDERABLES Final Re sult MARY PHILLIPS [address] Department [place] [address] * CT abdomen with and without contrast (04/27/2023 1:47 PM RETORT LOAD EXPEDITER) Anatomical Region Laterality Modality Body N/A Computed Tomogra phy 04/30/2023 5:29 PM RETORT LOAD EXPEDITER Narrative 04/30/2023 5:36 PM RETORT LOAD EXPEDITER EXAM DESCRIPTION: CT ABDOMEN W WO CONTRAST [...] by Michael Goldman M.D. CH: Report ID: [id number] Reading Location: [id number] Procedure Note Michael Goldman Jr., MD - [...] MG IODINE/ML INTRAVENOUSSYRINGE injected via intravenous COMPARISON: [place] CT 12/06/2022. PET-CT 09/15/2021. REFERENCE: Per ACR [...] Michael Goldman M.D. CH: ALAN Report ID: [id number] Reading Location: [place] [address] Hu Norton MD [facility] CT PROCEDURES Final Result from Last 3 Months or Most Recently Relevant to Health Maintenance Insurance [facility] MEDICARE ADVANTAGE [facility] MEDICARE ADVANTAGE Advance Directives For more information, please contact: [phone] * Full Code (Latest Code Status on File) Date Activated Date Inactivated Comments 04/23/2023 2:11 PM 04/24/2023 3:31 PM * Full Code Date Activated Date Inactivated Comments 01/17/2023 9:51 AM 01/17/2023 4:07 PM * Full Code Date Activated Date Inactivated Comments 12/07/2022 3:19 AM 12/11/2022 4:19 PM Care Teams Helium Arc Welder Relationship Specialty Start Date End Date Baljit Randall MD PCP - General Family Medicine 01/20/21 Landry Leon MD Consulting Physician Cardiology 12/05/19 Reena Gilbert MD Consulting Physician Interventional Cardiology 04/28/24 Caden Guajardo MD [address] [address] Consulting Physician Cardiology 07/02/24
== END 2024-10-27 13:18 | disposition home or self-care (01) ==
PROVIDERS: PCP Family Medicine; Visit Provider Family Medicine
DX: I50.22 Chronic systolic (congestive) heart failure (principal); J90 Pleural effusion, not elsewhere classified; I51.7 Cardiomegaly; J81.0 Acute pulmonary edema
CPT/HCPCS: 71046

== ENCOUNTER 2025-01-26 13:17 | Inpatient (IN) | payer MEDICARE, SELFPAY ==
[2025-01-26] VITALS (10 sets, daily range): BP systolic 95–121; BP diastolic 49–82; PULSE 68–114; RESP 16–25; TEMP 35.9–36.5; O2SAT 98–100; BMI 30.2
--- NOTE | ~2025-01-26 | XR_ITS ---
Clinical history:History of CHF EXAM: X-ray chest one view portable TECHNIQUE:Single portable AP upright frontal image of the chest was obtained. Comparisons:10/27/2024 FINDINGS: Heart is enlarged, unchanged. Left-sided generator with leads. No pneumothorax. No pleural effusion. Mild elevation of the left hemidiaphragm, unchanged. Small to moderate-sized patchy opacities scattered throughout both lungs. Lung volumes are low. IMPRESSION: 1. Small to moderate-sized patchy opacities scattered throughout both lungs. Differential includes but is not limited to edema or pneumonia. Recommend follow-up to resolution. Consider a chest CT for further assessment Reviewed, dictated and finalized at location [facility]. [facility] IMPRESSION: 1. Small to moderate-sized patchy opacities scattered throughout both lungs. Di fferential includes but is not limited to edema or pneumonia. Recommend follow- up to resolution. Consider a chest CT for further assessment
--- OUTSIDE RECORDS SUMMARY | 2025-01-26 14:31 | XMS_ITS ---
Author Name Cynthia Madsen NP Address [address] [place] [address] Phone [phone] Organization [facility] Care Team Providers Care Sales Agent Pest Control Service Name Role Phone Cynthia Madsen Unavailable [phone] Song Calhoun Unavailable [phone] [facility] CHW (STL), Alisha Alvarado Unavailable Unavailable [facility] Tier 1 RN (STL), Lorena enamorado Unavailable Unavailable Unavailable Unavailable Cornel Sanderson Unavailable [phone] Magnus Gagnon Unavailable Unavailable YULIANA CAMPOS Unavailable [phone] Baljit Randall Unavailable [phone] Reason for Referral Not Available Allergies, adverse [...] once daily 2023-12-24 No Data Available [facility] Con[facility]3 Krill Oil 350 mg Cap No Data [...] at least 75 minutes total time on [facility] 12/24/2023 Unspecified diastoli c (congestive) heart failureHypertensive heart disease with heart failureType 2 diabetes w diabetic peripheral angiopath w/o gangreneType 2 diabetes mellitus with other specified complicationMorbid (severe) obesity due to excess caloriesHyperlipidemia, unspecifiedAthscl heart disease of [place] coronary artery w/o ang pctrsThyrotoxicosis, unspecified without thyrotoxic crisis or stormUnspecified osteoarthritis, unspecified siteObstructive sleep apnea (adult) (pediatric)Venous insufficiency (chronic) (peripheral)Body mass index (BMI) 35.0-35.9, adult Home visit for evaluation and management of established patient requiring medically appropriate examination and high level of medical decision making. If using time, at least 60 minutes total time on [facility] 02/25/2024 Unspecified diastoli c (congestive) heart failureType 2 diabetes mellitus with other circulatory complicationsHypertensive heart disease with heart failureHistory of fallingDysphagia, unspecifiedObesity, class 1Pressure ulcer of unspecified site, stage 1 Home visit for evaluation and management of established patient requiring medically appropriate examination and high level of medical decision making. If using time, at least 60 minutes total time on [facility] 02/25/2024 Unspecified diastoli c (congestive) heart failureDysphagia, unspecifiedHistory of fallingBody mass index (bmi) 31.0-31.9, adult Home visit for evaluation and management of established patient requiring medically appropriate examination and high level of medical decision making. If using time, at least 60 minutes total time on [facility] 02/25/2024 Unspecified diastoli c (congestive) heart failure [...] tive Time Current Smoking Status Former smoker 3 Sex Male History of Procedures Procedures Service Procedure code Service date Servicing provider Phone# Home visit for evaluation and management of new patient requiring medically appropriate examination and high level of medical decision making. If using time, at least 75 minutes total time on encounte [address] 2023-12-24 No Data Available No Data Availa ble Home visit for evaluation and management of established patient requiring medically appropriate examination and high level of medical decision making. [place] using time, [place] [address] 2024-02-25 No Data Available No Data Availa ble Patient screened for fall risk; 2 or more falls in the last year or fall with injury in the last year 1101F 2024-02-25 No Data Available No Data Availa ble No Data Available [id number] 2024-02-25 No Data Available No Data Available Functional Status Functional Category Effective Dates last fall was at [facility], lost his balance, this was in [...] type 2 diabetes mellituscontinue statin and XareltoContinue DtekemgD1A well controlledcontinue metformin 1000mg BIDCoronary artery diseasedenies [...] mg Tab 4 tablets once daily #90 [id number]: Primarily Home Social Work (STL) -- please [...] reminder. I put in for 01/13 in [facility] but may change to align with nurse and provider schedule as he is in [place]. THANKS!.01/20 cardiology- device check with nurse after making changes 01/27 endocrine for hyperthyroid and DMII02/21 cardiology, meeting Vladimir03/[address] Agudelo 03/17 [facility] seeing PT and pain management rotating starting [...] continued, and he was referred to the [facility] in addition to the compression devices.He saw his assistant track coach DINESH Gutierrez on 01/28, he is documented [...] appointment on 02/[address] Gilbert with [facility] EP.Today, we reviewed his medications and his [...] [address] Granger at [facility] had been going to the lymphedema [...] 2024-02-25 Last seen by Navin by Cynthia MONTEIL on 12/24/23. At that time, lisinopril was stopped, and furosemide was increased. He was supposed to have a 3 week f/u appt, but due to difficulty getting in touch with him, he has not been seen by Navin since then.Since then, his edema continued, and he was referred to the [facility] in addition to the compression devices.He saw his assistant track coach DINESH Gutierrez on 01/28, he is documented [...] appointment on 02/[address] Gilbert with [facility] EP.Today, we reviewed his medications and his [...] [address] Granger at [facility] had been going to the lymphedema [...]
[2025-01-26 14:47] LABS: Hematocrit 35.8 % (42.0-52.0); Hemoglobin 11.0 g/dL (14.0-18.0); Immature Granulocyte Percent A 0.2 % (0-0.5); Lymphocytes Absolute Auto 1.53 K/mm3 (0.9-3.2); Mean Corpuscular HGB Conc 30.7 g/dl (32-36); Mean Corpuscular Hemoglobin 29.5 pg (26-34); Mean Corpuscular Volume 96.0 fl (80-100); Nucleated Red Blood Cells Absolute Auto 0.000 K/mm3 (0.0-0.012); Nucleated Red Blood Cells Perc 0.0 % (0.0-0.2); Platelet Count Result 173 k/mm3 (150-375); Red Blood Count 3.73 M/mm3 (4.6-6.20); White Blood Count 5.5 K/mm3 (4.5-10.0)
[2025-01-26 14:50] LABS: Alanine Aminotransferase 32 U/L (6-50); Albumin Level 4.4 g/dL (3.5-5.1); Alkaline Phosphatase 97 U/L (38-126); Anion Gap 7 mmol/L (4-12); Aspartate Amino Transferase 62 U/L (17-59); Bilirubin,Total 0.7 mg/dL (0.2-1.3); Blood Urea Nitrogen 38 mg/dL (9-20); Calcium 8.8 mg/dL (8.4-10.2); Carbon Dioxide 36 mmol/L (22-30); Chloride 93 mmol/L (98-107); Estimated CRCL calculation 41 ml/min; Estimated Glomerular Filt Rate 44; Glucose 90 mg/dL (65-110); Potassium 4.4 mmol/L (3.4-5.0); Sodium 136 mmol/L (137-145); Total Protein 8.0 g/dL (6.3-8.2)
[2025-01-26 14:57] LABS: NT Pro B Type Natriuretic Pept 10500 pg/mL (19.9-100)
[2025-01-26] MEDS: FUROSEMIDE INJ 100 MG/10 ML VIAL 80 MG IV PUSH ×2 (14:58→20:15)
--- NOTE | 2025-01-26 15:28 | ED.RECABL ---
HPI - Recheck/Abnormal Lab/Rx General Chief Complaint: Recheck/Abnormal Lab/Rx Stated Complaint: needs fluids taken off - sent by pcp Time Seen by Provider: 01/26/25 14:22 History of Present Illness HPI narrative: Few days ago, patient was having more shortness of breath, significant swelling to his legs, his marketing intelligence analyst started metallic zone and increase his Lasix does, overall the patient has been doing better and no longer has shortness of breath, however the swelling to his legs persist so his marketing intelligence analyst wanted him to be admitted for further treatment Related Data Home Medications ?Medication ?Instructions ?Recorded ?Confirmed ?Last Taken ?Type aspirin 81 mg tablet,delayed 81 mg PO DAILY 01/08/20 09/20/24 09/19/24 History release cyanocobalamin (vitamin B-12) 2,000 mcg PO DAILY 01/08/20 09/20/24 09/19/24 History 1,000 mcg tablet dulaglutide 1.5 mg/0.5 mL 1.5 mg subcut WEEKLY 01/08/20 09/20/24 12/20/22 History subcutaneous pen injector (Trulicity) furosemide 40 mg tablet 40 mg PO QAM 01/08/20 09/20/24 09/19/24 History magnesium 200 mg tablet 200 mg PO Q6H 01/08/20 09/20/24 1 Day Ago History ~12/25/22 metformin 500 mg tablet 1,000 mg PO BID 10/07/20 09/20/24 1 Day Ago History ~12/25/22 atorvastatin 10 mg tablet 10 mg PO QHS 12/26/22 09/20/24 09/19/24 History dapagliflozin propanediol 10 mg 10 mg PO DAILY 12/26/22 09/20/24 09/19/24 History tablet diclofenac sodium 75 mg 150 mg PO DAILY PRN Pain (Scale 12/26/22 09/20/24 09/19/24 History tablet,delayed release Score 1-3) docusate sodium 100 mg capsule 400 mg PO Q48H 12/26/22 09/21/24 09/19/24 History (Colace) lisinopril 10 mg tablet 10 mg PO DAILY 12/26/22 09/20/24 09/19/24 History miconazole nitrate 2 % topical 1 applic topical PRN PRN 12/26/22 09/20/24 1 Day Ago History cream (Antifungal (miconazole)) maceration in folds ~12/25/22 multivitamin 1 tablet PO DAILY 12/26/22 09/20/24 09/19/24 History rivaroxaban 2.5 mg tablet (Xarelto) 2.5 mg PO BID 12/26/22 09/20/24 09/19/24 History spironolactone 25 mg tablet 25 mg PO QAM 12/26/22 09/20/24 1 Day Ago History ~12/25/22 tramadol 50 mg tablet 50 mg PO BID PRN pain 12/26/22 09/20/24 09/19/24 History zinc acetate 50 mg (zinc) capsule 50 mg PO DAILY 05/17/23 09/20/24 09/19/24 History (Galzin) amiodarone 100 mg tablet 100 mg PO DAILY 06/19/23 09/20/24 Unknown History methimazole 5 mg tablet 5 mg PO 5XW 09/20/24 09/20/24 09/19/24 History semaglutide 0.25 mg or 0.5 mg (2 0.5 mg subcut WEEKLY 09/20/24 09/20/24 09/17/24 09:00 History mg/3 mL) subcutaneous pen injector (Ozempic) docusate sodium 100 mg capsule 300 mg PO Q48H 09/21/24 09/21/24 Unknown History Allergies Allergy/AdvReac Type Severity Reaction Status Date / Time clindamycin Allergy Unknown unknown Verified 01/26/25 13:29 Review of Systems Review of Systems: All systems reviewed & are unremarkable except as noted in HPI and below [facility] Past Medical History Medical History Obstipation Weakness of pelvic floor in male Diarrhea Thyroid nodule Hyperthyroidism Low TSH level Diabetic neuropathy Cobalamin deficiency Nocturia Psoriasis NSVT (nonsustained ventricular tachycardia) Bradycardia PVC (premature ventricular contraction) Bigeminy ALEX treated with BiPAP Renal insufficiency Chronic coronary artery disease Dyslipidemia Hypertension Morbid obesity Diabetes Hypertensive heart disease with CHF Dyslipidemia associated with type 2 diabetes mellitus Ascending aorta dilatation CAD (coronary artery disease) Surgical History Surgical History Hx of myringotomy History of tonsillectomy and adenoidectomy (~1949) History of hemorrhoidectomy (~1969) History of cholecystectomy (~1974) History of cataract surgery History of gastric bypass (~2003) Family History Family History Father Family history of cardiovascular disease Diabetes mellitus Hypertension Mother Family history of kidney disease Diabetes mellitus Breast cancer Sibling Family history of glaucoma Grandparent Diabetes mellitus Sibling Thyroid cancer Social History Social History Smoking packs per day: 1 Smoking cigarettes per day: 20.0 Years smoked: 20 Smoking pack-years: 20.00 Smoking status: Former smoker Tobacco type: cigarettes Smoking end date: 03/26/99 Alcohol intake: never Alcohol use details: rarely Substance use: current Substance use type: marijuana Do You Feel Safe in your Home?: Yes Lack of Transportation: YES Lack of Food: Never True Current Housing: I Have Housing Concerned About Future Housing: No Difficulty Paying Gas/Electric Bills: No Difficulty Paying for Meds: No Currently Unemployed: No Education: Bachelor's Degree Difficulty w/ Childcare or Family Care: No Living arrangements: with family Spiritual care concerns: No Exam Narrative: EXAMINATION OF ORGAN SYSTEMS/BODY AREAS: Constitutional: Vital signs per nursing GENERAL:[No acute distress, non-toxic appearing.] HEAD: Normal with no signs of head trauma. EYES: EOMI, conjunctiva normal ENT: Hearing grossly intact LUNGS: Nonlabored breathing. HEART: [Regular rate and rhythm] ABD: [Soft], [nontender to palpation] EXT: Normal range of motion, bilateral lower extremity swelling SKIN: [No rashes or lesions.] NEURO: [Alert and oriented x 3. No gross focal sensory or strength deficits.] PSYCH: Normal affect Course Vital Signs Vital signs: Vital Signs Temperature 96.7 F L 01/26/25 13:25 Pulse Rate 77 01/26/25 13:25 Respiratory Rate 20 01/26/25 13:25 Blood Pressure 98/66 L 01/26/25 13:25 Pulse Oximetry 100 01/26/25 13:25 Oxygen Delivery Room Air 01/26/25 13:25 Temperature 96.7 F L 01/26/25 13:25 Pulse Rate 77 01/26/25 15:04 Respiratory Rate 25 H 01/26/25 15:04 Blood Pressure 108/82 01/26/25 15:04 Pulse Oximetry 99 01/26/25 15:04 Oxygen Delivery Room Air 01/26/25 13:25 MDM - Recheck/Abnormal Lab/Rx MDM Narrative Medical decision making narrative: 79-year-old male presenting to the emergency department with dyspnea, orthopnea and edema, presentation and history of CHF, consistent with most likely CHF exacerbation vs ACS/SC, COPD exacerbation, pneumonia, PE. IV is established and cardiac workup is initiated. Patient is given Lasix IV. Chest x-ray is performed and remarkable for [cardiomegaly with pulmonary vascular congestion]. EKG - 12-Lead: Performed at 1539. Interpreted by me. Paced rhythm. Rate 86 with many PVCs. CA-interval 200. QRS duration 204. QTc 512. [No ST segment elevation or depression]. Patient is started on lasix; I spoke with his marketing intelligence analyst on the phone who request starting dobutamine drip, and Lasix 80 mg IV twice a day. Labs shows elevated creatinine and BNP. [The patient will be admitted for CHF exacerbation and further management.] Consult placed to marketing intelligence analyst. Lab Data 01/26/25 14:32 01/26/25 14:32 Labs: Lab Results 01/26/25 Range/Units 14:32 WBC 5.5 (4.5-10.0) K/mm3 RBC 3.73 L (4.6-6.20) M/mm3 Hgb 11.0 L (14.0-18.0) g/dL Hct 35.8 L (42.0-52.0) % MCV 96.0 (80-100) fl MCH 29.5 (26-34) pg MCHC 30.7 L (32-36) g/dl RDW 16.1 H (11.5-14.5) % Plt Count 173 (150-375) k/mm3 MPV 11.8 H (7.4-10.4) fl Immature Gran % (Auto) 0.2 (0-0.5) % Neut % (Auto) 54.2 (45.5-73.1) % Lymph % (Auto) 27.7 (18.3-44.2) % [place] % (Auto) 11.2 H (2.6-8.5) % Eos % (Auto) 6.0 H (0-4.4) % Baso % (Auto) 0.7 (0.2-1.2) % Lymph # (Auto) 1.53 (0.9-3.2) K/mm3 [place] # (Auto) 0.6 (0.1-0.6) K/mm3 Eos # (Auto) 0.3 (0-0.3) K/mm3 Baso # (Auto) 0.0 (0.0-0.1) K/mm3 Abs Immat Gran (auto) 0.01 (0.00-0.031) K/mm3 Absolute Neuts (auto) 3.0 (1.3-6.7) K/mm3 Absolute Nucleated RBC 0.000 (0.0-0.012) K/mm3 Nucleated RBC % 0.0 (0.0-0.2) % Sodium 136 L (137-145) mmol/L Potassium 4.4 (3.4-5.0) mmol/L Chloride 93 L (98-107) mmol/L Carbon Dioxide 36 H (22-30) mmol/L Anion Gap 7 (4-12) mmol/L BUN 38 H D (9-20) mg/dL Creatinine 1.52 H (0.7-1.3) mg/dL Estim Creat Clear Calc 41 ml/min Estimated GFR 44 L (59 - ) Glucose 90 (65-110) mg/dL Calcium 8.8 (8.4-10.2) mg/dL Total Bilirubin 0.7 (0.2-1.3) mg/dL AST 62 H (17-59) U/L ALT 32 (6-50) U/L Alkaline Phosphatase 97 (38-126) U/L NT-Pro-B Natriuret Pep 22366 H (19.9-100) pg/mL Total Protein 8.0 (6.3-8.2) g/dL Albumin 4.4 (3.5-5.1) g/dL Discharge Plan Discharge Clinical Impression: Acute exacerbation of CHF (congestive heart failure) Patient Disposition: Still a Patient Condition: Stable Patient Language: Tanzanian Prescriptions: No Action Galzin 50 mg (zinc) capsule 50 mg PO DAILY amiodarone 100 mg tablet 100 mg PO DAILY aspirin 81 mg tablet,delayed release (DR/EC) 81 mg PO DAILY cyanocobalamin (vitamin B-12) 1,000 mcg tablet 2,000 mcg PO DAILY furosemide 40 mg tablet 40 mg PO QAM magnesium 200 mg tablet 200 mg PO Q6H Trulicity 1.5 mg/0.5 mL pen injector 1.5 mg subcut WEEKLY Rx Instructions: Wednesdays metformin 500 mg Tablet 1,000 mg PO BID Rx Instructions: with meals multivitamin Tablet 1 tablet PO DAILY miconazole nitrate [Antifungal (miconazole)] 2 % Cream 1 applic TOPICAL PRN PRN (Reason: maceration in folds) dapagliflozin propanediol 10 mg Tablet 10 mg PO DAILY rivaroxaban [Xarelto] 2.5 mg Tablet 2.5 mg PO BID atorvastatin 10 mg tablet 10 mg PO QHS spironolactone 25 mg tablet 25 mg PO QAM lisinopril 10 mg tablet 10 mg PO DAILY docusate sodium [Colace] 100 mg capsule 400 mg PO Q48H diclofenac sodium 75 mg tablet,delayed release (DR/EC) 150 mg PO DAILY PRN (Reason: Pain (Scale Score 1-3)) tramadol 50 mg tablet 50 mg PO BID PRN (Reason: pain) Rx Instructions: ALTERNATES DAILY WITH DICLOFENAC PO FOR PAIN Ozempic 0.25 mg or 0.5 mg (2 mg/3 mL) pen injector 0.5 mg subcut WEEKLY methimazole 5 mg tablet 5 mg PO 5XW docusate sodium 100 mg capsule 300 mg PO Q48H Patient Comments: alternates 400 mg and 300 mg every other day metoprolol succinate 25 mg tablet extended release 24 hr 25 mg PO DAILY Qty: 30 0RF Motegrity 2 mg tablet 2 mg PO DAILY Qty: 90 3RF Follow-up/Referrals: Prakash,Baljit Collins MD [Primary Care Provider, Unknown]
--- OUTSIDE RECORDS SUMMARY | 2025-01-26 15:30 | XMS_ITS ---
Author Name Cynthia Madsen NP Address [address] [place] [address] Phone [phone] Organization [facility] Care Team Providers Care Residential Designer Name Role Phone Cynthia Madsen Unavailable [phone] Song Calhoun Unavailable [phone] [facility] CHW (STL), Alisha Alvarado Unavailable Unavailable [facility] Tier 1 RN (STL), Lorena enamorado Unavailable Unavailable Unavailable Unavailable Cornel Sanderson Unavailable [phone] Magnus Gagnon Unavailable Unavailable YULIANA CAMPOS Unavailable [phone] Baljit Randall Unavailable [phone] Reason for Referral Not Available Allergies, adverse [...] once daily 2023-12-24 No Data Available [facility] Krill Oil 350 mg Cap No Data [...] at least 75 minutes total [facility] [place] [facility] [place] Unspecified diastoli c (congestive) heart failureHypertensive heart disease with heart failureType 2 diabetes w diabetic peripheral angiopath w/o gangreneType 2 diabetes mellitus with other specified complicationMorbid (severe) obesity due to excess caloriesHyperlipidemia, unspecifiedAthscl heart disease of [place] coronary artery w/o ang pctrsThyrotoxicosis, unspecified without thyrotoxic crisis or stormUnspecified osteoarthritis, unspecified siteObstructive sleep apnea (adult) (pediatric)Venous insufficiency (chronic) (peripheral)Body mass index (BMI) 35.0-35.9, adult Home visit for evaluation and management of established patient requiring medically appropriate examination and high level of medical decision making. If using time, at least 60 minutes total time on [facility] 02/25/2024 Unspecified diastoli c (congestive) heart failureType 2 diabetes mellitus with other circulatory complicationsHypertensive heart disease with heart failureHistory of fallingDysphagia, unspecifiedObesity, class 1Pressure ulcer of unspecified site, stage 1 Home visit for evaluation and management of established patient requiring medically appropriate examination and high level of medical decision making. If using time, at least 60 minutes total time on [facility] 02/25/2024 Unspecified diastoli c (congestive) heart failureDysphagia, unspecifiedHistory of fallingBody mass index (bmi) 31.0-31.9, adult Home visit for evaluation and management of established patient requiring medically appropriate examination and high level of medical decision making. If using time, at least 60 minutes total time on [facility] 02/25/2024 Unspecified diastoli c (congestive) heart [...] least 75 minutes total time on encounte [id number] 2023-12-24 No Data Available No Data Availa ble Home visit for evaluation and management of established patient requiring medically appropriate examination and high level of medical decision making. If using time, [place] 60 [place] [id number] 2024-02-25 No Data Available No Data Availa ble Patient screened for fall risk; 2 or more falls in the last year or fall with injury in the last year [id number] 2024-02-25 No Data Available No Data Availa ble No Data Available [id number] 2024-02-25 No Data Available No Data Available Functional Status Functional Category Effective Dates last fall was at [facility], lost his balance, this was in [...] type 2 diabetes mellituscontinue statin and XareltoContinue [id number] well controlledcontinue metformin 1000mg BIDCoronary artery diseasedenies [...] mg Tab 4 tablets once daily #90 [id number]: Primarily Home Social Work (STL) -- please [...] reminder. I put in for 01/13 in [facility] but may change to align with nurse and provider schedule as he is in [place]. THANKS!.01/20 cardiology- device check with nurse after making changes 01/27 endocrine for hyperthyroid and DMII02/21 cardiology, meeting Vladimir03/[address] Agudelo 03/17 [facility] seeing PT and pain management rotating [...] continued, and he was referred to the [place] [facility] in addition to the compression devices.He saw his wire galvanizer DINESH Gutierrez on 01/28, he is documented [...] appointment on 02/[address] [facility].Today, we reviewed his medications [...] [address] Granger at [facility] had been going to the [...] continued, and he was referred to the [facility] [facility] in addition to the compression devices.He saw his wire galvanizer DINESH Gutierrez on 01/28, he is documented [...] appointment on 02/[address] Gilbert with [facility].Today, we reviewed his medications [...] [address] Granger at [facility] had been going to the [...]
--- NOTE | 2025-01-26 15:31 | ECG_ITS ---
Test Date: 2025-01-26 15:39:25 Measurements Intervals [place] Rate: 86 P: -82 [place]: 200 QRS: -71 QRSD: 204 T: 114 QT: 428 QTc: 512 Interpretive Statements ELECTRONIC ATRIAL PACEMAKER ELECTRONIC VENTRICULAR PACEMAKER ABNORMAL RHYTHM ECG Electronically Signed On 01-26-2025 18:44:45 BEHAVIOR ANALYST by Zoe Levy M.D.
--- OUTSIDE RECORDS SUMMARY | 2025-01-26 15:31 | XMS_ITS | Encounter Summary ---
Author Organization [facility] Address [address] [place] [address] Care Team Providers Care Timing Machine Operator Name Role Phone Baljit Randall MD Primary Care Provider [phone] Caden Guajardo MD Unavailable [phone] Randall Hartman MD Unavailable Encounter Details Date Type Department Care Team (Late st Contact Info) Description 01/23/2025 Telephone [facility] Cardiology [address] [place] [address] Randall Hratman MD [address] [place] [address] Social History Tobacco Use Types Packs/Day Years Used Date Smoking Tobacco: Former Cigarettes 1 17 0 03/26/1964 - 03/26/1981 Pipe [employer]ig[employer] Passive Smoke Exposure: Past Smokeless Tobacco: Never Alcohol Use Standard Drinks/Week Comments Yes 3 (1 standard drink = 0.6 oz pur e alcohol) weekly Social Connection and Isolation Panel Answer Date Recorded In a typical week, how many times do you talk on the phone with family, friends, or neighbors? More than three times a week 12/12/2022 How often do you get togethe r with friends or relatives? Three times a week 12/12/2022 How often do you attend [facility] or jehovah's witness services? 1 to 4 times per year 12/12/2022 Do you belong to any clubs o r organizations such as religious groups, unions, fraternal or athletic groups, or [...] place to sleep or slept in a fdc (including now)? No 12/12/2022 Personal Safety Answer Date Recorded Have you ever been in or are you currently in a harmful physical or emotional relationship or is someone making you feel afraid or unsafe? 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 Pt verbalizes understanding and will go to ER. Spoke with live out nanny Diana in ER to make her aware. His renal function is worsening and I would like him to come into [facility] for inotrope assisted diuresis and to manage his medications for him. Randall Naqvi PICKER * Telephone Encounter - Kaley Martin RN - 01/23/2025 2:22 PM CDT Forwarded to * Telephone Encounter - Lyn Jacobson - 01/23/2025 1:19 PM CDT Patient called in and is wanting to know how much longer he is going to be taking increased dosage of furosemide (LASIX) 40 mg tablet. He states that he is going to need another supply of medicationssent in to make up for the increased dosage. Patient also states that he has lost 4 lbs, but is still needing to lose 2-3 lbs to get to the 220 lb weight. Please advise.Thank you. Contact : [phone] documented in this encounter Plan of Treatment Not on file documented as of this encounter Visit Diagnoses Not on filedocumented in this encounter Care Teams Timing Machine Operator Relationship Specialty Start Date End Date Baljit Randall MD PCP - General Family Medicine 01/20/21 Caden Guajardo MD [address] [facility] [address] [place] [address] Consulting Physician Cardiology 07/02/24 Randall Hartman MD [address] [facility] [address] [facility] [address] [place] [address] Consulting Physician Cardiology 12/29/24 documented as of this encounter
--- OUTSIDE RECORDS SUMMARY | 2025-01-26 15:31 | XMS_ITS | Clinical Summary ---
Author Organization [facility] [place] [facility] [place] [address] [facility] [address] [place] [address] Care Team Providers Care Global Human Resources Director Name Role Phone Baljit Randall MD Primary Care Provider [phone] Caden Guajardo MD Unavailable Randall Hartman MD Unavailable Allergies Active Allergy Reactions Criticality Noted Date Comments Amiodarone Unknown 10/21/2024 Clindamycin Hives,Unknown Medium 02/24/2019 Medications cyanocobalami n (vitamin B-12) [...] total) by mouth daily 11/12/19 24 Active Farxiga 10 mg tablet TAKE 1 TABLET BY MOUTH DAILY 90 tablet 3 08/01/19 25 Active atorvastatin (LIPITOR) 10 mg tablet TAKE 1 TABLET BY MOUTH DAILY NEEDS APPOINTMENT 90 tablet 3 08/01/19 25 Active rivaroxaban (Xarelto) 2.5 mg tablet Take 1 tablet (2.5 mg total) by mouth 2 (two) times a day 180 tablet 3 08/27/19 25 Active L58-bqfeiytet ate calcium-B6 (FOLBIC RF) 2-1.13-25 mg tablet Take 1 tablet by mouth clinical secretary before breakfast 30 tablet 2 09/02/19 25 [...] DAYS 9 mL 1 09/09/19 25 Active polyethylene glycol (MIRALAX) 17 gram packetIndicat ions:constipa tion Take 1 packet (17 g total) by mouth daily Active sacubitriL-va lsartan (ENTRESTO) 24-26 mg tabletIndicat ions:chronic heart failure Take 0.5 tablets by mouth 2 (two) times a day 30 tablet 11 10/30/19 25 Active folic acid-vitamin B6-vitamin B12 (Folbic) 2.5-25-2 mg tablet TAKE 1 TABLET BY MOUTH IN THE MORNING BEFORE BREAKFAST 30 tablet 2 10/31/19 25 Active levocetirizin e (XYZAL) 5 mg tabletIndicat ions:Dysfunct ion of both eustachian tubes Take 1 tablet (5 mg total) by mouth daily 30 tablet 5 11/18/19 25 Active traMADoL (ULTRAM) 50 mg tablet Take 1 tablet (50 mg total) by mouth every 6 (six) hours as needed for pain 120 tablet 2 12/13/[address] (VOLTAREN) 75 mg EC tablet TAKE 1 TABLET BY MOUTH TWICE DAILY 180 tablet 3 01/14/20 25 Active methIMAzole (TAPAZOLE) 5 mg tabletIndicat ions:Type 2 diabetes mellitus with hyperglycemia , without long-term current use of insulin ([facility]) TAKE 1 TABLET BY MOUTH DAILY 5 DAYS A WEEK, SUNDAY THROUGH SUNDAY. DO NOT TAKE ANY ON THE WEEKENDS 60 tablet 1 01/23/20 25 Active metoprolol XL (TOPROL-XL) 25 mg extended release tablet Take 1 tablet by mouth once daily 30 tablet 2 01/22/20 25 Active metOLazone (ZAROXOLYN) 5 mg tabletIndicat ions:Chronic systolic congestive heart failure (HCC) Take 1 tablet (5 mg total) by mouth daily for 3 days Take 30 minutes before morning dose of furosemide/las ix. 3 tablet 01/22/20 25 Active furosemide (LASIX) 40 mg tablet Take 1 tablet (40 mg total) by mouth daily 90 tablet 3 01/24/20 25 Active methIMAzole (TAPAZOLE) 5 mg tabletIndicat ions:Type 2 diabetes mellitus with hyperglycemia , without long-term current use of insulin ([facility]) TAKE 1 TABLET (5 MG TOTAL) BY MOUTH DAILY 5 days a week, Sunday through Sunday. Do not take any on the weekends 60 tablet 1 03/13/20 24 025 Discontinued furosemide (LASIX) 40 mg tablet TAKE 1 TABLET BY MOUTH DAILY 90 tablet 3 08/01/19 25 025 Discontinued(Re order) metoprolol XL (TOPROL-XL) 25 mg extended release tablet Take 1 tablet (25 mg total) by mouth daily 30 tablet 2 10/25/19 [address] (VOLTAREN) 75 mg EC tablet Take 1 tablet (75 mg total) by mouth 2 (two) times a day 180 tablet 12/20/19 25 025 Discontinued Active Problems Problem Noted Date Diagnosed Date Dysfunction of both eustachian tubes 11/17/2024 Postnasal drip 11/17/2024 Bradycardia 04/12/2023 Cardiac pacemaker in situ 04/12/2023 Overview (07/28/2024): Medtronic [place] Dual Pacemaker. Dx; Bradycardia, AV Block. DOI 04/23/2023- [employer]. [employer]. [employer] remote. 07/28/24-transferred to [place]. Morbid (severe) obesity due to excess calories 0 04/10/2023 Class 2 severe obesity due t o excess calories with serious comorbidity and body mass index (BMI) of 37.0 to 37.9 in adult 04/10/2023 Assessment & Plan (04/10/2023 1:55 PM DIRECTOR OF FRONT OFFICE): Discussed healthy diet and importance of regular [...] infection. Assessment & Plan (05/19/2024 10:45 AM DIRECTOR OF FRONT OFFICE): Chronic problem. A1c at goal w/o hypoglycemia. A1c today=5.1%, was 5.9% 01/15/24. Stop the metformin. Will re-evaluate at next appointment if we need to stop the Farxiga additionally. Current medications: Farxiga 10mg daily Ozempic 0.5 mg weekly UTD on DM eye exam (04/19/23 no DMR). Had appt 04/2024 at [facility]. Letter sent to get copy of report. Will update labs. Verified that he uses [employer]. Aware to check results/results letter in [employer]. Will contact by phone if needed. Strive [...] meals Assessment & Plan (04/10/2023 1:51 PM DIRECTOR OF FRONT OFFICE): Chronic problem. A1c at goal w/o hypoglycemia. [...] benign. Assessment & Plan (05/19/2024 10:21 AM DIRECTOR OF FRONT OFFICE): Last thyroid US by Dr Sanderson 01/12/23: These nodules are not new. You have nodules that have been seen in ultrasound in the past and you even had biopsy of these nodules which are benign. Assessment & Plan (04/10/2023 1:54 PM DIRECTOR OF FRONT OFFICE): Last thyroid US 01/2021. Has not had repeat imaging since that time. Will repeat US at 06/[address] Sanderson. Assessment & Plan (02/03/2020 7:02 PM DIRECTOR OF FRONT OFFICE): We reviewed the ultrasound images with the [...] mychart. Aware to check results/results letter in [employer]. Will contact by phone if needed. Assessment & Plan (05/19/2024 10:20 AM DIRECTOR OF FRONT OFFICE): Chronic problem. Currently taking methimazole 5mg 5 days/wk; none on weekends. Will update TFTs today. Verified that he uses [employer]. Aware to check results/results letter in mychart. Will contact by phone if needed. Assessment & Plan (09/25/2023 1:05 PM CDT): Probably hypothyroid now. Update TFTs Will adjust dose of methimazole, as indicated Assessment & Plan (07/03/2023 2:48 PM CDT): Clinically euthyroid Update TFTs Assessment & Plan (04/10/2023 1:24 PM DIRECTOR OF FRONT OFFICE): Chronic problem. No labs since 12/07/22. 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 She had recommended beginning Tapazole which patient has not started yet. Will coordinate between Dr. Don in the cardiology. Labs are pending from today and will repeat again in 3 months Vitamin D deficiency 01/28/2018 Assessment & Plan (01/28/2018 1:46 PM DIRECTOR OF FRONT OFFICE): Level over 30 04/12, will repeat -check 25 hydroxy vitamin-D History of gastric bypass 01/28/2018 Assessment & Plan (01/28/2018 1:47 PM DIRECTOR OF FRONT OFFICE): Will monitor the following yearly (will order) [...] safety Assessment & Plan (04/13/2021 12:33 PM DIRECTOR OF FRONT OFFICE): -CKD increases risk of hypoglycemia -Will closely monitor glucose pattern in ensure margin of safety Assessment & Plan (04/29/2018 4:51 PM DIRECTOR OF FRONT OFFICE): Creatinine is much improved and back to baseline Will repeat renal panel in 3 months Coronary artery disease invo lving [place] coronary artery of [place] heart without angina pectoris 02/11/2016 Overview (06/29/2016): Coronary artery disease involving [place] coronary artery of [place] heart without angina pectoris Ascending aorta dilatation ([facility]) 02/11/2016 Overview (06/29/2016): Ascending aorta dilatation Mixed diabetic hyperlipidemi a associated with type 2 diabetes mellitus ([facility]/HCC) 02/11/2016 Overview (06/29/2016): Type 2 diabetes mellitus with complication, unspecified mcfp insulin use status Assessment & Plan (09/11/2024 11:49 AM CDT): Chronic problem. Controlled on current Atorvastatin 10mg. Last lipid panel: 01/15/24 LDL=57, TG=97. Assessment & Plan (05/19/2024 10:20 AM DIRECTOR OF FRONT OFFICE): Chronic problem. Controlled on current Atorvastatin 10mg. Last lipid panel: 01/15/24 LDL=57, TG=97. Assessment & Plan (07/03/2023 2:49 PM CDT): Chronic, stable . Continue statin therapy with Lipitor 10 mg daily Assessment & Plan (04/10/2023 1:23 PM DIRECTOR OF FRONT OFFICE): Chronic problem. Controlled on current Atorvastatin 10mg. Last lipid panel: 08/10/22 LDL=42, UG=852. Assessment & Plan (01/15/2023 10:16 AM CDT): Chronic problem. Controlled on current Atorvastatin 10mg. Last lipid panel: 08/10/22 LDL=42, HA=578. Assessment & Plan (10/17/2022 2:32 PM CDT): Chronic, well controlled. Continue atorvastastin Type 2 diabetes mellitus with diabetic neuropath y 04/01/2015 Assessment & Plan (09/11/2024 11:50 AM CDT): Chronic problem. Reviewed foot care; needs to lotion daily. Aware to check feet nightly, not to go barefoot. Assessment & Plan (05/19/2024 10:21 AM DIRECTOR OF FRONT OFFICE): Chronic problem. Reviewed foot care; needs to lotion daily. Aware to check feet nightly, not to go barefoot. Assessment & Plan (04/10/2023 1:24 PM DIRECTOR OF FRONT OFFICE): Chronic problem. Aware to check feet & [...] Metformin Assessment & Plan (04/18/2022 4:44 PM DIRECTOR OF FRONT OFFICE): Hba1c was Lab Results Component Value Date [...] 07/12/21 Assessment & Plan (04/13/2021 12:31 PM DIRECTOR OF FRONT OFFICE): -Currently taking oral agents and Trulicity -A1C on 04/13/21 was 6.4% -Will continue same medications at this time -Discussed diet and activity modifications. -Eye exam is up to date -Foot exam per foot nurse today Assessment & Plan (04/29/2018 4:48 PM DIRECTOR OF FRONT OFFICE): Diabetes control is markedly improved with the [...] day Assessment & Plan (01/28/2018 1:49 PM DIRECTOR OF FRONT OFFICE): Poor control with recent increase in HgbA1C. [...] different times and keep track -refer to industry segment specialist to review blood sugars in 6 weeks [...] 09/18/2023 Assessment & Plan (04/10/2023 1:24 PM DIRECTOR OF FRONT OFFICE): Chronic problem. Lisinopril 2.5mg daily, metoprolol tartrate 50mg bid, lasix 80mg daily, spironolactone 25mg daily Assessment & Plan (01/15/2023 10:42 AM CDT): Chronic problem. Lisinopril 2.5mg daily, metoprolol tartrate 50mg bid, lasix 80mg daily, spironolactone 25mg daily Assessment & Plan (10/17/2022 2:32 PM CDT): Chronic, well controlled Continue current meds Lymphadenopathy 03/31/2021 04/20/2021 Overview (03/31/2021): Added automatically from request for surgery [id number] Assessment & Plan (04/13/2021 12:34 PM DIRECTOR OF FRONT OFFICE): -FNA suspicious for Hodgkin's Lymphoma -Has been seen by oncology and ENT -Scheduled for lymph node excisional biopsy tomorrow Screening PSA (prostate specific antigen) 03/15/2020 09/01/2024 Low TSH level 02/20/2018 01/20/2021 RHETT (acute kidney injury) 09/05/2017 At risk for amiodarone toxic ity with director music use 08/27/2017 12/19/2022 Morbid obesity with BMI [...] weeks. Assessment & Plan (05/30/2017 3:05 PM DIRECTOR OF FRONT OFFICE): Previous 12-lead EKG shows ventricular bigeminy. There [...] management Assessment & Plan (04/13/2021 12:33 PM DIRECTOR OF FRONT OFFICE): -Continue same medical management Assessment & Plan (01/28/2018 1:46 PM DIRECTOR OF FRONT OFFICE): LDL 51 11/10 On atorvastatin Chronic coronary [...] monitor. Assessment & Plan (04/13/2021 12:33 PM DIRECTOR OF FRONT OFFICE): -BP today is 130/66 -Will continue same antihypertensive medications at this time. Osteoarthritis 07/02/2012 09/01/2024 Onychomycosis due to dermatophyte 04/18/2012 09/01/2024 Skin callus 04/18/2012 04/20/2021 Psoriasis 05/08/2011 09/01/2024 Nocturia 05/08/2011 01/20/2021 Slowing of urinary stream 05/08/2011 Encounters Date Type Department Care Team Description 01/23/2025 1:55 PM CDT Lab [address] [address] Chronic systolic congestive heart failure (HCC); CKD stage G3a/A1, GFR 45-59 and albumin creatinine ratio <30 mg/g (HCC) 01/23/2025 Telephone [facility] Medical [facility] Cardiology [address] [place] [address] [address] [place] [phone] Randall Hartman MD 01/23/2025 Results Follow-Up [facility] [address] [facility] [address] [place] [phone] Lakeshia Millan NP Transthoracic Echo (TTE) Complete W Doppler/CF 01/21/2025 Results Follow-Up [facility] Cardiology [address] [place] [address] [address] [place] [phone] Charlee Marie RN Basic metabolic panel, Pro B-type natriuretic peptide, eGFR 01/21/2025 Results Follow-Up [facility] Family Medicine at [address] [place] [phone] Baljit Randall MD Stool DNA - Cologuard 01/20/2025 12:00 PM CDT Lab [address] [address] Chronic systolic congestive heart failure (HCC) 01/19/2025 2:06 PM CDT - 01/19/2025 11:59 PM CDT Hospital Encounter [facility] OP Cardiac Testing [address] [facility] [address], [place] [address] Cardiac arrhythmia, unspecified cardiac arrhythmia type Discharge Disposition: Discharge to home or self care 01/19/2025 Telephone [facility] Family Medicine at [address] [place] [address] Baljit Randall MD 01/13/2025 Telephone [facility] Cardiology [address] [facility] [address] [place] [phone] Randall Hartman MD 01/01/2025 11:30 AM CDT Office Visit [facility] Family Medicine at [address] [place] [address] Baljit Randall MD Ulcer of left foot, limited to breakdown of skin (HCC) (Primary Dx); Wound of left lower extremity, subsequent encounter; Wound of sacral region, subsequent encounter; Need for vaccination 12/31/2024 Orders Only [facility] Cardiology [address] [place] [address] [place] [phone] Randall Hartman MD Chronic systolic congestive heart failure (HCC) (Primary Dx) 12/30/2024 Orders Only [facility] [address] [facility] [address] [place] [address] Lakeshia Millan NP Cardiac arrhythmia, unspecified cardiac arrhythmia type (Primary Dx) 12/29/2024 Telephone [facility] Cardiology [address] [place] [address] [place] [phone] Landry Leon MD Congestive Heart Failure 12/29/2024 Telephone [facility] Gastroenterology at [address] [place] [phone] Suhas Mahmood MD 12/24/2024 Orders Only [facility] Family Medicine at [address] [place] [phone] Baljit Randall MD Skin ulcer, unspecified ulcer stage (HCC) (Primary Dx) 12/09/2024 1:00 PM CDT Office Visit [facility] [address] [facility] [address] [place] [phone] Lakeshia Millan NP Cardiac arrhythmia, unspecified cardiac arrhythmia type (Primary Dx); Cardiac pacemaker in situ 12/08/2024 11:00 AM CDT Office Visit [facility] Cardiology [address] [place] [phone] Randall Hartman MD Encounter for screening colonoscopy (Primary Dx) 12/05/2024 1:40 PM CDT Lab [facility] [address] [place] [address] Chronic systolic congestive heart failure (HCC) 11/21/2024 Orders Only [facility] [address] [facility] Medical Office Building [address] [place] [phone] Bela Herzog MD 11/18/2024 11:00 AM CDT Office Visit [facility] Pulmonology [address] [facility] [address] [place] [address] Eneida Malloy MD HFrEF (heart failure with reduced ejection fraction) (Primary Dx); Dyspnea and respiratory abnormalities; Pleural effusion 11/17/2024 3:15 PM CDT Office Visit [facility] [address] [place] [address] Santosh Wilson II, MD Dysfunction of both eustachian tubes (Primary Dx); Postnasal drip 11/05/2024 Telephone [facility] Family Medicine at [address] [place] [address] Baljit Randall MD Recommendation Request; Sleep Study (Results.) 10/31/2024 Telephone [facility] [address] [facility] [address], [place] [address] Amrita German RN 10/29/2024 Results Follow-Up [facility] Family Medicine at [address] [place] [phone] Baljit Randall MD XR Chest Pa Lateral 2 Views 10/29/2024 Telephone [facility] Medical Group Cardiology [address] [place] [phone] Randall Hartman MD 10/29/2024 Orders Only [facility] Family Medicine at [address] [place] [address] Baljit Randall MD Chronic systolic congestive heart failure (HCC) from Last 3 Months Immunizations Immunization Administration Dates Next Due Hep A, Adult 03/28/2000,09/21/1999 Hep B Vaccine 03/28/2000,11/09/1999,09/21/1999 Influenza, Quad, Adjuvantate d, Intramuscular 12/26/2021 Influenza, Quadrivalent, Hig h Dose, Preservative Free, Intrr 01/04/2023,01/09/2021,12/05/2019 Influenza, Quadrivalent, Rec ombinant, Egg Free, Preservative Free, Intramuscular 12/13/2018 Influenza, Trivalent, High D ose, Split, Preservative Free, Intramuscular 01/01/2025,12/26/2017 Influenza, Trivalent, IM (MDV) 9,01/01/2017,01/25/2016,12/07,04/25/2011,02/01/2010,02/25/2008 ,01/07/2007,02/20/2006 Influenza, Trivalent, Preser vative Free, Intramuscular 12/21/2014,01/09/2013,03/26/2011 Influenza, Unspecified 12/25/2023,12/28/2021, [employer] SARS-CoV-2 Monovalent Vaccination (12+ Yrs) PURPLE 01/09/2021,06/08/2020,05/18/2020 Pneumococcal Conjugate PCV 13 02/01/2015 Pneumococcal Conjugate Pcv20 12/21/2022 Pneumococcal Polysaccharide PPV23 02/09/2009,03/2008,01/05/1998 RSV, Bivalent, Protein Subun it Rsvpref, Diluent (Abrysvo) 01/08/2023 Td, Not Adsorbed 02/09/2009,09/21/1999 Td, adsorbed 09/21/1999 ZOSTER LIVE 01/07/2007 ZOSTER Recombinant 07/17/2023,03/06/2023 Surgical History Surgery Date Site/Laterality Comments CHOLECYSTECTOMY 1969' GASTRIC BYPASS 1999' TONSILECTOMY, ADENOIDECTOMY, BILATERAL MYRINGOTOMY AND TUBES 03/26/1947 - 03/25/1948 HEMORRHOID SURGERY CATARACT EXTRACTION 2017 & 2024 Right ABDOMINAL SURGERY rue en y gastric by-pass surgery US GUIDED BIOPSY LYMPH NODE SUPERFICIAL LEFT 02/28/2021 N/A CARDIAC CATHETERIZATION c2017 non-obstructive disease (10-20%) CARDIAC PACEMAKER PLACEMENT 04/23/2023 GASTRIC RESTRICTION SURGERY Medical History Medical History Date Comments CHF (congestive heart failure) (HCC) Diabetes mellitus 1994 Hypertension 1981 Hyperlipidemia Ventricular tachycardia (HCC) Sleep apnea 2004 CAD (coronary artery disease) Arthritis Cataract 2017 Thyroid disease 2019 Cataract 2018 HTN (hypertension) Sinusitis Thyroid disease 2019 Cancer (HCC) Hodgkins lymphoma Heart disease 2001 Anemia 2018 Ear problems Acute cystitis without hematuria 12/07/2022 Coronary artery disease invo [place] coronary artery of [place] heart without angina pectoris SOB (shortness of [...] often do you attend chur ch or protestant services? 1 to 4 times per year 12/12/2022 Do you belong to any clubs o r organizations such as bahai groups, unions, fraternal or athletic groups, or [...] place to sleep or slept in a nursing home (including now)? No 12/12/2022 Personal Safety Answer Date Recorded Have you ever been in or are you currently in a harmful physical or emotional relationship or is someone making you feel afraid or unsafe? Denies 08/28/2024 Sex and Gender Information Value Date Recorded Sex Assigned at Not on file Legal Sex Male 3:19 AM DIRECTOR OF FRONT OFFICE Gender Identity Not on file Sexual Orientation Straight 03/23/2019 1: 09 AM DIRECTOR OF FRONT OFFICE Last Filed Vital Signs Vital Sign Reading Time Taken Comments Blood Pressure 112/60 01/01/2025 12:01 PM CDT Pulse 92 01/01/2025 12:01 PM CDT Temperature 36.4 C (97.6 F) 01/01/2025 12:01 PM CDT Respiratory Rate 16 12/08/2024 11:10 AM CDT Oxygen Saturation 99% 01/01/2025 12:01 PM CDT Inhaled Oxygen Concentration - - Weight 100.2 kg (221 lb) 01/01/2025 12:01 PM CDT Height 177.8 cm (5' 10) 01/01/2025 12:01 PM CDT Body Mass Index 31.71 01/01/2025 12:01 PM CDT Plan of Treatment Health Maintenance Due Date Last Done Comments DTaP/Tdap/Td Vaccine (1 - Tdap) 2009 02/09/2009, 09/21/1999, 09/21/1999 Well Visit 65+ 09/17/2024 09/18/2023, 03/15/2023 Fall Risk Assessment 09/24/2024 09/25/2023, 09/18/2023, 04/24/2023, Additional history exists Covid-19 Vaccine (2024-2 6 season) 2024 07/17/2023, 01/08/2023, 12/26/2021, Additional history exists Lipid Panel 01/14/2025 01/15/2024, 07/24, 01/31/2022, Additional history exists Hemoglobin A1C 03/13/2025 09/11/2024, 04/27, 01/15/2024, Additional history exists Albumin Creatinine Ratio, Urine 05/19/2025 05/19/2024, 08/10/2022, 01/31/2022, Additional history exists Foot Exam 05/19/2025 05/19/2024, 02/24, 01/15/2023, Additional history exists Depression Screening 10/21/2025 10/21/2024, 09/18/2023, 03/15/2023, Additional history exists eGFR 01/23/2026 01/23/2025, 12/25, 12/05/2024, Additional history exists Dilated Eye Exam 04/29/2026 04/29/2024, , 04/19/2023, Additional history exists Hepatitis B Screening Completed 03/28/2000 , 11/09/1999, 09/21/1999 Pneumococcal vaccine 65+ Completed 023, 02/01/2015, 02/09/2009, Additional history exists Abdominal Aortic Aneurysm (A AA) Screen Completed 04/27/2023 Zoster Vaccine Completed 07/17/2023, 02/23, 01/07/2007 Influenza Vaccine Completed 01/01/2025, , 01/04/2023, Additional history exists Medical Devices Implanted Type Area Director Of Enterprise Architecture Device Identifier Shelf Expiration Date Model / Serial / Lot Medtronic Inc Meenakshi S Mri Surescan 50.8x46.6mm 2 Chamber 7.4mm Pacemaker 22.5gm [id number] - [id number] Implanted:Qty: 1 on 04/23/2023 by Nestor Sutherland MD at [facility] Pacemaker Med[employer]onic Inc 08/06/2024 [id number] / / [employer] Device Closure Vascade Od5 Fr Femoral Artery [id number] - [id number] Implanted:Qty: 1 on 01/17/2023 by Zoe Levy MD at [facility] [employer] 11/20/2024 [id number] / / [id number] Medtronic Inc Capsurefix Novus 6.2fr 2mm 52cm Bipolar Screw In Implantable Latex Free 5076-52 - [id number] Implanted:Qty: 1 on 04/23/2023 by Nestor Sutherland MD at [facility] [employer] Inc 01/04/2025 [id number] / / Medtronic Inc Capsurefix Novus 6.2fr 2mm 58cm Bipolar Screw In Implantable 5076-58 - [id number] Implanted:Qty: 1 on 04/23/2023 by Nestor Sutherland MD at [facility] [employer] 12/26/2024 [id number] / / Procedures Procedure Name Priority Date/Time Associated Diagnosis Comments EGFR Routine 01/23/2025 2:05 PM CDT Chronic systolic congestive heart failure (HCC) CKD stage G3a/A1, GFR 45-59 and albumin creatinine ratio <30 mg/g (HCC) COMPREHENSIVE METABOLIC PANEL Routine 01/23/2025 2:05 PM CDT Chronic systolic congestive heart failure (HCC) CKD stage G3a/A1, GFR 45-59 and albumin creatinine ratio <30 mg/g (HCC) PRO B-TYPE NATRIURETIC PEPTIDE Routine 01/23/2025 2:05 PM CDT Chronic systolic congestive heart failure (HCC) CKD stage G3a/A1, GFR 45-59 and albumin creatinine ratio <30 mg/g (HCC) EGFR Routine 01/20/2025 12:04 PM CDT Chronic systolic congestive heart failure (HCC) PRO B-TYPE NATRIURETIC PEPTIDE Routine 01/20/2025 12:04 PM CDT Chronic systolic congestive heart failure (HCC) BASIC METABOLIC PANEL Routine 01/20/2025 12:04 PM CDT Chronic systolic congestive heart failure (HCC) TRANSTHORACIC ECHO (TTE) COMPLETE W DOPPLER/CF WO CONTRAST Routine 01/19/2025 3:47 PM CDT Cardiac arrhythmia, unspecified cardiac arrhythmia type STOOL DNA COLOGUARD Routine 01/17/2025 4:01 PM CDT Colon cancer screening ECG 12-LEAD Routine 12/09/2024 1:08 PM CDT Cardiac arrhythmia, unspecified cardiac arrhythmia type EGFR Routine 12/05/2024 1:51 PM CDT Chronic systolic congestive heart failure (HCC) COMPREHENSIVE METABOLIC PANEL Routine 12/05/2024 1:51 PM CDT Chronic systolic congestive heart failure (HCC) PRO B-TYPE NATRIURETIC PEPTIDE Routine 12/05/2024 1:51 PM CDT Chronic systolic congestive heart failure (HCC) DEVICE CHECK - REMOTE Routine 11/21/2024 8:43 AM CDT XR CHEST PA LATERAL 2 VIEWS Schedule Routine, Read Routine (OP Routine) 10/27/2024 Chronic systolic congestive heart failure (HCC) PORTABLE/HOME SLEEP STUDY Routine 10/26/2024 POCT HEMOGLOBIN A1C Routine 09/11/2024 1 1:23 AM CDT Type 2 diabetes mellitus with hyperglycemia, without long-term current use of insulin (HCC) ALBUMIN CREATININE RATIO, URINE Routine 05/19/2024 10:51 AM DIRECTOR OF FRONT OFFICE Type 2 diabetes mellitus with hyperglycemia, without long-term current use of insulin (HCC) HM DIABETES EYE EXAM Routine 04/29/2024 12:03 PM DIRECTOR OF FRONT OFFICE LIPID PANEL Routine 01/15/2024 2:30 PM CDT Type 2 diabetes mellitus with diabetic neuropathy, without long-term current use of insulin (HCC) CT ABDOMEN W WO CONTRAST Schedule Routine, Read Routine (OP Routine) 04/27/2023 1:47 PM DIRECTOR OF FRONT OFFICE Kidney lesion from Last 3 Months or Most Recently Relevant to Health Maintenance Results * (ABNORMAL) eGFR (01/23/2025 2:05 PM CDT) eGFR 39(L) >=60 mL/min/1. 73 m2 Comment: Interpretive Data [...] interpretive data was last reviewed 2021. Blood 01/23/2025 2:05 PM CDT 01/23/2025 6:53 PM CDT us Randall Hartman MD LAB BLOOD ORDERABLES Final Resul t [facility] [address] [facility] [place] [address] * (ABNORMAL) Pro B-type natriuretic peptide (01/23/2025 2:05 PM CDT) NT-proBNP 9,290(H) <=450 pg/mL Comment: Interpretive Comments: A. Dyspnea [...] Interpretive Data Last Revised Date: 2017. Blood 01/23/2025 2:05 PM CDT 01/23/2025 6:53 PM CDT us Randall Hartman MD LAB BLOOD ORDERABLES Final Resul t [facility] [address] [facility] [place] [address] * (ABNORMAL) Comprehensive metabolic panel (01/23/2025 2:05 PM CDT) Sodium 140 135 - 145 mmol/L Potassium, pl 4.7 3.3 - 4.9 mmol/L [facility] Chloride 98 97 - 110 mmol/L [facility] CO2 35(H) 22 - 32 mmol/L [facility] Anion gap 7 2 - 15 mmol/L [facility] BUN 31(H) 6 - 25 mg/dL [facility] Creatinine 1.74(H) 0.80 - 1.30 mg/dL [facility] Glucose 140 70 - 199 mg/dL [facility] Comment: Interpretive Data Fasting glucose >/= [...] interpretive data was last revised 2022. Calcium 9.3 8.5 - 10.3 mg/dL [facility] Bilirubin, total 0.5 0.1 - 1.2 mg/dL [facility] Protein, pl 7.0 6.5 - 8.5 g/dL [facility] Albumin 3.7 3.5 - 5.0 g/dL [facility] Alk phos 100 40 - 130 Units/L [facility] ALT 17 7 - 55 Units/L [facility] AST 37 10 - 50 Units/L [facility] Blood 01/23/2025 2:05 PM CDT 01/23/2025 6:53 PM CDT us Randall Hartman MD LAB BLOOD ORDERABLES Final Resul t [facility] [address] [facility] [place] [address] * (ABNORMAL) eGFR (01/20/2025 12:04 PM CDT) eGFR 43(L) >=60 mL/min/1. 73 m2 Comment: Interpretive Data [...] of Race in Diagnosing Kidney Disease, JASN 202). The CKD-EPI equation should not be used for patients with unstable renal function and has not been validated in children and those over 70. Current interpretive data was last reviewed 2021. Blood 01/20/2025 12:0 4 PM CDT 01/20/2025 1:50 PM CDT Randall Hartman MD LAB BLOOD ORDERABLES Final Resul t Performing Organization Address City/State/[facility] Phone Number MARY [address] [facility] [place] [address] * (ABNORMAL) Pro B-type natriuretic peptide (01/20/2025 12:04 PM CDT) NT-proBNP 10,149(H) <=450 pg/mL Comment: Interpretive Comments: A. Dyspnea [...] Interpretive Data Last Revised Date: 2017. Blood 01/20/2025 12:0 4 PM CDT 01/20/2025 1:50 PM CDT Randall Hartman MD LAB BLOOD ORDERABLES Final Resul t MARY [address] [facility] [place] [address] * (ABNORMAL) Basic metabolic panel (01/20/2025 12:04 PM CDT) Pathologist [facility] Sodium 141 135 - 145 mmol/L Potassium, pl 5.1(H) 3.3 - 4.9 mmol/L [facility] Chloride 100 97 - 110 mmol/L [facility] CO2 33(H) 22 - 32 mmol/L [facility] Anion gap 8 2 - 15 mmol/L [facility] BUN 28(H) 6 - 25 mg/dL [facility] Creatinine 1.59(H) 0.80 - 1.30 mg/dL [facility] Glucose 133 70 - 199 mg/dL [facility] Comment: Interpretive Data Fasting glucose >/= [...] classification and Diagnosis of Diabetes Diabetes Care 2021; 46: S19-S40. Current interpretive data was last revised 2022. Calcium 9.5 8.5 - 10.3 mg/dL [facility] Blood 01/20/2025 12:0 4 PM CDT 01/20/2025 1:50 PM CDT us Randall Hartman MD LAB BLOOD ORDERABLES Final Resul t Performing Organization Address [facility] Co de Phone Number MARY [address] [facility] [place] [address] * TRANSTHORACIC ECHO (TTE) COMPLETE W DOPPLER/CF WO CONTRAST (01/19/2025 3:47 PM CDT) [facility] EF Mod BP 31 % CONS SCIMAGE Anatomical Region Laterality Modality Ultrasound 01/19/2025 2:10 PM CDT Narrative 01/19/2025 4:19 PM CDT [facility] [address] [place] [id number] ECHOCARDIOGRAM Patient Name: JUAN JENNINGS : 1945 (79y 11m) Sex: M Study Date: 01/19/2025 02:10:00 PM Ht(Inch): 70 Wt(Lb): 221.12 BSA: 2.23 Rolling Up Machine Operator: ROSMERY Location: OPT 210 Order Provider: LAKESHIA MILLAN BMI: 31.72 BP: 112/60 Ref Provider: LAKESHIA MILLAN - PROCEDURES: Echocardiographic Report: Transthoracic Echocardiogram with complete 2D, M-Mode, Spectral and Color Flow Doppler examination. INDICATIONS: I49.9 Cardiac arrhythmia, unspecified. MEASUREMENTS: 2D/MM Value Range Doppler Value Range IVSd 2D 1.02 cm [ 0.60 - 1.00 ] AV Peak James 2.00 m/s [ 1.00 - 1.70 ] LVIDd 2D 5.83 cm [ 4.20 - 5.80 ] AV Peak PG 16.0 mmHg LVIDs 2D 4.98 cm [ 2.50 - 4.00 ] AV Mean PG 8.2 mmHg LVPWd 2D 0.95 cm [ 0.60 - 1.00 ] AV VTI 41.1 cm EF Mod BP 31 % [ 52 - 72 ] EDWARD VTI 2.1 cm2 LA Dimen 2D 5.61 cm [ 3.00 - 4.00 ] LVOT Peak James 0.66 m/s [ 0.70 - 1.10 ] AoR Diam 2D 3.90 cm [ 3.10 - 3.70 ] LVOT Diam 2.8 cm AoR Diam 2D Index 1.75 LVOT Peak PG 1.7 mmHg LA Volume Index 48.10 ml/m2 [ 16.00 - 34.00 ] LVOT VTI 14.0 cm TAPSE 2.10 cm [ 1.71 - 5.00 ] MV Peak PG 2.4 mmHg MV Mean PG 0.8 mmHg MV E Peak James 0.7 m/s [ 0.6 - 1.3 ] MV A Peak James 0.4 m/s [ 1.0 - 1.2 ] MV PHT 96.0 ms [ 20.0 - 100.0 ] MV Decel Time 175.0 ms [ 104.0 - 258.0 ] MVA PHT 2.3 ms MV E/A Ratio 1.8 TR Peak James 2.7 m/s [ 1.0 - 2.8 ] TR Peak PG 43 mmHg PV Peak James 0.8 m/s [ 0.4 - 0.8 ] PV Peak PG 2.5 mmHg Lat E` James 0.05 m/s [ 0.10 - 0.15 ] Septal E` 0.02 m/s [ 0.08 - 0.15 ] E/E` 14.00 RV S` 0.12 m/s 2D/MM Value Range Doppler Value Range - FINDINGS: BP: Blood pressure: 112/60 mmHg. Left Ventricle: Severe left ventricular systolic dysfunction. There is global hypokinesis. Ejection Fraction (Simpsons) is measured at 31 %. Right Ventricle: Septal flattening consistent with RV pressure/volume overload. Left Atrium: There is severe enlargement of the left atrium. Right Atrium: The right atrium is normal in size. Atrial Septum: Normal appearing atrial septum. Mitral Valve: Moderate mitral valve regurgitation. Both leaflets appear moderately thickened. Aortic Valve: Aortic cusps appear moderately to severely calcified. Mild aortic stenosis. Tricuspid Valve: Normal appearance of the tricuspid leaflets. Mild to moderate tricuspid regurgitation. Mildly elevated RVSP. Pulmonic Valve: Normal appearance of the pulmonic valve. Mild pulmonic regurgitation. Pericardium: Normal appearing pericardial thickness. No significant pericardial effusion. Aortic Root and Aorta: Mild aortic root enlargement. Mild ascending aortic enlargement (4,o cm). Aortic Arch: Normal caliber aortic arch. IVC: Normal appearance of the inferior vena cava. CONCLUSIONS: 1. Severe left ventricular systolic dysfunction. There is global hypokinesis. Ejection Fraction (Simpsons) is measured at 31 %. 2. Moderate mitral valve regurgitation. Both leaflets appear moderately thickened. 3. Aortic cusps appear moderately to severely calcified. Mild aortic stenosis. 4. Normal appearance of the tricuspid leaflets. Mild to moderate tricuspid regurgitation. Mildly elevated RVSP. Electronically Signed By: Baljit Smart MD, [facility] 01/19/2025 4:18:15 PM CDT Procedure Note Baljit Smart MD - 01/19/2025 [facility] [address] [place] [address] ECHOCARDIOGRAM Patient Name: JUAN JENNINGS : 1945 (79y 11m) Sex: M Study Date: 01/19/2025 02:10:00 PM Ht(Inch): 70 Wt(Lb): 221.12 BSA: 2.23 Rolling Up Machine Operator: ROSMERY Location: OPT 210 Order Provider: LAKESHIA MILLAN BMI: 31.72 BP: 112/60 Ref Provider: LAKESHIA MILLAN - PROCEDURES: Echocardiographic Report: Transthoracic Echocardiogram with complete 2D,M-Mode, Spectral and Color Flow Doppler examination. INDICATIONS: I49.9 Cardiac arrhythmia, unspecified. MEASUREMENTS: 2D/MM Value Range DopplerValue Range IVSd 2D 1.02 cm [ 0.60 - 1.00 ] AV Peak Vel2.00 m/s [ 1.00 - 1.70 ] LVIDd 2D 5.83 cm [ 4.20 - 5.80 ] AV Peak PG16.0 mmHg LVIDs 2D 4.98 cm [ 2.50 - 4.00 ] AV Mean PG8.2 mmHg LVPWd 2D 0.95 cm [ 0.60 - 1.00 ] AV VTI41.1 cm EF Mod BP 31 % [ 52 - 72 ] EDWARD VTI2.1 cm2 LA Dimen 2D 5.61 cm [ 3.00 - 4.00 ] LVOT Peak Vel0.66 m/s [ 0.70 - 1.10 ] AoR Diam 2D 3.90 cm [ 3.10 - 3.70 ] LVOT Diam2.8 cm AoR Diam 2D Index 1.75 LVOT Peak PG1.7 mmHg LA Volume Index 48.10 ml/m2 [ 16.00 - 34.00 ] LVOT VTI14.0 cm TAPSE 2.10 cm [ 1.71 - 5.00 ] MV Peak PG2.4 mmHg MV Mean PG 0.8 mmHg MV E Peak James 0.7 m/s [ 0.6 - 1.3 ] MV A Peak James 0.4 m/s [ 1.0 - 1.2 ] MV PHT 96.0 ms [ 20.0 - 100.0 ] MV Decel Time 175.0 ms [ 104.0 - 258.0 ] MVA PHT 2.3 ms MV E/A Ratio 1.8 TR Peak James 2.7 m/s [ 1.0 - 2.8 ] TR Peak PG 43 mmHg PV Peak James 0.8 m/s [ 0.4 - 0.8 ] PV Peak PG 2.5 mmHg Lat E` James 0.05 m/s [ 0.10 - 0.15 ] Septal E` 0.02 m/s [ 0.08 - 0.15 ] E/E` 14.00 RV S` 0.12 m/s 2D/MM Value Range DopplerValue Range - FINDINGS: BP: Blood pressure: 112/60 mmHg. Left Ventricle: Severe left ventricular systolic dysfunction. There isglobal hypokinesis. Ejection Fraction (Simpsons) is measured at 31 %. Right Ventricle: Septal flattening consistent with RV pressure/volumeoverload. Left Atrium: There is severe enlargement of the left atrium. Right Atrium: The right atrium is normal in size. Atrial Septum: Normal appearing atrial septum. Mitral Valve: Moderate mitral valve regurgitation. Both leaflets appearmoderately thickened. Aortic Valve: Aortic cusps appear moderately to severely calcified. Mildaortic stenosis. Tricuspid Valve: Normal appearance of the tricuspid leaflets. Mild tomoderate tricuspid regurgitation. Mildly elevated RVSP. Pulmonic Valve: Normal appearance of the pulmonic valve. Mild pulmonicregurgitation. Pericardium: Normal appearing pericardial thickness. No significantpericardial effusion. Aortic Root and Aorta: Mild aortic root enlargement. Mild ascending aorticenlargement (4,o cm). Aortic Arch: Normal caliber aortic arch. IVC: Normal appearance of the inferior vena cava. CONCLUSIONS: 1. Severe left ventricular systolic dysfunction. There is globalhypokinesis. Ejection Fraction (Simpsons) is measured at 31 %. 2. Moderate mitral valve regurgitation. Both leaflets appear moderatelythickened. 3. Aortic cusps appear moderately to severely calcified. Mild aorticstenosis. 4. Normal appearance of the tricuspid leaflets. Mild to moderate tricuspidregurgitation. Mildly elevated RVSP. Electronically Signed By: Baljit Smart MD, [facility] 01/19/2025 4:18:15 PM CDT Lakeshia Millan NP CV ECHO PROCEDURES Final R esult * ECG 12 lead (12/09/2024 1:08 PM CDT) Lakeshia Millan NP ECG ORDERABLES Final Resu lt * (ABNORMAL) eGFR (12/05/2024 1:51 PM CDT) eGFR 54(L) >=60 mL/min/1. 73 m2 Comment: Interpretive Data [...] interpretive data was last reviewed 2021. Blood 12/05/2024 1:51 PM CDT 12/05/2024 6:23 PM CDT us Randall Hartman MD LAB BLOOD ORDERABLES Final Resul t MARY [address] [facility] [place] [address] * (ABNORMAL) Pro B-type natriuretic peptide (12/05/2024 1:51 PM CDT) NT-proBNP 5,501(H) <=450 pg/mL Comment: Interpretive Comments: A. Dyspnea [...] Interpretive Data Last Revised Date: 2017. Blood 12/05/2024 1:51 PM CDT 12/05/2024 6:23 PM CDT Randall Hartman MD LAB BLOOD ORDERABLES Final Resul t MARY [address] [facility] [place] [address] * (ABNORMAL) Comprehensive metabolic panel (12/05/2024 1:51 PM CDT) Pathologist [facility] Sodium 142 135 - 145 mmol/L Potassium, pl 4.4 3.3 - 4.9 mmol/L [facility] Chloride 100 97 - 110 mmol/L [facility] CO2 32 22 - 32 mmol/L [facility] Anion gap 10 2 - 15 mmol/L [facility] BUN 23 6 - 25 mg/dL [facility] Creatinine 1.32(H) 0.80 - 1.30 mg/dL [facility] Glucose 102 70 - 199 mg/dL [facility] Comment: Interpretive Data Fasting glucose >/= [...] interpretive data was last revised 2022. Calcium 9.4 8.5 - 10.3 mg/dL [facility] Bilirubin, total 0.5 0.1 - 1.2 mg/dL [facility] Protein, pl 6.7 6.5 - 8.5 g/dL [facility] Albumin 3.7 3.5 - 5.0 g/dL [facility] Alk phos 83 40 - 130 Units/L [facility] ALT 16 7 - 55 Units/L [facility] AST 40 10 - 50 Units/L [facility] Blood Venous blood specimen / Unknown 12/05/2024 1:51 PM CDT 12/05/2024 6:23 PM CDT us Randall Hartman MD LAB BLOOD ORDERABLES Final Resul t MARY [address] [facility] [place] [address] * DEVICE CHECK - REMOTE (11/21/2024 8:43 AM CDT) Anatomical Region Laterality Modality Other 11/21/2024 8:43 AM CDT Narrative 11/21/2024 5:37 PM CDT Interpretation Summary: Battery and Leads (BL) Normal parameters noted on battery and lead(s) --- 9.9 yrs remaining longevity. Lead impedance, sensing, and RV threshold trends stable and appropriate. No RA auto threshold testing. No short V-V intervals. Presenting Rhythm (MS) Atrial Pacing-Ventricular Pacing (AP-FINISHING MACHINE OPERATOR) --- AP/FINISHING MACHINE OPERATOR 77 bpm. Arrhythmic events (AE) No new arrhythmic events in monitoring period --- Since 08/28/24: No AHR or VHR episodes. Miscellaneous Observations (MISC) RV pacing > 40% noted --- FINISHING MACHINE OPERATOR 79.5%. Pt has h/o AV Block/High FINISHING MACHINE OPERATOR percentage. Transmission Information (TI) Device Summary Report Follow Up (FU) Patient's primary treating physician will be apprised of findings Procedure Note Bela Herzog MD - 11/21/2024 Interpretation Summary: Battery and Leads (BL) Normal parameters noted on battery and lead(s) --- 9.9 yrs remaininglongevity. Lead impedance, sensing, and RV threshold trends stable andappropriate. No RA auto threshold testing. No short V-V intervals. Presenting Rhythm (MS) Atrial Pacing-Ventricular Pacing (AP-FINISHING MACHINE OPERATOR) --- AP/FINISHING MACHINE OPERATOR 77 bpm. Arrhythmic events (AE) No new arrhythmic events in monitoring period --- Since 08/28/24: No AHRor VHR episodes. Miscellaneous Observations (MISC) RV pacing > 40% noted --- FINISHING MACHINE OPERATOR 79.5%. Pt has h/o AV Block/High VPpercentage. Transmission Information (TI) Device Summary Report Follow Up (FU) Patient's primary treating physician will be apprised of findings us Bela Herzog MD CV CARDIAC SERVICES PROCEDURES Final Result * XR Chest Pa Lateral 2 Views (10/27/2024) Anatomical Region Laterality Modality Body, Chest N/A Radiographic Arelis ging 10/27/2024 Baljit Randall MD IMG XR PROCEDURES Final Resul t * Portable/Home Sleep Study (10/26/2024) Historical Provider SLEEP CENTER ORDERABLES F inal Result * (ABNORMAL) POCT hemoglobin A1c (09/11/2024 11:23 AM CDT) Pathologist [facility] Hemoglobin A1C, POC 5.7(A) 4.0 - 5.6 % Blood 09/11/2024 11:2 3 AM CDT Jennifer Young NP POINT OF CARE TEST ORDERA BLES Final Result * Albumin Creatinine Ratio, Urine (05/19/2024 10:51 AM DIRECTOR OF FRONT OFFICE) Pathologist [facility] Albumin Ur 12.9 mg/L Comment: Interpretive Data No reference range established. Current interpretive data was last revised 2018. Creatinine Ur 127.4 mg/dL [facility] Comment: Interpretive Data No reference range established. Current interpretive data was last revised 2018. Albumin Creatinine Ratio, Ur 10 1 - 29 mg/g MARY Urine 05/19/2024 10:5 1 AM DIRECTOR OF FRONT OFFICE 05/19/2024 2:40 PM DIRECTOR OF FRONT OFFICE Jennifer Young [address] [facility] LAB URINE ORDERABLES Esperanza l Result MARY PHILLIPS [address] Department [place] [address] * DIABETES EYE EXAM (04/29/2024 12:03 PM DIRECTOR OF FRONT OFFICE) us Historical Provider HEALTH MAINTENANCE Final Result [...] BLOOD ORDERABLES Final Re sult MARY PHILLIPS [address] Department [place] [address] * CT abdomen with and without contrast (04/27/2023 1:47 PM DIRECTOR OF FRONT OFFICE) Anatomical Region Laterality Modality Body N/A Computed Tomogra phy 04/30/2023 5:29 PM DIRECTOR OF FRONT OFFICE Narrative 04/30/2023 5:36 PM DIRECTOR OF FRONT OFFICE EXAM DESCRIPTION: CT ABDOMEN W WO CONTRAST [...] IODINE/ML INTRAVENOUS SYRINGE injected via intravenous COMPARISON: [facility] 12/06/2022. PET-CT 09/15/2021. REFERENCE: Per ACR [...] Michael Goldman M.D. CH: ALAN Report ID: [id number] Reading Location: [id number] Procedure Note Michael Goldman Jr., MD - [...] MG IODINE/ML INTRAVENOUSSYRINGE injected via intravenous COMPARISON: [facility] 12/06/2022. PET-CT 09/15/2021. REFERENCE: Per ACR [...] Michael Goldman M.D. CH: ALAN Report ID: [id number] Reading Location: [place] [address] Hu Norton MD IM CT PROCEDURES Final Result from Last 3 Months or Most Recently Relevant to Health Maintenance Insurance [facility] MEDICARE ADVANTAGE [address] MEDICARE ADVANTAGE Advance Directives For more information, please contact: [phone] * Full Code (Latest Code Status on File) Date Activated Date Inactivated Comments 04/23/2023 2:11 PM 04/24/2023 3:31 PM * Full Code Date Activated Date Inactivated Comments 01/17/2023 9:51 AM 01/17/2023 4:07 PM * Full Code Date Activated Date Inactivated Comments 12/07/2022 3:19 AM 12/11/2022 4:19 PM Care Teams Global Human Resources Director Relationship Specialty Start Date End Date Baljit Randall MD PCP - General Family Medicine 01/20/21 Caden Guajardo MD [address] [facility] [address] [place] [address] Consulting Physician Cardiology 07/02/24 Randall Hartman MD [address] [place] [address] Consulting Physician Cardiology 12/29/24
--- OUTSIDE RECORDS SUMMARY | 2025-01-26 15:31 | XMS_ITS | Encounter Summary ---
Author Organization [facility] Healthcare Address [address] [place] [address] Care Team Providers Care Disk Recoater Name Role Phone Baljit Randall MD Primary Care Provider [phone] Caden Guajardo MD Unavailable [phone] Randall Hartman MD Unavailable Encounter Details Date Type Department Care Team (Late st Contact Info) Description 01/13/2025 Telephone [facility] Medical Group Cardiology [address] [place] [address] Randall Hartman MD [address] [place] [address] Social History Tobacco Use Types [...] week 12/12/2022 How often do you attend [facility] or [facility] services? 1 to 4 times per year [...] place to sleep or slept in a [place] facility (including now)? No 12/12/2022 Personal Safety Answer Date Recorded Have you ever been in or are you currently in a harmful physical or emotional relationship or is someone making you feel afraid or unsafe? Denies 08/28/2024 Sex and Gender Information Value Date Recorded Sex Assigned at Not on file Legal Sex Male 3:19 AM PREMIUM AUDITOR Gender Identity Not on file Sexual Orientation Straight 03/23/2019 1: 09 AM PREMIUM AUDITOR documented as of this encounter Miscellaneous Notes * Telephone Encounter - Kaley [place] RN - 01/19/2025 4:00 PM CDT Forwarded to WK: Spoke to patient, he is going to go to [place] office for labs either or [place], States he also had an Echo done today downtown if WK wants to review those results also. * Telephone Encounter - Kaley [place] RN - 01/14/2025 8:50 AM CDT LM for pt to return call to see where pt had labs and if he hasn't had them where he wants to have them done * Telephone Encounter - Kaley [place] RN - 01/13/2025 2:30 PM CDT Forwarded to WK Per Telephone note 12/29, pt's Lasix was increased to 80 mg in am and 40 mg in pm due to fluid retention. Reports that this increased has not helped with fluid retention and he is still weighing consistently 224-225 which is still up 3-4 lbs from his November baseline. He reports slightly pitting edema to bilateral feet/ankles, wears compression socks daily, is watching his sodium intake and feels like he is not urinating as much as normal for him. He denies SOB, chest pain, dizziness or cough. * Telephone Encounter - Lyn Jacobson - 01/13/2025 11:25 AM CDT Patient called in and states he is having trouble urinating, not urinating much, and trouble breathing. He is requesting a call back to discuss. Please advise. Thank you. Contact : [phone] documented in this encounter Plan of Treatment Not on file documented as of this encounter Visit Diagnoses Not on filedocumented in this encounter Care Teams Disk Recoater Relationship Specialty Start Date End Date Baljit Randall MD PCP - General Family Medicine 01/20/21 Caden Guajardo MD [address] [facility] [address] [place] [address] Consulting Physician Cardiology 07/02/24 Randall Hartman MD [address] [place] [address] Consulting Physician Cardiology 12/29/24 documented as of this encounter
--- OUTSIDE RECORDS SUMMARY | 2025-01-26 15:31 | XMS_ITS | Encounter Summary ---
Author Organization [facility] Healthcare Address [address] [place] [address] Care Team Providers Care Cardiac Surgeon Name Role Phone Chai Llanes MD Primary Care Provider [phone] Landry Leon MD Unavailable [phone] Baljit Randall MD Primary Care Provider [phone] Kiki Britton RN Unavailable Reena Gilbert MD Unavailable [phone] Caden Guajardo MD Unavailable [phone] Trudy Bocanegra MA Unavailable Cynthia Ceja LPN Unavailable [phone] Randall Hartman MD Unavailable Encounter Details Date Type Department Care Team (Late st Contact Info) Description 08/02/2017 Orders Only [facility] Health Information Management [address] [place] [address] Scanning, Provider Social History Tobacco Use Types Packs/Day Years Used Date Smoking Tobacco: Former Smokeless Tobacco: Never Alcohol Use Standard Drinks/Week Comments Yes 0 (1 standard drink = 0.6 oz pur e alcohol) weekly Sex and Gender Information Value Date Recorded Sex Assigned at Not on file Legal Sex Male 3:19 AM BILLBOARD POSTER HELPER Gender Identity Not on file Sexual Orientation Straight 03/23/2019 1: 09 AM BILLBOARD POSTER HELPER documented as of this encounter Plan of [...] COVID: Suspected 04/20/2023 04/20/2023 04/20/2023 4:34 PM BILLBOARD POSTER HELPER COVID: Suspected 04/20/2023 04/20/2023 04/21/2023 3:05 AM BILLBOARD POSTER HELPER COVID: Suspected 03/04/2024 03/04/2024 03/04/2024 10:45 AM BILLBOARD POSTER HELPER COVID19 03/04/2024 03/04/2024 03/14/2024 3:05 AM BILLBOARD POSTER HELPER COVID: Recovered Comment:Added based on recent COVID infection. 03/14/2024 03/17/2024 06/12/2024 3:06 AM C DT documented as of this encounter Care Teams Cardiac Surgeon Relationship Specialty Start Date End Date Chai Llanes MD [address] [place] [address] PCP - General 06/23/16 01/19/21 Baljit Randall MD [address] [place] [address] PCP - General Family Medicine 01/20/21 Landry Leon MD [address] [place] [address] Consulting Physician Cardiology 12/05/19 12/28/24 Kiki Britton, RN [address] [place] [address] [address] [place] [address] Stave Block Splitter 12/12/22 01/23/23 Reena Gilbert MD [address] [facility] [address] [place] [address] Consulting Physician Interventional Cardiology 04/28/24 12/28/24 Caden Guajardo MD [address] [facility] [address] [place] [address] Consulting Physician Cardiology 07/02/24 Trudy Bocanegra MA [address] [facility] [address] [place] [address] ACO Care Poultry Trimmer 08/29/24 08/29/24 Cynthia Ceja LPN [address] [facility] [address] [place] [address] Stave Block Splitter 09/29/24 09/29/24 Randall Hartman MD [address] [place] [address] Consulting Physician Cardiology 12/29/24 documented as of this encounter
--- OUTSIDE RECORDS SUMMARY | 2025-01-26 15:31 | XMS_ITS | Encounter Summary ---
Author Organization [facility] Healthcare Address [address] [place] [address] Care Team Providers Care Pest Control Applicator Name Role Phone Baljit Randall MD Primary Care Provider [phone] Caden Guajardo MD Unavailable [phone] Randall Hartman MD Unavailable Encounter Details Date Type Department Care Team (Late st Contact Info) Description 01/19/2025 Telephone [facility] Medical Group Family Medicine at [address] [place] [address] Baljit Randall MD [address] [place] [address] [address] [place] [address] Social History Tobacco Use Types Packs/Day Years [...] week 12/12/2022 How often do you attend [facility] or buddhist services? 1 to 4 times per year [...] place to sleep or slept in a care home (including now)? No 12/12/2022 Personal Safety Answer Date Recorded Have you ever been in or are you currently in a harmful physical or emotional relationship or is someone making you feel afraid or unsafe? Denies 08/28/2024 Sex and Gender Information Value Date Recorded Sex Assigned at Not on file Legal Sex Male 3:19 AM PAVING INSPECTOR Gender Identity Not on file Sexual Orientation Straight 03/23/2019 1: 09 AM PAVING INSPECTOR documented as of this encounter Miscellaneous Notes * Telephone Encounter - Monika Morales - 01/19/2025 1:22 PM CDT Call Back Caller???s Concern: don called in to return call to practice, warm transferred to practice. Does message need to be routed? No documented in this encounter Plan of Treatment Not on file documented as of this encounter Visit Diagnoses Not on filedocumented in this encounter Care Teams Pest Control Applicator Relationship Specialty Start Date End Date Baljit Randall MD PCP - General Family Medicine 01/20/21 Caden Guajardo MD [address] [facility] [address] [place] [address] Consulting Physician Cardiology 07/02/24 Randall Hartman MD [address] [facility] [address] [place] [address] Consulting Physician Cardiology 12/29/24 documented as of this encounter
--- OUTSIDE RECORDS SUMMARY | 2025-01-26 15:31 | XMS_ITS | Encounter Summary ---
Author Organization [facility] Healthcare Address [address] [place] [address] Care Team Providers Care Truck Body Repairer Name Role Phone Landry Leon MD Unavailable [phone] Baljit Randall MD Primary Care Provider [phone] Reena Gilbert MD Unavailable [phone] Caden Guajardo MD Unavailable Trudy Bocanegra MA Unavailable Cynthia Ceja LPN Unavailable [phone] Randall Hartman MD Unavailable Encounter Details Date Type Department Care Team (Late st Contact Info) Description 07/14/2024 Telephone [facility] Medical Group Family Medicine at [address] [place] [address] Baljit Randall MD [address] [place] [address] [address] [place] [address] Social History Tobacco Use Types [...] often do you attend chur ch or amish services? 1 to 4 times per year 12/12/2022 Do you belong to any clubs o r organizations such as catholic groups, unions, fraternal or athletic groups, or [...] money to buy more. 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 CONTROL PANEL ASSEMBLER Gender Identity Not on file Sexual Orientation Straight 03/23/2019 1: 09 AM CONTROL PANEL ASSEMBLER documented as of this encounter Plan of Treatment Not on file documented as of this encounter Visit Diagnoses Not on filedocumented in this encounter Care Teams Truck Body Repairer Relationship Specialty Start Date End Date Baljit Randall MD PCP - General Family Medicine 01/20/21 Landry Leon MD Consulting Physician Cardiology 12/05/19 12/28/24 Reena Gilbert MD Consulting Physician Interventional Cardiology 04/28/24 12/28/24 Caden Guajardo MD [address] [facility] [address] [place] [address] Consulting Physician Cardiology 07/02/24 Trudy Bocanegra MA [address] [facility] [address] [place] [address] ACO Care Sql Engineer 08/29/24 08/29/24 Cynthia Ceja LPN [address] [facility] [address] [place] [address] Coloring Room Worker 09/29/24 09/29/24 Randall Hartman MD [address] [place] [address] Consulting Physician Cardiology 12/29/24 documented as of this encounter
--- OUTSIDE RECORDS SUMMARY | 2025-01-26 15:31 | XMS_ITS | Encounter Summary ---
Author Organization [facility] Healthcare Address [address] [place] [address] Care Team Providers Care Thermoscrew Operator Name Role Phone Chai Llanes MD Primary Care Provider [phone] Landry Leon MD Unavailable [phone] Baljit Randall MD Primary Care Provider [phone] Kiki Britton RN Unavailable [phone] Reena Gilbert MD Unavailable [phone] Caden Guajardo MD Unavailable [phone] Trudy Bocanegra MA Unavailable Cynthia Ceja LPN Unavailable [phone] Randall Hartman MD Unavailable Encounter Details Date Type Department Care Team (Late st Contact Info) Description 07/07/2017 Orders Only [facility] Health Information Management [address] [place] [address] Scanning, Provider Social History Tobacco Use Types Packs/Day Years Used Date Smoking Tobacco: Former Smokeless Tobacco: Never Alcohol Use Standard Drinks/Week Comments Yes 0 (1 standard drink = 0.6 oz pur e alcohol) weekly Sex and Gender Information Value Date Recorded Sex Assigned at Not on file Legal Sex Male 3:19 AM ROLLOFF DRIVER Gender Identity Not on file Sexual Orientation Straight 03/23/2019 1: 09 AM ROLLOFF DRIVER documented as of this encounter Plan of [...] COVID: Suspected 04/20/2023 04/20/2023 04/20/2023 4:34 PM ROLLOFF DRIVER COVID: Suspected 04/20/2023 04/20/2023 04/21/2023 3:05 AM ROLLOFF DRIVER COVID: Suspected 03/04/2024 03/04/2024 03/04/2024 10:45 AM ROLLOFF DRIVER COVID19 03/04/2024 03/04/2024 03/14/2024 3:05 AM ROLLOFF DRIVER COVID: Recovered Comment:Added based on recent COVID infection. 03/14/2024 03/17/2024 06/12/2024 3:06 AM C DT documented as of this encounter Care Teams Thermoscrew Operator Relationship Specialty Start Date End Date Chai Llanes MD [address] [place] [address] PCP - General 06/23/16 01/19/21 Baljit Randall MD [address] [place] [address] PCP - General Family Medicine 01/20/21 Landry Leon MD [address] [place] [address] Consulting Physician Cardiology 12/05/19 12/28/24 Kiki Britton, RN [address] [facility] [address] [place] [address] Stranner 12/12/22 01/23/23 Reena Gilbert MD [address] [facility] [address] [place] [address] Consulting Physician Interventional Cardiology 04/28/24 12/28/24 Caden Guajardo MD [address] [facility] [address] [place] [address] Consulting Physician Cardiology 07/02/24 Trudy Bocanegra MA [address] [place] [address] [address] [place] [address] ACO Care Teachers' Assistant 08/29/24 08/29/24 Cynthia Ceja LPN [address] [facility] [address] [place] [address] Stranner 09/29/24 09/29/24 Randall Hartman MD [address] [place] [address] Consulting Physician Cardiology 12/29/24 documented as of this encounter
--- OUTSIDE RECORDS SUMMARY | 2025-01-26 15:31 | XMS_ITS | Encounter Summary ---
Author Organization [facility] Healthcare Address [address] [place] [address] Care Team Providers Care Lead Ruby On Rails Developer Name Role Phone Baljit Randall MD Primary Care Provider Caden Guajardo MD Unavailable [phone] Randall Hartman MD Unavailable Encounter Details Date Type Department Care Team (Late st Contact Info) Description 01/21/2025 Results Follow-Up [facility] Medical Group Family Medicine at [address] [place] [address] Baljit Randall MD [address] [place] [address] [address] [place] [address] Stool DNA - Cologuard Social History Tobacco Use Types Packs/Day Years [...] week 12/12/2022 How often do you attend [facility] or orthodoxy services? 1 to 4 times per year 12/12/2022 Do you belong to any clubs o r organizations such as baptist groups, unions, fraternal or athletic groups, or [...] place to sleep or slept in a [facility] (including now)? No 12/12/2022 Personal Safety Answer Date Recorded Have you ever been in or are you currently in a harmful physical or emotional relationship or is someone making you feel afraid or unsafe? Denies 08/28/2024 Sex and Gender Information Value Date Recorded Sex Assigned at Not on file Legal Sex Male 3:19 AM SHAREPOINT NET DEVELOPER Gender Identity Not on file Sexual Orientation Straight 03/23/2019 1: 09 AM SHAREPOINT NET DEVELOPER documented as of this encounter Plan of Treatment Not on file documented as of this encounter Visit Diagnoses Not on filedocumented in this encounter Care Teams Lead Ruby On Rails Developer Relationship Specialty Start Date End Date Baljit Randall MD PCP - General Family Medicine 01/20/21 Caden Guajardo MD [address] [facility] [address] [place] [address] Consulting Physician Cardiology 07/02/24 Randall Hartman MD [address] [place] [address] Consulting Physician Cardiology 12/29/24 documented as of this encounter
--- OUTSIDE RECORDS SUMMARY | 2025-01-26 15:31 | XMS_ITS | Encounter Summary ---
Author Organization [facility] Healthcare Address [address] [place] [address] Care Team Providers Care Parts Sales Representative Name Role Phone Baljit Randall MD Primary Care Provider [phone] Caden Guajardo MD Unavailable [phone] Randall Hartman MD Unavailable Encounter Details Date Type Department Care Team (Latest Contact Info) Description 01/23/2025 Results [facility]-Up [facility] [address] [facility] [address] [address] Lakeshia Millan, HOTSHOT SUPERINTENDENT [address] [facility] [address], [place] [address] Transthoracic Echo (TTE) Complete W Doppler/CF Social History Tobacco Use Types Packs/Day Years [...] week 12/12/2022 How often do you attend [facility] or spiritism services? 1 to 4 times per year 12/12/2022 Do you belong to any clubs o r organizations such as scientology groups, unions, fraternal or athletic groups, or [...] on file Legal Sex Male 3:19 AM TRAFFIC OPERATIONS ENGINEER Gender Identity Not on file Sexual Orientation Straight 03/23/2019 1: 09 AM TRAFFIC OPERATIONS ENGINEER documented as of this encounter Plan of Treatment Not on file documented as of this encounter Visit Diagnoses Not on filedocumented in this encounter Care Teams Parts Sales Representative Relationship Specialty Start Date End Date Baljit Randall MD PCP - General Family Medicine 01/20/21 Caden Guajardo MD [address] [facility] [address] [place] [address] Consulting Physician Cardiology 07/02/24 Randall Hartman MD [address] [place] [address] Consulting Physician Cardiology 12/29/24 documented as of this encounter
[2025-01-26] MEDS: DOBUTamine 250 MG/D5W 250 ML 250 MG/250 ML BAG 15 MG IV CONT (16:10)
--- NOTE | 2025-01-26 17:50 | ADMGEN ---
This patient, Yusef Hawkins, was admitted to IMU Room 204-01. Patient/family oriented to hospital policies and general routines including ID bracelet, bed and alarms, visiting hours, pain management, procedures, bathroom and other care routines, personal items, smoking policy, room service/diet, and visiting hours. Information on how to activate the Rapid Response Team has been discussed. Patient/Family are encouraged to report perceived risks to care and to ask questions if they do not understand what they are told or what they should do.
--- NOTE | 2025-01-26 18:19 | PM.IMHP ---
H&P: HPI History of Present Illness Date/Time: 01/26/25 18:19 Chief Complaint: Sent by smoking pipe liner Narrative: 79-year-old male with past medical history of DM 2, hypothyroidism, ALEX not compliant with BiPAP, CAD, HTN, CHF presents to the emergency department on 01/26/2025 stating his smoking pipe liner wanted him to be admitted for further management of his ongoing fluid overload. Patient states that on 01/21 he became very dyspneic and had increased lower extremity edema and reached out to his smoking pipe liner. He was directed to increase his Lasix for the next 3 days hold and was started on metolazone 5 mg b.i.d. for those 3 days. Patient received a call from his smoking pipe liner Dr. Hartman requesting he present to the emergency department for IV diuresis. The patient states his dyspnea has improved but his lower extremity edema has persisted, therefore prompting the ED recommendation. Dr. Hartman requested the ED start patient on dobutamine drip an 80 mg IV Lasix b.i.d. Initial vital signs 98/66, HR 77, respirations 20, T 96.7? F, 100% on room air Lab significant for chronic anemia, with slight hyponatremia at 1:36 a.m., chloride 93, carbon dioxide 36, BUN 38, creatinine 1.52 (baseline normal), AST 62, BNP 10,500 Chest x-ray with small to moderate size patchy opacities scattered throughout both lungs-edema versus pneumonia. Review of Systems Review of Systems: All systems reviewed & are unremarkable except as noted in HPI and below [facility] Past Medical History Medical History (Updated 01/26/25 @ 23:14 by Shannon Love APRN) High-grade atrioventricular block Diabetes Obstipation Weakness of pelvic floor in male Diarrhea Thyroid nodule Hyperthyroidism Low TSH level Diabetic neuropathy Cobalamin deficiency Nocturia Psoriasis NSVT (nonsustained ventricular tachycardia) Bradycardia PVC (premature ventricular contraction) Bigeminy ALEX treated with BiPAP Renal insufficiency Chronic coronary artery disease Dyslipidemia Hypertension Morbid obesity Hypertensive heart disease with CHF Dyslipidemia associated with type 2 diabetes mellitus Ascending aorta dilatation CAD (coronary artery disease) Surgical History Surgical History Hx of myringotomy History of tonsillectomy and adenoidectomy (~1949) History of hemorrhoidectomy (~1969) History of cholecystectomy (~1974) History of cataract surgery History of gastric bypass (~2003) Family History Family History Father Family history of cardiovascular disease Diabetes mellitus Hypertension Mother Family history of kidney disease Diabetes mellitus Breast cancer Sibling Family history of glaucoma Grandparent Diabetes mellitus Sibling Thyroid cancer Social History Social History Smoking packs per day: 1 Smoking cigarettes per day: 20.0 Years smoked: 20 Smoking pack-years: 20.00 Smoking status: Former smoker Alcohol intake: never Alcohol use details: rarely Substance use: never Substance use type: marijuana Do You Feel Safe in your Home?: Yes Lack of Transportation: No Lack of Food: Never True Current Housing: I Have Housing Concerned About Future Housing: No Difficulty Paying Gas/Electric Bills: No Difficulty Paying for Meds: No Currently Unemployed: No Education: Bachelor's Degree Difficulty w/ Childcare or Family Care: No Living arrangements: with family Spiritual care concerns: No Meds Home Medications and Allergies Home Medications ?Medication ?Instructions ?Recorded ?Confirmed ?Type aspirin 81 mg tablet,delayed 81 mg PO DAILY 01/08/20 01/26/25 History release cyanocobalamin (vitamin B-12) 2,000 mcg PO DAILY 01/08/20 01/26/25 History 1,000 mcg tablet furosemide 40 mg tablet 40 mg PO QAM 01/08/20 01/26/25 History magnesium 200 mg tablet 200 mg PO Q6H 01/08/20 01/26/25 History atorvastatin 10 mg tablet 10 mg PO QHS 12/26/22 01/26/25 History dapagliflozin propanediol 10 mg 10 mg PO DAILY 12/26/22 01/26/25 History tablet diclofenac sodium 75 mg 150 mg PO DAILY PRN Pain (Scale 12/26/22 01/26/25 History tablet,delayed release Score 1-3) docusate sodium 100 mg capsule 400 mg PO Q48H 12/26/22 01/26/25 History (Colace) multivitamin 1 tablet PO DAILY 12/26/22 01/26/25 History rivaroxaban 2.5 mg tablet (Xarelto) 2.5 mg PO BID 12/26/22 01/26/25 History tramadol 50 mg tablet 50 mg PO BID PRN pain 12/26/22 01/26/25 History zinc acetate 50 mg (zinc) capsule 50 mg PO DAILY 05/17/23 01/26/25 History (Galzin) methimazole 5 mg tablet 5 mg PO 5XW 09/20/24 01/26/25 History semaglutide 0.25 mg or 0.5 mg (2 0.5 mg subcut WEEKLY 09/20/24 01/26/25 History mg/3 mL) subcutaneous pen injector (Ozempic) docusate sodium 100 mg capsule 300 mg PO Q48H 09/21/24 01/26/25 History metoprolol succinate 25 mg 25 mg PO DAILY #30 tabs 09/24/24 01/26/25 Rx tablet,extended release 24 hr prucalopride 2 mg tablet 2 mg PO DAILY #90 tabs 01/19/25 01/26/25 Rx (Motegrity) folic acid-vit B6-vit B12 2.5 1 tablet PO DAILY 01/26/25 01/26/25 History mg-25 mg-2 mg tablet (Folbic) ipratropium bromide 42 mcg (0.06 2 spray intranasal TID 01/26/25 01/26/25 History %) nasal spray levocetirizine 5 mg tablet 5 mg PO DAILY 01/26/25 01/26/25 History metolazone 5 mg tablet 5 mg PO Q12H 01/26/25 01/26/25 History Held on 01/26/25. Instructions: Patient no longer taking sacubitril 24 mg-valsartan 26 mg 0.5 tablet PO BID 01/26/25 01/26/25 History tablet (Entresto) Allergies Allergy/AdvReac Type Severity Reaction Status Date / Time clindamycin Allergy Unknown unknown Verified 01/26/25 17:55 Vital Signs Vital Signs - 24 hr 01/26/25 13:25 01/26/25 15:04 01/26/25 16:09 Temperature 96.7 F L Pulse Rate 77 77 114 H Respiratory Rate 20 25 H 18 Blood Pressure 98/66 L 108/82 108/77 Pulse Oximetry 100 99 100 Oxygen Delivery Room Air 01/26/25 16:10 01/26/25 17:58 Temperature 97.7 F Pulse Rate 89 111 H Respiratory Rate 18 Blood Pressure 121/63 Pulse Oximetry 98 Oxygen Delivery Exam Narrative: GENERAL: non-toxic appearing, in no acute distress. HEAD: Normocephalic, atraumatic. EYES: PERRLA. Conjunctivae clear. NOSE: Normal no drainage. THROAT: Pharynx clear, no exudate. NECK: Trachea midline. No adenopathy, no masses. RESPIRATORY: Airway patent, respirations nonlabored. Decreased air movement. CARDIOVASCULAR: Irregular rate and rhythm GASTROINTESTINAL: Abdomen is soft and nontender. No organomegaly. Bowel sounds normal in all quadrants. GENITOURINARY: Defer MUSCULOSKELETAL: Moves all extremities. No gross deformities. No calf tenderness. Bilateral lower extremity 3+ pitting edema SKIN: Warm, dry. Area of reddened skin on left stewart NEURO: A&O X4. Speech clear PSYCHIATRIC: Normal interaction H&P: Results Labs Labs: Short CBC 01/26/25 Range/Units 14:32 WBC 5.5 (4.5-10.0) K/mm3 Hgb 11.0 L (14.0-18.0) g/dL Hct 35.8 L (42.0-52.0) % Plt Count 173 (150-375) k/mm3 BMP 01/26/25 14:32 Sodium 136 L Potassium 4.4 Chloride 93 L Carbon Dioxide 36 H BUN 38 H D Creatinine 1.52 H Glucose 90 Calcium 8.8 Liver Function 01/26/25 Range/Units 14:32 Total Bilirubin 0.7 (0.2-1.3) mg/dL AST 62 H (17-59) U/L ALT 32 (6-50) U/L Alkaline Phosphatase 97 (38-126) U/L Albumin 4.4 (3.5-5.1) g/dL Assessment and Plan Assessment and plan (1) Acute exacerbation of CHF (congestive heart failure): Qualifiers: Heart failure type: combined systolic and diastolic Qualified Code(s): I50.43 - Acute on chronic combined systolic (congestive) and diastolic (congestive) heart failure Code(s): I50.9 - Heart failure, unspecified Status: Acute Assessment and Plan: Patient referred to the ED by his smoking pipe liner for further management of his CHF. Patient states that on 01/21 he became very dyspneic and had increased lower extremity edema and reached out to his smoking pipe liner. He was directed to increase his Lasix for the next 3 days hold and was started on metolazone 5 mg b.i.d. for those 3 days with initial improvement in his symptoms of dyspnea. Bilateral lower extremity edema continued. BNP 10,500. Chest x-ray with small to moderate size patchy opacities scattered throughout both lungs-edema versus pneumonia. Patient does not exhibit signs of infection. Treating as CHF exacerbation. -cardiology consult - most recent echo was at [facility] on 01/19. EF reported as 31% -cardiology records requested from [facility] - monitor I&Os and daily weights -dobutamine gtt 2.5 mcg/kg/min -Lasix 80 mg IVP b.i.d. 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 Patient states this has been occurring for roughly the past 4 months. EKGs remain unchanged. -continue metoprolol (3) CAD (coronary artery disease): Code(s): I25.10 - Atherosclerotic heart disease of [place] coronary artery without angina pectoris Status: Chronic Assessment and Plan: Denies chest pain. -continue aspirin, atorvastatin, Xarelto (4) Diabetes: Qualifiers: Diabetes mellitus complication detail: with nephropathy Diabetes mellitus longterm insulin use: unspecified intermediate manager insulin use status Diabetes mellitus type: type 2 Code(s): E11.9 - Type 2 diabetes mellitus without complications Status: Chronic Assessment and Plan: Glucose stable on admission. Patient states he does not check his sugar at home. 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 they will check his sugar. Patient states he will NOT get his finger stuck while inpatient. Recommend following glucose on BMP and revisiting with patient if he starts to rise. - hypoglycemia protocol - POC blood glucose ACHS - home medication: Farxiga, Ozempic - correct regimen ordered: Low-dose sliding scale (5) High-grade atrioventricular block: Code(s): I44.39 - Other atrioventricular block Status: Chronic Assessment and Plan: Status post permanent pacemaker in March 2024. 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 His need for pacing has increased. Possible need for a BiV upgrade has been discussed with the patient. Plan Diet: Heart healthy GI prophylaxis: NA DVT prophylaxis: Xarelto, SCDs lines/drains: PIV Fluids: NA Code status: Full code Quality VTE Prophylaxis VTE prophylaxis: pharmacologic ordered Hospitalist [facility] Advance Care Plan I have confirmed that the patient's Advanced Care Plan is present, code status is documented, or surrogate decision maker is listed in patient medical record.: Yes Medication Reconciliation I have utilized all available resources to obtain, update and review the patients current medications (includes all prescriptions, OTC, herbals, cannabis, and nutritional supplements).: Yes
--- NOTE | 2025-01-26 18:51 | ECG_ITS ---
Test Date: 2025-01-26 18:52:56 Measurements Intervals [place] Rate: 123 P: 58 IN: 248 QRS: -68 QRSD: 202 T: 115 QT: 420 QTc: 601 Interpretive Statements ELECTRONIC VENTRICULAR PACEMAKER ABNORMAL RHYTHM ECG Compared to ECG 01/26/2025 15:39:25 Atrial-paced complex(es) or rhythm no longer present Electronically Signed On 01-27-2025 21:17:52 DIRECTOR DIABETES by Zoe Levy M.D.
[2025-01-26] MEDS: ATORVASTATIN 10 MG TABLET PO (21:39)
[2025-01-26] MEDS: RIVAROXABAN 2.5 MG TABLET PO (21:39)
[2025-01-26] MEDS: SACUBITRIL/VALSARTAN 12-13 MG TABLET 1 TAB PO (21:39)
[2025-01-26 21:57] LABS: Anion Gap 7 mmol/L (4-12); Blood Urea Nitrogen 38 mg/dL (9-20); Calcium 9.2 mg/dL (8.4-10.2); Carbon Dioxide 38 mmol/L (22-30); Chloride 91 mmol/L (98-107); Estimated CRCL calculation 40 ml/min; Estimated Glomerular Filt Rate 45; Glucose 118 mg/dL (65-110); Magnesium 2.8 mg/dL (1.6-2.3); Potassium 3.7 mmol/L (3.4-5.0); Sodium 136 mmol/L (137-145)
[2025-01-27] VITALS (23 sets, daily range): BP systolic 92–121; BP diastolic 31–75; PULSE 75–101; RESP 14–20; TEMP 36.4–36.9; O2SAT 95–99
[2025-01-27] MEDS: traMADol HCL (*CRX) 50 MG TABLET PO ×2 (00:58→20:06)
[2025-01-27 04:00] LABS: Hematocrit 33.6 % (42.0-52.0); Hemoglobin 10.5 g/dL (14.0-18.0); Immature Granulocyte Percent A 0.2 % (0-0.5); Lymphocytes Absolute Auto 1.11 K/mm3 (0.9-3.2); Mean Corpuscular HGB Conc 31.3 g/dl (32-36); Mean Corpuscular Hemoglobin 29.3 pg (26-34); Mean Corpuscular Volume 93.9 fl (80-100); Nucleated Red Blood Cells Absolute Auto 0.000 K/mm3 (0.0-0.012); Nucleated Red Blood Cells Perc 0.0 % (0.0-0.2); Platelet Count Result 168 k/mm3 (150-375); Red Blood Count 3.58 M/mm3 (4.6-6.20); White Blood Count 5.8 K/mm3 (4.5-10.0)
[2025-01-27 04:15] LABS: Anion Gap 5 mmol/L (4-12); Blood Urea Nitrogen 39 mg/dL (9-20); Calcium 9.1 mg/dL (8.4-10.2); Carbon Dioxide 37 mmol/L (22-30); Chloride 92 mmol/L (98-107); Estimated CRCL calculation 43 ml/min; Estimated Glomerular Filt Rate 48; Glucose 111 mg/dL (65-110); Magnesium 2.7 mg/dL (1.6-2.3); Potassium 3.8 mmol/L (3.4-5.0); Sodium 134 mmol/L (137-145)
[2025-01-27 04:22] LABS: NT Pro B Type Natriuretic Pept 9430 pg/mL (19.9-100)
[2025-01-27] MEDS: DOBUTamine 250 MG/D5W 250 ML 250 MG/250 ML BAG 14.06 MG IV CONT (07:54)
--- NOTE | 2025-01-27 08:12 | PM.CNCAR ---
Assessment and Plan Assessment and plan (1) Acute on chronic congestive heart failure with left ventricular diastolic dysfunction: Code(s): I50.33 - Acute on chronic diastolic (congestive) heart failure Status: Acute (2) CAD (coronary artery disease): Code(s): I25.10 - Atherosclerotic heart disease of [place] coronary artery without angina pectoris Status: Chronic (3) Morbid obesity: Code(s): E66.01 - Morbid (severe) obesity due to excess calories Status: Acute (4) Aortic stenosis: Code(s): I35.0 - Nonrheumatic aortic (valve) stenosis Status: Acute Plan Impression: 1. Patient with acute exacerbation of congestive heart failure with worsening leg edema despite increasing diuretics as an outpatient secondary to acute on chronic systolic and diastolic heart failure. Recent echocardiogram in September of 2024 has revealed systolic function in the range of 25 30%. Patient also has stage III diastolic dysfunction. 2. Patient has dual-chamber pacemaker based on EKG. Underlying rhythm appears to be atrial fibrillation. Rule out pacemaker induced LV systolic dysfunction 3. Known history of morbid obesity and obstructive sleep apnea. 4. Multiple medical problems including history of hypertension, hyperlipidemia, type 2 diabetes with diabetic neuropathy and coronary artery disease. 5. History of gastric bypass surgery in 2003. 6. Cardiomyopathy by echocardiogram and ejection fraction range of 25-30%. Rule out underlying ischemic component. 7. History of hypothyroidism. Patient is on methimazole. Recommendation: #. Continue with diet Lasix 80 mg IV push b.i.d. and Zaroxolyn 2.5 mg daily for now. Patient has been started on IV dobutamine at 2.5 microgram/kg per minute by Dr. Hartman, his primary color maker dyer. #. Echocardiogram reviewed from September of 2024. No need for another echocardiogram at this time. #. Current blood pressure is 121/75 and heart rate is 94 per minute. Continue with guideline directed medical therapy for chronic systolic and diastolic heart failure. Home medications reviewed. Continue with aspirin 81 mg daily, atorvastatin 20 mg at bedtime, dapagliflozin 10 mg daily, Eliquis 2.5 mg b.i.d.. Entresto is on hold to improve his blood pressure. Metoprolol is on hold due to IV dobutamine drip. Will continue monitor his urine output and renal function. #. Patient is a full code. Continue with conservative medical management for this patient. #. Continue with treatment for hyperthyroidism with methimazole. #. Patient needs removal of dual-chamber pacemaker due to poor LV systolic function and consider replacing with bi V ICD. Discussed with . Thank you again for allowing us to participate in care of this patient. History of Present Illness History of Present Illness Consult date/time: 01/27/25 08:12 Requesting physician: Alejandra Watson MD Consult reason: congestive heart failure Reason For Visit: chf exac Narrative: Patient is a 79-year-old female admitted on 01/26/2025 due to abnormal laboratory data. Patient started having shortness of breath 2 days ago with significant swelling of the legs. Subsequently evaluated by color maker dyer and started on metolazone and Lasix was increased. However leg edema persisted and primary physician referred the hospital for further management. No associated fever or chills or urinary symptoms. No complaints of chest pain, abdominal pain nausea vomiting or diarrhea. Past medical history significant for hypertension, morbid obesity, diabetes, hyperlipidemia and history of chronic diastolic heart failure. Patient also has known history of coronary artery disease and ascending aortic dilatation, history of diabetic neuropathy and obstructive sleep apnea. Patient also has chronic renal insufficiency. Admitting blood pressure was 98/66 and heart rate was 77. Patient is afebrile. O2 saturation was 100%. Admitting laboratory data revealed diffuse count 5.5, hemoglobin is 11.0 and platelets were normal. Sodium 136, potassium 4.4, BUN is 38 creatinine is 1.5. ProBNP is 10,500 Admitting chest x-ray revealed cardiomegaly with left-sided pacemaker generator leads, moderate size patchy opacities bilaterally this could be congestive heart failure or pneumonia. EKG revealed dual-chamber sensing and ventricular pacing with underlying rhythm suspicious for atrial fibrillation. Previous echocardiogram on 09/23/2024 revealed mildly enlarged left ventricle with mild left ventricular hypertrophy and reduced systolic function in range of 25-30%. There is global hypokinesis with septal wall hypokinesis. Grade 3 diastolic dysfunction is noted. Right ventricle is enlarged. There is moderate mitral regurgitation. There is moderate to severe aortic stenosis with peak velocity 2.2 and calculated aortic valve area in the range of 0.9-1.0 sq cm. There is calcific aortic stenosis. Review of Systems Review of Systems: Twelve point review of system was completed. Pertinent positive and negative findings per HPI. Constitutional negative for fever or chills, negative for weight loss. Head and neck is negative. Pulmonary system positive for shortness of breath negative wheezing and pneumonia. Cardiovascular positive for shortness of breath, leg edema and orthopnea. Endovascular he denies genital is negative. Skin and musculoskeletal positive for a generator osteoarthritis. [facility] Past Medical History Medical History (Updated 01/27/25 @ 08:41 by Charles Meng MD) High-grade atrioventricular block Diabetes Obstipation Weakness of pelvic floor in male Diarrhea Thyroid nodule Hyperthyroidism Low TSH level Diabetic neuropathy Cobalamin deficiency Nocturia Psoriasis NSVT (nonsustained ventricular tachycardia) Bradycardia PVC (premature ventricular contraction) Bigeminy ALEX treated with BiPAP Renal insufficiency Chronic coronary artery disease Dyslipidemia Hypertension Morbid obesity Hypertensive heart disease with CHF Dyslipidemia associated with type 2 diabetes mellitus Ascending aorta dilatation CAD (coronary artery disease) Surgical History Surgical History Hx of myringotomy History of tonsillectomy and adenoidectomy (~1949) History of hemorrhoidectomy (~1969) History of cholecystectomy (~1974) History of cataract surgery History of gastric bypass (~2003) Family History Family History Father Family history of cardiovascular disease Diabetes mellitus Hypertension Mother Family history of kidney disease Diabetes mellitus Breast cancer Sibling Family history of glaucoma Grandparent Diabetes mellitus Sibling Thyroid cancer Social History Social History Smoking packs per day: 1 Smoking cigarettes per day: 20.0 Years smoked: 20 Smoking pack-years: 20.00 Smoking status: Former smoker Alcohol intake: never Alcohol use details: rarely Substance use: never Substance use type: marijuana Do You Feel Safe in your Home?: Yes Lack of Transportation: No Lack of Food: Never True Current Housing: I Have Housing Concerned About Future Housing: No Difficulty Paying Gas/Electric Bills: No Difficulty Paying for Meds: No Currently Unemployed: No Education: Bachelor's Degree Difficulty w/ Childcare or Family Care: No Living arrangements: with family Spiritual care concerns: No Meds Home Medications and Allergies Home Medications ?Medication ?Instructions ?Recorded ?Confirmed ?Type aspirin 81 mg tablet,delayed 81 mg PO DAILY 01/08/20 01/26/25 History release cyanocobalamin (vitamin B-12) 2,000 mcg PO DAILY 01/08/20 01/26/25 History 1,000 mcg tablet furosemide 40 mg tablet 40 mg PO QAM 01/08/20 01/26/25 History magnesium 200 mg tablet 200 mg PO Q6H 01/08/20 01/26/25 History atorvastatin 10 mg tablet 10 mg PO QHS 12/26/22 01/26/25 History dapagliflozin propanediol 10 mg 10 mg PO DAILY 12/26/22 01/26/25 History tablet diclofenac sodium 75 mg 150 mg PO DAILY PRN Pain (Scale 12/26/22 01/26/25 History tablet,delayed release Score 1-3) docusate sodium 100 mg capsule 400 mg PO Q48H 12/26/22 01/26/25 History (Colace) multivitamin 1 tablet PO DAILY 12/26/22 01/26/25 History rivaroxaban 2.5 mg tablet (Xarelto) 2.5 mg PO BID 12/26/22 01/26/25 History tramadol 50 mg tablet 50 mg PO BID PRN pain 12/26/22 01/26/25 History zinc acetate 50 mg (zinc) capsule 50 mg PO DAILY 05/17/23 01/26/25 History (Galzin) methimazole 5 mg tablet 5 mg PO 5XW 09/20/24 01/26/25 History semaglutide 0.25 mg or 0.5 mg (2 0.5 mg subcut WEEKLY 09/20/24 01/26/25 History mg/3 mL) subcutaneous pen injector (Ozempic) docusate sodium 100 mg capsule 300 mg PO Q48H 09/21/24 01/26/25 History metoprolol succinate 25 mg 25 mg PO DAILY #30 tabs 09/24/24 01/26/25 Rx tablet,extended release 24 hr prucalopride 2 mg tablet 2 mg PO DAILY #90 tabs 01/19/25 01/26/25 Rx (Motegrity) folic acid-vit B6-vit B12 2.5 1 tablet PO DAILY 01/26/25 01/26/25 History mg-25 mg-2 mg tablet (Folbic) ipratropium bromide 42 mcg (0.06 2 spray intranasal TID 01/26/25 01/26/25 History %) nasal spray levocetirizine 5 mg tablet 5 mg PO DAILY 01/26/25 01/26/25 History metolazone 5 mg tablet 5 mg PO Q12H 01/26/25 01/26/25 History Held on 01/26/25. Instructions: Patient no longer taking sacubitril 24 mg-valsartan 26 mg 0.5 tablet PO BID 01/26/25 01/26/25 History tablet (Entresto) Allergies Allergy/AdvReac Type Severity Reaction Status Date / Time clindamycin Allergy Unknown unknown Verified 01/26/25 17:55 Vital Signs Vital Signs - 24 hr 01/26/25 13:25 01/26/25 15:04 01/26/25 16:09 Temperature 35.9 C L Pulse Rate 77 77 114 H Respiratory Rate 20 25 H 18 Blood Pressure 98/66 L 108/82 108/77 Pulse Oximetry 100 99 100 Oxygen Delivery Room Air 01/26/25 16:10 01/26/25 17:58 01/26/25 18:00 Temperature 36.5 C Pulse Rate 89 111 H 89 Respiratory Rate 18 Blood Pressure 121/63 Pulse Oximetry 98 Oxygen Delivery 01/26/25 19:49 01/26/25 20:00 01/26/25 20:00 Temperature Pulse Rate 89 98 85 Respiratory Rate 18 Blood Pressure 112/49 L Pulse Oximetry 98 Oxygen Delivery Room Air 01/26/25 20:00 01/26/25 22:00 01/26/25 22:00 Temperature 36.4 C L Pulse Rate 68 104 H 102 H Respiratory Rate 16 16 Blood Pressure 112/49 L 95/53 L Pulse Oximetry 99 98 Oxygen Delivery 01/26/25 22:00 01/26/25 23:48 01/27/25 00:00 Temperature Pulse Rate 88 86 83 Respiratory Rate 16 Blood Pressure 95/53 L 111/48 L Pulse Oximetry 98 Oxygen Delivery Room Air 01/27/25 00:00 01/27/25 00:00 01/27/25 02:00 Temperature 36.6 C Pulse Rate 85 86 86 Respiratory Rate 16 Blood Pressure 111/48 L 96/44 L Pulse Oximetry 98 Oxygen Delivery 01/27/25 02:00 01/27/25 02:00 01/27/25 03:23 Temperature 36.9 C Pulse Rate 78 81 90 Respiratory Rate 18 18 Blood Pressure 96/44 L Pulse Oximetry 95 95 Oxygen Delivery Room Air 01/27/25 04:00 01/27/25 04:00 01/27/25 04:00 Temperature 36.5 C Pulse Rate 101 H 98 98 Respiratory Rate 16 Blood Pressure 93/46 L 93/46 L Pulse Oximetry 98 Oxygen Delivery 01/27/25 06:00 01/27/25 06:00 01/27/25 06:00 Temperature Pulse Rate 78 78 83 Respiratory Rate 18 Blood Pressure 93/60 L 93/60 L Pulse Oximetry 98 Oxygen Delivery 01/27/25 07:44 01/27/25 07:53 01/27/25 07:54 Temperature 36.6 C Pulse Rate 77 94 94 Respiratory Rate 14 Blood Pressure 121/75 121/75 121/75 Pulse Oximetry 97 Oxygen Delivery Exam Narrative: Patient was examined at the bedside. Patient is morbidly obese and weighs 93.7 kg with BMI of 30. Head and neck examination is unremarkable. Head is atraumatic. Sclerae is nonicteric. ENT exam is negative. Neck is supple. Mild JVD is noted. There is no carotid bruit. Thyroid is negative Lungs reveal decreased air entry bilaterally with nonlabored breathing. Crepitations are noted without wheezing or rhonchi. Heart sounds reveal normal S1-S2 with a soft systolic murmur. Pacemaker in the left upper chest. Noted at the left sternal border abdomen is soft nontender. There is no hepatosplenomegaly or ascites. Bowel sounds present Extremities reveal bilateral lower extremity edema. There is no clubbing or cyanosis with Neurological examination is intact. Results Labs and Meds 01/27/25 03:34 01/27/25 03:34 Lab results: Cardiac Enzymes 01/26/25 Range/Units 14:32 AST 62 H (17-59) U/L CBC 01/26/25 01/27/25 Range/Units 14:32 03:34 WBC 5.5 5.8 (4.5-10.0) K/mm3 RBC 3.73 L 3.58 L (4.6-6.20) M/mm3 Hgb 11.0 L 10.5 L (14.0-18.0) g/dL Hct 35.8 L 33.6 L (42.0-52.0) % Plt Count 173 168 (150-375) k/mm3 Lymph # (Auto) 1.53 1.11 (0.9-3.2) K/mm3 [place] # (Auto) 0.6 0.7 H (0.1-0.6) K/mm3 Eos # (Auto) 0.3 0.1 (0-0.3) K/mm3 Baso # (Auto) 0.0 0.1 (0.0-0.1) K/mm3 Comprehensive Metabolic Panel 01/26/25 01/26/25 01/27/25 Range/Units 14:32 21:40 03:34 Sodium 136 L 136 L 134 L (137-145) mmol/L Potassium 4.4 3.7 3.8 (3.4-5.0) mmol/L Chloride 93 L 91 L 92 L (98-107) mmol/L Carbon Dioxide 36 H 38 H 37 H (22-30) mmol/L BUN 38 H D 38 H 39 H (9-20) mg/dL Creatinine 1.52 H 1.51 H 1.42 H (0.7-1.3) mg/dL Glucose 90 118 H 111 H (65-110) mg/dL Calcium 8.8 9.2 9.1 (8.4-10.2) mg/dL AST 62 H (17-59) U/L ALT 32 (6-50) U/L Alkaline Phosphatase 97 (38-126) U/L Total Protein 8.0 (6.3-8.2) g/dL Albumin 4.4 (3.5-5.1) g/dL Intake and Output 01/26/25 01/27/25 01/27/25 23:59 07:59 15:59 Intake Total 87.5 482.5 Output Total 2700 2300 Balance -2612.5 -1817.5 Intake: IV 87.5 162.5 DOBUTamine 250 MG/D5W 250 ML 87.5 162.5 250 mg In 250 ml @ 2.5 MCG/KG/ MIN 15 mls/hr IV CONT .[id number] STA Rx#:[id number] Oral 320 Output: Urine 2700 2300 Patient Weight 01/27/25 23:59 Weight 93.7 kg
[2025-01-27] MEDS: RIVAROXABAN 2.5 MG TABLET PO ×2 (08:53→20:05)
[2025-01-27] MEDS: MULTIVITAMINS THERAPEUTIC TAB (*BKC) 1 TABLET PO (08:53)
[2025-01-27] MEDS: FUROSEMIDE INJ 100 MG/10 ML VIAL 80 MG IV PUSH (08:53)
[2025-01-27] MEDS: CYANOCOBALAMIN 1,000 MCG TABLET 2000 MCG PO (08:53)
[2025-01-27] MEDS: SACUBITRIL/VALSARTAN 12-13 MG TABLET 1 TAB PO (08:53)
[2025-01-27] MEDS: EMPAGLIFLOZIN 10 MG TABLET BY MOUTH (08:53)
[2025-01-27] MEDS: METOPROLOL SUCCINATE EXT REL 25 MG TABCR PO (08:53)
[2025-01-27] MEDS: ASPIRIN 81 MG ENTERIC TABLET PO (08:54)
[2025-01-27] MEDS: FUROSEMIDE INJ 40 MG/4 ML VIAL IV PUSH (16:48)
--- NOTE | 2025-01-27 18:40 | PM.IMPN ---
Progress Note: A&P Assessment and Plan (1) Acute on chronic congestive heart failure with left ventricular diastolic dysfunction: Code(s): I50.33 - Acute on chronic diastolic (congestive) heart failure Status: Acute Assessment and Plan: Progressive fluid overload, was followed by his primary improvement leader Dr. Hartman recommended metolazone/Lasix initially however given progressively worsening edema was instructed to come the ED for admission. He was started on dobutamine drip and IV Lasix 80 mg b.i.d. and is improving this time. Seen by cardiology, continue IV Lasix 80 mg, rivaroxaban 2.5 mg daily, dobutamine drip. Continue aspirin, atorvastatin, SGLT2 inhibitor. Metoprolol on hold due to dobutamine drip. Recommendations of Cardiology also include need for removal of his dual-chamber pacemaker as it may be contributing to his heart failure with replacement biventricular ICD. Will follow Cardiology recommendations (2) High-grade atrioventricular block: Code(s): I44.39 - Other atrioventricular block Status: Chronic (3) Acute exacerbation of CHF (congestive heart failure): Qualifiers: Heart failure type: combined systolic and diastolic Qualified Code(s): I50.43 - Acute on chronic combined systolic (congestive) and diastolic (congestive) heart failure Code(s): I50.9 - Heart failure, unspecified Status: Acute (4) HLD (hyperlipidemia): Code(s): E78.5 - Hyperlipidemia, unspecified Status: Acute Assessment and Plan: Continue statin (5) Type 2 diabetes mellitus: Code(s): E11.9 - Type 2 diabetes mellitus without complications Status: Acute Assessment and Plan: Insulin sliding scale Continue SGLT2 inhibitor Subjective Date/time seen: 01/27/25 18:40 Review of Systems Review of Systems: All systems reviewed & are unremarkable except as noted in HPI and below Exam Narrative: GENERAL: non-toxic appearing, in no acute distress. HEAD: Normocephalic, atraumatic. EYES: PERRLA. Conjunctivae clear. NOSE: Normal no drainage. THROAT: Pharynx clear, no exudate. NECK: Trachea midline. No adenopathy, no masses. RESPIRATORY: Airway patent, respirations nonlabored. Decreased air movement. CARDIOVASCULAR: Irregular rate and rhythm GASTROINTESTINAL: Abdomen is soft and nontender. No organomegaly. Bowel sounds normal in all quadrants. GENITOURINARY: Defer MUSCULOSKELETAL: Moves all extremities. No gross deformities. No calf tenderness. Bilateral lower extremity 2+ pitting edema SKIN: Warm, dry. Area of reddened skin on left stewart NEURO: A&O X4. Speech clear PSYCHIATRIC: Normal interaction Objective Data Vital Signs Vital Signs: Vital Signs - 24 hr 01/26/25 19:49 01/26/25 20:00 01/26/25 20:00 Temperature Pulse Rate 89 98 85 Respiratory Rate 18 Blood Pressure 112/49 L Pulse Oximetry 98 Oxygen Delivery Room Air 01/26/25 20:00 01/26/25 22:00 01/26/25 22:00 Temperature 97.5 F L Pulse Rate 68 104 H 102 H Respiratory Rate 16 16 Blood Pressure 112/49 L 95/53 L Pulse Oximetry 99 98 Oxygen Delivery 01/26/25 22:00 01/26/25 23:48 01/27/25 00:00 Temperature Pulse Rate 88 86 83 Respiratory Rate 16 Blood Pressure 95/53 L 111/48 L Pulse Oximetry 98 Oxygen Delivery Room Air 01/27/25 00:00 01/27/25 00:00 01/27/25 02:00 Temperature 97.8 F Pulse Rate 85 86 86 Respiratory Rate 16 Blood Pressure 111/48 L 96/44 L Pulse Oximetry 98 Oxygen Delivery 01/27/25 02:00 01/27/25 02:00 01/27/25 03:23 Temperature 98.5 F Pulse Rate 78 81 90 Respiratory Rate 18 18 Blood Pressure 96/44 L Pulse Oximetry 95 95 Oxygen Delivery Room Air 01/27/25 04:00 01/27/25 04:00 01/27/25 04:00 Temperature 97.7 F Pulse Rate 101 H 98 98 Respiratory Rate 16 Blood Pressure 93/46 L 93/46 L Pulse Oximetry 98 Oxygen Delivery 01/27/25 06:00 01/27/25 06:00 01/27/25 06:00 Temperature Pulse Rate 78 78 83 Respiratory Rate 18 Blood Pressure 93/60 L 93/60 L Pulse Oximetry 98 Oxygen Delivery 01/27/25 07:44 01/27/25 07:53 01/27/25 07:54 Temperature 97.8 F Pulse Rate 77 94 94 Respiratory Rate 14 Blood Pressure 121/75 121/75 121/75 Pulse Oximetry 97 Oxygen Delivery 01/27/25 08:00 01/27/25 08:00 01/27/25 08:53 Temperature Pulse Rate 99 99 81 Respiratory Rate Blood Pressure Pulse Oximetry Oxygen Delivery 01/27/25 10:00 01/27/25 10:00 01/27/25 10:00 Temperature Pulse Rate 78 75 78 Respiratory Rate Blood Pressure 93/56 L 93/56 L Pulse Oximetry Oxygen Delivery 01/27/25 11:43 01/27/25 12:00 01/27/25 12:00 Temperature 97.5 F L Pulse Rate 77 95 95 Respiratory Rate 18 Blood Pressure 101/49 L 101/49 L Pulse Oximetry 96 Oxygen Delivery 01/27/25 14:00 01/27/25 14:00 01/27/25 14:00 Temperature Pulse Rate 80 80 81 Respiratory Rate Blood Pressure 97/41 L 97/41 L Pulse Oximetry Oxygen Delivery 01/27/25 16:00 01/27/25 16:00 01/27/25 16:00 Temperature 98.2 F Pulse Rate 86 86 83 Respiratory Rate 20 Blood Pressure 104/55 L 104/55 L Pulse Oximetry 99 Oxygen Delivery 01/27/25 18:00 01/27/25 18:00 01/27/25 18:00 Temperature Pulse Rate 82 82 87 Respiratory Rate Blood Pressure 92/56 L 92/56 L Pulse Oximetry Oxygen Delivery Intake/Output Intake/Output: Intake & Output 01/24/25 01/25/25 01/26/25 01/27/25 23:59 22:59 23:59 23:59 Intake Total 87.5 2544.4 Output Total 2700 5000 Balance -2612.5 -2455.6 Meds/Results Medications: Active Medications Generic Name Dose Route Start Last Admin Trade Name Nikitaq PRN Reason Stop Dose Admin Aspirin 81 mg 01/27/25 09:00 01/27/25 08:54 Aspirin 81 Mg Enteric Tablet PO 81 mg DAILY BRI Administration Atorvastatin Calcium 10 mg 01/26/25 21:00 01/26/25 21:39 Atorvastatin 10 Mg Tablet PO 10 mg QHS BRI Administration Cyanocobalamin 2,000 mcg 01/27/25 09:00 01/27/25 08:53 Cyanocobalamin 1,000 Mcg Tablet PO 2,000 mcg DAILY BRI Administration Dextrose 12.5 gm 01/26/25 18:25 Dextrose 50% 25 Gm/50 Ml Syringe IV PUSH PRN PRN Hypoglycemia Protocol Diclofenac Sodium 75 mg 01/26/25 20:58 Diclofenac Sod 75 Mg Tablet.Ec PO Q12H PRN Pain (Scale Score 1-3) Empagliflozin 10 mg 01/27/25 09:00 01/27/25 08:53 Empagliflozin 10 Mg Tablet BY MOUTH 10 mg DAILY BRI Administration Furosemide 40 mg 01/27/25 17:00 01/27/25 16:48 Furosemide Inj 40 Mg/4 Ml Vial IV PUSH 40 mg BID BRI Administration Glucagon 1 mg 01/26/25 18:25 Glucagon For Inj 1 Mg Vial IM PRN PRN Hypoglycemia Protocol Glucose 15 gm 01/26/25 18:25 Glucose Oral Gel 15 Gm Of Glucse In 37.5 Gm Tube PO PRN PRN Hypoglycemia Protocol Dextrose 1,000 mls @ 100 mls/hr 01/26/25 18:25 Dextrose 5% 1,000 Ml IVPB PRN PRN Hypoglycemia Protocol Dobutamine HCl/Dextrose 250 mg in 250 mls @ 14.055 mls/hr 01/27/25 07:50 01/27/25 18:00 Dobutamine 250 Mg/D5w 250 Ml IV CONT 2.5 mcg/kg/min .[id number] BRI 14.06 mls/hr 2.5 MCG/KG/MIN Infusion Insulin Aspart 2 - 5 units 01/27/25 08:00 01/27/25 16:47 Insulin Aspart (*Bkc) 100 Units/Ml SUB-Q Not Given TIDWM [facility] Protocol Ipratropium [place] 2 spray 01/26/25 22:00 01/27/25 16:21 Ipratropium Nasal [place] 0.06% 15 Ml Bottle NASAL Not Given Q8HR [facility] Metoprolol Succinate 25 mg 01/27/25 09:00 01/27/25 08:53 Metoprolol Succinate Ext Rel 25 Mg Tabcr PO 25 mg On Hold: 01/27/25 11:54 DAILY [facility] Administration Multivitamins Therapeutic 1 tablet 01/27/25 09:00 01/27/25 08:53 Multivitamins Therapeutic Tab (*Bkc) PO 1 tablet DAILY [facility] Administration Rivaroxaban 2.5 mg 01/26/25 21:00 01/27/25 08:53 Rivaroxaban 2.5 Mg Tablet PO 2.5 mg Q12HR [facility] Administration Sacubitril/Valsartan 1 tab 01/26/25 21:00 01/27/25 08:53 Sacubitril/Valsartan 12-13 Mg Tablet PO 1 tab On Hold: 01/27/25 11:58 Q12HR BRI Administration Tramadol HCl 50 mg 01/26/25 21:04 01/27/25 00:58 Tramadol Hcl (*Crx) 50 Mg Tablet PO 50 mg Q12H PRN Administration Pain Radiology Results: ITS Impressions Chest X-Ray 01/26/25 15:35 IMPRESSION: 1. Small to moderate-sized patchy opacities scattered throughout both lungs. Differential includes but is not limited to edema or pneumonia. Recommend follow-up to resolution. Consider a chest CT for further assessment Labs Labs: Laboratory Results - last 24 hr 01/26/25 01/27/25 21:40 03:34 WBC 5.8 RBC 3.58 L Hgb 10.5 L Hct 33.6 L MCV 93.9 MCH 29.3 MCHC 31.3 L RDW 15.9 H Plt Count 168 MPV 11.9 H Immature Gran % (Auto) 0.2 Neut % (Auto) 65.5 Lymph % (Auto) 19.3 [place] % (Auto) 12.0 H Eos % (Auto) 2.1 Baso % (Auto) 0.9 Lymph # (Auto) 1.11 [place] # (Auto) 0.7 H Eos # (Auto) 0.1 Baso # (Auto) 0.1 Abs Immat Gran (auto) 0.01 Absolute Neuts (auto) 3.8 Absolute Nucleated RBC 0.000 Nucleated RBC % 0.0 Sodium 136 L 134 L Potassium 3.7 3.8 Chloride 91 L 92 L Carbon Dioxide 38 H 37 H Anion Gap 7 5 BUN 38 H 39 H Creatinine 1.51 H 1.42 H Estim Creat Clear Calc 40 43 Estimated GFR 45 L 48 L Glucose 118 H 111 H Calcium 9.2 9.1 Magnesium 2.8 H 2.7 H NT-Pro-B Natriuret Pep 9430 H Hospitalist MIPS Advance Care Plan I have confirmed that the patient's Advanced Care Plan is present, code status is documented, or surrogate decision maker is listed in patient medical record.: Yes Medication Reconciliation I have utilized all available resources to obtain, update and review the patients current medications (includes all prescriptions, OTC, herbals, cannabis, and nutritional supplements).: Yes
[2025-01-27] MEDS: ATORVASTATIN 10 MG TABLET PO (20:05)
[2025-01-28] VITALS (16 sets, daily range): BP systolic 99–117; BP diastolic 31–66; PULSE 72–90; RESP 16–20; TEMP 36.6–37.1; O2SAT 94–99
[2025-01-28] MEDS: DOBUTamine 250 MG/D5W 250 ML 250 MG/250 ML BAG 14.06 MG IV CONT (01:20)
[2025-01-28 04:43] LABS: Hematocrit 35.4 % (42.0-52.0); Hemoglobin 11.2 g/dL (14.0-18.0); Immature Granulocyte Percent A 0.2 % (0-0.5); Lymphocytes Absolute Auto 1.65 K/mm3 (0.9-3.2); Mean Corpuscular HGB Conc 31.6 g/dl (32-36); Mean Corpuscular Hemoglobin 29.7 pg (26-34); Mean Corpuscular Volume 93.9 fl (80-100); Nucleated Red Blood Cells Absolute Auto 0.000 K/mm3 (0.0-0.012); Nucleated Red Blood Cells Perc 0.0 % (0.0-0.2); Platelet Count Result 174 k/mm3 (150-375); Red Blood Count 3.77 M/mm3 (4.6-6.20); White Blood Count 6.4 K/mm3 (4.5-10.0)
[2025-01-28 05:05] LABS: Alanine Aminotransferase 25 U/L (6-50); Albumin Level 4.1 g/dL (3.5-5.1); Alkaline Phosphatase 88 U/L (38-126); Anion Gap 8 mmol/L (4-12); Aspartate Amino Transferase 51 U/L (17-59); Bilirubin,Total 0.7 mg/dL (0.2-1.3); Blood Urea Nitrogen 39 mg/dL (9-20); Calcium 8.9 mg/dL (8.4-10.2); Carbon Dioxide 36 mmol/L (22-30); Chloride 90 mmol/L (98-107); Estimated CRCL calculation 36 ml/min; Estimated Glomerular Filt Rate 46; Glucose 92 mg/dL (65-110); Potassium 3.3 mmol/L (3.4-5.0); Sodium 134 mmol/L (137-145); Total Protein 7.7 g/dL (6.3-8.2)
[2025-01-28] MEDS: MULTIVITAMINS THERAPEUTIC TAB (*BKC) 1 TABLET PO (09:17)
[2025-01-28] MEDS: FUROSEMIDE INJ 40 MG/4 ML VIAL IV PUSH ×2 (09:17→17:37)
[2025-01-28] MEDS: CYANOCOBALAMIN 1,000 MCG TABLET 2000 MCG PO (09:18)
[2025-01-28] MEDS: EMPAGLIFLOZIN 10 MG TABLET BY MOUTH (09:18)
[2025-01-28] MEDS: POTASSIUM CHLORIDE 20 MEQ ER TABLET 40 MEQ PO (09:18)
[2025-01-28] MEDS: RIVAROXABAN 2.5 MG TABLET PO ×2 (09:18→20:28)
[2025-01-28] MEDS: ASPIRIN 81 MG ENTERIC TABLET PO (09:18)
--- NOTE | 2025-01-28 14:13 | P.PNCA_ITS ---
Progress Note: A&P Assessment and Plan (1) Acute on chronic congestive heart failure with left ventricular diastolic dysfunction: Code(s): I50.33 - Acute on chronic diastolic (congestive) heart failure Status: Acute (2) Type 2 diabetes mellitus: Code(s): E11.9 - Type 2 diabetes mellitus without complications Status: Acute (3) Morbid obesity: Code(s): E66.01 - Morbid (severe) obesity due to excess calories Status: Acute (4) Chronic diastolic CHF (congestive heart failure): Code(s): I50.32 - Chronic diastolic (congestive) heart failure Status: Acute Plan Impression: 1. Patient with acute exacerbation of congestive heart failure with worsening leg edema despite increasing diuretics as an outpatient secondary to acute on chronic systolic and diastolic heart failure. Recent echocardiogram in September of 2024 has revealed systolic function in the range of 25 30%. Patient also has stage III diastolic dysfunction. Findings are suggestive of acute on chronic systolic and diastolic heart failure. 2. Patient has dual-chamber pacemaker based on EKG. Underlying rhythm appears to be atrial fibrillation. Rule out pacemaker induced LV systolic dysfunction 3. Known history of morbid obesity and obstructive sleep apnea. 4. Multiple medical problems including history of hypertension, hyperlipidemia, type 2 diabetes with diabetic neuropathy and coronary artery disease. 5. History of gastric bypass surgery in 2003. 6. Cardiomyopathy by echocardiogram and ejection fraction range of 25-30%. Rule out underlying ischemic component. 7. History of hypothyroidism. Patient is on methimazole. Recommendation: #. Continue with diet Lasix 40 mg IV push b.i.d. Will discontinue IV dobutamine at this time. Beta-jordan could be restarted. Will switch to p.o. Lasix in the morning. We will use amoxicillin 2.5 mg t.i.d. as needed for weight gain or leg edema. #. Echocardiogram reviewed from September of 2024. No need for another echocardiogram at this time. #. Current blood pressure is 103/43 and heart rate is 81 per minute. Continue with guideline directed medical therapy for chronic systolic and diastolic heart failure. Home medications reviewed. Continue with aspirin 81 mg daily, atorvastatin 20 mg at bedtime, dapagliflozin 10 mg daily, Eliquis 2.5 mg b.i.d. -blood pressure is soft at 103/43 and will continue to hold Entresto. -may resume metoprolol since dobutamine is discontinued however blood pressure remains soft and will continue to monitor blood pressure #. Patient is a full code. Continue with conservative medical management for this patient. #. Continue with treatment for hyperthyroidism with methimazole. #. Patient needs removal of dual-chamber pacemaker due to poor LV systolic function and consider replacing with bi V ICD. Discussed with . Subjective Date/time seen: 01/28/25 14:13 Interval history: Review of HPI: Patient is a 79-year-old female admitted on 01/26/2025 due to abnormal laboratory data. Patient started having shortness of breath 2 days ago with significant swelling of the legs. Subsequently evaluated by division leader and started on metolazone and Lasix was increased. However leg edema persisted and primary physician referred the hospital for further management. No associated fever or chills or urinary symptoms. No complaints of chest pain, abdominal pain nausea vomiting or diarrhea. Past medical history significant for hypertension, morbid obesity, diabetes, hyp erlipidemia and history of chronic diastolic heart failure. Patient also has known history of coronary artery disease and ascending aortic dilatation, history of diabetic neuropathy and obstructive sleep apnea. Patient also has chronic renal insufficiency. Admitting blood pressure was 98/66 and heart rate was 77. Patient is afebrile. O2 saturation was 100%. Admitting laboratory data revealed diffuse count 5.5, hemoglobin is 11.0 and platelets were normal. Sodium 136, potassium 4.4, BUN is 38 creatinine is 1.5. ProBNP is 10,500 Admitting chest x-ray revealed cardiomegaly with left-sided pacemaker generator leads, moderate size patchy opacities bilaterally this could be congestive heart failure or pneumonia. EKG revealed dual-chamber sensing and ventricular pacing with underlying rhythm suspicious for atrial fibrillation. Previous echocardiogram on 09/23/2024 revealed mildly enlarged left ventricle with mild left ventricular hypertrophy and reduced systolic function in range of 25-30%. There is global hypokinesis with septal wall hypokinesis. Grade 3 diastolic dysfunction is noted. Right ventricle is enlarged. There is moderate mitral regurgitation. There is moderate to severe aortic stenosis with peak velocity 2.2 and calculated aortic valve area in the range of 0.9-1.0 sq cm. There is calcific aortic stenosis. Subjective: Patient was examined at the bedside. Patient is awake alert and feeling much better. Significant diuresis noted over 5 L over 24 hours. No significant leg edema. No complaints of chest pain, shortness of breath, orthopnea Review of Systems Review of Systems: 12 point review of system was completed. Pertinent positive and negative findings per HPI. Exam Narrative: Patient was examined at the bedside. Patient is morbidly obese and weighs 93.7 kg with BMI of 30. Head and neck examination is unremarkable. Head is atraumatic. Sclerae is nonicteric. ENT exam is negative. Neck is supple. Mild JVD is noted. There is no carotid bruit. Thyroid is negative Lungs reveal decreased air entry bilaterally with nonlabored breathing. Crepitations are noted without wheezing or rhonchi. Heart sounds reveal normal S1-S2 with a soft systolic murmur. Pacemaker in the left upper chest. Noted at the left sternal border abdomen is soft nontender. There is no hepatosplenomegaly or ascites. Bowel sounds present Extremities reveal bilateral lower extremity edema. There is no clubbing or cyanosis with Neurological examination is intact. Objective Data Vital Signs Vital Signs: Vital Signs - 24 hr 01/27/25 16:00 01/27/25 16:00 01/27/25 16:00 Temperature 36.8 C Pulse Rate 86 86 83 Respiratory Rate 20 Blood Pressure 104/55 L 104/55 L Pulse Oximetry 99 Oxygen Delivery 01/27/25 18:00 01/27/25 18:00 01/27/25 18:00 Temperature Pulse Rate 82 82 87 Respiratory Rate Blood Pressure 92/56 L 92/56 L Pulse Oximetry Oxygen Delivery 01/27/25 19:55 01/27/25 19:57 01/27/25 20:00 Temperature 36.6 C Pulse Rate 82 83 97 Respiratory Rate 20 20 Blood Pressure 116/66 Pulse Oximetry 99 99 Oxygen Delivery Room Air 01/27/25 20:01 01/27/25 22:00 01/27/25 22:00 Temperature Pulse Rate 84 92 92 Respiratory Rate 18 Blood Pressure 116/66 107/45 L Pulse Oximetry 97 Oxygen Delivery 01/27/25 22:00 01/27/25 23:37 01/27/25 23:56 Temperature 36.6 C Pulse Rate 92 92 85 Respiratory Rate 18 18 Blood Pressure 107/45 L 117/31 L Pulse Oximetry 96 96 Oxygen Delivery Room Air 01/28/25 00:00 01/28/25 00:00 01/28/25 01:20 Temperature Pulse Rate 90 86 85 Respiratory Rate Blood Pressure 117/31 L 100/52 L Pulse Oximetry Oxygen Delivery 01/28/25 01:20 01/28/25 02:00 01/28/25 02:00 Temperature Pulse Rate 85 87 87 Respiratory Rate 16 Blood Pressure 100/52 L 100/52 L Pulse Oximetry 95 Oxygen Delivery 01/28/25 02:00 01/28/25 04:00 01/28/25 04:00 Temperature Pulse Rate 75 77 80 Respiratory Rate 17 Blood Pressure 100/52 L Pulse Oximetry 96 Oxygen Delivery Room Air 01/28/25 04:00 01/28/25 04:00 01/28/25 06:00 Temperature 36.6 C Pulse Rate 76 86 75 Respiratory Rate 18 Blood Pressure 99/53 L 99/53 L Pulse Oximetry 94 Oxygen Delivery 01/28/25 06:00 01/28/25 06:00 01/28/25 08:00 Temperature 36.8 C Pulse Rate 72 75 87 Respiratory Rate 18 17 Blood Pressure 104/52 L 104/52 L 105/62 Pulse Oximetry 96 97 Oxygen Delivery 01/28/25 08:00 01/28/25 08:00 01/28/25 08:00 Temperature Pulse Rate 82 87 Respiratory Rate Blood Pressure 105/62 Pulse Oximetry Oxygen Delivery Room Air 01/28/25 10:00 01/28/25 10:00 01/28/25 10:00 Temperature Pulse Rate 82 83 Respiratory Rate Blood Pressure 110/66 Pulse Oximetry Oxygen Delivery 01/28/25 10:10 01/28/25 12:00 01/28/25 12:00 Temperature 36.9 C Pulse Rate 83 90 Respiratory Rate 20 Blood Pressure 103/43 L Pulse Oximetry 97 Oxygen Delivery Room Air 01/28/25 12:00 Temperature Pulse Rate 81 Respiratory Rate Blood Pressure Pulse Oximetry Oxygen Delivery Intake/Output Intake/Output: Intake & Output 01/25/25 01/26/25 01/27/25 01/28/25 22:59 23:59 23:59 23:59 Intake Total 87.5 2600.7 650.9 Output Total 2700 6350 1550 [facility] -2612.5 -3749.3 -899.1 Meds/Results Medications: Active Medications Generic Name Dose Route Start Last Admin Trade Name Freq PRN Reason Stop Dose Admin Aspirin 81 mg 01/27/25 09:00 01/28/25 09:18 Aspirin 81 Mg Enteric Tablet PO 81 mg DAILY BRI Administration Atorvastatin Calcium 10 mg 01/26/25 21:00 01/27/25 20:05 Atorvastatin 10 Mg Tablet PO 10 mg QHS BRI Administration Cyanocobalamin 2,000 mcg 01/27/25 09:00 01/28/25 09:18 Cyanocobalamin 1,000 Mcg Tablet PO 2,000 mcg DAILY BRI Administration Dextrose 12.5 gm 01/26/25 18:25 Dextrose 50% 25 Gm/50 Ml Syringe IV PUSH PRN PRN Hypoglycemia Protocol Diclofenac Sodium 75 mg 01/26/25 20:58 Diclofenac Sod 75 Mg Tablet.Ec PO Q12H PRN Pain (Scale Score 1-3) Empagliflozin 10 mg 01/27/25 09:00 01/28/25 09:18 Empagliflozin 10 Mg Tablet BY MOUTH 10 mg DAILY BRI Administration Furosemide 40 mg 01/27/25 17:00 01/28/25 09:17 Furosemide Inj 40 Mg/4 Ml Vial IV PUSH 40 mg BID BRI Administration Glucagon 1 mg 01/26/25 18:25 Glucagon For Inj 1 Mg Vial IM PRN PRN Hypoglycemia Protocol Glucose 15 gm 01/26/25 18:25 Glucose Oral Gel 15 Gm Of Glucse In 37.5 Gm Tube PO PRN PRN Hypoglycemia Protocol Dextrose 1,000 mls @ 100 mls/hr 01/26/25 18:25 Dextrose 5% 1,000 Ml IVPB PRN PRN Hypoglycemia Protocol Insulin Aspart 2 - 5 units 01/27/25 08:00 01/28/25 07:31 Insulin Aspart (*Bkc) 100 Units/Ml SUB-Q Not Given TIDWM [facility] Protocol Ipratropium [place] 2 spray 01/26/25 22:00 01/28/25 05:48 Ipratropium Nasal [place] 0.06% 15 Ml Bottle NASAL Not Given Q8HR [facility] Metoprolol Succinate 25 mg 01/27/25 09:00 01/27/25 08:53 Metoprolol Succinate Ext Rel 25 Mg Tabcr PO 25 mg On Hold: 01/27/25 11:54 DAILY BRI Administration Multivitamins Therapeutic 1 tablet 01/27/25 09:00 01/28/25 09:17 Multivitamins Therapeutic Tab (*Bkc) PO 1 tablet DAILY BRI Administration Rivaroxaban 2.5 mg 01/26/25 21:00 01/28/25 09:18 Rivaroxaban 2.5 Mg Tablet PO 2.5 mg Q12HR BRI Administration Sacubitril/Valsartan 1 tab 01/26/25 21:00 01/27/25 08:53 Sacubitril/Valsartan 12-13 Mg Tablet PO 1 tab On Hold: 01/27/25 11:58 Q12HR BRI Administration Tramadol HCl 50 mg 01/26/25 21:04 01/27/25 20:06 Tramadol Hcl (*Crx) 50 Mg Tablet PO 50 mg Q12H PRN Administration Pain Radiology Results: ITS Impressions Chest X-Ray 01/26/25 15:35 IMPRESSION: 1. Small to moderate-sized patchy opacities scattered throughout both lungs. Differential includes but is not limited to edema or pneumonia. Recommend follow-up to resolution. Consider a chest CT for further assessment Labs Labs: Laboratory Results - last 24 hr 01/28/25 04:04 WBC 6.4 RBC 3.77 L Hgb 11.2 L Hct 35.4 L MCV 93.9 MCH 29.7 MCHC 31.6 L RDW 15.8 H Plt Count 174 MPV 12.1 H Immature Gran % (Auto) 0.2 Neut % (Auto) 55.4 Lymph % (Auto) 25.7 [place] % (Auto) 13.1 H Eos % (Auto) 5.1 H Baso % (Auto) 0.5 Lymph # (Auto) 1.65 [place] # (Auto) 0.8 H Eos # (Auto) 0.3 Baso # (Auto) 0.0 Abs Immat Gran (auto) 0.01 Absolute Neuts (auto) 3.6 Absolute Nucleated RBC 0.000 Nucleated RBC % 0.0 Sodium 134 L Potassium 3.3 L Chloride 90 L Carbon Dioxide 36 H Anion Gap 8 BUN 39 H Creatinine 1.48 H Estim Creat Clear Calc 36 Estimated GFR 46 L Glucose 92 Calcium 8.9 Total Bilirubin 0.7 AST 51 ALT 25 Alkaline Phosphatase 88 Total Protein 7.7 Albumin 4.1
[2025-01-28] MEDS: MECLIZINE HCL 25 MG TABLET PO (15:54)
--- NOTE | 2025-01-28 16:36 | P.PNIM_ITS ---
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 Hartman recommended metolazone/Lasix initially however given progressively worsening edema was instructed to come the ED for admission. He was started on dobutamine drip and IV Lasix 80 mg b.i.d. and is improving this time. Followed up by cardiology, decreased IV Lasix to 40 mg b.i.d. with switching to oral Lasix in the morning, rivaroxaban 2.5 mg daily. Dobutamine drip has been discontinued. Continue aspirin, atorvastatin, SGLT2 inhibitor. Entresto still held due to blood pressure. Metoprolol restarted cautiously due to dobutamine drip being discontinued. Recommendations of Cardiology also include need for removal of his dual-chamber pacemaker as it may be contributing to his heart failure with replacement biventricular ICD. Will follow Cardiology recommendations 01/28: Patient reports significant improvement symptoms including leg edema and shortness of breath. He did report 1 episode where he has had acute onset shortness of breath today, with palpitations but considers it likely is more panic attack as he has not had further episodes so far and is improving. (2) High-grade atrioventricular block: Code(s): I44.39 - Other atrioventricular block Status: Chronic (3) Acute exacerbation of CHF (congestive heart failure): Qualifiers: Heart failure type: combined systolic and diastolic Qualified Code(s): I50.43 - Acute on chronic combined systolic (congestive) and diastolic (congestive) heart failure Code(s): I50.9 - Heart failure, unspecified Status: Acute (4) HLD (hyperlipidemia): Code(s): E78.5 - Hyperlipidemia, unspecified Status: Acute Assessment and Plan: Continue statin (5) Type 2 diabetes mellitus: Code(s): E11.9 - Type 2 diabetes mellitus without complications Status: Acute Assessment and Plan: Insulin sliding scale Continue SGLT2 inhibitor Subjective Date/time seen: 01/28/25 16:36 Interval history: 79-year-old male with past medical history of DM 2, hypothyroidism, ALEX not compliant with BiPAP, CAD, HTN, CHF presents to the emergency department on 01/26/2025 stating his naval aircrewman operator wanted him to be admitted for further management of his ongoing fluid overload. Patient states that on 01/21 he became very dyspneic and had increased lower extremity edema and reached out to his naval aircrewman operator. He was directed to increase his Lasix for the next 3 days hold and was started on metolazone 5 mg b.i.d. for those 3 days. Patient received a call from his naval aircrew[employer] operator Dr. Hartman requesting he present to the emergency department for IV diuresis. The patient states his dyspnea has improved but his lower extremity edema has persisted, therefore prompting the ED recommendation. Dr. Hartman requested the ED start patient on dobutamine drip an 80 mg IV Lasix b.i.d. Initial vital signs 98/66, HR 77, respirations 20, T 96.7? F, 100% on room air Lab significant for chronic anemia, with slight hyponatremia at 1:36 a.m., chloride 93, carbon dioxide 36, BUN 38, creatinine 1.52 (baseline normal), AST 62, BNP 10,500 Chest x-ray with small to moderate size patchy opacities scattered throughout both lungs-edema versus pneumonia. Review of Systems Review of Systems: All systems reviewed & are unremarkable except as noted in HPI and below Exam Narrative: GENERAL: non-toxic appearing, in no acute distress. HEAD: Normocephalic, atraumatic. EYES: PERRLA. Conjunctivae clear. NOSE: Normal no drainage. THROAT: Pharynx clear, no exudate. NECK: Trachea midline. No adenopathy, no masses. RESPIRATORY: Airway patent, respirations nonlabored. Decreased air movement. CARDIOVASCULAR: Irregular rate and rhythm GASTROINTESTINAL: Abdomen is soft and nontender. No organomegaly. Bowel sound s normal in all quadrants. GENITOURINARY: Defer MUSCULOSKELETAL: Moves all extremities. No gross deformities. No calf tenderness. Bilateral lower extremity 2+ pitting edema SKIN: Warm, dry. Area of reddened skin on left [place] NEURO: A&O X4. Speech clear PSYCHIATRIC: Normal interaction Objective Data Vital Signs Vital Signs: Vital Signs - 24 hr 01/27/25 18:00 01/27/25 18:00 01/27/25 18:00 Temperature Pulse Rate 82 82 87 Respiratory Rate Blood Pressure 92/56 L 92/56 L Pulse Oximetry Oxygen Delivery 01/27/25 19:55 01/27/25 19:57 01/27/25 20:00 Temperature 98 F Pulse Rate 82 83 97 Respiratory Rate 20 20 Blood Pressure 116/66 Pulse Oximetry 99 99 Oxygen Delivery Room Air 01/27/25 20:01 01/27/25 22:00 01/27/25 22:00 Temperature Pulse Rate 84 92 92 Respiratory Rate 18 Blood Pressure 116/66 107/45 L Pulse Oximetry 97 Oxygen Delivery 01/27/25 22:00 01/27/25 23:37 01/27/25 23:56 Temperature 98 F Pulse Rate 92 92 85 Respiratory Rate 18 18 Blood Pressure 107/45 L 117/31 L Pulse Oximetry 96 96 Oxygen Delivery Room Air 01/28/25 00:00 01/28/25 00:00 01/28/25 01:20 Temperature Pulse Rate 90 86 85 Respiratory Rate Blood Pressure 117/31 L 100/52 L Pulse Oximetry Oxygen Delivery 01/28/25 01:20 01/28/25 02:00 01/28/25 02:00 Temperature Pulse Rate 85 87 87 Respiratory Rate 16 Blood Pressure 100/52 L 100/52 L Pulse Oximetry 95 Oxygen Delivery 01/28/25 02:00 01/28/25 04:00 01/28/25 04:00 Temperature Pulse Rate 75 77 80 Respiratory Rate 17 Blood Pressure 100/52 L Pulse Oximetry 96 Oxygen Delivery Room Air 01/28/25 04:00 01/28/25 04:00 01/28/25 06:00 Temperature 97.9 F Pulse Rate 76 86 75 Respiratory Rate 18 Blood Pressure 99/53 L 99/53 L Pulse Oximetry 94 Oxygen Delivery 01/28/25 06:00 01/28/25 06:00 01/28/25 08:00 Temperature 98.2 F Pulse Rate 72 75 87 Respiratory Rate 18 17 Blood Pressure 104/52 L 104/52 L 105/62 Pulse Oximetry 96 97 Oxygen Delivery 01/28/25 08:00 01/28/25 08:00 01/28/25 08:00 Temperature Pulse Rate 82 87 Respiratory Rate Blood Pressure 105/62 Pulse Oximetry Oxygen Delivery Room Air 01/28/25 10:00 01/28/25 10:00 01/28/25 10:00 Temperature Pulse Rate 82 83 Respiratory Rate Blood Pressure 110/66 Pulse Oximetry Oxygen Delivery 01/28/25 10:10 01/28/25 12:00 01/28/25 12:00 Temperature 98.5 F Pulse Rate 83 90 Respiratory Rate 20 Blood Pressure 103/43 L Pulse Oximetry 97 Oxygen Delivery Room Air 01/28/25 12:00 01/28/25 14:00 01/28/25 16:00 Temperature Pulse Rate 81 83 82 Respiratory Rate Blood Pressure Pulse Oximetry Oxygen Delivery 01/28/25 16:00 Temperature 98.6 F Pulse Rate 89 Respiratory Rate 20 Blood Pressure 114/66 Pulse Oximetry 99 Oxygen Delivery Intake/Output Intake/Output: Intake & Output 01/25/25 01/26/25 01/27/25 01/28/25 22:59 23:59 23:59 23:59 Intake Total 87.5 2600.7 650.9 Output Total 2700 6350 1550 Balance -2612.5 -3749.3 -899.1 Meds/Results Medications: Active Medications Generic Name Dose Route Start Last Admin Trade Name Freq PRN Reason Stop Dose Admin Aspirin 81 mg 01/27/25 09:00 01/28/25 09:18 Aspirin 81 Mg Enteric Tablet PO 81 mg DAILY BRI Administration Atorvastatin Calcium 10 mg 01/26/25 21:00 01/27/25 20:05 Atorvastatin 10 Mg Tablet PO 10 mg QHS BRI Administration Cyanocobalamin 2,000 mcg 01/27/25 09:00 01/28/25 09:18 Cyanocobalamin 1,000 Mcg Tablet PO 2,000 mcg DAILY BRI Administration Dextrose 12.5 gm 01/26/25 18:25 Dextrose 50% 25 Gm/50 Ml Syringe IV PUSH PRN PRN Hypoglycemia Protocol Diclofenac Sodium 75 mg 01/26/25 20:58 Diclofenac Sod 75 Mg Tablet.Ec PO Q12H PRN Pain (Scale Score 1-3) Empagliflozin 10 mg 01/27/25 09:00 01/28/25 09:18 Empagliflozin 10 Mg Tablet BY MOUTH 10 mg DAILY BRI Administration Furosemide 40 mg 01/27/25 17:00 01/28/25 09:17 Furosemide Inj 40 Mg/4 Ml Vial IV PUSH 40 mg BID BRI Administration Glucagon 1 mg 01/26/25 18:25 Glucagon For Inj 1 Mg Vial IM PRN PRN Hypoglycemia Protocol Glucose 15 gm 01/26/25 18:25 Glucose Oral Gel 15 Gm Of Glucse In 37.5 Gm Tube PO PRN PRN Hypoglycemia Protocol Dextrose 1,000 mls @ 100 mls/hr 01/26/25 18:25 Dextrose 5% 1,000 Ml IVPB PRN PRN Hypoglycemia Protocol Insulin Aspart 2 - 5 units 01/27/25 08:00 01/28/25 15:54 Insulin Aspart (*Bkc) 100 Units/Ml SUB-Q Not Given TIDWM BRI Protocol Ipratropium [place] 2 spray 01/26/25 22:00 01/28/25 15:00 Ipratropium Nasal [place] 0.06% 15 Ml Bottle NASAL 2 spray Q8HR BRI Administration Meclizine HCl 25 mg 01/28/25 15:09 01/28/25 15:54 Meclizine Hcl 25 Mg Tablet PO 25 mg Q8HR PRN Administration Dizziness Metoprolol Succinate 25 mg 01/27/25 09:00 01/27/25 08:53 Metoprolol Succinate Ext Rel 25 Mg Tabcr PO 25 mg DAILY BRI Administration Multivitamins Therapeutic 1 tablet 01/27/25 09:00 01/28/25 09:17 Multivitamins Therapeutic Tab (*Bkc) PO 1 tablet DAILY BRI Administration Rivaroxaban 2.5 mg 01/26/25 21:00 01/28/25 09:18 Rivaroxaban 2.5 Mg Tablet PO 2.5 mg Q12HR BRI Administration Sacubitril/Valsartan 1 tab 01/26/25 21:00 01/27/25 08:53 Sacubitril/Valsartan 12-13 Mg Tablet PO 1 tab Q12HR BRI Administration Tramadol HCl 50 mg 01/26/25 21:04 01/27/25 20:06 Tramadol Hcl (*Crx) 50 Mg Tablet PO 50 mg Q12H PRN Administration Pain Radiology Results: ITS Impressions Chest X-Ray 01/26/25 15:35 IMPRESSION: 1. Small to moderate-sized patchy opacities scattered throughout both lungs. Differential includes but is not limited to edema or pneumonia. Recommend follow-up to resolution. Consider a chest CT for further assessment Labs Labs: Laboratory Results - last 24 hr 01/28/25 04:04 WBC 6.4 RBC 3.77 L Hgb 11.2 L Hct 35.4 L MCV 93.9 MCH 29.7 MCHC 31.6 L RDW 15.8 H Plt Count 174 MPV 12.1 H Immature Gran % (Auto) 0.2 Neut % (Auto) 55.4 Lymph % (Auto) 25.7 [place] % (Auto) 13.1 H Eos % (Auto) 5.1 H Baso % (Auto) 0.5 Lymph # (Auto) 1.65 [place] # (Auto) 0.8 H Eos # (Auto) 0.3 Baso # (Auto) 0.0 Abs Immat Gran (auto) 0.01 Absolute Neuts (auto) 3.6 Absolute Nucleated RBC 0.000 Nucleated RBC % 0.0 Sodium 134 L Potassium 3.3 L Chloride 90 L Carbon Dioxide 36 H Anion Gap 8 BUN 39 H Creatinine 1.48 H Estim Creat Clear Calc 36 Estimated GFR 46 L Glucose 92 Calcium 8.9 Total Bilirubin 0.7 AST 51 ALT 25 Alkaline Phosphatase 88 Total Protein 7.7 Albumin 4.1 Hospitalist MIPS Advance Care Plan I have confirmed that the patient's Advanced Care Plan is present, code status is documented, or surrogate decision maker is listed in patient medical record.: Yes Medication Reconciliation I have utilized all available resources to obtain, update and review the patients current medications (includes all prescriptions, OTC, herbals, cannabis, and nutritional supplements).: Yes
[2025-01-28] MEDS: ATORVASTATIN 10 MG TABLET PO (20:28)
[2025-01-28] MEDS: SACUBITRIL/VALSARTAN 12-13 MG TABLET 1 TAB PO (20:28)
[2025-01-29] VITALS: PULSE 73
[2025-01-29 04:00] VITALS: PULSE 73
[2025-01-29 05:28] LABS: Hematocrit 37.7 % (42.0-52.0); Hemoglobin 11.9 g/dL (14.0-18.0); Immature Granulocyte Percent A 0.3 % (0-0.5); Lymphocytes Absolute Auto 1.47 K/mm3 (0.9-3.2); Mean Corpuscular HGB Conc 31.6 g/dl (32-36); Mean Corpuscular Hemoglobin 29.2 pg (26-34); Mean Corpuscular Volume 92.6 fl (80-100); Nucleated Red Blood Cells Absolute Auto 0.000 K/mm3 (0.0-0.012); Nucleated Red Blood Cells Perc 0.0 % (0.0-0.2); Platelet Count Result 190 k/mm3 (150-375); Red Blood Count 4.07 M/mm3 (4.6-6.20); White Blood Count 6.3 K/mm3 (4.5-10.0)
[2025-01-29 05:50] LABS: Alanine Aminotransferase 26 U/L (6-50); Albumin Level 4.3 g/dL (3.5-5.1); Alkaline Phosphatase 95 U/L (38-126); Anion Gap 9 mmol/L (4-12); Aspartate Amino Transferase 56 U/L (17-59); Bilirubin,Total 0.7 mg/dL (0.2-1.3); Blood Urea Nitrogen 41 mg/dL (9-20); Calcium 9.0 mg/dL (8.4-10.2); Carbon Dioxide 34 mmol/L (22-30); Chloride 90 mmol/L (98-107); Estimated CRCL calculation 36 ml/min; Estimated Glomerular Filt Rate 45; Glucose 93 mg/dL (65-110); Potassium 3.5 mmol/L (3.4-5.0); Sodium 133 mmol/L (137-145); Total Protein 8.0 g/dL (6.3-8.2)
[2025-01-29 05:58] VITALS: BP 111/62; PULSE 71; RESP 18; TEMP 36.4; O2SAT 98
[2025-01-29 08:00] VITALS: PULSE 80
--- NOTE | 2025-01-29 08:39 | PM.PNCARD ---
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 Code(s): I50.9 - Heart failure, unspecified Status: Acute (2) CAD (coronary artery disease): Code(s): I25.10 - Atherosclerotic heart disease of [place] coronary artery without angina pectoris Status: Chronic (3) Aortic stenosis: Code(s): I35.0 - Nonrheumatic aortic (valve) stenosis Status: Acute Plan 79-year-old man with chronic systolic heart failure, high PVC burden, 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 b.i.d. -he will need a device upgrade to BiV pacing for which he is following up with electrophysiology at [facility] -his chronic RV pacing for elevated PVC burden may be the culprit for his declining left ventricular systolic function -continue Entresto 12-13 mg p.o. b.i.d., Jardiance 10 mg p.o. daily, and Toprol 25 mg p.o. daily Coronary artery disease -on Xarelto 2.5 mg p.o. b.i.d. and aspirin 81 mg p.o. daily -continue atorvastatin 10 mg every evening -no anginal symptoms Moderate aortic stenosis -degree of severity of likely overestimated given low systolic function -will re-evaluate after BiV pacing upgrade Patient can be discharged from a cardiac perspective. Subjective Date/time seen: 01/29/25 08:39 Interval history: Denies any chest pain or shortness of breath. No orthopnea. Yesterday had some lightheadedness upon standing. Review of Systems Cardiovascular: Cardiovascular: Reports as per HPI Respiratory: Respiratory: Reports as per HPI Exam Const: General: comfortable HENMT: Mouth: Yes moist mucous membranes Eyes: EOM: EOMs intact bilaterally Neck: Neck: no JVD Resp: Effort & Inspection: normal respiratory effort Auscultation: clear to auscultation bilaterally Cardio: Rate: regular rate Rhythm: regular rhythm Heart sounds: Murmur heart sound present Other: Grade 5/6 crescendo systolic murmur. Preserved S2. GI: GI Palp: Yes Soft to palpation Neuro: Speech: normal speech Extrem: General: no pedal edema Objective Data Vital Signs Vital Signs: Vital Signs - 24 hr 01/28/25 10:00 01/28/25 10:00 01/28/25 10:00 Temperature Pulse Rate 82 83 Respiratory Rate Blood Pressure 110/66 Pulse Oximetry Oxygen Delivery 01/28/25 10:10 01/28/25 12:00 01/28/25 12:00 Temperature 36.9 C Pulse Rate 83 90 Respiratory Rate 20 Blood Pressure 103/43 L Pulse Oximetry 97 Oxygen Delivery Room Air 01/28/25 12:00 01/28/25 14:00 01/28/25 16:00 Temperature Pulse Rate 81 83 82 Respiratory Rate Blood Pressure Pulse Oximetry Oxygen Delivery 01/28/25 16:00 01/28/25 18:00 01/28/25 19:39 Temperature 37.0 C 37.1 C Pulse Rate 89 79 81 Respiratory Rate 20 18 Blood Pressure 114/66 110/47 L Pulse Oximetry 99 99 Oxygen Delivery 01/28/25 20:00 01/28/25 21:55 01/28/25 22:00 Temperature Pulse Rate 84 90 83 Respiratory Rate Blood Pressure 108/58 L Pulse Oximetry Oxygen Delivery 01/29/25 00:00 01/29/25 04:00 01/29/25 05:58 Temperature 36.4 C Pulse Rate 73 73 71 Respiratory Rate 18 Blood Pressure 111/62 Pulse Oximetry 98 Oxygen Delivery Intake/Output Intake/Output: Intake & Output 01/26/25 01/27/25 01/28/25 01/29/25 23:59 23:59 23:59 23:59 Intake Total 87.5 2600.7 890.9 350 Output Total 2700 6350 3300 450 Balance -2612.5 -3749.3 -2409.1 -100 Meds/Results Medications: Active Medications Generic Name Dose Route Start Last Admin Trade Name Freq PRN Reason Stop Dose Admin Aspirin 81 mg 01/27/25 09:00 01/28/25 09:18 Aspirin 81 Mg Enteric Tablet PO 81 mg DAILY BRI Administration Atorvastatin Calcium 10 mg 01/26/25 21:00 01/28/25 20:28 Atorvastatin 10 Mg Tablet PO 10 mg QHS BRI Administration Cyanocobalamin 2,000 mcg 01/27/25 09:00 01/28/25 09:18 Cyanocobalamin 1,000 Mcg Tablet PO 2,000 mcg DAILY BRI Administration Dextrose 12.5 gm 01/26/25 18:25 Dextrose 50% 25 Gm/50 Ml Syringe IV PUSH PRN PRN Hypoglycemia Protocol Diclofenac Sodium 75 mg 01/26/25 20:58 Diclofenac Sod 75 Mg Tablet.Ec PO Q12H PRN Pain (Scale Score 1-3) Empagliflozin 10 mg 01/27/25 09:00 01/28/25 09:18 Empagliflozin 10 Mg Tablet BY MOUTH 10 mg DAILY BRI Administration Furosemide 40 mg 01/27/25 17:00 01/28/25 17:37 Furosemide Inj 40 Mg/4 Ml Vial IV PUSH 40 mg BID BRI Administration Glucagon 1 mg 01/26/25 18:25 Glucagon For Inj 1 Mg Vial IM PRN PRN Hypoglycemia Protocol Glucose 15 gm 01/26/25 18:25 Glucose Oral Gel 15 Gm Of Glucse In 37.5 Gm Tube PO PRN PRN Hypoglycemia Protocol Dextrose 1,000 mls @ 100 mls/hr 01/26/25 18:25 Dextrose 5% 1,000 Ml IVPB PRN PRN Hypoglycemia Protocol Insulin Aspart 2 - 5 units 01/27/25 08:00 01/29/25 08:04 Insulin Aspart (*Bkc) 100 Units/Ml SUB-Q Not Given TIDWM [facility] Protocol Ipratropium Dovray 2 spray 01/26/25 22:00 01/29/25 06:37 Ipratropium Nasal [place] 0.06% 15 Ml Bottle NASAL Not Given Q8HR [facility] Meclizine HCl 25 mg 01/28/25 15:09 01/28/25 15:54 Meclizine Hcl 25 Mg Tablet PO 25 mg Q8HR PRN Administration Dizziness Metoprolol Succinate 25 mg 01/27/25 09:00 01/27/25 08:53 Metoprolol Succinate Ext Rel 25 Mg Tabcr PO 25 mg DAILY BRI Administration Multivitamins Therapeutic 1 tablet 01/27/25 09:00 01/28/25 09:17 Multivitamins Therapeutic Tab (*Bkc) PO 1 tablet DAILY BRI Administration Rivaroxaban 2.5 mg 01/26/25 21:00 01/28/25 20:28 Rivaroxaban 2.5 Mg Tablet PO 2.5 mg Q12HR BRI Administration Sacubitril/Valsartan 1 tab 01/26/25 21:00 01/28/25 20:28 Sacubitril/Valsartan 12-13 Mg Tablet PO 1 tab Q12HR BRI Administration Tramadol HCl 50 mg 01/26/25 21:04 01/27/25 20:06 Tramadol Hcl (*Crx) 50 Mg Tablet PO 50 mg Q12H PRN Administration Pain Radiology Results: ITS Impressions Chest X-Ray 01/26/25 15:35 IMPRESSION: 1. Small to moderate-sized patchy opacities scattered throughout both lungs. Differential includes but is not limited to edema or pneumonia. Recommend follow-up to resolution. Consider a chest CT for further assessment Labs Labs: Laboratory Results - last 24 hr 01/29/25 04:43 WBC 6.3 RBC 4.07 L Hgb 11.9 L Hct 37.7 L MCV 92.6 MCH 29.2 MCHC 31.6 L RDW 15.5 H Plt Count 190 MPV 12.0 H Immature Gran % (Auto) 0.3 Neut % (Auto) 54.2 Lymph % (Auto) 23.4 [place] % (Auto) 15.6 H Eos % (Auto) 5.9 H Baso % (Auto) 0.6 Lymph # (Auto) 1.47 [place] # (Auto) 1.0 H Eos # (Auto) 0.4 H Baso # (Auto) 0.0 Abs Immat Gran (auto) 0.02 Absolute Neuts (auto) 3.4 Absolute Nucleated RBC 0.000 Nucleated RBC % 0.0 Sodium 133 L Potassium 3.5 Chloride 90 L Carbon Dioxide 34 H Anion Gap 9 BUN 41 H Creatinine 1.51 H Estim Creat Clear Calc 36 Estimated GFR 45 L Glucose 93 Calcium 9.0 Total Bilirubin 0.7 AST 56 ALT 26 Alkaline Phosphatase 95 Total Protein 8.0 Albumin 4.3
[2025-01-29] MEDS: RIVAROXABAN 2.5 MG TABLET PO (08:55)
[2025-01-29 08:56] VITALS: PULSE 71
[2025-01-29] MEDS: CYANOCOBALAMIN 1,000 MCG TABLET 2000 MCG PO (08:56)
[2025-01-29] MEDS: MULTIVITAMINS THERAPEUTIC TAB (*BKC) 1 TABLET PO (08:56)
[2025-01-29] MEDS: EMPAGLIFLOZIN 10 MG TABLET BY MOUTH (08:56)
[2025-01-29] MEDS: METOPROLOL SUCCINATE EXT REL 25 MG TABCR PO (08:56)
[2025-01-29] MEDS: FUROSEMIDE INJ 40 MG/4 ML VIAL IV PUSH (08:56)
[2025-01-29] MEDS: ASPIRIN 81 MG ENTERIC TABLET PO (08:56)
[2025-01-29] MEDS: SACUBITRIL/VALSARTAN 12-13 MG TABLET 1 TAB PO (08:56)
[2025-01-29 12:00] VITALS: PULSE 81
--- NOTE | 2025-01-29 12:54 | PM.DS ---
DS: Admitting Diagnosis Discharge Date 01/29/25 Admitting Diagnosis CHF Exacerbation DS: Discharge Diagnosis Discharge Diagnosis (1) Acute exacerbation of CHF (congestive heart failure): Qualifiers: Heart failure type: combined systolic and diastolic Qualified Code(s): I50.43 - Acute on chronic combined systolic (congestive) and diastolic (congestive) heart failure Code(s): I50.9 - Heart failure, unspecified Status: Acute Assessment and Plan: Admitted for CHF exacerbation characterized by progressive fluid overload, he was seen by his fabricating machine operator in the outpatient setting or initially attempted oral therapy however given worsening of symptoms he was instructed to present to the ED. He was then transitioned to dobutamine drip and IV Lasix for further management. As he began to improve he was weaned off dobutamine drip and transitioned to oral Lasix. Will be discharged on oral Lasix 40 mg p.o. b.i.d., will restart Entresto 12-13 mg p.o. b.i.d., Jardiance 10 mg p.o. daily, metoprolol succinate 25 mg daily Patient will follow-up with EP outpatient for discontinuation of pacemaker and implantation of biventricular ICD (2) CAD (coronary artery disease): Code(s): I25.10 - Atherosclerotic heart disease of [place] coronary artery without angina pectoris Status: Chronic Assessment and Plan: Currently taking Xarelto 2.5 mg b.i.d. and aspirin daily as well as atorvastatin Patient did not have chest pain symptoms during hospitalization Can continue to follow-up with outpatient Cardiology on discharge (3) High-grade atrioventricular block: Code(s): I44.39 - Other atrioventricular block Status: Chronic (4) Type 2 diabetes mellitus: Code(s): E11.9 - Type 2 diabetes mellitus without complications Status: Acute Assessment and Plan: On Farxiga at home, which will be continued on discharge DS: Summary Hospital Course Hospital Course: 79-year-old male with past medical history of DM 2, hypothyroidism, ALEX not compliant with BiPAP, CAD, HTN, CHF presents to the emergency department on 01/26/2025 stating his fabricating machine operator wanted him to be admitted for further management of his ongoing fluid overload. Patient states that on 01/21 he became very dyspneic and had increased lower extremity edema and reached out to his fabricating machine operator. He was directed to increase his Lasix for the next 3 days hold and was started on metolazone 5 mg b.i.d. for those 3 days. Patient received a call from his fabricating machine operator Dr. Hartman requesting he present to the emergency department for IV diuresis. The patient states his dyspnea has improved but his lower extremity edema has persisted, therefore prompting the ED recommendation. Dr. Hartman requested the ED start patient on dobutamine drip an 80 mg IV Lasix b.i.d. Patient remained on dobutamine drip until being transitioned to oral metoprolol once volume status was stabilized. He was subsequently transitioned from IV to oral Lasix, tolerating all without significant issue. Issue of his pacemaker was brought up during hospitalization, as it may be contributing to heart failure symptoms. Decision was made that patient should go for replacement with biventricular ICD which can be done in the outpatient setting. Patient did verbalize he made appointment to follow-up on this with electrophysiology at the [facility]. Otherwise, no significant events during hospitalization. As such he was deemed stable for discharge. Time Spent with Patient Time attestation: Total time spent providing and/or coordinating discharge services: Exam Narrative: GENERAL: non-toxic appearing, in no acute distress. HEAD: Normocephalic, atraumatic. EYES: PERRLA. Conjunctivae clear. NOSE: Normal no drainage. THROAT: Pharynx clear, no exudate. NECK: Trachea midline. No adenopathy, no masses. RESPIRATORY: Airway patent, respirations nonlabored. Decreased air movement. CARDIOVASCULAR: Irregular rate and rhythm GASTROINTESTINAL: Abdomen is soft and nontender. No organomegaly. Bowel sounds normal in all quadrants. GENITOURINARY: Defer MUSCULOSKELETAL: Moves all extremities. No gross deformities. No calf tenderness. Bilateral lower extremity 2+ pitting edema SKIN: Warm, dry. Area of reddened skin on left stewart NEURO: A&O X4. Speech clear PSYCHIATRIC: Normal interaction DS: Data Data Completed and Pending Labs on day of discharge: Labs from last 24 hours 01/29/25 04:43 WBC 6.3 RBC 4.07 L Hgb 11.9 L Hct 37.7 L MCV 92.6 MCH 29.2 MCHC 31.6 L RDW 15.5 H Plt Count 190 MPV 12.0 H Immature Gran % (Auto) 0.3 Neut % (Auto) 54.2 Lymph % (Auto) 23.4 Payne % (Auto) 15.6 H Eos % (Auto) 5.9 H Baso % (Auto) 0.6 Lymph # (Auto) 1.47 [place] # (Auto) 1.0 H Eos # (Auto) 0.4 H Baso # (Auto) 0.0 Abs Immat Gran (auto) 0.02 Absolute Neuts (auto) 3.4 Absolute Nucleated RBC 0.000 Nucleated RBC % 0.0 Sodium 133 L Potassium 3.5 Chloride 90 L Carbon Dioxide 34 H Anion Gap 9 BUN 41 H Creatinine 1.51 H Estim Creat Clear Calc 36 Estimated GFR 45 L Glucose 93 Calcium 9.0 Total Bilirubin 0.7 AST 56 ALT 26 Alkaline Phosphatase 95 Total Protein 8.0 Albumin 4.3 Discharge Plan Discharge Attending physician on discharge: Prince Bateman Oca Consulting providers: Randall Hartman Discharging Clinician: Prince Bateman Oca Patient Disposition: Home Activity: as tolerated Diet: heart healthy and diabetic Patient Instructions: Antibiotic Form, Dobutamine (By injection), Heart Failure (GEN) Patient Language: Congolese Stand Alone Forms: General Discharge Information Follow-up/Referrals: Randall Hartman MD [Physician, Interventional Cardiology] Discharge Medications: Continued aspirin 81 mg tablet,delayed release (DR/EC) 81 mg PO DAILY metoprolol succinate 25 mg tablet extended release 24 hr 25 mg PO DAILY Qty: 30 0RF cyanocobalamin (vitamin B-12) 1,000 mcg tablet 2,000 mcg PO DAILY 30 Days Qty: 0 0RF Galzin 50 mg (zinc) capsule 50 mg PO DAILY 30 Days Qty: 0 0RF Motegrity 2 mg tablet 2 mg PO DAILY 30 Days Qty: 90 3RF magnesium 200 mg tablet 200 mg PO Q6H 30 Days Qty: 0 0RF atorvastatin 10 mg tablet 10 mg PO QHS 30 Days Qty: 0 0RF docusate sodium [Colace] 100 mg capsule 400 mg PO Q48H 30 Days Qty: 0 0RF Ozempic 0.25 mg or 0.5 mg (2 mg/3 mL) pen injector 0.5 mg subcut WEEKLY 30 Days Qty: 0 0RF methimazole 5 mg tablet 5 mg PO 5XW 30 Days Qty: 0 0RF sacubitril-valsartan [Entresto] 24-26 mg tablet 0.5 tablet PO BID 30 Days Qty: 0 0RF dapagliflozin propanediol 10 mg Tablet 10 mg PO DAILY 30 Days Qty: 0 0RF multivitamin Tablet 1 tablet PO DAILY 30 Days Qty: 0 0RF rivaroxaban [Xarelto] 2.5 mg Tablet 2.5 mg PO BID 30 Days Qty: 0 0RF tramadol 50 mg tablet 50 mg PO BID PRN (Reason: pain) 5 Days Qty: 0 0RF Rx Instructions: ALTERNATES DAILY WITH DICLOFENAC PO FOR PAIN levocetirizine 5 mg tablet 5 mg PO DAILY 30 Days Qty: 0 0RF Folbic 2.5-25-2 mg tablet 1 tablet PO DAILY 30 Days Qty: 0 0RF ipratropium bromide 42 mcg (0.06 %) spray,non-aerosol 2 spray INTRANASAL TID 30 Days Qty: 0 0RF Changed furosemide 40 mg tablet 40 mg PO BID Qty: 180 3RF Discontinued diclofenac sodium 75 mg tablet,delayed release (DR/EC) 150 mg PO DAILY PRN (Reason: Pain (Scale Score 1-3)) docusate sodium 100 mg capsule 300 mg PO Q48H Patient Comments: alternates 400 mg and 300 mg every other day metolazone 5 mg tablet 5 mg PO Q12H Date of admission: 01/26/25 15:26 Primary Care Provider: Prakash,Baljit Collins Admitting Provider: Bert Hoffman Attending physician on admission: Bert Hoffman Condition: Stable
== END 2025-01-29 13:55 | disposition home or self-care (01) | DRG 291 ==
LOC: ANHED 15:28 → ANH3MEDSUR 16:39 → ANHIMU 17:33 → ANH2MED 01-29 11:19 → ANHIMU 01-30 15:18
PROVIDERS: Nurse Practitioner Adult Health; Admitting Provider Internal Medicine; Emergency Provider Emergency Medicine; PCP Family Medicine; Visit Provider Student in an Organized Health Care Education/Training Program
DX: I11.0 Hypertensive heart disease with heart failure (principal); I50.43 Acute on chronic combined systolic (congestive) and diastolic (congestive) heart failure; E87.1 Hypo-osmolality and hyponatremia; I49.3 Ventricular premature depolarization; I44.39 Other atrioventricular block; I25.10 Atherosclerotic heart disease of native coronary artery without angina pectoris; E11.42 Type 2 diabetes mellitus with diabetic polyneuropathy; E03.9 Hypothyroidism, unspecified; G47.33 Obstructive sleep apnea (adult) (pediatric); E78.5 Hyperlipidemia, unspecified; I35.0 Nonrheumatic aortic (valve) stenosis; E66.01 Morbid (severe) obesity due to excess calories; Z90.49 Acquired absence of other specified parts of digestive tract; Z98.84 Bariatric surgery status; Z87.891 Personal history of nicotine dependence; Z95.0 Presence of cardiac pacemaker
CPT/HCPCS: 36415; 71045; 80048; 80053; 82948; 83605; 83735; 83880; 85025; 93005; 96374; 99285; A9270; J1250; J1938

== ENCOUNTER 2025-01-30 14:21 | Emergency (ER) | payer MEDICARE, SELFPAY ==
--- NOTE | ~2025-01-30 | XR_ITS ---
EXAMINATION: XR chest 2V DATE: 01/30/2025 15:25 INDICATION: Weakness TECHNIQUE: Frontal and lateral views of the chest were obtained. COMPARISON: January 26, 2025 FINDINGS: Patchy alveolar changes in both lung malik appear significantly improved with mild persisting infiltrates in the lung bases. Heart shadow mildly enlarged. Left-sided pacemaker device are stable. No pneumothorax or subphrenic free air seen. IMPRESSION: 1. Improved aeration lung malik with small persistent infiltrates in the lung bases. Reviewed, dictated and finalized at location [facility]. [facility]
--- OUTSIDE RECORDS SUMMARY | 2025-01-30 14:24 | XMS_ITS | Encounter Summary ---
Author Organization [facility] Healthcare Address [address] [place] [address] Care Team Providers Care Visual Merchandising Specialist Name Role Phone Baljit Randall MD Primary Care Provider [phone] Caden Guajardo MD Unavailable [phone] Randall Hartman MD Unavailable Encounter Details Date Type Department Care Team (Late st Contact Info) Description 01/30/2025 Telephone [facility] Medical Group Cardiology [address] [facility] [place] [address] Lakeshia Millan, SENIOR PUBLICATIONS SPECIALIST [address] [facility] [address] [place] [address] Social History Tobacco Use Types Packs/Day Years [...] week 12/12/2022 How often do you attend [facility] or gnosticist services? 1 to 4 times per year 12/12/2022 Do you belong to any clubs o r organizations such as roman catholic groups, unions, fraternal or athletic groups, [...] on file Legal Sex Male 3:19 AM ORDER MANAGER Gender Identity Not on file Sexual Orientation Straight 03/23/2019 1: 09 AM ORDER MANAGER documented as of this encounter Miscellaneous Notes * Telephone Encounter - Hailee Burgess MSW - 01/30/2025 8:35 AM CST AC patient. Patient LVM asking about getting a pacemaker exchange scheduled. Could you please reachout to him? R MANAGER documented in this encounter Plan of Treatment Not on file documented as of this encounter Visit Diagnoses Not on filedocumented in this encounter Care Teams Visual Merchandising Specialist Relationship Specialty Start Date End Date Baljit Randall MD PCP - General Family Medicine 01/20/21 Caden Guajardo MD [address] [facility] [address] [place] [address] Consulting Physician Cardiology 07/02/24 Randall Hartman MD [address] [facility] [address] [facility] [address] [facility] [address] [place] [address] Consulting Physician Cardiology 12/29/24 documented as of this encounter
--- OUTSIDE RECORDS SUMMARY | 2025-01-30 14:24 | XMS_ITS | Encounter Summary ---
Author Organization [facility] Healthcare Address [address] [place] [address] Care Team Providers Care Fishing Instructor Name Role Phone Baljit Randall MD Primary Care Provider [phone] Caden Guajardo MD Unavailable [phone] Randall Hartman MD Unavailable Encounter Details Date Type Department Care Team (Late st Contact Info) Description 01/30/2025 Orders Only [facility] Medical Group Cardiology [address] [place] [address] Randall Hartman MD [address] [place], [place] [id number] Social History Tobacco Use Types Packs/Day Years [...] attend [facility] or judaism services? 1 to 4 times per year 12/12/2022 Do you belong to any clubs o r organizations such as episcopal groups, unions, fraternal or athletic groups, or [...] place to sleep or slept in a longterm (including now)? No 12/12/2022 Personal Safety Answer Date Recorded Have you ever been in or are you currently in a harmful physical or emotional relationship or is someone making you feel afraid or unsafe? Denies 08/28/2024 Sex and Gender Information Value Date Recorded Sex Assigned at Not on file Legal Sex Male 3:19 AM CHANGE MANAGEMENT SPECIALIST Gender Identity Not on file Sexual Orientation Straight 03/23/2019 1: 09 AM CHANGE MANAGEMENT SPECIALIST documented as of this encounter Plan of Treatment Not on file documented as of this encounter Procedures Procedure Name Priority Date/Time Associated Diagnosis Comments CARDIOLOGY DOCUMENT SCAN Routine 025 11:22 AM CHANGE MANAGEMENT SPECIALIST documented in this encounter Results * Cardiology Document Scan (01/29/2025 11:22 AM CHANGE MANAGEMENT SPECIALIST) Anatomical Region Laterality Modality Other us Randall Hartman MD CV CARDIAC SERVICES PROCEDURES F inal Result documented in this encounter Visit Diagnoses Not on filedocumented in this encounter Care Teams Fishing Instructor Relationship Specialty Start Date End Date Baljit Randall MD PCP - General Family Medicine 01/20/21 Caden Guajardo MD [address] [facility] [address] [place] [address] Consulting Physician Cardiology 07/02/24 Randall Hartman MD [address] [place] [address] Consulting Physician Cardiology 12/29/24 documented as of this encounter
--- OUTSIDE RECORDS SUMMARY | 2025-01-30 14:24 | XMS_ITS | Encounter Summary ---
Author Organization [facility] Healthcare Address [address] [place] [address] Care Team Providers Care Gasoline Dragline Operator Name Role Phone Chai Llanes MD Primary Care Provider [phone] Landry Leon MD Unavailable [phone] Baljit Randall MD Primary Care Provider [phone] Kiki Britton RN Unavailable Reena Gilbert MD Unavailable [phone] Caden Guajardo MD Unavailable Trudy Bocanegra MA Unavailable Cynthia Ceja LPN Unavailable [phone] Randall Hartman MD Unavailable Encounter Details Date Type Department Care Team (Late st Contact Info) Description 08/02/2017 Orders Only [facility] Health Information Management [address] [place] [address] Scanning, Provider Social History Tobacco Use Types Packs/Day Years Used Date Smoking Tobacco: Former Smokeless Tobacco: Never Alcohol Use Standard Drinks/Week Comments Yes 0 (1 standard drink = 0.6 oz pur e alcohol) weekly Sex and Gender Information Value Date Recorded Sex Assigned at Not on file Legal Sex Male 3:19 AM EMERGENCY MEDICINE MEDICAL DIRECTOR Gender Identity Not on file Sexual Orientation Straight 03/23/2019 1: 09 AM EMERGENCY MEDICINE MEDICAL DIRECTOR documented as of this encounter Plan of [...] COVID: Suspected 04/20/2023 04/20/2023 04/20/2023 4:34 PM EMERGENCY MEDICINE MEDICAL DIRECTOR COVID: Suspected 04/20/2023 04/20/2023 04/21/2023 3:05 AM EMERGENCY MEDICINE MEDICAL DIRECTOR COVID: Suspected 03/04/2024 03/04/2024 03/04/2024 10:45 AM EMERGENCY MEDICINE MEDICAL DIRECTOR COVID19 03/04/2024 03/04/2024 03/14/2024 3:05 AM EMERGENCY MEDICINE MEDICAL DIRECTOR COVID: Recovered Comment:Added based on recent COVID infection. 03/14/2024 03/17/2024 06/12/2024 3:06 AM C DT documented as of this encounter Care Teams Gasoline Dragline Operator Relationship Specialty Start Date End Date Chai Llanes MD [address] [place] [address] PCP - General 06/23/16 01/19/21 Baljit Randall MD [address] [place] [address] PCP - General Family Medicine 01/20/21 Landry Leon MD [address] [place] [address] Consulting Physician Cardiology 12/05/19 12/28/24 Kiki Britton, RN [address] [place] [address] [address] [place] [address] Tourist Adviser 12/12/22 01/23/23 Reena Gilbert MD [address] [facility] [address] [place] [address] Consulting Physician Interventional Cardiology 04/28/24 12/28/24 Caden Guajardo MD [address] [facility] [address] [place] [address] Consulting Physician Cardiology 07/02/24 Trudy Bocanegra MA [address] [facility] [address] [place] [address] ACO Care Chief Warden 08/29/24 08/29/24 Cynthia Ceja LPN [address] [facility] [address] [place] [address] Tourist Adviser 09/29/24 09/29/24 Randall Hartman MD [address] [place] [address] Consulting Physician Cardiology 12/29/24 documented as of this encounter
--- OUTSIDE RECORDS SUMMARY | 2025-01-30 14:24 | XMS_ITS | Encounter Summary ---
Author Organization [facility] Healthcare Address [address] [place] [address] Care Team Providers Care Garment Inspector Name Role Phone Chai Llanes MD Primary Care Provider [phone] Landry Leon MD Unavailable [phone] Baljit Randall MD Primary Care Provider [phone] Kiki Britton RN Unavailable Reena Gilbert MD Unavailable [phone] Caden Guajardo MD Unavailable Trudy Bocanegra MA Unavailable Cynthia Ceja LPN Unavailable [phone] Randall Hartman MD Unavailable Encounter Details Date Type Department Care Team (Late st Contact Info) Description 07/07/[address] [facility] Health Information Management [address] [place] [id number] Scanning, Provider Social History Tobacco Use Types Packs/Day Years Used Date Smoking Tobacco: Former Smokeless Tobacco: Never Alcohol Use Standard Drinks/Week Comments Yes 0 (1 standard drink = 0.6 oz pur e alcohol) weekly Sex and Gender Information Value Date Recorded Sex Assigned at Not on file Legal Sex Male 3:19 AM HOST AND HOSTESS Gender Identity Not on file Sexual Orientation Straight 03/23/2019 1: 09 AM HOST AND HOSTESS documented as of this encounter Plan of [...] COVID: Suspected 04/20/2023 04/20/2023 04/20/2023 4:34 PM HOST AND HOSTESS COVID: Suspected 04/20/2023 04/20/2023 04/21/2023 3:05 AM HOST AND HOSTESS COVID: Suspected 03/04/2024 03/04/2024 03/04/2024 10:45 AM HOST AND HOSTESS COVID19 03/04/2024 03/04/2024 03/14/2024 3:05 AM HOST AND HOSTESS COVID: Recovered Comment:Added based on recent COVID infection. 03/14/2024 03/17/2024 06/12/2024 3:06 AM C DT documented as of this encounter Care Teams Garment Inspector Relationship Specialty Start Date End Date Chai Llanes MD [address] [place] [address] PCP - General 06/23/16 01/19/21 Baljit Randall MD [address] [place] [address] PCP - General Family Medicine 01/20/21 Landry Leon MD [address] [place] [address] Consulting Physician Cardiology 12/05/19 12/28/24 Kiki Britton, RN [address] [place] [address] Animal Husbandry Technician 12/12/22 01/23/23 Reena Gilbert MD [address] [place] [address] Consulting Physician Interventional Cardiology 04/28/24 12/28/24 Caden Guajardo MD [address] [facility] [address] [place] [address] Consulting Physician Cardiology 07/02/24 Trudy Bocanegra MA [address] [place] [address] ACO Care Direct Support Professional Caregiver 08/29/24 08/29/24 Cynthia Ceja LPN [address] [place] [address] Animal Husbandry Technician 09/29/24 09/29/24 Randall Hartman MD [address] [place] [address] Consulting Physician Cardiology 12/29/24 documented as of this encounter
--- OUTSIDE RECORDS SUMMARY | 2025-01-30 14:24 | XMS_ITS | Encounter Summary ---
Author Organization [facility] Healthcare Address [address] [place] [address] Care Team Providers Care Automatic Bow Maker Machine Tender Name Role Phone Baljit Randall MD Primary Care Provider [phone] Caden Guajardo MD Unavailable [phone] Randall Hartman MD Unavailable Encounter Details Date Type Department Care Team (Late st Contact Info) Description 01/29/2025 Telephone [facility] Medical Group Cardiology [address] [place] [address] Randall Hartman MD [address] [place] [address] Social History Tobacco Use Types [...] week 12/12/2022 How often do you attend [facility] or hoahaoism services? 1 to 4 times per year [...] place to sleep or slept in a correction (including now)? No 12/12/2022 Personal Safety Answer Date Recorded Have you ever been in or are you currently in a harmful physical or emotional relationship or is someone making you feel afraid or unsafe? 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 Pt reports that [facility] told him this am to take furosemide 40 mg daily, the discharge summary from says to take Furosemide 40 mg twice daily. Pt also states that he was told to stop taking Diclofenac. Pt wondering if he can continue taking the diclofenac and the Tramadol for pain. Call placed to medical records to request discharge summary and it was not compiled so they could not send it to me today. Will forward to [facility]. Please advise. ANE GAS COLLECTION SYSTEM OPERATOR * Telephone Encounter - Lyn Jacobson - 01/29/2025 3:16 PM CST Patient states that he was discharged from today and he has some conflicting notes that he needsclarified. Patient states that Dr Hartman told him that he needs to take furosemide (LASIX) 40 mg tablet, once daily. The nurse told him that he needs to take it twice a day - 1 time in the morning, 1 at supper time. Patient states that he takes diclofenac DR (VOLTAREN) 75 mg EC tablet 2-4 times a week and traMADoL(ULTRAM) 50 mg tablet 2 times, every other day. Patient wants to verify that on days that he does not take traMADoL he takes 4 Diclofenac. On days that he does take tramadoL he only takes 2 diclofenac. Patient states that if he is supposed to discontinue diclofenac, he will need a booster prescription of traMADoL (ULTRAM) 50 mg tablet. Patient states that his cell phone is currently not working, so all calls should be made to his 's number. Requesting a call back to clear up the confusion. Please advise. Thank you. Contact : [phone] ANE GAS COLLECTION SYSTEM OPERATOR documented in this encounter Plan of Treatment Not on file documented as of this encounter Visit Diagnoses Not on filedocumented in this encounter Care Teams Automatic Bow Maker Machine Tender Relationship Specialty Start Date End Date Baljit Randall MD PCP - General Family Medicine 01/20/21 Caden Guajardo MD [address] [facility] [address] [place] [address] Consulting Physician Cardiology 07/02/24 Randall Hartman MD [address] [facility] [address] [facility] [address] [facility] [address] [place] [address] Consulting Physician Cardiology 12/29/24 documented as of this encounter
--- OUTSIDE RECORDS SUMMARY | 2025-01-30 14:24 | XMS_ITS | Encounter Summary ---
Author Organization [facility] Healthcare Address [address] [place] [address] Care Team Providers Care Consulting Systems Engineer Name Role Phone Baljit Randall MD Primary Care Provider [phone] Caden Guajardo MD Unavailable [phone] Randall Hartman MD Unavailable Encounter Details Date Type Department Care Team (Late st Contact Info) Description 01/13/[address] [facility] Medical Group Cardiology [address] [place] [address] Randall Hartman MD [address] [place] [address] Social History Tobacco Use Types [...] How often do you attend [facility] or adventism services? 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 Please advise. Thank you. Contact : [phone] documented in this encounter Plan of Treatment Not on file documented as of this encounter Visit Diagnoses Not on filedocumented in this encounter Care Teams Consulting Systems Engineer Relationship Specialty Start Date End Date Baljit Randall MD PCP - General Family Medicine 01/20/21 Caden Guajardo MD [address] [facility] [address] [place] [address] Consulting Physician Cardiology 07/02/24 Randall Hartman MD [address] [place] [address] Consulting Physician Cardiology 12/29/24 documented as of this encounter
--- OUTSIDE RECORDS SUMMARY | 2025-01-30 14:24 | XMS_ITS | Clinical Summary ---
Author Organization [facility] [place] [address] [facility] [address] Address [address] [place] [address] Care Team Providers Care Skirt Maker Name Role Phone Baljit Randall MD Primary Care Provider Caden Guajardo MD Unavailable [phone] Randall Hartman MD Unavailable Allergies Active Allergy [...] day 180 tablet 3 08/27/19 25 Active E22-encxcgsrn ate calcium-B6 (FOLBIC RF) 2-1.13-25 mg tablet Take 1 tablet by mouth translator interpreter before breakfast 30 tablet 2 09/02/19 25 [...] , without long-term current use of insulin ([facility]) TAKE 1 TABLET BY MOUTH DAILY 5 [...] , without long-term current use of insulin ([facility]) TAKE 1 TABLET (5 MG TOTAL) BY [...] pacemaker in situ 04/12/2023 Overview (07/28/2024): Medtronic Huron Dual Pacemaker. Dx; Bradycardia, AV Block. DOI 04/23/2023- Kahanda. Crawford-Edward. Carelink remote. 07/28/24-transferred to [facility]. Morbid (severe) obesity due to excess calories 0 04/10/2023 Class 2 severe obesity due t o excess calories with serious comorbidity and body mass index (BMI) of 37.0 to 37.9 in adult 04/10/2023 Assessment & Plan (04/10/2023 1:55 PM TALENT SOURCER): Discussed healthy diet and importance of regular [...] infection. Assessment & Plan (05/19/2024 10:45 AM TALENT SOURCER): Chronic problem. A1c at goal w/o hypoglycemia. A1c today=5.1%, was 5.9% 01/15/24. Stop the metformin. Will re-evaluate at next appointment if we need to stop the Farxiga additionally. Current medications: Farxiga 10mg daily Ozempic 0.5 mg weekly UTD on DM eye exam (04/19/23 no DMR). Had appt 04/2024 at [facility]. Letter sent to get copy of report. Will update labs. Verified that he uses [email or web address]. Aware to check results/results letter in [employer]. Will contact by phone if needed. Strive [...] meals Assessment & Plan (04/10/2023 1:51 PM TALENT SOURCER): Chronic problem. A1c at goal w/o hypoglycemia. [...] benign. Assessment & Plan (05/19/2024 10:21 AM TALENT SOURCER): Last thyroid US by Dr Sanderson 01/12/23: These nodules are not new. You have nodules that have been seen in ultrasound in the past and you even had biopsy of these nodules which are benign. Assessment & Plan (04/10/2023 1:54 PM TALENT SOURCER): Last thyroid US 01/2021. Has not had repeat imaging since that time. Will repeat US at 06/[address] Sanderson. Assessment & Plan (02/03/2020 7:02 PM TALENT SOURCER): We reviewed the ultrasound images with the [...] mychart. Aware to check results/results letter in [employer]Squidbidt. Will contact by phone if needed. Assessment & Plan (05/19/2024 10:20 AM TALENT SOURCER): Chronic problem. Currently taking methimazole 5mg 5 [...] TFTs Assessment & Plan (04/10/2023 1:24 PM TALENT SOURCER): Chronic problem. No labs since 12/07/22. 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 She had recommended beginning Tapazole which patient has not started yet. Will coordinate between Dr. Don in the cardiology. Labs are pending from today and will repeat again in 3 months Vitamin D deficiency 01/28/2018 Assessment & Plan (01/28/2018 1:46 PM TALENT SOURCER): Level over 30 04/12, will repeat -check 25 hydroxy vitamin-D History of gastric bypass 01/28/2018 Assessment & Plan (01/28/2018 1:47 PM TALENT SOURCER): Will monitor the following yearly (will order) [...] safety Assessment & Plan (04/13/2021 12:33 PM TALENT SOURCER): -CKD increases risk of hypoglycemia -Will closely monitor glucose pattern in ensure margin of safety Assessment & Plan (04/29/2018 4:51 PM TALENT SOURCER): Creatinine is much improved and back to baseline Will repeat renal panel in 3 months 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) 02/11/2016 Overview (06/29/2016): Ascending aorta dilatation Mixed diabetic hyperlipidemi a associated with type 2 diabetes mellitus ([facility]) 02/11/2016 Overview (06/29/2016): Type 2 diabetes mellitus with complication, unspecified nursing home insulin use status Assessment & Plan (09/11/2024 11:49 AM CDT): Chronic problem. Controlled on current Atorvastatin 10mg. Last lipid panel: 01/15/24 LDL=57, TG=97. Assessment & Plan (05/19/2024 10:20 AM TALENT SOURCER): Chronic problem. Controlled on current Atorvastatin 10mg. Last lipid panel: 01/15/24 LDL=57, TG=97. Assessment & Plan (07/03/2023 2:49 PM CDT): Chronic, stable . Continue statin therapy with Lipitor 10 mg daily Assessment & Plan (04/10/2023 1:23 PM TALENT SOURCER): Chronic problem. Controlled on current Atorvastatin 10mg. Last lipid panel: 08/10/22 LDL=42, WZ=477. Assessment & Plan (01/15/2023 10:16 AM CDT): Chronic problem. Controlled on current Atorvastatin 10mg. Last lipid panel: 08/10/22 LDL=42, VA=003. Assessment & Plan (10/17/2022 2:32 PM CDT): Chronic, well controlled. Continue atorvastastin Type 2 diabetes mellitus with diabetic neuropath y 04/01/2015 Assessment & Plan (09/11/2024 11:50 AM CDT): Chronic problem. Reviewed foot care; needs to lotion daily. Aware to check feet nightly, not to go barefoot. Assessment & Plan (05/19/2024 10:21 AM TALENT SOURCER): Chronic problem. Reviewed foot care; needs to lotion daily. Aware to check feet nightly, not to go barefoot. Assessment & Plan (04/10/2023 1:24 PM TALENT SOURCER): Chronic problem. Aware to check feet & [...] Metformin Assessment & Plan (04/18/2022 4:44 PM TALENT SOURCER): Hba1c was Lab Results Component Value Date [...] 07/12/21 Assessment & Plan (04/13/2021 12:31 PM TALENT SOURCER): -Currently taking oral agents and Trulicity -A1C on 04/13/21 was 6.4% -Will continue same medications at this time -Discussed diet and activity modifications. -Eye exam is up to date -Foot exam per foot nurse today Assessment & Plan (04/29/2018 4:48 PM TALENT SOURCER): Diabetes control is markedly improved with the [...] day Assessment & Plan (01/28/2018 1:49 PM TALENT SOURCER): Poor control with recent increase in HgbA1C. [...] different times and keep track -refer to nutrition educator to review blood sugars in 6 [...] 09/18/2023 Assessment & Plan (04/10/2023 1:24 PM TALENT SOURCER): Chronic problem. Lisinopril 2.5mg daily, metoprolol tartrate 50mg bid, lasix 80mg daily, spironolactone 25mg daily Assessment & Plan (01/15/2023 10:42 AM CDT): Chronic problem. Lisinopril 2.5mg daily, metoprolol tartrate 50mg bid, lasix 80mg daily, spironolactone 25mg daily Assessment & Plan (10/17/2022 2:32 PM CDT): Chronic, well controlled Continue current meds Lymphadenopathy 03/31/2021 04/20/2021 Overview (03/31/2021): Added automatically from request for surgery [id number] Assessment & Plan (04/13/2021 12:34 PM TALENT SOURCER): -FNA suspicious for Hodgkin's Lymphoma -Has been seen by oncology and ENT -Scheduled for lymph node excisional biopsy tomorrow Screening PSA (prostate specific antigen) 03/15/2020 09/01/2024 Low TSH level 02/20/2018 01/20/2021 RHETT (acute kidney injury) 09/05/2017 At risk for amiodarone toxic ity with inside account executive use 08/27/2017 12/19/2022 Morbid obesity with BMI [...] weeks. Assessment & Plan (05/30/2017 3:05 PM TALENT SOURCER): Previous 12-lead EKG shows ventricular bigeminy. There [...] management Assessment & Plan (04/13/2021 12:33 PM TALENT SOURCER): -Continue same medical management Assessment & Plan (01/28/2018 1:46 PM TALENT SOURCER): LDL 51 11/10 On atorvastatin Chronic coronary [...] monitor. Assessment & Plan (04/13/2021 12:33 PM TALENT SOURCER): -BP today is 130/66 -Will continue same antihypertensive medications at this time. Osteoarthritis 07/02/2012 09/01/2024 Onychomycosis due to dermatophyte 04/18/2012 09/01/2024 Skin callus 04/18/2012 04/20/2021 Psoriasis 05/08/2011 09/01/2024 Nocturia 05/08/2011 01/20/2021 Slowing of urinary stream 05/08/2011 Encounters Date Type Department Care Team Description 01/30/2025 Orders Only [facility] Cardiology [address] [place] [address] [place] [phone] Randall Hartman MD 01/30/2025 Telephone [facility] Cardiology [address] [facility] [address] [place] [address] Lakeshia Millan NP 01/29/2025 Telephone [facility] Cardiology [address] [place] [address] [place] [phone] Randall Hartman MD 01/23/2025 1:55 PM CDT Lab [address] [address] Chronic systolic congestive heart failure (HCC); CKD stage G3a/A1, GFR 45-59 and albumin creatinine ratio <30 mg/g (HCC) 01/23/2025 Telephone [facility] Cardiology [address] [place] [address] [place] [phone] Randall Hartman MD 01/23/2025 Results Follow-Up [facility] [address] [facility] [address], [place] [address] Lakeshia Millan, DINESH Transthoracic Echo (TTE) Complete W Doppler/CF 01/21/2025 Results Follow-Up [facility]iology [address] [place] [address] [address] [place] [phone] Charlee Marie RN Basic metabolic panel, Pro B-type natriuretic peptide, eGFR 01/21/2025 Results Follow-Up [facility] at [address] [place] [address] Baljit Randall MD Stool DNA - Cologuard 01/20/2025 12:00 PM CDT Lab [facility] [address] [place] [address] Chronic systolic congestive heart failure (HCC) 01/19/2025 2:06 PM CDT - 01/19/2025 11:59 PM CDT Hospital Encounter [facility] OP Cardiac Testing [address] [facility] [address] [place] [address] Cardiac arrhythmia, unspecified cardiac arrhythmia type Discharge Disposition: Discharge to home or self care 01/19/2025 Telephone [facility] Family Medicine at [address] [place] [address] Baljit Randall MD 01/13/2025 Telephone [facility] Cardiology [address] [facility] [address] [place] [phone] Randall Hartman MD 01/01/2025 11:30 AM CDT Office Visit [facility] Medicine at [address] [place] [address] Baljit Randall MD Ulcer of left foot, limited to breakdown of skin (HCC) (Primary Dx); Wound of left lower extremity, subsequent encounter; Wound of sacral region, subsequent encounter; Need for vaccination 12/31/2024 Orders Only [facility] Cardiology [address] [place] [address] [address] [phone] Randall Hartman MD Chronic systolic congestive heart failure (HCC) (Primary Dx) 12/30/2024 Orders Only [facility] [address] [facility] [address] [place] [address] Lakeshia Millan NP Cardiac arrhythmia, unspecified cardiac arrhythmia type (Primary Dx) 12/29/2024 Telephone [facility] Cardiology [address] [place] [address] [place] [phone] Landry Leon MD Congestive Heart Failure 12/29/2024 Telephone [facility] Gastroenterology at [place] [address] [facility] [address] [place] [phone] Suhas Mahmood MD 12/24/2024 Orders Only [facility] Family Medicine at [place] [id number] [facility] [address] [place] [phone] Baljit Randall MD Skin ulcer, unspecified ulcer stage (HCC) (Primary Dx) 12/09/2024 1:00 PM CDT Office Visit [facility] [address] [facility] [address] [place] [phone] Lakeshia Millan NP Cardiac arrhythmia, unspecified cardiac arrhythmia type (Primary Dx); Cardiac pacemaker in situ 12/08/2024 11:00 AM CDT Office Visit [facility] Cardiology [address] [place] [phone] Randall Hartman MD Encounter for screening colonoscopy (Primary Dx) 12/05/2024 1:40 PM CDT Lab [facility] [address] [place] [address] Chronic systolic congestive heart failure (HCC) 11/21/2024 Orders Only [facility] Cardiology [address] [facility] [address] [facility] [address] [place] [phone] Bela Herzog MD 11/18/2024 11:00 AM CDT Office Visit [facility] Pulmonology [address] [facility] [address] [place] [phone] Eneida Malloy MD HFrEF (heart failure with reduced ejection fraction) (Primary Dx); Dyspnea and respiratory abnormalities; Pleural effusion 11/17/2024 3:15 PM CDT Office Visit [facility] Otol[facility] [address] [place] [address] Santosh Wilson II, MD Dysfunction of both eustachian tubes (Primary Dx); Postnasal drip 11/05/2024 Telephone [facility] Family Medicine at [place] [address] [facility] [address] [place] [phone] Baljit Randall MD Recommendation Request; Sleep Study (Results.) 10/31/2024 Telephone [facility] [address] [facility] [address] [place] [phone] Amrita German RN from Last 3 Months Immunizations Immunization Administration [...] vative Free, Intramuscular 12/21/2014,01/09/2013,03/26/2011 Influenza, Unspecified 12/25/2023,12/28/2021, ENOVIX SARS-CoV-2 Monovalent Vaccination (12+ Yrs) PURPLE 01/09/2021,06/08/2020,05/18/2020 [...] hematuria 12/07/2022 Coronary artery disease invo lving la posta coronary artery of la posta heart without angina pectoris SOB (shortness of [...] often do you attend chur ch or mormon services? 1 to 4 times per year 12/12/2022 Do you belong to any clubs o r organizations such as shinto groups, unions, fraternal or athletic groups, or [...] place to sleep or slept in a long-term (including now)? No 12/12/2022 Personal Safety Answer Date Recorded Have you ever been in or are you currently in a harmful physical or emotional relationship or is someone making you feel afraid or unsafe? Denies 08/28/2024 Sex and Gender Information Value Date Recorded Sex Assigned at Not on file Legal Sex Male 3:19 AM TALENT SOURCER Gender Identity Not on file Sexual Orientation Straight 03/23/2019 1: 09 AM TALENT SOURCER Last Filed Vital Signs Vital Sign Reading [...] Additional history exists Lipid Panel 01/14/2025 01/15/2024, 0510/2022, 01/31/2022, Additional history exists Hemoglobin A1C 03/13/2025 [...] Additional history exists Hepatitis B Screening Completed 03/23/2021 , 03/28/2000, 11/09/1999, Additional history exists Pneumococcal vaccine 65+ Completed 023, 02/01/2015, 02/09/2009, Additional history exists Abdominal Aortic Aneurysm (A AA) Screen Completed 04/27/2023 Zoster Vaccine Completed 07/17/2023, 02/23, 01/07/2007 Influenza Vaccine Completed 01/01/2025, , 01/04/2023, Additional history exists Medical Devices Implanted Type Area Enterprise Services Manager Device Identifier Shelf Expiration Date Model / Serial / Lot Medtronic Inc Meenakshi S Mri Surescan 50.8x46.6mm 2 Chamber 7.4mm Pacemaker 22.5gm [id number] - [id number] Implanted:Qty: 1 on 04/23/2023 by Nestor Sutherland MD at [facility] Pacemaker Medtronic Inc 08/06/2024 [id number] / / [employer] Device Closure Vascade Od5 Fr Femoral Artery [id number] - [id number] Implanted:Qty: 1 on 01/17/2023 by Zoe Levy MD at [facility] [employer] 11/20/2024 [id number] / / [id number] Medtronic Inc Capsurefix Novus 6.2fr 2mm 52cm Bipolar Screw In Implantable Latex Free 5076-52 - [id number] Implanted:Qty: 1 on 04/23/2023 by Nestor Sutherland MD at [facility] Medtronic Inc 01/04/2025 [id number] / / Medtronic Inc Capsurefix Novus 6.2fr 2mm 58cm Bipolar Screw In Implantable 5076-58 - [id number] Implanted:Qty: 1 on 04/23/2023 by Nestor Sutherland MD at [facility] Medtronic Inc 12/26/2024 [id number] / / Procedures Procedure Name Priority Date/Time Associated Diagnosis Comments CARDIOLOGY DOCUMENT SCAN Routine 01/29/2025 11:22 AM TALENT SOURCER EGFR Routine 01/23/2025 2:05 PM CDT Chronic [...] - REMOTE Routine 11/21/2024 8:43 AM CDT POCT HEMOGLOBIN A1C Routine 09/11/2024 1 1:23 AM CDT Type 2 diabetes mellitus with hyperglycemia, without long-term current use of insulin (HCC) ALBUMIN CREATININE RATIO, URINE Routine 05/19/2024 10:51 AM TALENT SOURCER Type 2 diabetes mellitus with hyperglycemia, without long-term current use of insulin (HCC) HM DIABETES EYE EXAM Routine 04/29/2024 12:03 PM TALENT SOURCER LIPID PANEL Routine 01/15/2024 2:30 PM CDT Type 2 diabetes mellitus with diabetic neuropathy, without long-term current use of insulin (HCC) CT ABDOMEN W WO CONTRAST Schedule Routine, Read Routine (OP Routine) 04/27/2023 1:47 PM TALENT SOURCER Kidney lesion from Last 3 Months or Most Recently Relevant to Health Maintenance Results * Cardiology Document Scan (01/29/2025 11:22 AM TALENT SOURCER) Anatomical Region Laterality Modality Other us Randall Hartman MD CV CARDIAC SERVICES PROCEDURES F inal Result * (ABNORMAL) eGFR (01/23/2025 2:05 PM CDT) [...] LAB BLOOD ORDERABLES Final Resul t [facility] [address] [facility] Department [place] [address] * (ABNORMAL) Pro B-type natriuretic [...] MD LAB BLOOD ORDERABLES Final Resul t [facility] [address] [facility] Department of Laboratories [place], [place] [id number] * (ABNORMAL) Comprehensive metabolic panel (01/23/2025 2:05 PM CDT) Sodium 140 135 - 145 mmol/L Potassium, pl 4.7 3.3 - 4.9 mmol/L [facility] Chloride 98 97 - 110 mmol/L [facility] CO2 35(H) 22 - 32 mmol/L [facility] Anion gap 7 2 - 15 mmol/L [facility] BUN 31(H) 6 - 25 mg/dL [facility] Creatinine 1.74(H) 0.80 - 1.30 mg/dL [facility] Glucose 140 70 - 199 mg/dL [facility] Comment: Interpretive Data Fasting glucose >/= [...] classification and Diagnosis of Diabetes Diabetes Care 2022; 46: S19-S40. Current interpretive data was last revised 2022. Calcium 9.3 8.5 - 10.3 mg/dL [facility] Bilirubin, total 0.5 0.1 - 1.2 mg/dL [facility] Protein, pl 7.0 6.5 - 8.5 g/dL [facility] Albumin 3.7 3.5 - 5.0 g/dL [facility] Alk phos 100 40 - 130 Units/L [facility] ALT 17 7 - 55 Units/L [facility] AST 37 10 - 50 Units/L [facility] Blood 01/23/2025 2:05 PM CDT 01/23/2025 6:53 PM CDT us Randall Hartman MD LAB BLOOD ORDERABLES Final Resul t [facility] [address] [facility] Department [place] [address] * (ABNORMAL) eGFR (01/20/2025 12:04 PM CDT) [...] ORDERABLES Final Resul t Performing Organization Address City/[facility]/ZIP Co de Phone Number MARY [address] [facility] Department [place] [address] * (ABNORMAL) Pro B-type natriuretic peptide (01/20/2025 [...] ORDERABLES Final Resul t Performing Organization Address [facility]/ZIP Co de Phone Number MARY [phone] [facility] Department [place] [address] * (ABNORMAL) Basic metabolic panel (01/20/2025 12:04 PM CDT) Pathologist [facility] Sodium 141 135 - 145 mmol/L Potassium, pl 5.1(H) 3.3 - 4.9 mmol/L [facility] Chloride 100 97 - 110 mmol/L [facility] CO2 33(H) 22 - 32 mmol/L [facility] Anion gap 8 2 - 15 mmol/L [facility] BUN 28(H) 6 - 25 mg/dL [facility] Creatinine 1.59(H) 0.80 - 1.30 mg/dL [facility] Glucose 133 70 - 199 mg/dL [facility] Comment: Interpretive Data Fasting glucose >/= [...] 2022. Calcium 9.5 8.5 - 10.3 mg/dL [facility] Blood 01/20/2025 12:0 4 PM CDT 01/20/2025 1:50 PM CDT us Randall Hartman MD LAB BLOOD ORDERABLES Final Resul t [facility] [address] [facility] Department [place] [address] * TRANSTHORACIC ECHO (TTE) COMPLETE W DOPPLER/CF WO CONTRAST (01/19/2025 3:47 PM CDT) [facility] EF Mod BP 31 % CONS SCIMAGE Anatomical Region Laterality Modality Ultrasound 01/19/2025 2:10 PM CDT Narrative 01/19/2025 4:19 PM CDT [facility]iac Testing Center [address] [place] [address] ECHOCARDIOGRAM Patient Name: JUAN JENNINGS : 1945 (79y 11m) Sex: M Study Date: 01/19/2025 02:10:00 PM Ht(Inch): 70 Wt(Lb): 221.12 BSA: 2.23 Fiction And Nonfiction Prose Writer: ROSMERY Location: OPT [address] Order Provider: LAKESHIA [...] TR Peak PG 43 mmHg PV Peak Jaems 0.8 m/s [ 0.4 - 0.8 ] [...] RVSP. Electronically Signed By: Baljit Smart MD, [facility] 01/19/2025 4:18:15 PM CDT Procedure Note Baljit Smart MD - 01/19/2025 [facility] Testing Center [address] [place] [id number] ECHOCARDIOGRAM Patient Name: JUAN JENNINGS : 1945 (79y 11m) Sex: M Study Date: 01/19/2025 02:10:00 PM Ht(Inch): 70 Wt(Lb): 221.12 BSA: 2.23 Fiction And Nonfiction Prose Writer: ROSMERY Location: [facility] [address] Order Provider: LAKESHIA [...] RVSP. Electronically Signed By: Baljit Smart MD, [facility] 01/19/2025 4:18:15 PM CDT Lakeshia Millan NP [...] LAB BLOOD ORDERABLES Final Resul t [facility] [address] [facility] Department [place] [address] * (ABNORMAL) Pro B-type natriuretic peptide (12/05/2024 [...] LAB BLOOD ORDERABLES Final Resul t MARY [address] [facility] Department [place] [address] * (ABNORMAL) Comprehensive metabolic panel (12/05/2024 1:51 PM CDT) Sodium 142 135 - 145 mmol/L Potassium, pl 4.4 3.3 - 4.9 mmol/L [facility] Chloride 100 97 - 110 mmol/L [facility] CO2 32 22 - 32 mmol/L [facility] Anion gap 10 2 - 15 mmol/L [facility] BUN 23 6 - 25 mg/dL [facility] Creatinine 1.32(H) 0.80 - 1.30 mg/dL [facility] Glucose 102 70 - 199 mg/dL [facility] Comment: Interpretive Data Fasting glucose >/= [...] 2022. Calcium 9.4 8.5 - 10.3 mg/dL [facility] Bilirubin, total 0.5 0.1 - 1.2 mg/dL [facility] Protein, pl 6.7 6.5 - 8.5 g/dL [facility] Albumin 3.7 3.5 - 5.0 g/dL [facility] Alk phos 83 40 - 130 Units/L [facility] ALT 16 7 - 55 Units/L [facility] AST 40 10 - 50 Units/L [facility] Blood Venous blood specimen / Unknown 12/05/2024 1:51 PM CDT 12/05/2024 6:23 PM CDT Randall Hartman MD LAB BLOOD ORDERABLES Final Resul t [facility] [address] [facility] Department [place] [address] * DEVICE CHECK - REMOTE (11/21/2024 8:43 AM CDT) Anatomical Region Laterality Modality Other 11/21/2024 8:43 AM CDT Narrative 11/21/2024 5:37 PM CDT Interpretation Summary: Battery and Leads (BL) Normal parameters noted on battery and lead(s) --- 9.9 yrs remaining longevity. Lead impedance, sensing, and RV threshold trends stable and appropriate. No RA auto threshold testing. No short V-V intervals. Presenting Rhythm ([place]) Atrial Pacing-Ventricular Pacing (AP-INSURANCE ADJUSTOR) --- AP/INSURANCE ADJUSTOR 77 bpm. Arrhythmic events (AE) No new arrhythmic events in monitoring period --- Since 08/28/24: No AHR or VHR episodes. Miscellaneous Observations (MISC) RV pacing > 40% noted --- INSURANCE ADJUSTOR 79.5%. Pt has h/o AV Block/High INSURANCE ADJUSTOR percentage. Transmission Information (TI) Device Summary Report Follow Up (FU) Patient's primary treating physician will be apprised of findings Procedure Note Bela Herzog MD - 11/21/2024 Interpretation Summary: Battery and Leads (BL) Normal parameters noted on battery and lead(s) --- 9.9 yrs remaininglongevity. Lead impedance, sensing, and RV threshold trends stable andappropriate. No RA auto threshold testing. No short V-V intervals. Presenting Rhythm ([place]) Atrial Pacing-Ventricular Pacing (AP-INSURANCE ADJUSTOR) --- AP/INSURANCE ADJUSTOR 77 bpm. Arrhythmic events (AE) No new arrhythmic events in monitoring period --- Since 08/28/24: No AHRor VHR episodes. Miscellaneous Observations (MISC) RV pacing > 40% noted --- INSURANCE ADJUSTOR 79.5%. Pt has h/o AV Block/High VPpercentage. Transmission Information (TI) Device Summary Report Follow Up (FU) Patient's primary treating physician will be apprised of findings us Bela Herzog MD [facility] PROCEDURES Final Result * (ABNORMAL) POCT hemoglobin A1c (09/11/2024 11:23 AM CDT) Hemoglobin A1C, POC 5.7(A) 4.0 - 5.6 % Blood 09/11/2024 11:2 3 AM CDT Jennifer Young NP POINT OF CARE TEST ORDERA BLES Final Result * Albumin Creatinine Ratio, Urine (05/19/2024 10:51 AM TALENT SOURCER) Albumin Ur 12.9 mg/L Comment: Interpretive Data No reference range established. Current interpretive data was last revised 2018. Creatinine Ur 127.4 mg/dL [facility] Comment: Interpretive Data No reference range established. Current interpretive data was last revised 2018. Albumin Creatinine Ratio, Ur 10 1 - 29 mg/g MARY Urine 05/19/2024 10:5 1 AM TALENT SOURCER 05/19/2024 2:40 PM TALENT SOURCER Jennifer Young NP LAB URINE ORDERABLES Esperanza l Result [facility] [address] [place] [address] * DIABETES EYE EXAM (04/29/2024 12:03 PM TALENT SOURCER) Historical Provider HEALTH MAINTENANCE Final Result * [...] 2. NCEP Expert Panel. Circulation 2004;110:227 3. Forte M et al. EDWIGE Cardiol. 2020 July 24;5(5):540-548. doi: 10.1001/jamacardio.2020.0013 Current Interpretive Data was [...] revised on 2017. Chol/HDL ratio 2 MARY Blood 01/15/2024 2:30 PM CDT 01/15/2024 8:08 PM CDT us Baljit Randall MD LAB BLOOD ORDERABLES Final Re sult MARY [id number] [place] [address] * CT abdomen with and without contrast (04/27/2023 1:47 PM TALENT SOURCER) Anatomical Region Laterality Modality Body N/A Computed Tomogra phy 04/30/2023 5:29 PM TALENT SOURCER Narrative 04/30/2023 5:36 PM TALENT SOURCER EXAM DESCRIPTION: CT ABDOMEN W WO CONTRAST [...] IODINE/ML INTRAVENOUS SYRINGE injected via intravenous COMPARISON: [facility] 12/06/2022. PET-CT 09/15/2021. REFERENCE: Per ACR [...] Michael Goldman M.D. CH: ALAN Report ID: [id number] Reading Location: [id number] Procedure Note Michael Goldman Jr., MD - [...] MG IODINE/ML INTRAVENOUSSYRINGE injected via intravenous COMPARISON: [facility] CT 12/06/2022. PET-CT 09/15/2021. REFERENCE: Per ACR [...] Michael Goldman M.D. CH: ALAN Report ID: [id number] Reading Location: [id number] Hu Norton MD IMG CT PROCEDURES Final Result from Last 3 Months or Most Recently Relevant to Health Maintenance Insurance [facility] MEDICARE [facility] Address: [facility] [address] [place] [address] [facility] MEDICARE [facility] Address: [facility] [address] [place] [address] Advance Directives For more information, please contact: [phone] * Full Code (Latest Code Status on File) Date Activated Date Inactivated Comments 04/23/2023 2:11 PM 04/24/2023 3:31 PM * Full Code Date Activated Date Inactivated Comments 01/17/2023 9:51 AM 01/17/2023 4:07 PM * Full Code Date Activated Date Inactivated Comments 12/07/2022 3:19 AM 12/11/2022 4:19 PM Care Teams Skirt Maker Relationship Specialty Start Date End Date Baljit Randall MD PCP - General Family Medicine 01/20/21 Caden Guajardo MD [address] [facility] [address] [place] [address] Consulting Physician Cardiology 07/02/24 Randall Hartman MD [address] [place] [address] Consulting Physician Cardiology 12/29/24
--- OUTSIDE RECORDS SUMMARY | 2025-01-30 14:24 | XMS_ITS | Encounter Summary ---
Author Organization [facility] Healthcare Address [address] [place] [address] Care Team Providers Care Crime Lab Analyst Name Role Phone Baljit Randall MD Primary Care Provider [phone] Caden Guajardo MD Unavailable [phone] Randall Hartman MD Unavailable Encounter Details Date Type Department Care Team (Late st Contact Info) Description 01/19/2025 Telephone [facility] Family Medicine at [address] [place] [address] Baljit Randall MD [address] [place] [address] [address] [place] [address] Social History Tobacco Use Types [...] week 12/12/2022 How often do you attend [facility] or restorationist services? 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 Gender Identity Not on file Sexual Orientation Straight 03/23/2019 1: 09 AM FREIGHT RATE ANALYST documented as of this encounter Miscellaneous Notes [...] on filedocumented in this encounter Care Teams Crime Lab Analyst Relationship Specialty Start Date End Date Baljit Randall MD PCP - General Family Medicine 01/20/21 Caden Guajardo MD [address] [facility] [address] [place] [address] Consulting Physician Cardiology 07/02/24 Randall Hartman MD [address] [facility] [address] [facility] [address] [place] [address] Consulting Physician Cardiology 12/29/24 documented as of this encounter
--- OUTSIDE RECORDS SUMMARY | 2025-01-30 14:24 | XMS_ITS | Encounter Summary ---
Author Organization [facility] Healthcare Address [address] [place] [address] Care Team Providers Care Diversified Crops Farmer Name Role Phone Landry Leon MD Unavailable [phone] Baljit Randall MD Primary Care Provider [phone] Reena Gilbert MD Unavailable [phone] Caden Guajardo MD Unavailable Trudy Bocanegra MA Unavailable Cynthia Ceja LPN Unavailable Randall Hartman MD Unavailable Encounter Details Date Type Department Care Team (Late st Contact Info) Description 07/14/2024 Telephone [facility] Family Medicine at [address] [place] [address] Baljit Randall MD [address] [place] [address] [address] [place] [address] Social History Tobacco Use Types [...] often do you attend chur ch or sikh services? 1 to 4 times per year [...] place to sleep or slept in a detention (including now)? No 12/12/2022 Personal Safety Answer Date Recorded Have you ever been in or are you currently in a harmful physical or emotional relationship or is someone making you feel afraid or unsafe? 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 Gender Identity Not on file Sexual Orientation Straight 03/23/2019 1: 09 AM EXHIBITIONS AND COLLECTIONS MANAGER documented as of this encounter Plan of Treatment Not on file documented as of this encounter Visit Diagnoses Not on filedocumented in this encounter Care Teams Diversified Crops Farmer Relationship Specialty Start Date End Date Baljit Randall MD PCP - General Family Medicine 01/20/21 Landry Leon MD Consulting Physician Cardiology 12/05/19 12/28/24 Reena Gilbret MD Consulting Physician Interventional Cardiology 04/28/24 12/28/24 Caden Guajardo MD [address] [facility] [address] [place] [address] Consulting Physician Cardiology 07/02/24 Trudy Bocanegra MA [address] [place] [address] [address] [place] [address] ACO Care Roller Stainer 08/29/24 08/29/24 Cynthia Ceja LPN [address] [facility] [address] [place] [address] Central Supply Technician 09/29/24 09/29/24 Randall Hartman MD [address] [place] [address] Consulting Physician Cardiology 12/29/24 documented as of this encounter
--- OUTSIDE RECORDS SUMMARY | 2025-01-30 14:24 | XMS_ITS | Encounter Summary ---
Author Organization [facility] Healthcare Address [address] [place] [address] Care Team Providers Care Beam Sealer Name Role Phone Baljit Randall MD Primary Care Provider Caden Guajardo MD Unavailable [phone] Randall Hartman MD Unavailable Encounter Details Date Type Department Care Team (Late st Contact Info) Description 01/21/2025 Results Follow-Up [facility] Family Medicine at [address] [place] [address] Baljit Randall MD [address] [place] [address] [address] [place] [address] Stool DNA - Cologuard Social History Tobacco [...] week 12/12/2022 How often do you attend [facility] or alevism services? 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 Gender Identity Not on file Sexual Orientation Straight 03/23/2019 1: 09 AM NATIONAL PARK TOUR GUIDE documented as of this encounter Plan of Treatment Not on file documented as of this encounter Visit Diagnoses Not on filedocumented in this encounter Care Teams Beam Sealer Relationship Specialty Start Date End Date Baljit Randall MD PCP - General Family Medicine 01/20/21 Caden Guajardo MD [address] [facility] [address] [place] [address] Consulting Physician Cardiology 07/02/24 Randall Hartman MD [address] [place] [address] Consulting Physician Cardiology 12/29/24 documented as of this encounter
--- NOTE | 2025-01-30 14:47 | ECG_ITS ---
Test Date: 2025-01-30 14:57:15 Measurements Intervals [place] Rate: 73 P: 235 RI: 217 QRS: -68 QRSD: 182 T: 107 QT: 477 QTc: 529 Interpretive Statements ELECTRONIC ATRIAL PACEMAKER ELECTRONIC VENTRICULAR PACEMAKER Electronically Signed On 01-30-2025 15:22:56 POLLUTION CONTROL CHEMIST by Davian Burt D.O
[2025-01-30 15:12] LABS: Hematocrit 36.7 % (42.0-52.0); Hemoglobin 11.7 g/dL (14.0-18.0); Immature Granulocyte Percent A 0.3 % (0-0.5); Lymphocytes Absolute Auto 1.14 K/mm3 (0.9-3.2); Mean Corpuscular HGB Conc 31.9 g/dl (32-36); Mean Corpuscular Hemoglobin 29.5 pg (26-34); Mean Corpuscular Volume 92.7 fl (80-100); Nucleated Red Blood Cells Absolute Auto 0.000 K/mm3 (0.0-0.012); Nucleated Red Blood Cells Perc 0.0 % (0.0-0.2); Platelet Count Result 205 k/mm3 (150-375); Red Blood Count 3.96 M/mm3 (4.6-6.20); White Blood Count 6.8 K/mm3 (4.5-10.0)
[2025-01-30 15:24] LABS: Alanine Aminotransferase 25 U/L (6-50); Albumin Level 4.1 g/dL (3.5-5.1); Alkaline Phosphatase 87 U/L (38-126); Anion Gap 10 mmol/L (4-12); Aspartate Amino Transferase 52 U/L (17-59); Bilirubin,Total 0.8 mg/dL (0.2-1.3); Blood Urea Nitrogen 58 mg/dL (9-20); Calcium 8.8 mg/dL (8.4-10.2); Carbon Dioxide 31 mmol/L (22-30); Chloride 94 mmol/L (98-107); Estimated CRCL calculation 28 ml/min; Estimated Glomerular Filt Rate 34; Glucose 71 mg/dL (65-110); Potassium 3.8 mmol/L (3.4-5.0); Sodium 135 mmol/L (137-145); Total Protein 7.9 g/dL (6.3-8.2)
--- OUTSIDE RECORDS SUMMARY | 2025-01-30 15:31 | XMS_ITS | Clinical Summary ---
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 Dx; Bradycardia, AV Block. DOI 04/23/2023- Kahanda. Crawford-Edward. Carelink remote. 07/28/24-transferred to [place]. Morbid (severe) obesity due to excess calories 0 04/10/2023 Class 2 severe obesity due t o excess calories with serious comorbidity and body mass index (BMI) of 37.0 to 37.9 in adult 04/10/2023 Assessment & Plan (04/10/2023 1:55 PM MEAL COOK): Discussed healthy diet and importance of regular [...] infection. Assessment & Plan (05/19/2024 10:45 AM MEAL COOK): Chronic problem. A1c at goal w/o hypoglycemia. A1c today=5.1%, was 5.9% 01/15/24. Stop the metformin. Will re-evaluate at next appointment if we need to stop the Farxiga additionally. Current medications: Farxiga 10mg daily Ozempic 0.5 mg weekly UTD on DM eye exam (04/19/23 no DMR). Had appt 04/2024 at [facility]. Letter sent to get copy of report. Will update labs. Verified that he uses [employer]. Aware to check results/results letter in [employer]. Will contact by phone if needed. Strive [...] meals Assessment & Plan (04/10/2023 1:51 PM MEAL COOK): Chronic problem. A1c at goal w/o hypoglycemia. [...] benign. Assessment & Plan (05/19/2024 10:21 AM MEAL COOK): Last thyroid US by Dr Sanderson 01/12/23: These nodules are not new. You have nodules that have been seen in ultrasound in the past and you even had biopsy of these nodules which are benign. Assessment & Plan (04/10/2023 1:54 PM MEAL COOK): Last thyroid US 01/2021. Has not had repeat imaging since that time. Will repeat US at 06/[address] Sanderson. Assessment & Plan (02/03/2020 7:02 PM MEAL COOK): We reviewed the ultrasound images with the [...] mychart. Aware to check results/results letter in [employer]. Will contact by phone if needed. Assessment & Plan (05/19/2024 10:20 AM MEAL COOK): Chronic problem. Currently taking methimazole 5mg 5 [...] TFTs Assessment & Plan (04/10/2023 1:24 PM MEAL COOK): Chronic problem. No labs since 12/07/22. 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 She had recommended beginning Tapazole which patient has not started yet. Will coordinate between Dr. Don in the cardiology. Labs are pending from today and will repeat again in 3 months Vitamin D deficiency 01/28/2018 Assessment & Plan (01/28/2018 1:46 PM MEAL COOK): Level over 30 04/12, will repeat -check 25 hydroxy vitamin-D History of gastric bypass 01/28/2018 Assessment & Plan (01/28/2018 1:47 PM MEAL COOK): Will monitor the following yearly (will order) [...] safety Assessment & Plan (04/13/2021 12:33 PM MEAL COOK): -CKD increases risk of hypoglycemia -Will closely monitor glucose pattern in ensure margin of safety Assessment & Plan (04/29/2018 4:51 PM MEAL COOK): Creatinine is much improved and back to baseline Will repeat renal panel in 3 months 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 Controlled on current Atorvastatin 10mg. Last lipid panel: 01/15/24 LDL=57, TG=97. Assessment & Plan (05/19/2024 10:20 AM MEAL COOK): Chronic problem. Controlled on current Atorvastatin 10mg. Last lipid panel: 01/15/24 LDL=57, TG=97. Assessment & Plan (07/03/2023 2:49 PM CDT): Chronic, stable . Continue statin therapy with Lipitor 10 mg daily Assessment & Plan (04/10/2023 1:23 PM MEAL COOK): Chronic problem. Controlled on current Atorvastatin 10mg. Last lipid panel: 08/10/22 LDL=42, CE=933. Assessment & Plan (01/15/2023 10:16 AM CDT): Chronic problem. Controlled on current Atorvastatin 10mg. Last lipid panel: 08/10/22 LDL=42, AM=020. Assessment & Plan (10/17/2022 2:32 PM CDT): Chronic, well controlled. Continue atorvastastin Type 2 diabetes mellitus with diabetic neuropath y 04/01/2015 Assessment & Plan (09/11/2024 11:50 AM CDT): Chronic problem. Reviewed foot care; needs to lotion daily. Aware to check feet nightly, not to go barefoot. Assessment & Plan (05/19/2024 10:21 AM MEAL COOK): Chronic problem. Reviewed foot care; needs to lotion daily. Aware to check feet nightly, not to go barefoot. Assessment & Plan (04/10/2023 1:24 PM MEAL COOK): Chronic problem. Aware to check feet & [...] Metformin Assessment & Plan (04/18/2022 4:44 PM MEAL COOK): Hba1c was Lab Results Component Value Date [...] 07/12/21 Assessment & Plan (04/13/2021 12:31 PM MEAL COOK): -Currently taking oral agents and Trulicity -A1C on 04/13/21 was 6.4% -Will continue same medications at this time -Discussed diet and activity modifications. -Eye exam is up to date -Foot exam per foot nurse today Assessment & Plan (04/29/2018 4:48 PM MEAL COOK): Diabetes control is markedly improved with the [...] day Assessment & Plan (01/28/2018 1:49 PM MEAL COOK): Poor control with recent increase in HgbA1C. [...] different times and keep track -refer to public health educator to review blood sugars in 6 [...] 09/18/2023 Assessment & Plan (04/10/2023 1:24 PM MEAL COOK): Chronic problem. Lisinopril 2.5mg daily, metoprolol tartrate 50mg bid, lasix 80mg daily, spironolactone 25mg daily Assessment & Plan (01/15/2023 10:42 AM CDT): Chronic problem. Lisinopril 2.5mg daily, metoprolol tartrate 50mg bid, lasix 80mg daily, spironolactone 25mg daily Assessment & Plan (10/17/2022 2:32 PM CDT): Chronic, well controlled Continue current meds Lymphadenopathy 03/31/2021 04/20/2021 Overview (03/31/2021): Added automatically from request for surgery [id number] Assessment & Plan (04/13/2021 12:34 PM MEAL COOK): -FNA suspicious for Hodgkin's Lymphoma -Has been seen by oncology and ENT -Scheduled for lymph node excisional biopsy tomorrow Screening PSA (prostate specific antigen) 03/15/2020 09/01/2024 Low TSH level 02/20/2018 01/20/2021 RHETT (acute kidney injury) 09/05/2017 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 Assessment & Plan (05/30/2017 3:05 PM MEAL COOK): Previous 12-lead EKG shows ventricular bigeminy. There [...] management Assessment & Plan (04/13/2021 12:33 PM MEAL COOK): -Continue same medical management Assessment & Plan (01/28/2018 1:46 PM MEAL COOK): LDL 51 11/10 On atorvastatin Chronic coronary [...] monitor. Assessment & Plan (04/13/2021 12:33 PM MEAL COOK): -BP today is 130/66 -Will continue same antihypertensive medications at this time. Osteoarthritis 07/02/2012 09/01/2024 Onychomycosis due to dermatophyte 04/18/2012 09/01/2024 Skin callus 04/18/2012 04/20/2021 Psoriasis 05/08/2011 09/01/2024 Nocturia 05/08/2011 01/20/2021 Slowing of urinary stream 05/08/2011 Encounters Date Type Department Care Team Description 01/30/[address] [facility] Cardiology [address] [place] [address] [place] [phone] Randall Hartman MD 01/30/[address] [facility] Cardiology [address] [facility] [address] [place] [address] Lakeshia Millan NP 01/29/[address] [facility]iology [address] [place] [address] [place] [phone] Randall Hartman MD 01/23/2025 1:55 PM CDT Lab [address] [address] Chronic systolic congestive heart failure (HCC); CKD stage G3a/A1, GFR 45-59 and albumin creatinine ratio <30 mg/g (HCC) 01/23/[address] [facility] Cardiology [address] [place] [address] [place] [phone] Randall Hartman MD 01/23/2025 Results Follow-Up [facility] [address] [facility] [address], [place] [address] Lakeshia Millan, DINESH Transthoracic Echo (TTE) Complete W Doppler/CF 01/21/2025 Results Follow-Up [facility] Cardiology [address] [place] [address] [address] [place] [phone] Charlee Marie RN Basic metabolic panel, Pro B-type natriuretic peptide, eGFR 01/21/2025 Results Follow-Up [facility] at [address] [place] [address] Baljit Randall MD Stool DNA - Cologuard 01/20/2025 12:00 PM CDT Lab [facility] [address] [place] [address] Chronic systolic congestive heart failure (HCC) 01/19/2025 2:06 PM CDT - 01/19/2025 11:59 PM CDT Hospital Encounter [facility] OP Cardiac Testing [address] [facility] [address] [place] [address] Cardiac arrhythmia, unspecified cardiac arrhythmia type Discharge Disposition: Discharge to home or self care 01/19/[address] [facility] Family Medicine at [address] [place] [address] Baljit Randall MD 01/13/[address] [facility] Cardiology [address] [facility] [address] [place] [phone] Randall Hartman MD 01/01/2025 11:30 AM CDT Office Visit [facility] at [address] [place] [address] Baljit Randall MD Ulcer of left foot, limited to breakdown of skin (HCC) (Primary Dx); Wound of left lower extremity, subsequent encounter; Wound of sacral region, subsequent encounter; Need for vaccination 12/31/[address] [facility] Cardiology [address] [place] [address] [address], [place] [phone] Randall Hartman MD Chronic systolic congestive heart failure (HCC) (Primary Dx) 12/30/2024 Orders Only Ar[facility] [address] [facility] [address] [place] [address] Lakeshia Millan NP Cardiac arrhythmia, unspecified cardiac arrhythmia type (Primary Dx) 12/29/[address] [facility] Cardiology [address] [place] [address] [place] [phone] Landry Leon MD Congestive Heart Failure 12/29/[address] [facility] Gastroenterology at [place] [address] [facility] [address] [place] [phone] Suhas Mahmood MD 12/24/[address] [facility] Family Medicine at [place] [address] [facility] [address] [place] [phone] Baljit Randall MD Skin ulcer, unspecified ulcer stage (HCC) (Primary Dx) 12/09/2024 1:00 PM CDT Office Visit Arrhythmia Center [address] [facility] [address] [place] [phone] Lakeshia Millan NP Cardiac arrhythmia, unspecified cardiac arrhythmia type (Primary Dx); Cardiac pacemaker in situ 12/08/2024 11:00 AM CDT Office Visit [facility] Cardiology [address] [place] [phone] Randall Hartman MD Encounter for screening colonoscopy (Primary Dx) 12/05/2024 1:40 PM CDT Lab [facility] [address] [place] [address] Chronic systolic congestive heart failure (HCC) 11/21/2024 Orders Only [facility] Cardiology [address] [facility] Medical Office [address] [place] [phone] Bela Herzog MD 11/18/2024 11:00 AM CDT Office Visit [facility] Pulmonology [address] [facility] [address] [place] [phone] Eneida Malloy MD HFrEF (heart failure with reduced ejection fraction) (Primary Dx); Dyspnea and respiratory abnormalities; Pleural effusion 11/17/2024 3:15 PM CDT Office Visit [facility] Medicine [facility] [address] [place] [address] Santosh Wilson II, MD Dysfunction of both eustachian tubes (Primary Dx); Postnasal drip 11/05/[address] [facility] Family Medicine at [place] [address] [facility] [address] [place] [phone] Baljit Randall MD Recommendation Request; Sleep Study (Results.) 10/31/2024 Telephone [facility] [address] [facility] [address] [place] [phone] Amrita German RN from Last 3 [...] vative Free, Intramuscular 12/21/2014,01/09/2013,03/26/2011 Influenza, Unspecified 12/25/2023,12/28/2021, E la Carte SARS-CoV-2 Monovalent Vaccination (12+ Yrs) PURPLE 01/09/2021,06/08/2020,05/18/2020 [...] hematuria 12/07/2022 Coronary artery disease invo lving skull [place] coronary artery of [place] heart without angina pectoris SOB (shortness of [...] any clubs o r organizations such as mormon groups, unions, fraternal or athletic groups, or [...] place to sleep or slept in a mcc (including now)? No 12/12/2022 Personal Safety Answer Date Recorded Have you ever been in or are you currently in a harmful physical or emotional relationship or is someone making you feel afraid or unsafe? Denies 08/28/2024 Sex and Gender Information Value Date Recorded Sex Assigned at Not on file Legal Sex Male 3:19 AM MEAL COOK Gender Identity Not on file Sexual Orientation Straight 03/23/2019 1: 09 AM MEAL COOK Last Filed Vital Signs Vital Sign Reading [...] history exists Medical Devices Implanted Type Area Barrel Polisher Inside Device Identifier Shelf Expiration Date Model / Serial / Lot Medtronic Inc Meenakshi S Mri Surescan 50.8x46.6mm 2 Chamber 7.4mm Pacemaker 22.5gm [id number] - [id number] Implanted:Qty: 1 on 04/23/2023 by Nestor Sutherland MD at [facility] Pacemaker Medtronic Inc 08/06/2024 [id number] / / [employer] Device Closure Vascade Od5 Fr Femoral Artery [id number] - [id number] Implanted:Qty: 1 on 01/17/2023 by Zoe Levy MD at [facility] [employer] 11/20/2024 [id number] / / [id number] Medtronic Inc Capsurefix Novus 6.2fr 2mm 52cm Bipolar Screw In Implantable Latex Free 5076-52 - [id number] Implanted:Qty: 1 on 04/23/2023 by Nestor Sutherland MD at [facility] Medtronic Inc 01/04/2025 [id number] / / Medtronic Inc Capsurefix Novus 6.2fr 2mm 58cm Bipolar Screw In Implantable 5076-58 - [id number] Implanted:Qty: 1 on 04/23/2023 by Nestor Sutherland MD at [facility] Medtronic Inc 12/26/2024 5076-58 / / Procedures Procedure Name Priority Date/Time Associated Diagnosis Comments CARDIOLOGY DOCUMENT SCAN Routine 01/29/2025 11:22 AM MEAL COOK EGFR Routine 01/23/2025 2:05 PM CDT Chronic [...] CREATININE RATIO, URINE Routine 05/19/2024 10:51 AM MEAL COOK Type 2 diabetes mellitus with hyperglycemia, without long-term current use of insulin (HCC) HM DIABETES EYE EXAM Routine 04/29/2024 12:03 PM MEAL COOK LIPID PANEL Routine 01/15/2024 2:30 PM CDT Type 2 diabetes mellitus with diabetic neuropathy, without long-term current use of insulin (HCC) CT ABDOMEN W WO CONTRAST Schedule Routine, Read Routine (OP Routine) 04/27/2023 1:47 PM MEAL COOK Kidney lesion from Last 3 Months or Most Recently Relevant to Health Maintenance Results * Cardiology Document Scan (01/29/2025 11:22 AM MEAL COOK) Anatomical Region Laterality Modality Other us Randall [...] LAB BLOOD ORDERABLES Final Resul t MARY [address] [facility] Department [place] [address] * (ABNORMAL) Pro B-type natriuretic [...] MD LAB BLOOD ORDERABLES Final Resul t [facility] [address] [facility] Department of Laboratories [place], [place] [phone] * (ABNORMAL) Comprehensive metabolic panel (01/23/2025 2:05 PM CDT) Sodium 140 135 - 145 mmol/L Potassium, pl 4.7 3.3 - 4.9 mmol/L [facility] Chloride 98 97 - 110 mmol/L [facility] CO2 35(H) 22 - 32 mmol/L [facility] Anion gap 7 2 - 15 mmol/L [facility] BUN 31(H) 6 - 25 mg/dL [facility] Creatinine 1.74(H) 0.80 - 1.30 mg/dL [facility] Glucose 140 70 - 199 mg/dL [facility] Comment: Interpretive Data Fasting glucose >/= [...] 2022. Calcium 9.3 8.5 - 10.3 mg/dL [facility] Bilirubin, total 0.5 0.1 - 1.2 mg/dL [facility] Protein, pl 7.0 6.5 - 8.5 g/dL [facility] Albumin 3.7 3.5 - 5.0 g/dL [facility] Alk phos 100 40 - 130 Units/L [facility] ALT 17 7 - 55 Units/L [facility] AST 37 10 - 50 Units/L [facility] Blood 01/23/2025 2:05 PM CDT 01/23/2025 6:53 PM CDT us Randall Hartman MD LAB BLOOD ORDERABLES Final Resul t MARY [address] [facility] Department [place] [address] * (ABNORMAL) eGFR (01/20/2025 12:04 PM CDT) [...] ORDERABLES Final Resul t Performing Organization Address City/[facility]/ZIP Co de Phone Number MARY [address] [facility] Department [place] [address] * (ABNORMAL) Pro B-type natriuretic peptide (01/20/2025 [...] ORDERABLES Final Resul t Performing Organization Address [facility]/ZIP Co de Phone Number MARY [address] [facility] Department [place] [address] * (ABNORMAL) Basic metabolic panel (01/20/2025 12:04 PM CDT) Pathologist [facility] Sodium 141 135 - 145 mmol/L Potassium, pl 5.1(H) 3.3 - 4.9 mmol/L [facility] Chloride 100 97 - 110 mmol/L [facility] CO2 33(H) 22 - 32 mmol/L [facility] Anion gap 8 2 - 15 mmol/L [facility] BUN 28(H) 6 - 25 mg/dL [facility] Creatinine 1.59(H) 0.80 - 1.30 mg/dL [facility] Glucose 133 70 - 199 mg/dL [facility] Comment: Interpretive Data Fasting glucose >/= [...] 2022. Calcium 9.5 8.5 - 10.3 mg/dL [facility] Blood 01/20/2025 12:0 4 PM CDT 01/20/2025 1:50 PM CDT us Randall Hartman MD LAB BLOOD ORDERABLES [facility]ul [facility] [address] [facility] Department [place] [address] * TRANSTHORACIC ECHO (TTE) COMPLETE W DOPPLER/CF WO CONTRAST (01/19/2025 3:47 PM CDT) [facility] EF Mod BP 31 % CONS SCIMAGE Anatomical Region Laterality Modality Ultrasound 01/19/2025 2:10 PM CDT Narrative 01/19/2025 4:19 PM CDT [facility] Testing Center [address] [place] [address] ECHOCARDIOGRAM Patient Name: JUAN JENNINGS : 1945 (79y 11m) Sex: M Study Date: 01/19/2025 02:10:00 PM Ht(Inch): 70 Wt(Lb): 221.12 BSA: 2.23 Fire 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 Electronically Signed By: Baljit Smart MD, [facility] 01/19/2025 4:18:15 PM CDT Procedure Note Baljit Smart MD - 01/19/2025 [facility] Testing Center [address] [place] [address] ECHOCARDIOGRAM Patient Name: JUAN JENNINGS : 1945 (79y 11m) Sex: M Study Date: 01/19/2025 02:10:00 PM Ht(Inch): 70 Wt(Lb): 221.12 BSA: 2.23 Fire 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 Electronically Signed By: Baljit Smart MD, [facility] 01/19/2025 4:18:15 PM CDT Lakeshia Millan NP [...] LAB BLOOD ORDERABLES Final Resul t MARY [address] [facility] Department [place] [address] * (ABNORMAL) Pro B-type natriuretic peptide (12/05/2024 [...] LAB BLOOD ORDERABLES Final Resul t MARY [address] [facility] Department [place] [address] * (ABNORMAL) Comprehensive metabolic panel (12/05/2024 1:51 PM CDT) Sodium 142 135 - 145 mmol/L Potassium, pl 4.4 3.3 - 4.9 mmol/L [facility] Chloride 100 97 - 110 mmol/L [facility] CO2 32 22 - 32 mmol/L [facility] Anion gap 10 2 - 15 mmol/L [facility] BUN 23 6 - 25 mg/dL [facility] Creatinine 1.32(H) 0.80 - 1.30 mg/dL [facility] Glucose 102 70 - 199 mg/dL [facility] Comment: Interpretive Data Fasting glucose >/= [...] 2022. Calcium 9.4 8.5 - 10.3 mg/dL [facility] Bilirubin, total 0.5 0.1 - 1.2 mg/dL [facility] Protein, pl 6.7 6.5 - 8.5 g/dL [facility] Albumin 3.7 3.5 - 5.0 g/dL [facility] Alk phos 83 40 - 130 Units/L [facility] ALT 16 7 - 55 Units/L [facility] AST 40 10 - 50 Units/L [facility] Blood Venous blood specimen / Unknown 12/05/2024 1:51 PM CDT 12/05/2024 6:23 PM CDT Randall Hartman MD LAB BLOOD ORDERABLES Final Resul t [facility] [address] [facility] Department [place] [address] * DEVICE CHECK - REMOTE (11/21/2024 8:43 AM CDT) Anatomical Region Laterality Modality Other 11/21/2024 8:43 AM CDT Narrative 11/21/2024 5:37 PM CDT Interpretation Summary: Battery and Leads (BL) Normal parameters noted on battery and lead(s) --- 9.9 yrs remaining longevity. Lead impedance, sensing, and RV threshold trends stable and appropriate. No RA auto threshold testing. No short V-V intervals. Presenting Rhythm (TX) Atrial Pacing-Ventricular Pacing (AP-FUNDRAISING OFFICER) --- AP/FUNDRAISING OFFICER 77 bpm. Arrhythmic events (AE) No new arrhythmic events in monitoring period --- Since 08/28/24: No AHR or VHR episodes. Miscellaneous Observations (MISC) RV pacing > 40% noted --- FUNDRAISING OFFICER 79.5%. Pt has h/o AV Block/High FUNDRAISING OFFICER percentage. Transmission Information (TI) Device Summary Report Follow Up (FU) Patient's primary treating physician will be apprised of findings Procedure Note Bela Herzog MD - 11/21/2024 Interpretation Summary: Battery and Leads (BL) Normal parameters noted on battery and lead(s) --- 9.9 yrs remaininglongevity. Lead impedance, sensing, and RV threshold trends stable andappropriate. No RA auto threshold testing. No short V-V intervals. Presenting Rhythm (TX) Atrial Pacing-Ventricular Pacing (AP-FUNDRAISING OFFICER) --- AP/FUNDRAISING OFFICER 77 bpm. Arrhythmic events (AE) No new arrhythmic events in monitoring period --- Since 08/28/24: No AHRor VHR episodes. Miscellaneous Observations (MISC) RV pacing > 40% noted --- FUNDRAISING OFFICER 79.5%. Pt has h/o AV Block/High VPpercentage. [...] Albumin Creatinine Ratio, Urine (05/19/2024 10:51 AM MEAL COOK) Albumin Ur 12.9 mg/L Comment: Interpretive Data No reference range established. Current interpretive data was last revised 2018. Creatinine Ur 127.4 mg/dL [facility] Comment: Interpretive Data No reference range established. Current interpretive data was last revised 2018. Albumin Creatinine Ratio, Ur 10 1 - 29 mg/g MARY Urine 05/19/2024 10:5 1 AM MEAL COOK 05/19/2024 2:40 PM MEAL COOK Jennifer Young NP LAB URINE ORDERABLES Esperanza l Result [facility] [address] Department [place] [address] * DIABETES EYE EXAM (04/29/2024 12:03 PM MEAL COOK) Historical Provider HEALTH MAINTENANCE Final Result * [...] LAB BLOOD ORDERABLES Final Re sult MARY [address] Department [place] [address] * CT abdomen with and without contrast (04/27/2023 1:47 PM MEAL COOK) Anatomical Region Laterality Modality Body N/A Computed Tomogra phy 04/30/2023 5:29 PM MEAL COOK Narrative 04/30/2023 5:36 PM MEAL COOK EXAM DESCRIPTION: CT ABDOMEN W WO CONTRAST [...] IODINE/ML INTRAVENOUS SYRINGE injected via intravenous COMPARISON: [place] CT 12/06/2022. PET-CT 09/15/2021. REFERENCE: Per ACR [...] Michael Goldman M.D. CH: ALAN Report ID: [id number] Reading Location: [id number] Procedure Note Michael Goldman Jr., MD - [...] MG IODINE/ML INTRAVENOUSSYRINGE injected via intravenous COMPARISON: [place] CT 12/06/2022. PET-CT 09/15/2021. REFERENCE: Per ACR [...] Michael Goldman M.D. CH: ALAN Report ID: [id number] Reading Location: [id number] Hu Norton MD IMG CT PROCEDURES Final Result from Last 3 Months or Most Recently Relevant to Health Maintenance Insurance [facility] MEDICARE ADVANTAGE [facility] MEDIC[facility] ADVANTAGE Advance Directives For more information, please contact: [phone] * Full Code (Latest Code Status on File) Date Activated Date Inactivated Comments 04/23/2023 2:11 PM 04/24/2023 3:31 PM * Full Code Date Activated Date Inactivated Comments 01/17/2023 9:51 AM 01/17/2023 4:07 PM * Full Code Date Activated Date Inactivated Comments 12/07/2022 3:19 AM 12/11/2022 4:19 PM Care Teams Security Police Officer Relationship Specialty Start Date End Date Baljit Randall MD PCP - General Family Medicine 01/20/21 Caden Guajardo MD [address] [facility] [address] [place] [address] Consulting Physician Cardiology 07/02/24 Randall Hartman MD [address] [place] [address] Consulting Physician Cardiology 12/29/24
--- OUTSIDE RECORDS SUMMARY | 2025-01-30 15:31 | XMS_ITS | Encounter Summary ---
Author Organization [facility] Healthcare Address [address] [place] [address] Care Team Providers Care Cabin Supervisor Name Role Phone Baljit Randall MD Primary Care Provider [phone] Caden Guajardo MD Unavailable [phone] Randall Hartman MD Unavailable Encounter Details Date Type Department Care Team (Late st Contact Info) Description 01/29/2025 Telephone [facility] Medical Group Cardiology [address] [place] [address] Randall Hartman MD [address] [place] [address] Social History Tobacco Use Types [...] week 12/12/2022 How often do you attend [facility] or christian services? 1 to 4 times per year 12/12/2022 Do you belong to any clubs o r organizations such as alevism groups, unions, fraternal or athletic groups, or [...] on file Legal Sex Male 3:19 AM FLOOR SURFACER Gender Identity Not on file Sexual Orientation Straight 03/23/2019 1: 09 AM FLOOR SURFACER documented as of this encounter Miscellaneous Notes * Telephone Encounter - Charlee Marie RN - 01/29/2025 4:22 PM FLOOR SURFACER Spoke with pt, pt states he is [...] today. Will forward to WK. Please advise. R SURFACER * Telephone Encounter - Lyn Jacobson - [...] confusion. Please advise. Thank you. Contact : [phone] R SURFACER documented in this encounter Plan of Treatment Not on file documented as of this encounter Visit Diagnoses Not on filedocumented in this encounter Care Teams Cabin Supervisor Relationship Specialty Start Date End Date Baljit Randall MD PCP - General Family Medicine 01/20/21 Caden Guajardo MD [address] [facility] [address] [place] [address] Consulting Physician Cardiology 07/02/24 Randall Hartman MD [address] [facility] [address] [facility] [address] [facility] [address] [place] [address] Consulting Physician Cardiology 12/29/24 documented as of this encounter
--- OUTSIDE RECORDS SUMMARY | 2025-01-30 15:31 | XMS_ITS | Encounter Summary ---
Author Organization [facility] Healthcare Address [address] [place] [address] Care Team Providers Care Database Administration Manager Name Role Phone Chai Llanes MD Primary Care Provider [phone] Landry Leon MD Unavailable [phone] Baljit Randall MD Primary Care Provider [phone] Kiki Britton RN Unavailable Reena Gilbert MD Unavailable [phone] Caden Guajardo MD Unavailable [phone] Trudy Bocanegra MA Unavailable Cynthia Ceja LPN Unavailable [phone] Randall Hartman MD Unavailable Encounter Details Date Type Department Care Team (Late st Contact Info) Description 07/07/2017 Orders Only [facility] Health Information Management [address] [place] [address] Scanning, Provider Social History Tobacco Use Types Packs/Day Years Used Date Smoking Tobacco: Former Smokeless Tobacco: Never Alcohol Use Standard Drinks/Week Comments Yes 0 (1 standard drink = 0.6 oz pur e alcohol) weekly Sex and Gender Information Value Date Recorded Sex Assigned at Not on file Legal Sex Male 3:19 AM MIDDLEWARE SOLUTIONS ARCHITECT Gender Identity Not on file Sexual Orientation Straight 03/23/2019 1: 09 AM MIDDLEWARE SOLUTIONS ARCHITECT documented as of this encounter Plan of [...] COVID: Suspected 04/20/2023 04/20/2023 04/20/2023 4:34 PM MIDDLEWARE SOLUTIONS ARCHITECT COVID: Suspected 04/20/2023 04/20/2023 04/21/2023 3:05 AM MIDDLEWARE SOLUTIONS ARCHITECT COVID: Suspected 03/04/2024 03/04/2024 03/04/2024 10:45 AM MIDDLEWARE SOLUTIONS ARCHITECT COVID19 03/04/2024 03/04/2024 03/14/2024 3:05 AM MIDDLEWARE SOLUTIONS ARCHITECT COVID: Recovered Comment:Added based on recent COVID infection. 03/14/2024 03/17/2024 06/12/2024 3:06 AM C DT documented as of this encounter Care Teams Database Administration Manager Relationship Specialty Start Date End Date Chai Llanes MD [address] [place] [address] PCP - General 06/23/16 01/19/21 Baljit Randall MD [address] [place] [address] PCP - General Family Medicine 01/20/21 Landry Leon MD [address] [place] [address] Consulting Physician Cardiology 12/05/19 12/28/24 Kiki Britton, RN [address] [facility] [address] [place] [address] Subway Car Repairer 12/12/22 01/23/23 Reena Gilbert MD [address] [facility] [address] [place] [address] Consulting Physician Interventional Cardiology 04/28/24 12/28/24 Caden Guajardo MD [address] [facility] [address] [place] [address] Consulting Physician Cardiology 07/02/24 Trudy Bocanegra MA [address] [facility] [address] [place] [address] ACO Care Run Lead 08/29/24 08/29/24 Cynthia Ceja LPN [address] [facility] [address] [place] [address] Subway Car Repairer 09/29/24 09/29/24 Randall Hartman MD [address] [place] [address] Consulting Physician Cardiology 12/29/24 documented as of this encounter
--- OUTSIDE RECORDS SUMMARY | 2025-01-30 15:31 | XMS_ITS | Encounter Summary ---
Author Organization [facility] Healthcare Address [address] [place] [address] Care Team Providers Care Accounts Specialist Name Role Phone Landry Leon MD Unavailable [phone] Baljit Randall MD Primary Care Provider [phone] Reena Gilbert MD Unavailable [phone] Caden Guajardo MD Unavailable Trudy Bocanegra MA Unavailable Cynthia Ceja LPN Unavailable [phone] Randall Hartman MD Unavailable Encounter Details Date Type Department Care Team (Late st Contact Info) Description 07/14/2024 Telephone [facility] Medical Group Family Medicine at [address] [place] [address] Baljit Randall MD [address] [place] [address] [address] [place] [address] Social History Tobacco Use Types [...] often do you attend chur ch or orthodox services? 1 to 4 times per year 12/12/2022 Do you belong to any clubs o r organizations such as hoahaoism groups, unions, fraternal or athletic groups, or [...] on file Legal Sex Male 3:19 AM BARREL HEADER Gender Identity Not on file Sexual Orientation Straight 03/23/2019 1: 09 AM BARREL HEADER documented as of this encounter Plan of Treatment Not on file documented as of this encounter Visit Diagnoses Not on filedocumented in this encounter Care Teams Accounts Specialist Relationship Specialty Start Date End Date Baljit Randall MD PCP - General Family Medicine 01/20/21 Landry Leon MD Consulting Physician Cardiology 12/05/19 12/28/24 Reena Gilbert MD Consulting Physician Interventional Cardiology 04/28/24 12/28/24 Caden Guajardo MD [address] [facility] [address] [place] [address] Consulting Physician Cardiology 07/02/24 Trudy Bocanegra MA [address] [place] [address] [address] [place] [address] ACO Care Hand Clerical Verifier 08/29/24 08/29/24 Cynthia Ceja LPN [address] [facility] [address] [place] [address] Venetian Blind Assembler 09/29/24 09/29/24 Randall Hartman MD [address] [place] [address] Consulting Physician Cardiology 12/29/24 documented as of this encounter
--- OUTSIDE RECORDS SUMMARY | 2025-01-30 15:31 | XMS_ITS | Encounter Summary ---
Author Organization [facility] Healthcare Address [address] [place] [address] Care Team Providers Care Hall Porter Name Role Phone Chai Llanes MD Primary Care Provider [phone] Landry Leon MD Unavailable [phone] Baljit Randall MD Primary Care Provider [phone] Kiki Britton RN Unavailable Reena Gilbert MD Unavailable [phone] Caden Guajardo MD Unavailable [phone] Trudy Bocanegra MA Unavailable Cynthia Ceja LPN Unavailable [phone] Randall Hartman MD Unavailable Encounter Details Date Type Department Care Team (Late st Contact Info) Description 08/02/2017 Orders Only [facility] Health Information Management [address] [place] [address] Scanning, Provider Social History Tobacco Use Types Packs/Day Years Used Date Smoking Tobacco: Former Smokeless Tobacco: Never Alcohol Use Standard Drinks/Week Comments Yes 0 (1 standard drink = 0.6 oz pur e alcohol) weekly Sex and Gender Information Value Date Recorded Sex Assigned at Not on file Legal Sex Male 3:19 AM OPERATIONAL INTELLIGENCE ANALYST Gender Identity Not on file Sexual Orientation Straight 03/23/2019 1: 09 AM OPERATIONAL INTELLIGENCE ANALYST documented as of this encounter Plan of [...] COVID: Suspected 04/20/2023 04/20/2023 04/20/2023 4:34 PM OPERATIONAL INTELLIGENCE ANALYST COVID: Suspected 04/20/2023 04/20/2023 04/21/2023 3:05 AM OPERATIONAL INTELLIGENCE ANALYST COVID: Suspected 03/04/2024 03/04/2024 03/04/2024 10:45 AM OPERATIONAL INTELLIGENCE ANALYST COVID19 03/04/2024 03/04/2024 03/14/2024 3:05 AM OPERATIONAL INTELLIGENCE ANALYST COVID: Recovered Comment:Added based on recent COVID infection. 03/14/2024 03/17/2024 06/12/2024 3:06 AM C DT documented as of this encounter Care Teams Hall Porter Relationship Specialty Start Date End Date Chai Llanes MD [address] [place] [address] PCP - General 06/23/16 01/19/21 Baljit Randall MD [address] [place] [address] PCP - General Family Medicine 01/20/21 Landry Leon MD [address] [place] [address] Consulting Physician Cardiology 12/05/19 12/28/24 Kiki Britton, RN [address] [place] [address] [address] [place] [address] Mathematical Engineering Technician 12/12/22 01/23/23 Reena Gilbert MD [address] [facility] [address] [place] [address] Consulting Physician Interventional Cardiology 04/28/24 12/28/24 Caden Guajardo MD [address] [facility] [address] [place] [address] Consulting Physician Cardiology 07/02/24 Trudy Bocanegra MA [address] [facility] [address] [place] [address] ACO Care Nuclear Powerplant Supervisor 08/29/24 08/29/24 Cynthia Ceja LPN [address] [facility] [address] [place] [address] Mathematical Engineering Technician 09/29/24 09/29/24 Randall Hartman MD [address] [place] [address] Consulting Physician Cardiology 12/29/24 documented as of this encounter
--- OUTSIDE RECORDS SUMMARY | 2025-01-30 15:31 | XMS_ITS | Encounter Summary ---
Author Organization [facility] Healthcare Address [address] [place] [address] Care Team Providers Care Fence Making Machine Operator Name Role Phone Baljit Randall MD Primary Care Provider [phone] Caden Guajardo MD Unavailable [phone] Randall Hartman MD Unavailable Encounter Details Date Type Department Care Team (Late st Contact Info) Description 01/13/2025 Telephone [facility] Medical Group Cardiology [address] [place] [address] Randall Hartman MD [address] [place] [address] Social History Tobacco Use Types [...] 12/12/2022 How often do you attend [facility] or advent services? 1 to 4 times per year [...] place to sleep or slept in a group home (including now)? No 12/12/2022 Personal Safety Answer Date Recorded Have you ever been in or are you currently in a harmful physical or emotional relationship or is someone making you feel afraid or unsafe? Denies 08/28/2024 Sex and Gender Information Value Date Recorded Sex Assigned at Not on file Legal Sex Male 3:19 AM CUSTOMER LOYALTY REPRESENTATIVE Gender Identity Not on file Sexual Orientation Straight 03/23/2019 1: 09 AM CUSTOMER LOYALTY REPRESENTATIVE documented as of this encounter Miscellaneous Notes * Telephone Encounter - Kaley Martin RN - 01/19/2025 4:00 PM CDT Forwarded to WK: Spoke to patient, he is going to go to [place] office for labs either or [place], [place] [...] discuss. Please advise. Thank you. Contact : [phone] documented in this encounter Plan of Treatment Not on file documented as of this encounter Visit Diagnoses Not on filedocumented in this encounter Care Teams Fence Making Machine Operator Relationship Specialty Start Date End Date Baljit Randall MD PCP - General Family Medicine 01/20/21 Caden Guajardo MD [address] [facility] [address] [place] [address] Consulting Physician Cardiology 07/02/24 Randall Hartman MD [address] [place] [address] Consulting Physician Cardiology 12/29/24 documented as of this encounter
--- OUTSIDE RECORDS SUMMARY | 2025-01-30 15:31 | XMS_ITS | Encounter Summary ---
Author Organization [facility] Healthcare Address [address] [place] [address] Care Team Providers Care Ink Maker Name Role Phone Baljit Randall MD Primary Care Provider [phone] Caden Guajardo MD Unavailable Randall Hartman MD Unavailable Encounter Details Date Type Department Care Team (Late st Contact Info) Description 01/30/2025 Telephone [facility] Medical Group Cardiology [address] [facility] [address] [place] [address] Lakeshia Millan, LIVE IN HOUSEKEEPER [address] [facility] [address] [place] [address] Social History Tobacco Use Types [...] week 12/12/2022 How often do you attend [facility] or methodist services? 1 to 4 times per year 12/12/2022 Do you belong to any clubs o r organizations such as anglican groups, unions, fraternal or athletic groups, or [...] place to sleep or slept in a skilled nursing (including now)? No 12/12/2022 Personal Safety Answer Date Recorded Have you ever been in or are you currently in a harmful physical or emotional relationship or is someone making you feel afraid or unsafe? Denies 08/28/2024 Sex and Gender Information Value Date Recorded Sex Assigned at Not on file Legal Sex Male 3:19 AM PATTERNMAKER PLASTER AND PLASTIC Gender Identity Not on file Sexual Orientation Straight 03/23/2019 1: 09 AM PATTERNMAKER PLASTER AND PLASTIC documented as of this encounter Miscellaneous Notes * Telephone Encounter - Hailee Burgess MSW - 01/30/2025 8:35 AM CST AC patient. Patient LVM asking about getting a pacemaker exchange scheduled. Could you please reachout to him? ERNMAKER PLASTER AND PLASTIC documented in this encounter Plan of Treatment Not on file documented as of this encounter Visit Diagnoses Not on filedocumented in this encounter Care Teams Ink Maker Relationship Specialty Start Date End Date Baljit Randall MD PCP - General Family Medicine 01/20/21 Caden Guajardo MD [address] [facility] [address] [place] [address] Consulting Physician Cardiology 07/02/24 Randall Hartman MD [address] [facility] [address] [facility] [address] [facility] [address] [place] [address] Consulting Physician Cardiology 12/29/24 documented as of this encounter
--- OUTSIDE RECORDS SUMMARY | 2025-01-30 15:31 | XMS_ITS | Encounter Summary ---
Author Organization [facility] Healthcare Address [address] [place] [address] Care Team Providers Care Shop Tailor Name Role Phone Baljit Randall MD Primary Care Provider Caden Guajardo MD Unavailable Randall Hartman MD Unavailable Encounter Details Date Type Department Care Team (Late st Contact Info) Description 01/30/2025 Orders Only [facility] Medical Group Cardiology [address] [place] [address] Randall Hartman MD [address] [place], [place] [address] Social History Tobacco Use Types Packs/Day Years [...] How often do you attend [facility] or baptist services? 1 to 4 times per year 12/12/2022 Do you belong to any clubs o r organizations such as adventism groups, unions, fraternal or athletic groups, or [...] on file Legal Sex Male 3:19 AM PROJECT MANAGEMENT ADVISOR Gender Identity Not on file Sexual Orientation Straight 03/23/2019 1: 09 AM PROJECT MANAGEMENT ADVISOR documented as of this encounter Plan of Treatment Not on file documented as of this encounter Procedures Procedure Name Priority Date/Time Associated Diagnosis Comments CARDIOLOGY DOCUMENT SCAN Routine 025 11:22 AM PROJECT MANAGEMENT ADVISOR documented in this encounter Results * Cardiology Document Scan (01/29/2025 11:22 AM PROJECT MANAGEMENT ADVISOR) Anatomical Region Laterality Modality Other us Randall Hartman MD CV CARDIAC SERVICES PROCEDURES F inal Result documented in this encounter Visit Diagnoses Not on filedocumented in this encounter Care Teams Shop Tailor Relationship Specialty Start Date End Date Baljit Randall MD PCP - General Family Medicine 01/20/21 Caden Guajardo MD [address] [facility] [address] [place] [address] Consulting Physician Cardiology 07/02/24 Randall Hartman MD [address] [place] [address] Consulting Physician Cardiology 12/29/24 documented as of this encounter
--- OUTSIDE RECORDS SUMMARY | 2025-01-30 15:31 | XMS_ITS | Encounter Summary ---
Author Organization [facility] Healthcare Address [address] [place] [address] Care Team Providers Care Chargeback Analyst Name Role Phone Baljit Randall MD Primary Care Provider [phone] Caden Guajardo MD Unavailable [phone] Randall Hartman MD Unavailable Encounter Details Date Type Department Care Team (Latest Contact Info) Description 01/23/2025 Results [facility] [address] [facility] [address] [address] Lakeshia Millan, CYBER SOFTWARE ENGINEER [address] [facility] [address] [place] [address] Transthoracic Echo (TTE) Complete W Doppler/CF Social [...] week 12/12/2022 How often do you attend [facility] or anglican services? 1 to 4 times per year 12/12/2022 Do you belong to any clubs o r organizations such as jainism groups, unions, fraternal or athletic groups, or [...] place to sleep or slept in a fpc (including now)? No 12/12/2022 Personal Safety Answer Date Recorded Have you ever been in or are you currently in a harmful physical or emotional relationship or is someone making you feel afraid or unsafe? Denies 08/28/2024 Sex and Gender Information Value Date Recorded Sex Assigned at Not on file Legal Sex Male 3:19 AM TYPING ELEMENT MACHINE OPERATOR Gender Identity Not on file Sexual Orientation Straight 03/23/2019 1: 09 AM TYPING ELEMENT MACHINE OPERATOR documented as of this encounter Plan of Treatment Not on file documented as of this encounter Visit Diagnoses Not on filedocumented in this encounter Care Teams Chargeback Analyst Relationship Specialty Start Date End Date Baljit Randall MD PCP - General Family Medicine 01/20/21 Caden Guajardo MD [address] [facility] [address] [place] [address] Consulting Physician Cardiology 07/02/24 Randall Hartman MD [address] [place] [address] Consulting Physician Cardiology 12/29/24 documented as of this encounter
--- OUTSIDE RECORDS SUMMARY | 2025-01-30 15:31 | XMS_ITS | Encounter Summary ---
Author Organization [facility] Healthcare Address [address] [place] [address] Care Team Providers Care Grease Worker Name Role Phone Baljit Randall MD Primary Care Provider [phone] Caden Guajardo MD Unavailable [phone] Randall Hartman MD Unavailable Encounter Details Date Type Department Care Team (Late st Contact Info) Description 01/19/2025 Telephone [facility] Medical Group Family Medicine at [address] [place] [address] Baljit Randall MD [address] [place] [address] [address] [place] [address] Social History Tobacco Use Types [...] 12/12/2022 How often do you attend [facility] or pentecostal services? 1 to 4 times per year 12/12/2022 Do you belong to any clubs o r organizations such as congregation groups, unions, fraternal or athletic groups, or [...] on file Legal Sex Male 3:19 AM TORCH STRAIGHTENER AND HEATER Gender Identity Not on file Sexual Orientation Straight 03/23/2019 1: 09 AM TORCH STRAIGHTENER AND HEATER documented as of this encounter Miscellaneous Notes [...] on filedocumented in this encounter Care Teams Grease Worker Relationship Specialty Start Date End Date Baljit Randall MD PCP - General Family Medicine 01/20/21 Caden Guajardo MD [address] [facility] [address] [place] [address] Consulting Physician Cardiology 07/02/24 Randall Hartman MD [address] [facility] [address] [facility] [address] [place] [address] Consulting Physician Cardiology 12/29/24 documented as of this encounter
--- OUTSIDE RECORDS SUMMARY | 2025-01-30 15:31 | XMS_ITS | Encounter Summary ---
Author Organization [facility] Healthcare Address [address] [place] [address] Care Team Providers Care Tire Service Technician Name Role Phone Baljit Randall MD Primary Care Provider [phone] Caden Guajardo MD Unavailable [phone] Randall Hartman MD Unavailable Encounter Details Date Type Department Care Team (Late st Contact Info) Description 01/21/2025 Results Follow-Up [facility] Medical Group Family Medicine at [address] [place] [address] Baljit Randall MD [address] [place] [address] [address] [place] [address] Stool DNA - Cologuard Social History Tobacco [...] week 12/12/2022 How often do you attend [facility] or sikhism services? 1 to 4 times per year [...] on file Legal Sex Male 3:19 AM QUALITY MANAGEMENT COORDINATOR Gender Identity Not on file Sexual Orientation Straight 03/23/2019 1: 09 AM QUALITY MANAGEMENT COORDINATOR documented as of this encounter Plan of Treatment Not on file documented as of this encounter Visit Diagnoses Not on filedocumented in this encounter Care Teams Tire Service Technician Relationship Specialty Start Date End Date Baljit Randall MD PCP - General Family Medicine 01/20/21 Caden Guajardo MD [address] [facility] [address] [place] [address] Consulting Physician Cardiology 07/02/24 Randall Hartman MD [address] [place] [address] Consulting Physician Cardiology 12/29/24 documented as of this encounter
[2025-01-30] MEDS: SODIUM CHLORIDE 0.9% IV 250 ML 999 ML (15:35)
--- NOTE | 2025-01-30 16:27 | ED_ITS ---
HPI - General Adult General Chief complaint: Recheck/Abnormal Lab/Rx Stated complaint: vision and hearing problems Time Seen by Provider: 01/30/25 15:07 Source: patient Mode of arrival: ambulatory Limitations: no limitations History of Present Illness HPI narrative: 79-year-old with a history of diabetes, hyperlipidemia status post pacemaker here with complaints of hearing loss in both ears and weakness , pt was discharged from the hospital yesterday for CHF. He denies having any CP . pt states he has been having hearing issues for a while , he states there is fluid in the middle ear ,he was given near nasal spray while he was in the Hospital . He also states his HR is low and is due to change in his pacemaker and is waiting for Cardiology to schedule the procedure.. Onset (ago): day(s) (1) Radiation: non-radiation Severity: moderate Relieving factors: none Exacerbating factors: none Associated symptoms: denies other symptoms and confusion Related Data Home Medications ?Medication ?Instructions ?Recorded ?Confirmed ?Last Taken ?Type aspirin 81 mg tablet,delayed 81 mg PO DAILY 01/08/20 1 03/28/24 01/25/25 History release Allergies Allergy/AdvReac Type Severity Reaction Status Date / Time clindamycin Allergy Unknown unknown Verified 01/26/25 17:55 Review of Systems 2 Review of Systems: All systems reviewed & are unremarkable except as noted in HPI and below Constitutional: Constitutional: Reports no additional constitutional complaints Eyes: Eyes: Reports no additional eye complaints ENT: Reports as per HPI Cardiovascular: Cardiovascular: Reports no additional cardiovascular complaints Respiratory: Respiratory: Reports no additional respiratory complaints Gastrointestinal: Gastrointestinal: Reports no additional gastrointestinal complaints Genitourinary: Genitourinary: Reports no additional male genitourinary complaints Musculoskeletal: Musculoskeletal: Reports no additional musculoskeletal complaints Integumentary/Breasts: Skin/Breast: Reports system reviewed and no additional complaints, except as docu Neurologic: Reports system reviewed and no additional complaints, except as documented [facility]LY [facility] Past Medical History Medical History Constipation Type 2 diabetes mellitus HLD (hyperlipidemia) High-grade atrioventricular block Diabetes Obstipation Weakness of pelvic floor in male Diarrhea Thyroid nodule Hyperthyroidism Low TSH level Diabetic neuropathy Cobalamin deficiency Nocturia Psoriasis NSVT (nonsustained ventricular tachycardia) Bradycardia PVC (premature ventricular contraction) Bigeminy ALEX treated with BiPAP Renal insufficiency Chronic coronary artery disease Dyslipidemia Hypertension Morbid obesity Hypertensive heart disease with CHF Dyslipidemia associated with type 2 diabetes mellitus Ascending aorta dilatation CAD (coronary artery disease) Surgical History Surgical History Hx of myringotomy History of tonsillectomy and adenoidectomy (~1949) History of hemorrhoidectomy (~1969) History of cholecystectomy (~1974) History of cataract surgery History of gastric bypass (~2003) Family History Family History Father Family history of cardiovascular disease Diabetes mellitus Hypertension Mother Family history of kidney disease Diabetes mellitus Breast cancer Sibling Family history of glaucoma Grandparent Diabetes mellitus Sibling Thyroid cancer Social History Social History Smoking packs per day: 1 Smoking cigarettes per day: 20.0 Years smoked: 20 Smoking pack-years: 20.00 Alcohol intake: never Alcohol use details: rarely Substance use: never Substance use type: marijuana Do You Feel Safe in your Home?: Yes Lack of Transportation: No Lack of Food: Never True Current Housing: I Have Housing Concerned About Future Housing: No Difficulty Paying Gas/Electric Bills: No Difficulty Paying for Meds: No Currently Unemployed: No Education: Bachelor's Degree Difficulty w/ Childcare or Family Care: No Living arrangements: with family Spiritual care concerns: No Exam 2 Narrative: GENERAL: Well-appearing, well-nourished, and in no acute distress. HEAD: Normocephalic, atraumatic. EYES: PERRLA and EOMI. ENT: Nares clear, no rhinorrhea or epistaxis. Mucous membranes moist. NECK: Supple. CHEST: Clear to auscultation. No respiratory distress. HEART: Regular rate and rhythm. No murmur heard. Normal peripheral pulses. ABDOMEN: Soft, nontender, nondistended, normal active bowel sounds. EXTREMITIES: Normal range of motion. No edema. SKIN: Warm, dry, no rash. NEURO: No focal deficits. Alert and oriented x3. PSYCH: Normal mood and affect. Course Course Emergency Course: Patient remained hypertensive while he was here in the ER. He a he states for the last few months his diastolic is between 45 and 55. Informed him and his about his lab work, EKG findings. He does feel comfortable going home. Medical Decision Making MDM Narrative Medical decision making narrative: 79-year-old with a history of CHF on Entresto here with the complaints of bilateral hearing loss which is better by the time he got to the ER. Denied having any chest pain his physical exam is unremarkable. Do EKG and lab work his blood pressure is 80/40 will bolus him with 250 mL of fluids . Differential Diagnosis Differential Diagnosis: hypotension , sepsis , cardiogenic shock Medical Records Medical records reviewed: Yes I reviewed the external patient's medical records. Lab Data Lab results reviewed: Yes I reviewed the patient's lab results. 01/30/25 15:01 01/30/25 15:02 Labs: Lab Results 01/30/25 01/30/25 01/30/25 Range/Units 15:01 15:02 15:04 WBC 6.8 (4.5-10.0) K/mm3 RBC 3.96 L (4.6-6.20) M/mm3 Hgb 11.7 L (14.0-18.0) g/dL Hct 36.7 L (42.0-52.0) % MCV 92.7 (80-100) fl MCH 29.5 (26-34) pg MCHC 31.9 L (32-36) g/dl RDW 15.4 H (11.5-14.5) % Plt Count 205 (150-375) k/mm3 MPV 11.9 H (7.4-10.4) fl Immature Gran % (Auto) 0.3 (0-0.5) % Neut % (Auto) 64.6 (45.5-73.1) % Lymph % (Auto) 16.8 L (18.3-44.2) % Sargent % (Auto) 11.1 H (2.6-8.5) % Eos % (Auto) 6.3 H (0-4.4) % Baso % (Auto) 0.9 (0.2-1.2) % Lymph # (Auto) 1.14 (0.9-3.2) K/mm3 Sargent # (Auto) 0.8 H (0.1-0.6) K/mm3 Eos # (Auto) 0.4 H (0-0.3) K/mm3 Baso # (Auto) 0.1 (0.0-0.1) K/mm3 Abs Immat Gran (auto) 0.02 (0.00-0.031) K/mm3 Absolute Neuts (auto) 4.4 (1.3-6.7) K/mm3 Absolute Nucleated RBC 0.000 (0.0-0.012) K/mm3 Nucleated RBC % 0.0 (0.0-0.2) % Sodium 135 L (137-145) mmol/L Potassium 3.8 (3.4-5.0) mmol/L Chloride 94 L (98-107) mmol/L Carbon Dioxide 31 H (22-30) mmol/L Anion Gap 10 (4-12) mmol/L BUN 58 H D (9-20) mg/dL Creatinine 1.92 H (0.7-1.3) mg/dL Estim Creat Clear Calc 28 ml/min Estimated GFR 34 L (59 - ) Glucose 71 (65-110) mg/dL Lactic Acid 1.5 (0.7-2.0) mmol/L Calcium 8.8 (8.4-10.2) mg/dL Total Bilirubin 0.8 (0.2-1.3) mg/dL AST 52 (17-59) U/L ALT 25 (6-50) U/L Alkaline Phosphatase 87 (38-126) U/L Total Protein 7.9 (6.3-8.2) g/dL Albumin 4.1 (3.5-5.1) g/dL Imaging Data Radiologist's impression: ITS Impressions Chest X-Ray 01/30/25 15:25 IMPRESSION: 1. Improved aeration lung malik with small persistent infiltrates in the lung bases. ECG Data EKG #1: ECG completion date: 01/30/25 ECG completion time: 14:57 EKG Interpretation: normal rate (73) and no acute changes Pacemaker function: normal pacer function Discharge Plan Discharge Clinical Impression: Chronic diastolic CHF (congestive heart failure) Patient Disposition: Home Condition: Stable Instructions: Heart Failure (DC) Additional Instructions: continue home medications, follow with your doctor Patient Language: Divehi Prescriptions: No Action aspirin 81 mg tablet,delayed release (DR/EC) 81 mg PO DAILY metoprolol succinate 25 mg tablet extended release 24 hr 25 mg PO DAILY Qty: 30 0RF furosemide 40 mg tablet 40 mg PO BID Qty: 180 3RF multivitamin Tablet 1 tablet PO DAILY 30 Days Qty: 0 0RF Galzin 50 mg (zinc) capsule 50 mg PO DAILY 30 Days Qty: 0 0RF atorvastatin 10 mg tablet 10 mg PO QHS 30 Days Qty: 0 0RF cyanocobalamin (vitamin B-12) 1,000 mcg tablet 2,000 mcg PO DAILY 30 Days Qty: 0 0RF tramadol 50 mg tablet 50 mg PO BID PRN (Reason: pain) 5 Days Qty: 0 0RF Rx Instructions: ALTERNATES DAILY WITH DICLOFENAC PO FOR PAIN methimazole 5 mg tablet 5 mg PO 5XW 30 Days Qty: 0 0RF docusate sodium [Colace] 100 mg capsule 400 mg PO Q48H 30 Days Qty: 0 0RF ipratropium bromide 42 mcg (0.06 %) spray,non-aerosol 2 spray INTRANASAL TID 30 Days Qty: 0 0RF magnesium 200 mg tablet 200 mg PO Q6H 30 Days Qty: 0 0RF Folbic 2.5-25-2 mg tablet 1 tablet PO DAILY 30 Days Qty: 0 0RF levocetirizine 5 mg tablet 5 mg PO DAILY 30 Days Qty: 0 0RF dapagliflozin propanediol 10 mg Tablet 10 mg PO DAILY 30 Days Qty: 0 0RF rivaroxaban [Xarelto] 2.5 mg Tablet 2.5 mg PO BID 30 Days Qty: 0 0RF sacubitril-valsartan [Entresto] 24-26 mg tablet 0.5 tablet PO BID 30 Days Qty: 0 0RF prucalopride [Motegrity] 2 mg tablet 2 mg PO DAILY 30 Days Qty: 90 3RF Ozempic 0.25 mg or 0.5 mg (2 mg/3 mL) pen injector 0.5 mg subcut WEEKLY 30 Days Qty: 0 0RF Follow-up/Referrals: Prakash,Baljit Collins MD [Primary Care Provider, Unknown] Time of Disposition: 16:48
== END 2025-01-30 17:31 | disposition home or self-care (01) ==
PROVIDERS: Emergency Provider Family Medicine; PCP Family Medicine
DX: I11.0 Hypertensive heart disease with heart failure (principal); I50.32 Chronic diastolic (congestive) heart failure; I25.10 Atherosclerotic heart disease of native coronary artery without angina pectoris; E11.40 Type 2 diabetes mellitus with diabetic neuropathy, unspecified; E11.69 Type 2 diabetes mellitus with other specified complication; E78.5 Hyperlipidemia, unspecified; E05.90 Thyrotoxicosis, unspecified without thyrotoxic crisis or storm; G47.33 Obstructive sleep apnea (adult) (pediatric); L40.9 Psoriasis, unspecified; N28.9 Disorder of kidney and ureter, unspecified; F17.210 Nicotine dependence, cigarettes, uncomplicated; Z98.84 Bariatric surgery status; Z95.0 Presence of cardiac pacemaker; Z90.49 Acquired absence of other specified parts of digestive tract; Z98.49 Cataract extraction status, unspecified eye; Z79.82 Long term (current) use of aspirin; Z79.899 Other long term (current) drug therapy; Z79.01 Long term (current) use of anticoagulants; Z79.85 Long-term (current) use of injectable non-insulin antidiabetic drugs
CPT/HCPCS: 36415; 71046; 80053; 83605; 85025; 93005; 99283; J7050